=== PATIENT | male | born 1935 | race African-American/Black ===

== ENCOUNTER 2016-03-05 12:14 | Inpatient (IN) | payer MEDICARE ==
[~2016-03-05] VITALS: Ht 177.8 cm; Wt 121.9 kg
[2016-03-05] VITALS (16 sets, daily range): BP systolic 111–145; BP diastolic 56–77; PULSE 60–86; RESP 18–22; TEMP 97.9–99; O2SAT 97–100
[~2016-03-05 12:14] MED LIST: AMIT25 PO; BUME1TAB PO; CARV12.5 PO; DOXA1 PO; EMPA1TAB; ERGO50000 PO; FERR324T4 PO; GLIM2TAB PO; LEVO150T7 PO; MELO15TA2 PO; OXYC1SOL5 PO; POTA-267 PO; PROT40TA PO; QUIN40TA10 PO; RANI150T PO; ROSU10 PO; SITA100T MT; SPIR25TA PO
--- NOTE | 2016-03-05 13:29 | PD ---
HPI Chief Complaint: Respiratory Distress Time Seen by Provider: 13:23 Travel History International Travel<30 days: No Contact w/Intl Traveler<30days: No Traveled to known affect area: No History of Present Illness HPI 80-year-old male came to the emergency room with history of exertional dyspnea. Patient says that symptoms are progressively worsening over past 2 months. Exertional dyspnea and EVEN getting up and trying to tie his shoes or taking few steps. There has been significant swelling of both his legs and ankles. He has history of coronary artery disease with stents put in 7 or 8 years ago. His behavior clinician currently is Dr. Silverman. No history of chest pain. Vital signs were stable in the emergency room. His family members are here with him and they said that his one month ago and his condition seems to have worsened since then. [facility] Past Medical History Narrative Medical List of his past medical history as reviewed from the nursing note. Arthritis: Yes Asthma: No Autoimmune Disease: No Blood Disorders: No Anxiety: Yes Depression: No Heart Rhythm Problems: No Cancer: Yes (PROSTATE) Cardiovascular Problems: Yes High Cholesterol: Yes Chemotherapy: No Chest Pain: No Congestive Heart Failure: No COPD: No Cerebrovascular Accident: No Diabetes: Yes Patient Takes Glucophage: Yes Endocrine: Yes Gastrointestinal Disorders: Yes GERD: Yes Glaucoma: No Genitourinary: Yes Headaches: No Hepatitis: No Hiatal Hernia: Yes (GERD) Hypertension: Yes Immune Disorder: No Implanted Vascular Access Dvce: Yes Kidney Stones: No Medical other: Yes (ANEMIA) Musculoskeletal: Yes (ANANTH. CTS) Neurologic: Yes Psychiatric: Yes Reproductive: No Respiratory: Yes Immunizations Current: Yes Myocardial Infarction: No Radiation Therapy: No Renal Failure: No Seizures: No Sickle Cell Disease: No Sleep Apnea: Yes (CPAP) Thyroid Disease: Yes Ulcer: No Tetanus Vaccination: > 5 Years Influenza Vaccination: No Past Surgical History Abdominal Surgery: Yes (APPENDECTOMY) AICD: No Appendectomy: Yes Body Medical Devices: CARDIAC STENTS Cardiac Surgery: Yes (cardiac stent placement) Coronary Stent: Yes (X2) Ear Surgery: No Endocrine Surgery: Yes (SUBTOTAL THYROIDECTOMY) Eye Surgery: No Genitourinary Surgery: Yes (prostatectomy, ESWL) Gynecologic Surgery: Yes Oral Surgery: No Pacemaker: No Thoracic Surgery: No Other Surgery: Yes (THYROIDECTOMY 09/01/10) Social History Alcohol Use: Yes (2 DRINKS/WEEK) Tobacco Use: No Substance Use: No Allergies-Medications (Allergen,Severity, Reaction): Coded Allergies: Oscal 500 (Verified Allergy, Severe, 03/05/16) rash Shellfish (Verified Allergy, Severe, 03/05/16) rash Tetanus Toxoid (Verified Allergy, Severe, 03/05/16) rash Comments List of his allergies reviewed from the nursing note. Reported Meds & Prescriptions Reported Meds & Active Scripts Active Reported Janumet (Sitagliptin-Metformin) 50-500 Mg Tab 100 Tab PO HS Jardiance (Empagliflozin) 10 Mg Tab 10 Mg PO DAILY Amitriptyline (Amitriptyline HCl) 25 Mg Tab 25 Mg PO HS Gabapentin 300 Mg Cap 300 Mg PO HS Rosuvastatin (Rosuvastatin Calcium) 20 Mg Tab 20 Mg PO DAILY Omeprazole 20 Mg Tab 20 Mg PO DAILY Spironolactone 25 Mg Tab 25 Mg PO BIDPC Tradjenta (Linagliptin) 5 Mg Tab 5 Mg PO DAILY Celecoxib 200 Mg Cap 200 Mg PO BID Vitamin D (Ergocalciferol) 50,000 Unit Cap 50,000 Units PO Q7D Bumetanide 1 Mg Tab 1 Mg PO DAILY Ranitidine (Ranitidine HCl) 150 Mg Tab 150 Mg PO HS Lortab (Hydrocodone-Acetaminophen) 5-325 Mg Tab 1 Tab PO Q4H PRN Levothyroxine (Levothyroxine Sodium) 150 Mcg Tab 150 Mcg PO DAILY Ferrous Sulfate 325 Mg Tab 65 Mg PO DAILY Potassium Chloride ER (Potassium Chloride) 10 Meq Tab 10 Meq PO DAILY Furosemide 40 Mg Tab 40 Mg PO DAILY Carvedilol 25 Mg Tab 25 Mg PO BID Doxazosin (Doxazosin Mesylate) 1 Mg Tab 1 Mg PO HS Glimepiride 4 Mg Tab 4 Mg PO BIDAC Quinapril (Quinapril HCl) 40 Mg Tab 40 Mg PO DAILY Narrative Medication List of his home medications reviewed from the nursing note. Review of Systems Except as stated in HPI: all other systems reviewed are Neg Physical Exam Narrative GENERAL: Awake, alert, morbidly obese, moderate distress SKIN: Warm and dry. Multiple Acanthotic nevi HEAD: Atraumatic. Normocephalic. EYES: Pupils equal and round. No scleral icterus. No injection or drainage. ENT: No nasal bleeding or discharge. Mucous membranes pink and moist. NECK: Trachea midline. No JVD. CARDIOVASCULAR: Regular rate and rhythm. No murmur appreciated. RESPIRATORY: No accessory muscle use. Clear to auscultation. Breath sounds equal bilaterally. GASTROINTESTINAL: Abdomen soft, non-tender, nondistended. Hepatic and splenic margins not palpable. MUSCULOSKELETAL: No obvious deformities. No clubbing. No cyanosis. Bilateral 3 + pedal edema. NEUROLOGICAL: Awake and alert. No obvious cranial nerve deficits. Motor grossly within normal limits. Normal speech. PSYCHIATRIC: Appropriate mood and affect; insight and judgment normal. Data Data Last Documented VS Vital Signs Date Time Temp Pulse Resp B/P Pulse Ox O2 Delivery O2 Flow Rate FiO2 03/05/16 14:05 95 Room Air 03/05/16 14:05 20 03/05/16 12:43 85 03/05/16 12:36 98.1 123/57 Orders Electrocardiogram (03/05/16 ) Complete Blood Count With Diff (03/05/16 13:40) Basic Metabolic Panel (Bmp) (03/05/16 13:40) B-Type Natriuretic Peptide (03/05/16 13:40) Prothrombin Time / Inr (Pt) (03/05/16 13:40) Magnesium (Mg) (03/05/16 13:40) Ckmb (Isoenzyme) Profile (03/05/16 13:40) Troponin I (03/05/16 13:40) Urinalysis - C+S If Indicated (03/05/16 13:40) Iv Access Insert/Monitor (03/05/16 13:40) Ecg Monitoring (03/05/16 13:40) Oximetry (03/05/16 13:40) Oxygen Administration (03/05/16 13:40) Chest, Single Ap (03/05/16 13:40) Sodium Chloride 0.9% Flush (Ns Flush) (03/05/16 13:45) Furosemide Inj (Lasix Inj) (03/05/16 13:45) Red Blood Cells (Rbc) (03/05/16 14:25) Blood Product Administration .UPON TRANSFUSION (03/05/16 14:25) Sodium Chlor 0.9% 250 Ml Inj (Ns 250 Ml (03/05/16 14:30) Type And Screen (03/05/16 14:25) Admit Order (Ed Use Only) (03/05/16 14:50) Labs Laboratory Tests Test 03/05/16 03/05/16 13:45 14:00 White Blood Count 10.3 TH/MM3 Red Blood Count 2.01 MIL/MM3 Hemoglobin 5.0 GM/DL Hematocrit 17.2 % Mean Corpuscular Volume 85.8 FL Mean Corpuscular Hemoglobin 24.8 PG Mean Corpuscular Hemoglobin 28.9 % Concent Red Cell Distribution Width 17.2 % Platelet Count 322 TH/MM3 Mean Platelet Volume 8.5 FL Neutrophils (%) (Auto) 85.4 % Lymphocytes (%) (Auto) 6.0 % Monocytes (%) (Auto) 8.0 % Eosinophils (%) (Auto) 0.3 % Basophils (%) (Auto) 0.3 % Neutrophils # (Auto) 8.8 TH/MM3 Lymphocytes # (Auto) 0.6 TH/MM3 Monocytes # (Auto) 0.8 TH/MM3 Eosinophils # (Auto) 0.0 TH/MM3 Basophils # (Auto) 0.0 TH/MM3 CBC Comment AUTO DIFF Differential Comment AUTO DIFF CONFIRMED Platelet Estimate NORMAL Platelet Morphology Comment NORMAL Prothrombin Time 11.4 SEC Prothromb Time International 1.0 RATIO Ratio Sodium Level 138 MEQ/L Potassium Level 5.0 MEQ/L Chloride Level 104 MEQ/L Carbon Dioxide Level 17.3 MEQ/L Anion Gap 17 MEQ/L Blood Urea Nitrogen 44 MG/DL Creatinine 2.59 MG/DL Estimat Glomerular Filtration 29 ML/MIN Rate Random Glucose 146 MG/DL Calcium Level 10.4 MG/DL Magnesium Level 2.2 MG/DL Total Creatine Kinase 87 U/L Troponin I 0.29 NG/ML B-Type Natriuretic Peptide 352 PG/ML Urine Color STRAW Urine Turbidity CLEAR Urine pH 5.0 Urine Specific [place] 1.006 Urine Protein NEG mg/dL Urine Glucose (UA) 300 mg/dL Urine Ketones NEG mg/dL Urine Occult Blood NEG Urine Nitrite NEG Urine Bilirubin NEG Urine Urobilinogen LESS THAN 2.0 MG/DL Urine Leukocyte Esterase NEG Urine WBC LESS THAN 1 /hpf Urine Squamous Epithelial <1 /hpf Cells Urine Mucus FEW /lpf Microscopic Urinalysis Comment CULT NOT INDICATED MDM Medical Decision Making Medical Screen Exam Complete: Yes Emergency Medical Condition: Yes Medical Record Reviewed: Yes Interpretation(s) Twelve-lead EKG was reviewed by me. Normal sinus rhythm, left axis deviation, right bundle branch block. Heart rate of 82 bpm. Differential Diagnosis Congestive heart failure, pneumonia, pleural effusion, pulmonary edema Narrative Course 1:56 PM awaiting for the blood test results and the chest x-ray. I've ordered 40 mg of IV Lasix. My suspicion is that patient is in congestive heart failure. 2:32 PM some of his blood test results are back and his hemoglobin and hematocrit is critically low. I just finished doing the stool Hemoccult. I've protocol out for GI and hospitalist for admission. I have put an order for 2 units of blood transfusion as well. I let the patient and family know about the test result, transfusion and the admission. Patient told me that 3-4 years ago he had something similar happen and they investigated extensively to find the cause of his anemia and could not find one. I just discussed the case with the GI specialist Dr. Fernández and as per him no need to give any protonic said any other medications till he has seen the patient. Awaiting for the hospitalist to call back for admission. 2:45 PM patient's chemistry came back and his troponin is elevated. Patient also has elevated creatinine and some metabolic acidosis. Compared to his past blood test result his renal function has been the worst today. He had an elevated troponin last year as well. Patient does have history of coronary artery disease and the severe anemia is probably causing him to have the acute coronary syndrome. He is not a candidate for heparin given his GI bleed. He will need to be admitted to the CICU at least. Awaiting for the admitting physician to call back. He would require cardiology consult. Critical Care Narrative Aggregate critical care time was 45 minutes. Time to perform other separately billable procedures was not included in the critical care time. My time did not include minutes spent treating any other patients simultaneously or on activities that did not directly contribute to the patient's treatment. The services I provided to this patient were to treat and/or prevent clinically significant deterioration that could result in: Symptomatic anemia, blood transfusion, elevated troponin, ACS, acute renal insufficiency I provided critical care services requiring my management, as noted below: Chart data review, documentation time, medication orders and management, vital sign assessments/reviewing monitor data, ordering and reviewing lab tests, ordering and interpreting/reviewing x-rays and diagnostic studies, care of the patient and discussion of the patient with the admitting physicians. Procedures EKG Prior to Arrival: Yes HemaPrompt Point of Care Internal Pos. & Neg. Controls: Passed Fecal Specimen Occult Blood: Positive Physician Communication Physician Communication Dr. Fernández Diagnosis Primary Impression: Symptomatic anemia Additional Impressions: GI bleed Qualified Code: K92.2 - Gastrointestinal hemorrhage, unspecified gastrointestinal hemorrhage type Exertional dyspnea ACS (acute coronary syndrome) Elevated troponin I level Acute renal insufficiency Admitting Information Admitting Physician Requests: Admit Dwayne Tobar MD Mar 05, 2016 13:29
[2016-03-05 13:41] LABS: MEAN CORPUSCULAR HGB CONC 28.9 % (32.0-36.0)
[2016-03-05] MEDS ORDERED: FUROSEMIDE 40 MG/4 ML VIAL IVP ONE (13:45)
[2016-03-05] MEDS ORDERED: SODIUM CHLORIDE 0.9% FLUSH 5 ML FLUSH IVF PRN (13:45)
[2016-03-05 14:16] LABS: AUTOMATED NEUTROPHIL # 8.8 TH/MM3 (1.8-7.7); BASOPHIL % 0.3 % (0.0-2.0); EOSINOPHIL % 0.3 % (0.0-4.0); LYMPHOCYTE # 0.6 TH/MM3 (1.0-4.8); MEAN CELL VOLUME 85.8 FL (80.0-100.0); MEAN CORPUSCULAR HEMOGLOBIN 24.8 PG (27.0-34.0); NEUT % 85.4 % (16.0-70.0); PLATELET COUNT 322 TH/MM3 (150-450); RED BLOOD COUNT 2.01 MIL/MM3 (4.50-5.90); RED CELL DISTRIBUTION WIDTH 17.2 % (11.6-17.2); WHITE BLOOD COUNT 10.3 TH/MM3 (4.0-11.0)
[2016-03-05 14:17] LABS: HEMO FLAGS AUTO DIFF
[2016-03-05 14:22] LABS: HEMATOCRIT 17.2 % (39.0-51.0)
[2016-03-05 14:23] LABS: PROTHROMBIN TIME - PATIENT 11.4 SEC (9.8-11.6)
[2016-03-05 14:23] LABS: BLOOD, URINE NEG (NEG); COMMENT (UR) CULT NOT INDICATED; CULTURE IF INDICATED CULT NOT INDICATED; GLUCOSE,URINE 300 mg/dL (NEG); KETONE, URINE NEG (NEG); MUCUS URINE FEW /lpf (OCC); NITRITE,URINE NEG (NEG); SQUAMOUS EPITHELIAL CELL URINE <1 /hpf (0-5)
--- NOTE | 2016-03-05 14:24 | RADRPT ---
EXAM DATE/TIME: 03/05/2016 14:10 [facility] COMPARISON: CHEST SINGLE AP, September 07, 2014, 15:28. INDICATIONS : Short of breath. MEDICAL HISTORY : Hypertension. Carcinoma, prostatic. Diabetes. Anemia. SURGICAL HISTORY : None. ENCOUNTER: Initial ACUITY: 2 weeks PAIN SCORE: 0/10 LOCATION: chest FINDINGS: There is cardiomegaly and stable right paratracheal soft tissue density unchanged. Lungs are clear. O sseous structures demonstrate degenerative changes. CONCLUSION: No significant change has occurred. Alberto Marquez MD on March 05, 2016 at 14:22 Board Certified Radiologist. This report was verified electronically.
[2016-03-05 14:29] LABS: URINE COLOR STRAW (YELLW/STRAW)
[2016-03-05] MEDS ORDERED: SODIUM CHLOR 0.9% 250 ML INJ 250 ML IV ONE (14:30)
[2016-03-05] MEDS ORDERED: DOXA1TAB36 PO (14:40)
[2016-03-05] MEDS ORDERED: SPIR25TA PO (14:40)
[2016-03-05] MEDS ORDERED: POTA10TA2 PO (14:40)
[2016-03-05] MEDS ORDERED: BUME1TAB PO (14:40)
[2016-03-05] MEDS ORDERED: GLIM4TAB PO (14:40)
[2016-03-05] MEDS ORDERED: FURO40TA PO (14:40)
[2016-03-05] MEDS ORDERED: FERR325T PO (14:40)
[2016-03-05] MEDS ORDERED: LEVO150T7 PO (14:40)
[2016-03-05] MEDS ORDERED: CELE1CAP8 PO (14:40)
[2016-03-05] MEDS ORDERED: TRAD5TAB PO (14:40)
[2016-03-05] MEDS ORDERED: CARV25TA PO (14:40)
[2016-03-05] MEDS ORDERED: RANI150T PO (14:40)
[2016-03-05] MEDS ORDERED: ERGO1CAP10 PO (14:40)
[2016-03-05] MEDS ORDERED: QUIN40TA2 PO (14:40)
[2016-03-05] MEDS ORDERED: GABA300C5 PO (14:40)
[2016-03-05] MEDS ORDERED: HYDR-3533 PO (14:40)
[2016-03-05] MEDS ORDERED: ROSU1TAB8 PO (14:40)
[2016-03-05] MEDS ORDERED: OMEP20TA PO (14:40)
[2016-03-05] MEDS ORDERED: AMIT25TA9 PO (14:40)
[2016-03-05 14:41] LABS: BICARBONATE 17.3 MEQ/L (21.0-32.0); MAGNESIUM 2.2 MG/DL (1.5-2.5)
[2016-03-05] MEDS ORDERED: EMPA1TAB PO (14:41)
[2016-03-05] MEDS ORDERED: JANU50TA4 PO (14:41)
[2016-03-05 15:11] LABS: PLATELET ESTIMATE SMEAR NORMAL (NORMAL); PLATELET MORPHOLOGY NORMAL (NORMAL); SCAN/DIFF AUTO DIFF CONFIRMED
[2016-03-05] MEDS ORDERED: SODIUM CHLORIDE 0.9% FLUSH 5 ML FLUSH FLUSH PRN (16:00)
[2016-03-05] MEDS ORDERED: NALOXONE HCL 0.4 MG/ML AMP IV PRN (16:00)
[2016-03-05] MEDS ORDERED: DEXTROSE 50% IN WATER 50 ML VIAL(D50) IV PUSH PRN (16:15)
[2016-03-05] MEDS ORDERED: GLUCAGON 1 MG/ML VIAL OTHER PRN (16:15)
[2016-03-05] MEDS ORDERED: ZOLPIDEM TARTRATE 5 MG TAB PO PRN (17:00)
[2016-03-05] MEDS ORDERED: SENNOSIDES 8.6 MG TAB PO PRN (17:00)
[2016-03-05] MEDS: DEXT 5%-NACL 0.9% 1000 ML INJ 1,000 ML IV SCH (17:00)
[2016-03-05] MEDS ORDERED: BISACODYL 10 MG SUPP PR PRN (17:00)
[2016-03-05] MEDS ORDERED: cloNIDine HCL 0.1 MG TAB PO PRN (17:00)
[2016-03-05] MEDS ORDERED: hydrALAZINE HCL 20 MG/ML VIAL IV PUSH PRN (17:00)
[2016-03-05] MEDS ORDERED: MAGNESIUM HYDROXIDE SUSP 30 ML CUP PO PRN (17:00)
[2016-03-05] MEDS ORDERED: LORazepam 0.5 MG TAB PO PRN (17:00)
[2016-03-05] MEDS ORDERED: ONDANSETRON HCL 4 MG/2 ML VIAL IVP PRN (17:00)
[2016-03-05] MEDS ORDERED: ACETAMINOPHEN 325 MG TAB PO PRN (17:00)
--- NOTE | 2016-03-05 17:32 | RADRPT ---
EXAM DATE/TIME: 03/05/2016 16:43 [facility] COMPARISON: Report only US KIDNEY/RENAL/BLADDER, September 26, 2010, 21:18. INDICATIONS : Increased Bun and Creatine. MEDICAL HISTORY : Hypertension. Carcinoma, prostate. Gastroesophageal reflux disease. High cholesterol. Anemia. SURGICAL HISTORY : Appendectomy. Thyroidectomy. Cardiac stent. Prostatectomy. ENCOUNTER: Initial ACUITY: 1 day PAIN SCORE: 7/10 LOCATION: Bilateral flank MEASUREMENTS: RIGHT KIDNEY: 13.4 x 5.8 x 5.5 cm LEFT KIDNEY: 9.7 x 6.4 x 6.2 cm FINDINGS: Bilateral parenchyma is diffusely echogenic. There are multiple cysts, 5.5 cm right lower pole, 6.3 c m right lower pole, 3.8 cm left upper pole and 4.9 cm left lower pole. No hydronephrosis seen. Urinary bladder nondistended and grossly unremarkable. CONCLUSION: 1. Both kidneys are echogenic typical of chronic parenchymal disease, nonspecific but for example rel ated to chronic hypertension or diabetes. 2. No obstructive uropathy or other acute abnormality demonstrated. 3. Bilateral benign-appearing cysts. 4. Urinary bladder within normal limits. Rick Cote MD on March 05, 2016 at 17:28 Board Certified Radiologist. This report was verified electronically.
[2016-03-05] MEDS: SODIUM CHLORIDE 0.9% FLUSH 5 ML FLUSH FLUSH SCH (20:54)
[2016-03-05] MEDS: INSULIN ASPART SUPPLEMENTAL SCALE SQ SCH (20:58)
[2016-03-05] MEDS: PANTOPRAZOLE SODIUM 40 MG VIAL IV PUSH SCH (21:00)
[2016-03-05] MEDS: CARVEDILOL 12.5 MG TAB PO SCH (21:00)
[2016-03-06] VITALS (24 sets, daily range): BP systolic 104–147; BP diastolic 58–90; PULSE 52–76; RESP 18–20; TEMP 98–99; O2SAT 98–100
[2016-03-06] MEDS: LEVOTHYROXINE SODIUM 150 MCG TAB PO SCH (06:13)
[2016-03-06] MEDS: FUROSEMIDE 40 MG/4 ML VIAL IV PUSH SCH ×2 (06:14→16:55)
[2016-03-06] MEDS: INSULIN ASPART SUPPLEMENTAL SCALE SQ SCH ×4 (06:15→21:00)
--- NOTE | 2016-03-06 07:19 | HHI.HP ---
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 NEW TO MY PRACTICE OF LAST WEEK. I KNOW HIS DGTR IN LAW AND SHE BROUGHT HIM INTO MY OFFICE LAST WEEK WITH NUMEROUS ISSUES. HIS ONE MONTH AGO AND HE HAS BEEN GRIEVING. C/O FLUID OVERLOAD, SEVERE EDEMA, VARIABLE SUGARS AND WANTED TO COME OFF OF HIS NUMEROUS MEDICATIONS. HIS MAIN COMPLAINT WAS CHRONIC SEVERE EDEMA AND ROSS AND SOB. HE THUS PRESENTED TO THE ER WITH SEVERE ROSS AND SOB. I WAS CALLED BY THE ER MD FOR ADMIT DUE TO BLOOD LOSS ANEMIA, LEXI, AND ACS. PT C/O WEAKNESS AND ROSS WITH EXCESS URINATION W IV LASIX. Review of Systems ROS Limitations: Clinical Condition, Altered Mental Status, Poor Historian Other -14 PT ROS EXCEPT IN HPI. Past Family Social History Allergies: Coded Allergies: Oscal 500 (Verified Allergy, Severe, 03/05/16) rash Shellfish (Verified Allergy, Severe, 03/05/16) rash Tetanus Toxoid (Verified Allergy, Severe, 03/05/16) rash Past Medical History DM' HTN UTI'S Past Surgical History CIRCUMC Reported Medications Current Medications Medications (Trade) Dose Ordered Sig/Domitila Route Start Time Stop Time Status Last Admin (Coreg) 25 mg BID PO 03/05/16 21:00 03/05/16 21:00 ([place] 5-325 Mg) 1 tab Q4H PRN PO 03/05/16 17:00 (Synthroid) 150 mcg DAILY@06 PO 03/06/16 06:00 03/06/16 06:13 (Lipitor) 40 mg DAILY PO 03/06/16 09:00 (NS Flush) 2 ml UNSCH PRN FLUSH 03/05/16 16:00 (NS Flush) 2 ml BID FLUSH 03/05/16 21:00 03/05/16 20:54 (Tylenol) 650 mg Q4H PRN PO 03/05/16 17:00 (Zofran Inj) 4 mg Q6H PRN IVP 03/05/16 17:00 (Dulcolax Supp) 10 mg DAILY PRN [place] 03/05/16 17:00 (Milk Of Magnesia Liq) 30 ml Q12H PRN PO 03/05/16 17:00 (Senokot) 17.2 mg Q12H PRN PO 03/05/16 17:00 (Ambien) 5 mg HS PRN PO 03/05/16 17:00 (Narcan Inj) 0.4 mg UNSCH PRN IV 03/05/16 16:00 (Ativan) 0.5 mg Q8H PRN PO 03/05/16 17:00 (Apresoline Inj) 20 mg Q4H PRN IV PUSH 03/05/16 17:00 Clonidine 0.1 mg 0.1 mg Q6H PRN PO 03/05/16 17:00 (D5W-NS 1000 ml Inj) 1,000 ml @ 20 mls/hr Q24H IV 03/05/16 17:00 03/05/16 17:00 (Lasix Inj) 40 mg DAILY@0600 IV PUSH 03/06/16 06:00 03/06/16 06:14 (Protonix Inj) 40 mg BID IV PUSH 03/05/16 21:00 03/05/16 21:00 (D50w (Vial) Inj) 25 ml UNSCH PRN IV PUSH 03/05/16 16:15 (Glucagon Inj) 1 mg UNSCH PRN OTHER 03/05/16 16:15 Family History HTN Social History , OCCAS ETOH, NO ILIICITS OR CIGS Physical Exam Vital Signs Vital Signs Date Time Temp Pulse Resp B/P Pulse Ox O2 Delivery O2 Flow Rate FiO2 03/06/16 06:00 76 03/06/16 05:00 61 03/06/16 04:00 55 03/06/16 04:00 98.5 56 20 124/66 100 03/06/16 03:00 56 03/06/16 02:00 55 03/06/16 01:00 54 03/06/16 00:00 99.0 59 20 113/60 100 03/06/16 00:00 55 03/05/16 23:15 99 21 03/05/16 23:00 60 03/05/16 22:15 99.0 64 21 139/77 100 03/05/16 22:10 74 03/05/16 21:01 98.7 74 18 112/64 99 Room Air 03/05/16 20:51 98.7 76 18 113/60 99 Room Air 03/05/16 20:21 74 18 125/58 99 Room Air 03/05/16 19:30 98 03/05/16 19:00 68 18 111/64 99 Room Air 03/05/16 18:55 98.6 80 18 125/70 97 Room Air 03/05/16 18:10 98.8 83 20 122/67 98 Room Air 03/05/16 17:12 83 22 145/65 98 Room Air 03/05/16 16:00 83 20 127/59 100 Room Air 03/05/16 14:05 95 Room Air 03/05/16 14:05 20 98 Room Air 03/05/16 12:43 85 20 100 Room Air 03/05/16 12:36 98.1 80 22 123/57 100 03/05/16 12:16 97.9 86 20 115/56 99 Room Air Physical Exam GENERAL: This is a chronically ill appearing, morbidly obese, AAM SKIN: No rashes, ecchymoses or lesions. Cool and dry. HEAD: Atraumatic. Normocephalic. No temporal or scalp tenderness. EYES: Pupils equal round and reactive. Extraocular motions intact. No scleral icterus. No injection or drainage. ENT: Nose without bleeding, purulent drainage or septal hematoma. Throat without erythema, tonsillar hypertrophy or exudate. Uvula midline. Airway patent. NECK: Trachea midline. No JVD or lymphadenopathy. Supple, nontender, no meningeal signs. CARDIOVASCULAR: Regular rate and rhythm without murmurs, gallops, or rubs. RESPIRATORY: Clear to auscultation. Breath sounds equal bilaterally. No wheezes , rales, or rhonchi. GASTROINTESTINAL: Abdomen soft, non-tender, nondistended. No hepato-splenomegaly , or palpable masses. No guarding. MUSCULOSKELETAL: Extremities without clubbing, cyanosis, or edema. No joint tenderness, effusion, 2 plus bilat LE edema to patellas. No calf tenderness. Negative Homans sign bilaterally. NEUROLOGICAL: Awake and alert. Cranial nerves II through XII intact. Motor and sensory grossly within normal limits. 2 out of 5 muscle strength in all muscle groups. Normal speech. Laboratory Laboratory Tests Test 03/05/16 03/05/16 03/05/16 13:45 14:00 15:45 White Blood Count 10.3 Red Blood Count 2.01 Hemoglobin 5.0 Hematocrit 17.2 Mean Corpuscular Volume 85.8 Mean Corpuscular Hemoglobin 24.8 Mean Corpuscular Hemoglobin 28.9 Concent Red Cell Distribution Width 17.2 Platelet Count 322 Mean Platelet Volume 8.5 Neutrophils (%) (Auto) 85.4 Lymphocytes (%) (Auto) 6.0 Monocytes (%) (Auto) 8.0 Eosinophils (%) (Auto) 0.3 Basophils (%) (Auto) 0.3 Neutrophils # (Auto) 8.8 Lymphocytes # (Auto) 0.6 Monocytes # (Auto) 0.8 Eosinophils # (Auto) 0.0 Basophils # (Auto) 0.0 CBC Comment AUTO DIFF Differential Comment AUTO DIFF CONFIRMED Platelet Estimate NORMAL Platelet Morphology Comment NORMAL Prothrombin Time 11.4 Prothromb Time International 1.0 Ratio Sodium Level 138 Potassium Level 5.0 Chloride Level 104 Carbon Dioxide Level 17.3 Anion Gap 17 Blood Urea Nitrogen 44 Creatinine 2.59 Estimat Glomerular Filtration 29 Rate Random Glucose 146 Calcium Level 10.4 Magnesium Level 2.2 Total Creatine Kinase 87 Troponin I 0.29 B-Type Natriuretic Peptide 352 Urine Color STRAW Urine Turbidity CLEAR Urine pH 5.0 Urine Specific [place] 1.006 Urine Protein NEG Urine Glucose (UA) 300 Urine Ketones NEG Urine Occult Blood NEG Urine Nitrite NEG Urine Bilirubin NEG Urine Urobilinogen LESS THAN 2.0 Urine Leukocyte Esterase NEG Urine WBC LESS THAN 1 Urine Squamous Epithelial <1 Cells Urine Mucus FEW Microscopic Urinalysis Comment CULT NOT INDICATED Blood Type A POSITIVE Antibody Screen NEGATIVE Crossmatch Leukocyte-Reduced Red Blood Cells Blood Bank Comment Result Diagram: 03/05/16 1345 03/05/16 1345 Imaging Last 48 hours Impressions Chest X-Ray 03/05/16 1340 Signed Impressions: Service Date/Time: Saturday, March 05, 2016 14:10 - CONCLUSION: No significant change has occurred. Alberto Marquez MD Renal Ultrasound 03/05/16 0000 Signed Impressions: Service Date/Time: Saturday, March 05, 2016 16:43 - CONCLUSION: 1. Both kidneys are echogenic typical of chronic parenchymal disease, nonspecific but for example related to chronic hypertension or diabetes. 2. No obstructive uropathy or other acute abnormality demonstrated. 3. Bilateral benign-appearing cysts. 4. Urinary bladder within normal limits. Rick Cote MD Assessment and Plan Problem List: (1) Anemia Status: Acute (2) SOB (shortness of breath) Status: Acute (3) CHF (congestive heart failure) Status: Chronic (4) Lymphedema Status: Acute (5) DM (diabetes mellitus) Status: Chronic (6) Elevated troponin Status: Acute (7) GI bleed Status: Acute (8) Exertional dyspnea Status: Acute (9) Symptomatic anemia Status: Acute (10) Elevated troponin I level Status: Acute (11) Acute renal insufficiency Status: Acute (12) ACS (acute coronary syndrome) Status: Acute (13) Cortical age-related cataract, bilateral Status: Acute Assessment and Plan BLOOD LOSS ANEMIA GIB CHF ACS TROPONEMIA DUE TO ACS VS CKD VS CHF FLUID OVERLOAD SEVERE EDEMA DM LEXI AC ON CKD 3 UTI'S DUE TO BEING NONCIRCUMCISED, S/P CIRCUMCISION AT 80 Y PLAN: ECHO CARDIAC NZ'S IVF NPO IV PROTONIX IV LASIX RENAL US GI CONSULT FOR GIB INSULIN TRANSFUSE TWO U PRBC'S DR CHANEY CONSULT NEPHRO CONSULT WOUND CONSULT FOR LYMPHEDEMA WRAPS INPT ADMIT FOR THE ABOVE DX AND PLAN. EXPECT 3 D INPT STAY. PT WOULD FROM THE ABOVE W/O INPT ADMIT. Problem Qualifiers (1) GI bleed: Qualified Code: K92.2 - Gastrointestinal hemorrhage, unspecified gastrointestinal hemorrhage type Garry Rodriguez MD Mar 06, 2016 07:19
[2016-03-06 07:52] LABS: AUTOMATED NEUTROPHIL # 7.1 TH/MM3 (1.8-7.7); BASOPHIL % 0.3 % (0.0-2.0); EOSINOPHIL # 0.1 TH/MM3 (0-0.4); EOSINOPHIL % 1.2 % (0.0-4.0); HEMATOCRIT 21.6 % (39.0-51.0); LYMPH % 11.1 % (9.0-44.0); MEAN CELL VOLUME 81.5 FL (80.0-100.0); MEAN CORPUSCULAR HEMOGLOBIN 25.8 PG (27.0-34.0); MEAN CORPUSCULAR HGB CONC 31.7 % (32.0-36.0); MONO % 9.6 % (0.0-8.0); NEUT % 77.8 % (16.0-70.0); PLATELET COUNT 276 TH/MM3 (150-450); RED BLOOD COUNT 2.66 MIL/MM3 (4.50-5.90); RED CELL DISTRIBUTION WIDTH 16.7 % (11.6-17.2); WHITE BLOOD COUNT 9.1 TH/MM3 (4.0-11.0)
[2016-03-06 08:01] LABS: HEMO FLAGS AUTO DIFF
[2016-03-06 08:29] LABS: BICARBONATE 24.2 MEQ/L (21.0-32.0); POTASSIUM 4.9 MEQ/L (3.5-5.1)
[2016-03-06] MEDS: PANTOPRAZOLE SODIUM 40 MG VIAL IV PUSH SCH ×2 (08:31→21:00)
[2016-03-06] MEDS: ATORVASTATIN 40 MG TAB PO SCH (08:32)
[2016-03-06] MEDS: CARVEDILOL 12.5 MG TAB PO SCH ×2 (08:33→21:34)
[2016-03-06] MEDS: SODIUM CHLORIDE 0.9% FLUSH 5 ML FLUSH FLUSH SCH ×2 (08:34→21:35)
[2016-03-06 08:55] LABS: SCAN/DIFF AUTO DIFF CONFIRMED
--- NOTE | 2016-03-06 09:44 | PD.CONS ---
HPI History of Present Illness This is a 80 year old male who presented to the ED with C/O severe dyspnea on exertion, edema and increased weakness. He was found to have severe anemia with H&H of 5.0/17.2. Stool was heme positive. He has noticed increasing fatigue, weakness and stools darker than normal over the past two months. He denies any hematemesis and did not see any bright red blood in his stools. Last colonoscopy /EGD was about 6 years ago when he had similar symptoms and according to the patient, the procedures did not explain any reason for the anemia. He had a capsule endoscopy done at that time which he states was normal. He has a PMH of DM, CAD S/P stent, HTN and UTI's, anemia and prostate CA. He is not on any blood thinners, does take Celebrex.. Denies abdominal pain, diarrhea but has had mild constipation. He is a and recently lost his in January. (Matilde Steiner) PFSH Past Medical History DM CAD w/stent UTI's HTN Anemia Prostate cancer Past Surgical History Circumcision cardiac cath/stent placement Prostatectomy (Matilde Steiner) Coded Allergies: Oscal 500 (Verified Allergy, Severe, 03/05/16) rash Shellfish (Verified Allergy, Severe, 03/05/16) rash Tetanus Toxoid (Verified Allergy, Severe, 03/05/16) rash Medications Reported Meds & Active Scripts Active Reported Janumet (Sitagliptin-Metformin) 50-500 Mg Tab 100 Tab PO HS Jardiance (Empagliflozin) 10 Mg Tab 10 Mg PO DAILY Amitriptyline (Amitriptyline HCl) 25 Mg Tab 25 Mg PO HS Gabapentin 300 Mg Cap 300 Mg PO HS Rosuvastatin (Rosuvastatin Calcium) 20 Mg Tab 20 Mg PO DAILY Omeprazole 20 Mg Tab 20 Mg PO DAILY Spironolactone 25 Mg Tab 25 Mg PO BIDPC Tradjenta (Linagliptin) 5 Mg Tab 5 Mg PO DAILY Celecoxib 200 Mg Cap 200 Mg PO BID Vitamin D (Ergocalciferol) 50,000 Unit Cap 50,000 Units PO Q7D Bumetanide 1 Mg Tab 1 Mg PO DAILY Ranitidine (Ranitidine HCl) 150 Mg Tab 150 Mg PO HS Lortab (Hydrocodone-Acetaminophen) 5-325 Mg Tab 1 Tab PO Q4H PRN Levothyroxine (Levothyroxine Sodium) 150 Mcg Tab 150 Mcg PO DAILY Ferrous Sulfate 325 Mg Tab 65 Mg PO DAILY Potassium Chloride ER (Potassium Chloride) 10 Meq Tab 10 Meq PO DAILY Furosemide 40 Mg Tab 40 Mg PO DAILY Carvedilol 25 Mg Tab 25 Mg PO BID Doxazosin (Doxazosin Mesylate) 1 Mg Tab 1 Mg PO HS Glimepiride 4 Mg Tab 4 Mg PO BIDAC Quinapril (Quinapril HCl) 40 Mg Tab 40 Mg PO DAILY Family History HTN, cancer in Mother, brother with cancer in lymph nodes Social History Recently , drinks one drink daily, quit smoking years ago (Matilde Steiner) Review of Systems Cardiovascular: COMPLAINS OF: Lower Extremity Edema Gastrointestinal: COMPLAINS OF: Constipation, DENIES: Nausea, Vomiting, Odynophagia (Matilde Steiner) GI Exam Vitals I&O Vital Signs Date Time Temp Pulse Resp B/P Pulse Ox O2 Delivery O2 Flow Rate FiO2 03/06/16 09:07 72 03/06/16 08:00 98.2 55 20 129/70 100 03/06/16 08:00 70 03/06/16 06:00 76 03/06/16 05:00 61 03/06/16 04:00 55 03/06/16 04:00 98.5 56 20 124/66 100 03/06/16 03:00 56 03/06/16 02:00 55 03/06/16 01:00 54 03/06/16 00:00 99.0 59 20 113/60 100 03/06/16 00:00 55 03/05/16 23:15 99 21 03/05/16 23:00 60 03/05/16 22:15 99.0 64 21 139/77 100 03/05/16 22:10 74 03/05/16 21:01 98.7 74 18 112/64 99 Room Air 03/05/16 20:51 98.7 76 18 113/60 99 Room Air 03/05/16 20:21 74 18 125/58 99 Room Air 03/05/16 19:30 98 03/05/16 19:00 68 18 111/64 99 Room Air 03/05/16 18:55 98.6 80 18 125/70 97 Room Air 03/05/16 18:10 98.8 83 20 122/67 98 Room Air 03/05/16 17:12 83 22 145/65 98 Room Air 03/05/16 16:00 83 20 127/59 100 Room Air 03/05/16 14:05 95 Room Air 03/05/16 14:05 20 98 Room Air 03/05/16 12:43 85 20 100 Room Air 03/05/16 12:36 98.1 80 22 123/57 100 03/05/16 12:16 97.9 86 20 115/56 99 Room Air I/O 03/05/16 03/05/16 03/05/16 03/06/16 03/06/16 03/06/16 07:00 15:00 23:00 07:00 15:00 23:00 Intake Total 250 ml 569 ml Output Total 4 ml Balance 250 ml 565 ml Intake Oral 0 ml IV Total 219 ml Packed Cells 250 ml 350 ml Output Urine Total 4 ml Imaging Last 24 hours Impressions Chest X-Ray 03/05/16 1340 Signed Impressions: Service Date/Time: Saturday, March 05, 2016 14:10 - CONCLUSION: No significant change has occurred. Alberto Marquez MD Laboratory Test 03/05/16 03/05/16 03/05/16 03/06/16 13:45 14:00 15:45 07:05 White Blood Count 10.3 TH/MM3 9.1 TH/MM3 Red Blood Count 2.01 MIL/MM3 2.66 MIL/MM3 Hemoglobin 5.0 GM/DL 6.9 GM/DL Hematocrit 17.2 % 21.6 % Mean Corpuscular Volume 85.8 FL 81.5 FL Mean Corpuscular Hemoglobin 24.8 PG 25.8 PG Mean Corpuscular Hemoglobin 28.9 % 31.7 % Concent Red Cell Distribution Width 17.2 % 16.7 % Platelet Count 322 TH/MM3 276 TH/MM3 Mean Platelet Volume 8.5 FL 7.9 FL Neutrophils (%) (Auto) 85.4 % 77.8 % Lymphocytes (%) (Auto) 6.0 % 11.1 % Monocytes (%) (Auto) 8.0 % 9.6 % Eosinophils (%) (Auto) 0.3 % 1.2 % Basophils (%) (Auto) 0.3 % 0.3 % Neutrophils # (Auto) 8.8 TH/MM3 7.1 TH/MM3 Lymphocytes # (Auto) 0.6 TH/MM3 1.0 TH/MM3 Monocytes # (Auto) 0.8 TH/MM3 0.9 TH/MM3 Eosinophils # (Auto) 0.0 TH/MM3 0.1 TH/MM3 Basophils # (Auto) 0.0 TH/MM3 0.0 TH/MM3 CBC Comment AUTO DIFF AUTO DIFF Differential Comment AUTO DIFF AUTO DIFF CONFIRMED CONFIRMED Platelet Estimate NORMAL Platelet Morphology Comment NORMAL Prothrombin Time 11.4 SEC Prothromb Time International 1.0 RATIO Ratio Sodium Level 138 MEQ/L 141 MEQ/L Potassium Level 5.0 MEQ/L 4.9 MEQ/L Chloride Level 104 MEQ/L 108 MEQ/L Carbon Dioxide Level 17.3 MEQ/L 24.2 MEQ/L Anion Gap 17 MEQ/L 9 MEQ/L Blood Urea Nitrogen 44 MG/DL 45 MG/DL Creatinine 2.59 MG/DL 2.51 MG/DL Estimat Glomerular Filtration 29 ML/MIN 30 ML/MIN Rate Random Glucose 146 MG/DL 59 MG/DL Calcium Level 10.4 MG/DL 10.1 MG/DL Magnesium Level 2.2 MG/DL Total Creatine Kinase 87 U/L Troponin I 0.29 NG/ML 0.31 NG/ML B-Type Natriuretic Peptide 352 PG/ML Urine Color STRAW Urine Turbidity CLEAR Urine pH 5.0 Urine Specific [place] 1.006 Urine Protein NEG mg/dL Urine Glucose (UA) 300 mg/dL Urine Ketones NEG mg/dL Urine Occult Blood NEG Urine Nitrite NEG Urine Bilirubin NEG Urine Urobilinogen LESS THAN 2.0 MG/DL Urine Leukocyte Esterase NEG Urine WBC LESS THAN 1 /hpf Urine Squamous Epithelial <1 /hpf Cells Urine Mucus FEW /lpf Microscopic Urinalysis Comment CULT NOT INDICATED Blood Type A POSITIVE Antibody Screen NEGATIVE Crossmatch Leukocyte-Reduced Red Blood Cells Blood Bank Comment Test 03/06/16 08:26 Blood Type A POSITIVE Crossmatch Leukocyte-Reduced Red Blood Cells Blood Bank Comment Physical Examination HEENT: Pupils round and reactive to light; normocephalic; atraumatic; no jaundice. Throat is clear. NECK: Neck is supple, no JVD, no lymphadenopathy. CHEST: Chest is clear , decreased breath sounds CARDIAC: Regular rate and rhythm with no murmur gallop or rubs. ABDOMEN: Soft, nondistended, nontender; no hepatosplenomegaly; bowel sounds are present in all four quadrants. EXTREMITIES: 2-3 + edema SKIN: Normal; multiple pigmented areas on skin patient states is chronic TRANSPORTATION TECHNICIAN: No focal deficits; alert and oriented times three. (Matilde Steiner) Assessment and Plan Assessment: (1) GI bleed Plan: found to have severe anemia, with H&H of 5.0/17.2 Had stools darker than normal for the past two months Denies Hematemesis Follow H&H transfuse PRBC's to keep Hgb > 7.0 Continue Protonix Will need a colonoscopy and EGD when cleared by cardiology (2) Constipation Plan: mild Add stool softeners (3) Acute blood loss anemia Plan: Continue to follow H&H closely Stools were Heme + Transfuse PRBC's PRN to keep H&H > 7.0 Has Hx of anemia in the past with negative work up per patient about 6 years ago (4) Exertional dyspnea Plan: Secondary to anemia and fluid overload (5) Elevated troponin I level Plan: PCP following (6) DM (diabetes mellitus) Plan: followed by primary care (7) Edema Plan: Has 2-3+ lower ext edema follow by PCP Plan Plan -Follow H&H transfuse PRBC's PRN to keep Hgb > 7.0 -Continue Protonix -Call GI for any bleeding -Will need a colonoscopy and EGD once cleared by cardiology -Supportive care Patient was seen and examined by Dr. Fernández and myself, this consultation is dictated on his behalf. (Matilde Steiner) Physician Comments Seen and examined, plan as above, will follow up with you. (Yesica Fernández MD) Problem Qualifiers (1) GI bleed: Qualified Code: K92.2 - Gastrointestinal hemorrhage, unspecified gastrointestinal hemorrhage type (2) Constipation: Qualified Code: K59.00 - Constipation, unspecified constipation type (3) DM (diabetes mellitus): Qualified Code: E11.8 - Type 2 diabetes mellitus with complication, unspecified prison insulin use status (4) Edema: Qualified Code: R60.9 - Edema, unspecified type Matilde Steiner Mar 06, 2016 09:44 Yesica Fernández MD Mar 06, 2016 22:05
--- NOTE | 2016-03-06 13:21 | PD.CONS ---
HPI Service Nephrology Consult Requested By Dr. Rodriguez Reason for Consult Acute renal failure and chronic kidney disease Primary Care Physician Garry Rodriguez MD History of Present Illness Patient is a 80-year-old male with history of diabetes, hypertension, chronic kidney disease with a creatinine of 1.6 in September 2014 who presented with the weakness and found to have a hemoglobin 5, he received blood transfusion and his hemoglobin is 6.9, he states that similar thing happened the 01/04 years ago and he was given blood transfusion is stabilized she was seen by hide measuring machine operator at that time, his stools were positive for blood. He has not seen black stools or red stools. He denies any abdominal pain nausea or vomiting. He has chronic lymphedema and he started wrapping his legs recently Real bandage. Review of Systems Constitutional: COMPLAINS OF: Fatigue Cardiovascular: COMPLAINS OF: Lower Extremity Edema Musculoskeletal: COMPLAINS OF: Joint pain Neurologic: COMPLAINS OF: Abnormal gait Past Family Social History Allergies: Coded Allergies: Oscal 500 (Verified Allergy, Severe, 03/05/16) rash Shellfish (Verified Allergy, Severe, 03/05/16) rash Tetanus Toxoid (Verified Allergy, Severe, 03/05/16) rash Past Medical History Diabetes Hypertension Congestive heart failure Chronic lymphedema Anemia Chronic kidney disease Prostate cancer Coronary artery disease Past Surgical History Cardiac stent Prostatectomy Appendectomy Panendoscopy 2 years ago Reported Medications Reported Meds & Active Scripts Active Reported Janumet (Sitagliptin-Metformin) 50-500 Mg Tab 100 Tab PO HS Jardiance (Empagliflozin) 10 Mg Tab 10 Mg PO DAILY Amitriptyline (Amitriptyline HCl) 25 Mg Tab 25 Mg PO HS Gabapentin 300 Mg Cap 300 Mg PO HS Rosuvastatin (Rosuvastatin Calcium) 20 Mg Tab 20 Mg PO DAILY Omeprazole 20 Mg Tab 20 Mg PO DAILY Spironolactone 25 Mg Tab 25 Mg PO BIDPC Tradjenta (Linagliptin) 5 Mg Tab 5 Mg PO DAILY Celecoxib 200 Mg Cap 200 Mg PO BID Vitamin D (Ergocalciferol) 50,000 Unit Cap 50,000 Units PO Q7D Bumetanide 1 Mg Tab 1 Mg PO DAILY Ranitidine (Ranitidine HCl) 150 Mg Tab 150 Mg PO HS Lortab (Hydrocodone-Acetaminophen) 5-325 Mg Tab 1 Tab PO Q4H PRN Levothyroxine (Levothyroxine Sodium) 150 Mcg Tab 150 Mcg PO DAILY Ferrous Sulfate 325 Mg Tab 65 Mg PO DAILY Potassium Chloride ER (Potassium Chloride) 10 Meq Tab 10 Meq PO DAILY Furosemide 40 Mg Tab 40 Mg PO DAILY Carvedilol 25 Mg Tab 25 Mg PO BID Doxazosin (Doxazosin Mesylate) 1 Mg Tab 1 Mg PO HS Glimepiride 4 Mg Tab 4 Mg PO BIDAC Quinapril (Quinapril HCl) 40 Mg Tab 40 Mg PO DAILY Active Ordered Medications Current Medications Medications (Trade) Dose Ordered Sig/Domitila Route Start Time Stop Time Status Last Admin (Coreg) 25 mg BID PO 03/05/16 21:00 03/05/16 21:00 ([place] 5-325 Mg) 1 tab Q4H PRN PO 03/05/16 17:00 (Synthroid) 150 mcg DAILY@06 PO 03/06/16 06:00 03/06/16 06:13 (Lipitor) 40 mg DAILY PO 03/06/16 09:00 03/06/16 08:32 (NS Flush) 2 ml UNSCH PRN FLUSH 03/05/16 16:00 (NS Flush) 2 ml BID FLUSH 03/05/16 21:00 03/06/16 08:34 (Tylenol) 650 mg Q4H PRN PO 03/05/16 17:00 (Zofran Inj) 4 mg Q6H PRN IVP 03/05/16 17:00 (Dulcolax Supp) 10 mg DAILY PRN [place] 03/05/16 17:00 (Milk Of Magnesia Liq) 30 ml Q12H PRN PO 03/05/16 17:00 (Senokot) 17.2 mg Q12H PRN PO 03/05/16 17:00 (Ambien) 5 mg HS PRN PO 03/05/16 17:00 (Narcan Inj) 0.4 mg UNSCH PRN IV 03/05/16 16:00 (Ativan) 0.5 mg Q8H PRN PO 03/05/16 17:00 (Apresoline Inj) 20 mg Q4H PRN IV PUSH 03/05/16 17:00 Clonidine 0.1 mg 0.1 mg Q6H PRN PO 03/05/16 17:00 (D5W-NS 1000 ml Inj) 1,000 ml @ 20 mls/hr Q24H IV 03/05/16 17:00 03/05/16 17:00 (Lasix Inj) 40 mg DAILY@0600 IV PUSH 03/06/16 06:00 03/06/16 06:14 (Protonix Inj) 40 mg BID IV PUSH 03/05/16 21:00 03/06/16 08:31 (D50w (Vial) Inj) 25 ml UNSCH PRN IV PUSH 03/05/16 16:15 03/06/16 12:27 (Glucagon Inj) 1 mg UNSCH PRN OTHER 03/05/16 16:15 Family History Noncontributory Social History Used to smoke but quit long time ago, he drinks 1 alcoholic beverage a day Physical Exam Vital Signs Vital Signs Date Time Temp Pulse Resp B/P Pulse Ox O2 Delivery O2 Flow Rate FiO2 03/06/16 13:11 64 03/06/16 12:14 54 03/06/16 12:14 98.4 56 20 129/69 98 03/06/16 10:46 74 03/06/16 09:07 72 03/06/16 08:00 98.2 55 20 129/70 100 03/06/16 08:00 70 03/06/16 06:00 76 03/06/16 05:00 61 03/06/16 04:00 55 03/06/16 04:00 98.5 56 20 124/66 100 03/06/16 03:00 56 03/06/16 02:00 55 03/06/16 01:00 54 03/06/16 00:00 99.0 59 20 113/60 100 03/06/16 00:00 55 03/05/16 23:15 99 21 03/05/16 23:00 60 03/05/16 22:15 99.0 64 21 139/77 100 03/05/16 22:10 74 03/05/16 21:01 98.7 74 18 112/64 99 Room Air 03/05/16 20:51 98.7 76 18 113/60 99 Room Air 03/05/16 20:21 74 18 125/58 99 Room Air 03/05/16 19:30 98 03/05/16 19:00 68 18 111/64 99 Room Air 03/05/16 18:55 98.6 80 18 125/70 97 Room Air 03/05/16 18:10 98.8 83 20 122/67 98 Room Air 03/05/16 17:12 83 22 145/65 98 Room Air 03/05/16 16:00 83 20 127/59 100 Room Air 03/05/16 14:05 95 Room Air 03/05/16 14:05 20 98 Room Air Physical Exam GENERAL: Well-nourished, well-developed patient. SKIN: Warm and dry. HEAD: Normocephalic. EYES: No scleral icterus. No injection or drainage. NECK: Supple, trachea midline. No JVD or lymphadenopathy. CARDIOVASCULAR: Regular rate and rhythm without murmurs, gallops, or rubs. RESPIRATORY: Breath sounds equal bilaterally. No accessory muscle use. GASTROINTESTINAL: Abdomen soft, non-tender, nondistended. EXTREMITIES: No cyanosis, chronic edema legs wrapped in bandage. NEUROLOGICAL: Awake, alert, and oriented x 3. Non-focal. Laboratory Laboratory Tests Test 03/05/16 03/05/16 03/05/16 03/06/16 13:45 14:00 15:45 07:05 White Blood Count 10.3 9.1 Red Blood Count 2.01 2.66 Hemoglobin 5.0 6.9 Hematocrit 17.2 21.6 Mean Corpuscular Volume 85.8 81.5 Mean Corpuscular Hemoglobin 24.8 25.8 Mean Corpuscular Hemoglobin 28.9 31.7 Concent Red Cell Distribution Width 17.2 16.7 Platelet Count 322 276 Mean Platelet Volume 8.5 7.9 Neutrophils (%) (Auto) 85.4 77.8 Lymphocytes (%) (Auto) 6.0 11.1 Monocytes (%) (Auto) 8.0 9.6 Eosinophils (%) (Auto) 0.3 1.2 Basophils (%) (Auto) 0.3 0.3 Neutrophils # (Auto) 8.8 7.1 Lymphocytes # (Auto) 0.6 1.0 Monocytes # (Auto) 0.8 0.9 Eosinophils # (Auto) 0.0 0.1 Basophils # (Auto) 0.0 0.0 CBC Comment AUTO DIFF AUTO DIFF Differential Comment AUTO DIFF AUTO DIFF CONFIRMED CONFIRMED Platelet Estimate NORMAL Platelet Morphology Comment NORMAL Prothrombin Time 11.4 Prothromb Time International 1.0 Ratio Sodium Level 138 141 Potassium Level 5.0 4.9 Chloride Level 104 108 Carbon Dioxide Level 17.3 24.2 Anion Gap 17 9 Blood Urea Nitrogen 44 45 Creatinine 2.59 2.51 Estimat Glomerular Filtration 29 30 Rate Random Glucose 146 59 Calcium Level 10.4 10.1 Magnesium Level 2.2 Total Creatine Kinase 87 Troponin I 0.29 0.31 B-Type Natriuretic Peptide 352 Urine Color STRAW Urine Turbidity CLEAR Urine pH 5.0 Urine Specific [place] 1.006 Urine Protein NEG Urine Glucose (UA) 300 Urine Ketones NEG Urine Occult Blood NEG Urine Nitrite NEG Urine Bilirubin NEG Urine Urobilinogen LESS THAN 2.0 Urine Leukocyte Esterase NEG Urine WBC LESS THAN 1 Urine Squamous Epithelial <1 Cells Urine Mucus FEW Microscopic Urinalysis Comment CULT NOT INDICATED Blood Type A POSITIVE Antibody Screen NEGATIVE Crossmatch Leukocyte-Reduced Red Blood Cells Blood Bank Comment Test 03/06/16 08:26 Blood Type A POSITIVE Crossmatch Leukocyte-Reduced Red Blood Cells Blood Bank Comment Result Diagram: 03/06/16 0705 03/06/16 0705 Imaging Last Impressions Chest X-Ray 03/05/16 1340 Signed Impressions: Service Date/Time: Saturday, March 05, 2016 14:10 - CONCLUSION: No significant change has occurred. Alberto Marquez MD Renal Ultrasound 03/05/16 0000 Signed Impressions: Service Date/Time: Saturday, March 05, 2016 16:43 - CONCLUSION: 1. Both kidneys are echogenic typical of chronic parenchymal disease, nonspecific but for example related to chronic hypertension or diabetes. 2. No obstructive uropathy or other acute abnormality demonstrated. 3. Bilateral benign-appearing cysts. 4. Urinary bladder within normal limits. Rick Cote MD Assessment and Plan Problem List: (1) Acute renal insufficiency Plan: This is likely due to severe anemia will continue to monitor CMP HARDEEP C3, C4, Hepatitis and protein electrophoresis Urine did not show significant proteinuria (2) CKD (chronic kidney disease) stage 3, GFR 30-59 ml/min Plan: Over records show his creatinine was 1.6 (3) Anemia Plan: GI following getting more blood today (4) DM (diabetes mellitus) Plan: Follow blood glucose (5) Acute blood loss anemia Problem Qualifiers (1) DM (diabetes mellitus): Qualified Code: E11.8 - Type 2 diabetes mellitus with complication, unspecified assisted insulin use status Blake De Santiago MD Mar 06, 2016 13:21
--- NOTE | 2016-03-06 15:43 | EC ---
Study Study Date:03/06/2016 STUDY CONCLUSIONS SUMMARY - Procedure narrative: Transthoracic echocardiography. Image quality was poor. Scanning was performed from the parasternal, apical, and subcostal acoustic windows. - Left ventricle: The cavity size was normal. Wall thickness was normal. Systolic function was normal. The estimated ejection fraction was in the range of 55% to 60%. Wall motion was normal; there were no regional wall motion abnormalities. - Aortic valve: Valve area: 1.78cm^2 (Vmax). - Mitral valve: Mild regurgitation. - Tricuspid valve: Mild regurgitation. - Pulmonic valve: Mild regurgitation. If LV function is below 40, please consider prescribing an ACEI or ARB or document rationale for non-use. PROCEDURE DATA STUDY STATUS: Elective. Procedure: Transthoracic echocardiography. Image quality was poor. Scanning was performed from the parasternal, apical, and subcostal acoustic windows. Study completion: The patient tolerated the procedure well. Transthoracic echocardiography. M-mode, complete 2D, complete spectral Doppler, and color Doppler. Height: Height: 70in. Weight: Weight: 272.4lb. Body mass index: BMI: 39.2kg/m^2. Body surface area: BSA: 2.38m^2. Patient status: Inpatient. CARDIAC ANATOMY LEFT VENTRICLE: The cavity size was normal. Wall thickness was normal. Systolic function was normal. The estimated ejection fraction was in the range of 55% to 60%. Wall motion was normal; there were no regional wall motion abnormalities. AORTIC VALVE: Trileaflet; normal thickness leaflets. Doppler: Transvalvular velocity was within the normal range. There was no stenosis. No regurgitation. Valve area: 1.78cm^2 (Vmax). Indexed valve area: 0.75cm^2/m^2 (Vmax). Mean gradient: 10mm Hg (S). Peak gradient: 17mm Hg (S). AORTA: Aortic root: The aortic root was normal in size. MITRAL VALVE: Structurally normal valve. Doppler: Transvalvular velocity was within the normal range. There was no evidence for stenosis. Mild regurgitation. Peak gradient: 4mm Hg (D). LEFT ATRIUM: The atrium was normal in size. RIGHT VENTRICLE: The cavity size was normal. Wall thickness was normal. PULMONIC VALVE: Doppler: Transvalvular velocity was within the normal range. There was no evidence for stenosis. Mild regurgitation. TRICUSPID VALVE: Structurally normal valve. Doppler: Transvalvular velocity was within the normal range. Mild regurgitation. PULMONARY ARTERY: The main pulmonary artery was normal-sized. Systolic pressure was within the normal range. RIGHT ATRIUM: The atrium was normal in size. PERICARDIUM: There was no pericardial effusion. SYSTEMIC VEINS: Inferior vena cava: The vessel was normal in size. Patient weight: 272.4lb _Ejection fraction:_ 65-75% _Fractional shortening:_ 32% up to 5Kg 5-11.5Kg 11.6-22.9Kg 23-45Kg 45-57Kg Aortic Root 7-13 <17 13-22 17-27 17-27 LA diam 6-13 <23 24-38 33-47 37-40 RVID 10-17 7-15 7-15 7-18 8-17 LVIDd 12-22 <32 24-38 33-47 37-40 LVPW 2-4 3-6 5-7 6-8 7-8 IVS 2-4 3-6 5-7 6-8 7-8 BASIC MEASUREMENTS ADULT NORMAL Left ventricle LV internal dimension, ED, chordal 50.5 mm 43-52 level, PLAX LV internal dimension, ES, chordal 37.1 mm 23-38 level, PLAX Fractional shortening, chordal level, *27 % >29 PLAX LV posterior wall thickness, ED 9.35 mm IVS/LVPW ratio, ED 1.16 <1.3 Ventricular septum Septal thickness, ED 10.8 mm Aortic valve Leaflet separation 22 mm 15-26 BASIC MEASUREMENTS ADULT NORMAL Aortic valve Leaflet separation 22 mm 15-26 Aorta Root diameter, ED 25 mm 20-37 Left atrium Anterior-posterior dimension, ES 32 mm 19-40 Anterior-posterior dimension index, ES 1.34 cm/m^2 <2.2 LA/aortic root ratio 1.28 DOPPLER MEASUREMENTS ADULT NORMAL Main pulmonary artery Pressure, S 30 mm Hg =30 Pressure, ED 14 mm Hg Aortic valve Peak velocity, S 206 cm/s Mean velocity, S 151 cm/s VTI, S 42.9 cm Mean gradient, S 10 mm Hg Peak gradient, S 17 mm Hg Valve area, Vmax 1.78 cm^2 Valve area index, Vmax 0.75 cm^2/m^2 Mitral valve Peak E-wave velocity 102 cm/s Peak A-wave velocity 71.6 cm/s Deceleration time 208 ms 150-230 Peak gradient, D 4 mm Hg Peak E/A ratio 1.4 Maximal regurgitant velocity 363 cm/s Tricuspid valve Regurgitant peak velocity 199 cm/s Peak RV-RA gradient, S 16 mm Hg Maximal regurgitant velocity 199 cm/s Systemic veins Estimated CVP 10 mm Hg Right ventricle RV pressure, S *34 mm Hg <30 Pulmonic valve Peak velocity, S 102 cm/s Regurgitant velocity, ED 105 cm/s LEGEND: Mean values are shown as u=mean value. Asterisk (*) bowman values outside specified normal range. Prepared and signed by Willy De León [id number]
[2016-03-06] MEDS: DEXT 5%-NACL 0.9% 1000 ML INJ 1,000 ML IV SCH (17:00)
--- NOTE | 2016-03-06 17:38 | MB ---
cc: IOANA SILVERMAN M.D., RICHARD D. MD LOPEZ, MARIA I. M.D. DATE OF CONSULTATION 03/06/2016 REASON FOR CONSULTATION Elevated troponins. HISTORY OF THE PRESENT ILLNESS 80-year-old black male who presented to the emergency room complaining of severe dyspnea on exertion, worsening lower extremity swelling and fatigue. He was found to have severe anemia with a hemoglobin of 5 and his stools were found to be heme-positive. He denies any hematemesis or chest pain. The patient had a similar episode 6 years ago with significant gastrointestinal bleeding but no source was identified after colonoscopy. He even had a capsule endoscopy which was normal. Reason for the consultation is positive troponins not associated with ischemic EKG changes or chest pain. At this time the patient is lying in bed comfortably in no acute distress, receiving red blood cell transfusion. PAST MEDICAL HISTORY 1. Diabetes mellitus. 2. Coronary artery disease status post drug-eluting stents in the past. 3. COPD. 4. Hypertension. 5. Chronic lymphedema. 6. Gastrointestinal bleeding. 7. Venous insufficiency. 8. Obesity. 9. Hyperlipidemia. 10 urinary tract infection. 11. Prostate cancer. PAST SURGICAL HISTORY 1. Circumcision. 2. Appendectomy. 3. Prostatectomy. 4. Thyroidectomy. ALLERGIES TETANUS TOXOID, OS-KIMBERLY AND SHELL FISH. SOCIAL HISTORY The patient is a recent . He does not smoke or drink. MEDICATIONS His medications at home include: 1. Janumet. 2. Jardiance. 3. Rosuvastatin. 4. Spironolactone. 5. Tradjenta. 6. Celecoxib. 7. Bumex. 8. Levothyroxine. 9. Iron. 10. Potassium. 11. Furosemide. 12. Carvedilol. 13. Doxazosin. 14. Quinapril. REVIEW OF SYSTEMS As stated in the history of present illness. PHYSICAL EXAMINATION VITAL SIGNS: On physical exam his blood pressure is 127/69 mmHg, heart rate 55 beats per minute. He is afebrile. HEAD AND NECK: Unremarkable without JVD or carotid bruits. LUNGS: Clear to auscultation. HEART: Normal S1-S2 without murmurs or gallops. ABDOMEN: Benign without visceromegaly or bruits. EXTREMITIES: With chronic lymphedema. IMAGING Chest x-ray with no acute cardiopulmonary disease. EKG showed sinus rhythm with right bundle branch block, few PACs and no acute ischemic changes. LABORATORY DATA Blood work, sodium 141, potassium 4.9, BUN 45, creatinine 2.51. Troponin is 0.29 and 0.31. BNP 352. PT and INR within normal limits. CBC with an initial hemoglobin of 5 which has gone up to 6.9 post transfusion. White count 9.1. Platelet count 276. MEDICATIONS Current medications in the hospital include: 1. Atorvastatin 40 mg daily. 2. Levothyroxine 150 mcg daily. 3. Furosemide 40 mg daily. 4. Carvedilol 25 mg twice a day. 5. Pantoprazole 40 mg IV twice a day. 6. Zolpidem 5 mg q.h.s. as needed. ASSESSMENT 80-year-old black male admitted with significant anemia secondary to gastrointestinal bleeding. This might be secondary to chronic therapy with Celebrex. The reason for consultation was elevated troponin without ischemic electrocardiographic changes or chest pain. This suggests a type 2 infarct from supply demand mismatch. Also contributing to the positive troponins is the patient's chronic kidney disease. RECOMMENDATIONS Continue holding nonsteroidal anti-inflammatory drugs and aspirin. Continue all current cardiac medications. Restart Quinapril if tolerated by his blood pressure. Dr. Silverman to evaluate in the morning and decide on further cardiac diagnostics. MD JOCELINE Valdivia/PINKY /3:50 PM /5:19 PM GOPAL
--- NOTE | 2016-03-06 18:01 | EKG ---
Date Performed: 03/05/2016 Time Performed: 13:18:01 PTAGE: 80 years EKG: Sinus rhythm WITH OCCASIONAL SUPRAVENTRICULAR PREMATURE COMPLEXES RIGHT BUNDLE BRANCH BLOCK When compared to prev ious tracing, the patient now has a Pronounced right bundle brach block. ABNORMAL ECG PREVIOUS TRACING : 09/07/2014 15.38 DOCTOR: Verona Lua Interpretating Date/Time 03/06/2016 18:00:33
[2016-03-06] MEDS: ACETAMINOPHEN/HYDROcodone 325 MG/5 MG TAB PO PRN (22:05)
[2016-03-06] MEDS ORDERED: CALCIUM CARBONATE 500 MG CHEWABLE TAB PO PRN (22:15)
[2016-03-07] VITALS (25 sets, daily range): BP systolic 108–149; BP diastolic 59–72; PULSE 48–64; RESP 18–20; TEMP 97.3–98.5; O2SAT 98–99
[2016-03-07] MEDS: FUROSEMIDE 40 MG/4 ML VIAL IV PUSH SCH (05:42)
[2016-03-07] MEDS: LEVOTHYROXINE SODIUM 150 MCG TAB PO SCH (05:42)
[2016-03-07] MEDS: INSULIN ASPART SUPPLEMENTAL SCALE SQ SCH ×4 (06:32→21:00)
[2016-03-07 07:05] LABS: AUTOMATED NEUTROPHIL # 6.5 TH/MM3 (1.8-7.7); BASOPHIL % 0.4 % (0.0-2.0); EOSINOPHIL # 0.2 TH/MM3 (0-0.4); EOSINOPHIL % 2.3 % (0.0-4.0); HEMATOCRIT 27.7 % (39.0-51.0); HEMO FLAGS DIFF FINAL; LYMPH % 9.2 % (9.0-44.0); LYMPHOCYTE # 0.7 TH/MM3 (1.0-4.8); MEAN CELL VOLUME 79.6 FL (80.0-100.0); MEAN CORPUSCULAR HEMOGLOBIN 25.8 PG (27.0-34.0); MEAN CORPUSCULAR HGB CONC 32.4 % (32.0-36.0); MONO % 8.6 % (0.0-8.0); NEUT % 79.5 % (16.0-70.0); PLATELET COUNT 287 TH/MM3 (150-450); RED BLOOD COUNT 3.48 MIL/MM3 (4.50-5.90); RED CELL DISTRIBUTION WIDTH 16.3 % (11.6-17.2); WHITE BLOOD COUNT 8.2 TH/MM3 (4.0-11.0)
[2016-03-07 07:32] LABS: ANION GAP 8 MEQ/L (5-15); AST (GOT) 13 U/L (15-37); BICARBONATE 28.1 MEQ/L (21.0-32.0); BLOOD UREA NITROGEN 41 MG/DL (7-18); CHLORIDE 104 MEQ/L (98-107); GLOMERULAR FILTRATION RATE 30 ML/MIN (>89); POTASSIUM 4.1 MEQ/L (3.5-5.1); SODIUM (NA) 140 MEQ/L (136-145)
[2016-03-07 07:34] LABS: ALKALINE PHOSPHATASE 54 U/L (45-117); ALT (GPT) 16 U/L (12-78); TOTAL BILIRUBIN ADULT 1.1 MG/DL (0.2-1.0)
--- NOTE | 2016-03-07 08:22 | PD.CARD.PN ---
Subjective Subjective Remarks Doing better after PRBC transfusions. Denies CP or SOB. Objective Medications Current Medications Medications (Trade) Dose Ordered Sig/Domitila Route PRN Reason Start Time Stop Time Status Last Admin Dose Admin Carvedilol (Coreg) 25 mg BID PO 03/05/16 21:00 03/06/16 21:34 Acetaminophen/ Hydrocodone Bitart ([place] 5-325 Mg) 1 tab Q4H PRN PO PAIN 03/05/16 17:00 03/06/16 22:05 Levothyroxine Sodium (Synthroid) 150 mcg DAILY@06 PO 03/06/16 06:00 03/07/16 05:42 Atorvastatin Calcium (Lipitor) 40 mg DAILY PO 03/06/16 09:00 03/06/16 08:32 IV Flush (NS Flush) 2 ml UNSCH PRN FLUSH FLUSH AFTER USING IV ACCESS 03/05/16 16:00 IV Flush (NS Flush) 2 ml BID FLUSH 03/05/16 21:00 03/06/16 21:35 Acetaminophen (Tylenol) 650 mg Q4H PRN PO TEMP > 100.4 03/05/16 17:00 Ondansetron HCl (Zofran Inj) 4 mg Q6H PRN IVP NAUSEA OR VOMITING 03/05/16 17:00 Bisacodyl (Dulcolax Supp) 10 mg DAILY PRN UT CONSTIPATION 03/05/16 17:00 Magnesium Hydroxide (Milk Of Magnesia Liq) 30 ml Q12H PRN PO CONSTIPATION 03/05/16 17:00 Sennosides (Senokot) 17.2 mg Q12H PRN PO CONSTIPATION 03/05/16 17:00 Zolpidem Tartrate (Ambien) 5 mg HS PRN PO INSOMNIA 03/05/16 17:00 Naloxone HCl (Narcan Inj) 0.4 mg UNSCH PRN IV SEE LABEL COMMENTS 03/05/16 16:00 Lorazepam (Ativan) 0.5 mg Q8H PRN PO SEVERE ANXIETY OR AGITATION 03/05/16 17:00 Hydralazine HCl (Apresoline Inj) 20 mg Q4H PRN IV PUSH SYS BP GREATER THAN 180 MMHG 03/05/16 17:00 Clonidine 0.1 mg 0.1 mg Q6H PRN PO SBP>160, DBP>90 03/05/16 17:00 Dextrose/Sodium Chloride (D5W-NS 1000 ml Inj) 1,000 ml @ 20 mls/hr Q24H IV 03/05/16 17:00 03/06/16 17:00 Furosemide (Lasix Inj) 40 mg DAILY@0600 IV PUSH 03/06/16 06:00 03/07/16 05:42 Pantoprazole Sodium (Protonix Inj) 40 mg BID IV PUSH 03/05/16 21:00 03/06/16 21:00 Dextrose (D50w (Vial) Inj) 25 ml UNSCH PRN IV PUSH HYPOGLYCEMIA-SEE COMMENTS 03/05/16 16:15 03/06/16 12:27 Glucagon (Glucagon Inj) 1 mg UNSCH PRN OTHER HYPOGLYCEMIA-SEE COMMENTS 03/05/16 16:15 Calcium Carbonate (Tums Chew) 500 mg QID PRN PO HEARTBURN 03/06/16 22:15 03/07/16 03:26 Vital Signs / I&O Vital Signs Date Time Temp Pulse Resp B/P Pulse Ox O2 Delivery O2 Flow Rate FiO2 03/07/16 04:00 55 03/07/16 03:28 98.5 49 18 133/65 99 03/07/16 03:00 60 03/07/16 02:00 55 03/07/16 01:00 63 03/07/16 00:35 98.2 51 18 129/62 99 03/07/16 00:00 54 03/06/16 23:00 55 03/06/16 22:00 55 03/06/16 21:00 56 03/06/16 20:00 57 03/06/16 20:00 98.0 52 18 104/58 100 03/06/16 19:19 98.4 59 18 127/70 99 03/06/16 18:03 54 03/06/16 17:21 98.2 56 20 147/90 99 03/06/16 17:10 57 03/06/16 16:11 55 03/06/16 15:20 98.4 55 20 127/69 98 03/06/16 15:20 59 03/06/16 14:00 54 03/06/16 13:25 98.2 67 20 129/69 99 03/06/16 13:11 64 03/06/16 12:14 54 03/06/16 12:14 98.4 56 20 129/69 98 03/06/16 10:46 74 03/06/16 09:07 72 I/O 03/06/16 03/06/16 03/06/16 03/07/16 03/07/16 03/07/16 07:00 15:00 23:00 07:00 15:00 23:00 Intake Total 569 ml 616 ml 878 ml 120 ml Output Total 4 ml 600 ml 1645 ml Balance 565 ml 16 ml 878 ml -1525 ml Intake Oral 0 ml 120 ml IV Total 219 ml 366 ml 878 ml Packed Cells 350 ml 250 ml Output Urine Total 4 ml 600 ml 1645 ml # Voids 4 # Bowel Movements 0 0 Physical Exam VSS, afebrile. No JVD Lungs: CTA Heart: RRR Ext: +2 edema LE Neuro: intact Laboratory Laboratory Tests Test 03/06/16 03/07/16 08:26 05:20 Blood Type A POSITIVE Crossmatch Leukocyte-Reduced Red Blood Cells Blood Bank Comment White Blood Count 8.2 TH/MM3 Red Blood Count 3.48 MIL/MM3 Hemoglobin 9.0 GM/DL Hematocrit 27.7 % Mean Corpuscular Volume 79.6 FL Mean Corpuscular Hemoglobin 25.8 PG Mean Corpuscular Hemoglobin 32.4 % Concent Red Cell Distribution Width 16.3 % Platelet Count 287 TH/MM3 Mean Platelet Volume 8.0 FL Neutrophils (%) (Auto) 79.5 % Lymphocytes (%) (Auto) 9.2 % Monocytes (%) (Auto) 8.6 % Eosinophils (%) (Auto) 2.3 % Basophils (%) (Auto) 0.4 % Neutrophils # (Auto) 6.5 TH/MM3 Lymphocytes # (Auto) 0.7 TH/MM3 Monocytes # (Auto) 0.7 TH/MM3 Eosinophils # (Auto) 0.2 TH/MM3 Basophils # (Auto) 0.0 TH/MM3 CBC Comment DIFF FINAL Differential Comment Sodium Level 140 MEQ/L Potassium Level 4.1 MEQ/L Chloride Level 104 MEQ/L Carbon Dioxide Level 28.1 MEQ/L Anion Gap 8 MEQ/L Blood Urea Nitrogen 41 MG/DL Creatinine 2.52 MG/DL Estimat Glomerular Filtration 30 ML/MIN Rate Random Glucose 69 MG/DL Calcium Level 10.4 MG/DL Phosphorus Level 3.4 MG/DL Total Bilirubin 1.1 MG/DL Aspartate Amino Transf 13 U/L (AST/SGOT) Alanine Aminotransferase 16 U/L (ALT/SGPT) Alkaline Phosphatase 54 U/L Total Protein 6.7 GM/DL Albumin 3.2 GM/DL Imaging Last 48 hours Impressions Chest X-Ray 03/05/16 1340 Signed Impressions: Service Date/Time: Saturday, March 05, 2016 14:10 - CONCLUSION: No significant change has occurred. Alberto Marquez MD Assessment and Plan Problem List: (1) Symptomatic anemia (2) GI bleed (3) Lymphedema (4) DM (diabetes mellitus) (5) Elevated troponin (6) CKD (chronic kidney disease) stage 3, GFR 30-59 ml/min Assessment and Plan D/C IVF to avoid worsening of his edema. CV stable and no further inpatient cardiac w/u required. Continue GI w/u and maintain Hgb of 9 or greater. I will see him back in the office after discharge. Discussed Condition With Patient and therapeutic support staff. Problem Qualifiers (1) GI bleed: Qualified Code: K92.2 - Gastrointestinal hemorrhage, unspecified gastrointestinal hemorrhage type (2) DM (diabetes mellitus): Qualified Code: E11.8 - Type 2 diabetes mellitus with complication, unspecified detention insulin use status Tommie Silverman MD Mar 07, 2016 08:22
--- NOTE | 2016-03-07 09:41 | HHI.FPPN ---
Subjective Remarks C/O GAS PAINS C/O LEG EDEMA C/O WEAKNESS C/O SOB D/W RN Objective Vitals Vital Signs Date Time Temp Pulse Resp B/P Pulse Ox O2 Delivery O2 Flow Rate FiO2 03/07/16 09:07 98 21 03/07/16 08:10 98.4 59 20 137/67 98 03/07/16 08:10 59 03/07/16 04:00 55 03/07/16 03:28 98.5 49 18 133/65 99 03/07/16 03:00 60 03/07/16 02:00 55 03/07/16 01:00 63 03/07/16 00:35 98.2 51 18 129/62 99 03/07/16 00:00 54 03/06/16 23:00 55 03/06/16 22:00 55 03/06/16 21:00 56 03/06/16 20:00 57 03/06/16 20:00 98.0 52 18 104/58 100 03/06/16 19:19 98.4 59 18 127/70 99 03/06/16 18:03 54 03/06/16 17:21 98.2 56 20 147/90 99 03/06/16 17:10 57 03/06/16 16:11 55 03/06/16 15:20 98.4 55 20 127/69 98 03/06/16 15:20 59 03/06/16 14:00 54 03/06/16 13:25 98.2 67 20 129/69 99 03/06/16 13:11 64 03/06/16 12:14 54 03/06/16 12:14 98.4 56 20 129/69 98 03/06/16 10:46 74 I/O 03/06/16 03/06/16 03/06/16 03/07/16 03/07/16 03/07/16 07:00 15:00 23:00 07:00 15:00 23:00 Intake Total 569 ml 616 ml 878 ml 120 ml Output Total 4 ml 600 ml 1645 ml Balance 565 ml 16 ml 878 ml -1525 ml Intake Oral 0 ml 120 ml IV Total 219 ml 366 ml 878 ml Packed Cells 350 ml 250 ml Output Urine Total 4 ml 600 ml 1645 ml # Voids 4 # Bowel Movements 0 0 Result Diagram: 03/07/1651903/07/16519 Objective Remarks GENERAL: SKIN: Warm and dry. HEAD: Atraumatic. Normocephalic. EYES: Pupils equal and round. No scleral icterus. No injection or drainage. ENT: No nasal bleeding or discharge. Mucous membranes pink and moist. NECK: Trachea midline. No JVD. CARDIOVASCULAR: Regular rate and rhythm. RESPIRATORY: No accessory muscle use. Clear to auscultation. Breath sounds equal bilaterally. GASTROINTESTINAL: Abdomen soft, non-tender, nondistended. Hepatic and splenic margins not palpable. MUSCULOSKELETAL: Extremities without clubbing, cyanosis, 3edema. No obvious deformities. NEUROLOGICAL: Awake and alert. No obvious cranial nerve deficits. Motor grossly within normal limits. 2 out of 5 muscle strength in the arms and legs. Normal speech. PSYCHIATRIC: Appropriate mood and affect; insight and judgment normal. A/P Assessment and Plan BLOOD LOSS ANEMIA. TRANSFUSED TWO U PRBC'S GIB CHF ACS TROPONEMIA DUE TO ACS VS CKD VS CHF FLUID OVERLOAD SEVERE EDEMA DM LEXI AC ON CKD 3 UTI'S DUE TO BEING NONCIRCUMCISED, S/P CIRCUMCISION AT 80 Y PLAN: ECHO IVF'S NPO IV PROTONIX IV LASIX RENAL US GI CONSULT FOR GIB INSULIN DR CHANEY CONSULT SIGNED OFF. NEPHRO CONSULT WOUND CONSULT FOR LYMPHEDEMA WRAPS- THEY ARE UNABLE TO WRAP. Garry Rodriguez MD Mar 07, 2016 09:41 Garry Rodriguez MD Mar 07, 2016 09:41
[2016-03-07] MEDS: CARVEDILOL 12.5 MG TAB PO SCH ×2 (09:45→21:17)
[2016-03-07] MEDS: ATORVASTATIN 40 MG TAB PO SCH (09:45)
[2016-03-07] MEDS: SODIUM CHLORIDE 0.9% FLUSH 5 ML FLUSH FLUSH SCH ×2 (09:46→21:17)
[2016-03-07] MEDS: PANTOPRAZOLE SODIUM 40 MG VIAL IV PUSH SCH ×2 (09:46→21:17)
[2016-03-07] MEDS: DEXT 5%-NACL 0.9% 1000 ML INJ 1,000 ML IV SCH (11:00)
--- NOTE | 2016-03-07 14:41 | HHI.GIFU ---
Subjective Remarks Patient is resting in bed, no signs of GI bleed, denies nausea, vomiting, abd pain, melena or hematochezia. (Akbar Gar) Objective Vitals I&O Vital Signs Date Time Temp Pulse Resp B/P Pulse Ox O2 Delivery O2 Flow Rate FiO2 03/07/16 14:29 57 03/07/16 13:06 53 03/07/16 12:01 51 03/07/16 11:56 98.4 53 20 108/64 99 03/07/16 11:56 53 03/07/16 10:20 48 03/07/16 09:07 98 21 03/07/16 09:00 54 03/07/16 08:10 98.4 59 20 137/67 98 03/07/16 08:10 59 03/07/16 04:00 55 03/07/16 03:28 98.5 49 18 133/65 99 03/07/16 03:00 60 03/07/16 02:00 55 03/07/16 01:00 63 03/07/16 00:35 98.2 51 18 129/62 99 03/07/16 00:00 54 03/06/16 23:00 55 03/06/16 22:00 55 03/06/16 21:00 56 03/06/16 20:00 57 03/06/16 20:00 98.0 52 18 104/58 100 03/06/16 19:19 98.4 59 18 127/70 99 03/06/16 18:03 54 03/06/16 17:21 98.2 56 20 147/90 99 03/06/16 17:10 57 03/06/16 16:11 55 03/06/16 15:20 98.4 55 20 127/69 98 03/06/16 15:20 59 I/O 03/06/16 03/06/16 03/06/16 03/07/16 03/07/16 03/07/16 07:00 15:00 23:00 07:00 15:00 23:00 Intake Total 569 ml 616 ml 878 ml 120 ml Output Total 4 ml 600 ml 1645 ml Balance 565 ml 16 ml 878 ml -1525 ml Intake Oral 0 ml 120 ml IV Total 219 ml 366 ml 878 ml Packed Cells 350 ml 250 ml Output Urine Total 4 ml 600 ml 1645 ml # Voids 4 # Bowel Movements 0 0 Laboratory Laboratory Tests Test 03/07/16 05:20 White Blood Count 8.2 Red Blood Count 3.48 Hemoglobin 9.0 Hematocrit 27.7 Mean Corpuscular Volume 79.6 Mean Corpuscular Hemoglobin 25.8 Mean Corpuscular Hemoglobin 32.4 Concent Red Cell Distribution Width 16.3 Platelet Count 287 Mean Platelet Volume 8.0 Neutrophils (%) (Auto) 79.5 Lymphocytes (%) (Auto) 9.2 Monocytes (%) (Auto) 8.6 Eosinophils (%) (Auto) 2.3 Basophils (%) (Auto) 0.4 Neutrophils # (Auto) 6.5 Lymphocytes # (Auto) 0.7 Monocytes # (Auto) 0.7 Eosinophils # (Auto) 0.2 Basophils # (Auto) 0.0 CBC Comment DIFF FINAL Differential Comment Sodium Level 140 Potassium Level 4.1 Chloride Level 104 Carbon Dioxide Level 28.1 Anion Gap 8 Blood Urea Nitrogen 41 Creatinine 2.52 Estimat Glomerular Filtration 30 Rate Random Glucose 69 Calcium Level 10.4 Phosphorus Level 3.4 Total Bilirubin 1.1 Aspartate Amino Transf 13 (AST/SGOT) Alanine Aminotransferase 16 (ALT/SGPT) Alkaline Phosphatase 54 Total Protein 6.7 Albumin 3.2 Hepatitis A IgM Antibody NEGATIVE Hepatitis B Surface Antigen NEGATIVE Hepatitis B Core IgM Antibody NEGATIVE Imaging Last Impressions Chest X-Ray 03/05/16 1340 Signed Impressions: Service Date/Time: Saturday, March 05, 2016 14:10 - CONCLUSION: No significant change has occurred. Alberto Marquez MD Renal Ultrasound 03/05/16 0000 Signed Impressions: Service Date/Time: Saturday, March 05, 2016 16:43 - CONCLUSION: 1. Both kidneys are echogenic typical of chronic parenchymal disease, nonspecific but for example related to chronic hypertension or diabetes. 2. No obstructive uropathy or other acute abnormality demonstrated. 3. Bilateral benign-appearing cysts. 4. Urinary bladder within normal limits. Rick Cote MD Physical Exam HEENT: Pupils round and reactive to light; normocephalic; atraumatic; no jaundice. Throat is clear. NECK: Neck is supple, no JVD, no lymphadenopathy. CHEST: Chest is clear to auscultation and percussion. CARDIAC: Regular rate and rhythm with no murmur gallop or rubs. ABDOMEN: Soft, obese, nondistended, nontender; no hepatosplenomegaly; bowel sounds are present in all four quadrants. EXTREMITIES: 2+ edema SKIN: Normal; no rash; no jaundice. CIVIL RIGHTS INVESTIGATOR: No focal deficits; alert and oriented times three. (Akbar Gar) Assessment and Plan Assessment: (1) GI bleed Plan: found to have severe anemia, with H&H of 5.0/17.2 Had stools darker than normal for the past two months Denies Hematemesis Follow H&H transfuse PRBC's to keep Hgb > 7.0 Continue Protonix Will need a colonoscopy and EGD when cleared by cardiology (2) Constipation Plan: mild Add stool softeners (3) Acute blood loss anemia Plan: Continue to follow H&H closely Stools were Heme + Transfuse PRBC's PRN to keep H&H > 7.0 Has Hx of anemia in the past with negative work up per patient about 6 years ago (4) Exertional dyspnea Plan: Secondary to anemia and fluid overload (5) Elevated troponin I level Plan: PCP following (6) DM (diabetes mellitus) Plan: followed by primary care (7) Edema Plan: Has 2-3+ lower ext edema follow by PCP Plan 03/07/16- patient cleared by cardiology, hgb is 9, no signs of active GI bleed Plan - Clear liquids - NPO mn - EGD/colonoscopy in am - Golytely today -Follow H&H transfuse PRBC's PRN to keep Hgb > 7.0 -Continue Protonix -Call GI for any bleeding -Supportive care Patient was seen and examined by Dr. Alegre and myself, this consultation is dictated on his behalf. (Akbar Gar) Physician Comments Patient was seen and examined, agree with above note. we will check labs, continue supportive care. colon EGD in am. (Nisreen Alegre MD) Problem Qualifiers (1) GI bleed: Qualified Code: K92.2 - Gastrointestinal hemorrhage, unspecified gastrointestinal hemorrhage type (2) Constipation: Qualified Code: K59.00 - Constipation, unspecified constipation type (3) DM (diabetes mellitus): Qualified Code: E11.8 - Type 2 diabetes mellitus with complication, unspecified tank terminal gauger insulin use status (4) Edema: Qualified Code: R60.9 - Edema, unspecified type Akbar Gar Mar 07, 2016 14:41 Nisreen Alegre MD Mar 07, 2016 22:16
--- NOTE | 2016-03-07 15:32 | HHI.NPPN ---
Subjective Renal Failure: Chronic History of Present Illness 80 year old with diabetes CKD and anemia Review of Systems General Constitutional: Fatigue Objective Data Data 03/06/16 03/07/16 19:00 07:00 Intake Total 616 ml 878 ml Output Total 600 ml Balance 16 ml 878 ml IV Total 366 ml 878 ml Packed Cells 250 ml Output Urine Total 600 ml # Voids 4 # Bowel Movements 0 Vital Signs Date Time Temp Pulse Resp B/P Pulse Ox O2 Delivery O2 Flow Rate FiO2 03/07/16 15:02 97.3 55 18 149/72 98 03/07/16 15:02 54 03/07/16 14:29 57 03/07/16 13:06 53 03/07/16 12:01 51 03/07/16 11:56 98.4 53 20 108/64 99 03/07/16 11:56 53 03/07/16 10:20 48 03/07/16 09:07 98 21 03/07/16 09:00 54 03/07/16 08:10 98.4 59 20 137/67 98 03/07/16 08:10 59 03/07/16 04:00 55 03/07/16 03:28 98.5 49 18 133/65 99 03/07/16 03:00 60 03/07/16 02:00 55 03/07/16 01:00 63 03/07/16 00:35 98.2 51 18 129/62 99 03/07/16 00:00 54 03/06/16 23:00 55 03/06/16 22:00 55 03/06/16 21:00 56 03/06/16 20:00 57 03/06/16 20:00 98.0 52 18 104/58 100 03/06/16 19:19 98.4 59 18 127/70 99 03/06/16 18:03 54 03/06/16 17:21 98.2 56 20 147/90 99 03/06/16 17:10 57 03/06/16 16:11 55 -: 03/07/16 0520 03/07/16 0520 Physical Exam General Appearance: Well Developed, Well Nourished Neck Neck Exam: Neck Supple Pulmonary Resp Exam: Clear Bilaterally, Breath Sounds Equal Cardiology CV Exam: Regular, Normal Sinus Rhythm Gastrointestinal/Abdomen GI Exam: Soft, Non-Tender, Bowel Sounds Present Extremeties Extremities Exam: Moderate Edema Assessment/Plan Problem List: (1) Acute renal insufficiency Plan: cr 2.52 US CKD likely diabetic/hypertensive (2) CKD (chronic kidney disease) stage 3, GFR 30-59 ml/min Plan: Old records show his creatinine was 1.6 wood in progress follow BMP (3) Anemia Plan: GI following getting colonoscopy tomorrow (4) DM (diabetes mellitus) Plan: Follow blood glucose (5) Acute blood loss anemia Problem Qualifiers (1) DM (diabetes mellitus): Qualified Code: E11.8 - Type 2 diabetes mellitus with complication, unspecified chcf insulin use status Blake De Santiago MD Mar 07, 2016 15:32
[2016-03-07] MEDS ORDERED: PEG (High)/E-LYTE SOLN 4000 ML BTL PO ONE (16:00)
[2016-03-07 22:21] LABS: TOTAL PROTEIN SPE 6.6 GM/DL (6.0-7.6)
[2016-03-08] VITALS (21 sets, daily range): BP systolic 110–177; BP diastolic 62–79; PULSE 48–69; RESP 16–24; TEMP 97.6–98.7; O2SAT 96–100
[2016-03-08] MEDS: SODIUM CHLORID 0.9% 500 ML IV SCH ×2 (05:30→22:10)
[2016-03-08] MEDS: LEVOTHYROXINE SODIUM 150 MCG TAB PO SCH (06:16)
[2016-03-08] MEDS: FUROSEMIDE 40 MG/4 ML VIAL IV PUSH SCH (06:16)
[2016-03-08] MEDS: INSULIN ASPART SUPPLEMENTAL SCALE SQ SCH ×4 (06:26→20:33)
[2016-03-08] MEDS: ATORVASTATIN 40 MG TAB PO SCH (08:24)
[2016-03-08] MEDS: PANTOPRAZOLE SODIUM 40 MG VIAL IV PUSH SCH ×2 (08:26→21:26)
[2016-03-08] MEDS: SODIUM CHLORIDE 0.9% FLUSH 5 ML FLUSH FLUSH SCH ×2 (08:26→21:26)
[2016-03-08] MEDS: CARVEDILOL 12.5 MG TAB PO SCH ×2 (08:26→21:26)
[2016-03-08 08:39] LABS: AUTOMATED NEUTROPHIL # 6.2 TH/MM3 (1.8-7.7); BASOPHIL % 0.5 % (0.0-2.0); EOSINOPHIL # 0.1 TH/MM3 (0-0.4); EOSINOPHIL % 1.8 % (0.0-4.0); HEMATOCRIT 29.9 % (39.0-51.0); HEMO FLAGS DIFF FINAL; LYMPH % 8.4 % (9.0-44.0); LYMPHOCYTE # 0.7 TH/MM3 (1.0-4.8); MEAN CELL VOLUME 80.3 FL (80.0-100.0); MEAN CORPUSCULAR HEMOGLOBIN 25.7 PG (27.0-34.0); MEAN CORPUSCULAR HGB CONC 32.1 % (32.0-36.0); MONO % 10.8 % (0.0-8.0); NEUT % 78.5 % (16.0-70.0); PLATELET COUNT 303 TH/MM3 (150-450); RED BLOOD COUNT 3.72 MIL/MM3 (4.50-5.90); RED CELL DISTRIBUTION WIDTH 16.4 % (11.6-17.2); WHITE BLOOD COUNT 7.9 TH/MM3 (4.0-11.0)
[2016-03-08 09:04] LABS: BICARBONATE 28.2 MEQ/L (21.0-32.0)
[2016-03-08] MEDS ORDERED: PROPOFOL 200 MG/20 ML AMP IV ONE (09:22)
--- NOTE | 2016-03-08 10:17 | HHI.GIFU ---
Subjective Remarks feels ok, no new complains Objective Vitals I&O Vital Signs Date Time Temp Pulse Resp B/P Pulse Ox O2 Delivery O2 Flow Rate FiO2 03/08/16 08:44 98.4 50 18 177/74 97 03/08/16 08:00 58 03/08/16 08:00 97.6 55 18 160/79 99 03/08/16 06:00 48 03/08/16 05:00 53 03/08/16 04:00 98.7 68 20 159/72 96 03/08/16 04:00 50 03/08/16 03:00 56 03/08/16 02:00 49 03/08/16 01:00 60 03/08/16 00:00 69 03/08/16 00:00 98.7 69 20 110/65 100 03/07/16 23:00 54 03/07/16 22:45 98 Nasal Cannula 21 03/07/16 22:00 56 03/07/16 21:00 64 03/07/16 20:00 50 03/07/16 20:00 98.3 55 20 138/59 99 03/07/16 19:00 61 03/07/16 18:12 56 03/07/16 17:42 55 03/07/16 16:03 54 03/07/16 15:02 97.3 55 18 149/72 98 03/07/16 15:02 54 03/07/16 14:29 57 03/07/16 13:06 53 03/07/16 12:01 51 03/07/16 11:56 98.4 53 20 108/64 99 03/07/16 11:56 53 03/07/16 10:20 48 I/O 03/07/16 03/07/16 03/07/16 03/08/16 03/08/16 03/08/16 07:00 15:00 23:00 07:00 15:00 23:00 Intake Total 878 ml 120 ml 4600 ml 200 ml Output Total 1645 ml 2100 ml Balance 878 ml -1525 ml 4600 ml -1900 ml Intake Oral 120 ml 4600 ml 200 ml IV Total 878 ml Output Urine Total 1645 ml Stool Total 2100 ml # Voids 4 # Bowel Movements 0 4 Laboratory Laboratory Tests Test 03/08/16 06:55 White Blood Count 7.9 Red Blood Count 3.72 Hemoglobin 9.6 Hematocrit 29.9 Mean Corpuscular Volume 80.3 Mean Corpuscular Hemoglobin 25.7 Mean Corpuscular Hemoglobin 32.1 Concent Red Cell Distribution Width 16.4 Platelet Count 303 Mean Platelet Volume 7.8 Neutrophils (%) (Auto) 78.5 Lymphocytes (%) (Auto) 8.4 Monocytes (%) (Auto) 10.8 Eosinophils (%) (Auto) 1.8 Basophils (%) (Auto) 0.5 Neutrophils # (Auto) 6.2 Lymphocytes # (Auto) 0.7 Monocytes # (Auto) 0.9 Eosinophils # (Auto) 0.1 Basophils # (Auto) 0.0 CBC Comment DIFF FINAL Differential Comment Sodium Level 140 Potassium Level 4.0 Chloride Level 101 Carbon Dioxide Level 28.2 Anion Gap 11 Blood Urea Nitrogen 34 Creatinine 2.14 Estimat Glomerular Filtration 36 Rate Random Glucose 91 Calcium Level 9.9 Physical Exam HEENT: Pupils round and reactive to light; normocephalic; atraumatic; no jaundice. Throat is clear. NECK: Neck is supple, no JVD, no lymphadenopathy. CHEST: Chest is clear to auscultation and percussion. CARDIAC: Regular rate and rhythm with no murmur gallop or rubs. ABDOMEN: Soft, obese, nondistended, nontender; no hepatosplenomegaly; bowel sounds are present in all four quadrants. EXTREMITIES: 2+ edema SKIN: Normal; no rash; no jaundice. JUKEBOX CHECKER: No focal deficits; alert and oriented times three. Assessment and Plan Assessment: (1) GI bleed Plan: found to have severe anemia, with H&H of 5.0/17.2 Had stools darker than normal for the past two months Denies Hematemesis Follow H&H transfuse PRBC's to keep Hgb > 7.0 Continue Protonix colonoscopy showed polyps and diverticulosis and EGD showed Duodenal ulcers and gastritis, esophageal stricture that was dilated recommend to feed patient, continue PPI. PRBC as needed, colonoscopy in 1 year (2) Constipation Plan: mild Add stool softeners (3) Acute blood loss anemia Plan: Continue to follow H&H closely Stools were Heme + Transfuse PRBC's PRN to keep H&H > 7.0 Has Hx of anemia in the past with negative work up per patient about 6 years ago (4) Exertional dyspnea Plan: Secondary to anemia and fluid overload (5) Elevated troponin I level Plan: PCP following (6) DM (diabetes mellitus) Plan: followed by primary care (7) Edema Plan: Has 2-3+ lower ext edema follow by PCP Plan 03/07/16- patient cleared by cardiology, hgb is 9, no signs of active GI bleed colon EGD was done today Plan - cardiac MITESH -Follow H&H transfuse PRBC's PRN to keep Hgb > 7.0 -Continue Protonix -Call GI for any bleeding -Supportive care Problem Qualifiers (1) GI bleed: Qualified Code: K92.2 - Gastrointestinal hemorrhage, unspecified gastrointestinal hemorrhage type (2) Constipation: Qualified Code: K59.00 - Constipation, unspecified constipation type (3) DM (diabetes mellitus): Qualified Code: E11.8 - Type 2 diabetes mellitus with complication, unspecified half-way insulin use status (4) Edema: Qualified Code: R60.9 - Edema, unspecified type Nisreen Alegre MD Mar 08, 2016 10:17
[2016-03-08] MEDS: DEXT 5%-NACL 0.9% 1000 ML INJ 1,000 ML IV SCH (11:00)
--- NOTE | 2016-03-08 11:52 | HHI.FPPN ---
Subjective Remarks C/O ABD PN C/O WEAKNESS C/O LEG PAIN D/W RN Objective Vitals Vital Signs Date Time Temp Pulse Resp B/P Pulse Ox O2 Delivery O2 Flow Rate FiO2 03/08/16 11:00 49 03/08/16 10:07 50 18 132/66 100 03/08/16 10:02 51 18 119/58 100 03/08/16 09:57 98.4 53 18 100/50 97 03/08/16 08:44 98.4 50 18 177/74 97 03/08/16 08:00 58 03/08/16 08:00 97.6 55 18 160/79 99 03/08/16 07:00 48 03/08/16 06:00 48 03/08/16 05:00 53 03/08/16 04:00 98.7 68 20 159/72 96 03/08/16 04:00 50 03/08/16 03:00 56 03/08/16 02:00 49 03/08/16 01:00 60 03/08/16 00:00 69 03/08/16 00:00 98.7 69 20 110/65 100 03/07/16 23:00 54 03/07/16 22:45 98 Nasal Cannula 21 03/07/16 22:00 56 03/07/16 21:00 64 03/07/16 20:00 50 03/07/16 20:00 98.3 55 20 138/59 99 03/07/16 19:00 61 03/07/16 18:12 56 03/07/16 17:42 55 03/07/16 16:03 54 03/07/16 15:02 97.3 55 18 149/72 98 03/07/16 15:02 54 03/07/16 14:29 57 03/07/16 13:06 53 03/07/16 12:01 51 03/07/16 11:56 98.4 53 20 108/64 99 03/07/16 11:56 53 I/O 03/07/16 03/07/16 03/07/16 03/08/16 03/08/16 03/08/16 07:00 15:00 23:00 07:00 15:00 23:00 Intake Total 878 ml 120 ml 4600 ml 200 ml 400 ml Output Total 1645 ml 2100 ml Balance 878 ml -1525 ml 4600 ml -1900 ml 400 ml Intake Oral 120 ml 4600 ml 200 ml IV Total 878 ml 400 ml Output Urine Total 1645 ml Stool Total 2100 ml # Voids 4 # Bowel Movements 0 4 Result Diagram: 03/08/1665403/08/16 0655 Objective Remarks GENERAL: SKIN: Warm and dry. HEAD: Atraumatic. Normocephalic. EYES: Pupils equal and round. No scleral icterus. No injection or drainage. ENT: No nasal bleeding or discharge. Mucous membranes pink and moist. NECK: Trachea midline. No JVD. CARDIOVASCULAR: Regular rate and rhythm. RESPIRATORY: No accessory muscle use. Clear to auscultation. Breath sounds equal bilaterally. GASTROINTESTINAL: Abdomen soft, non-tender, nondistended. Hepatic and splenic margins not palpable. MUSCULOSKELETAL: Extremities without clubbing, cyanosis, 3edema. No obvious deformities. NEUROLOGICAL: Awake and alert. No obvious cranial nerve deficits. Motor grossly within normal limits. 2 out of 5 muscle strength in the arms and legs. Normal speech. PSYCHIATRIC: Appropriate mood and affect; insight and judgment normal. Medications and IVs Current Medications Medications (Trade) Dose Ordered Sig/Domitila Route Start Time Stop Time Status Last Admin (Coreg) 25 mg BID PO 03/05/16 21:00 03/08/16 08:26 ([place] 5-325 Mg) 1 tab Q4H PRN PO 03/05/16 17:00 03/06/16 22:05 (Synthroid) 150 mcg DAILY@06 PO 03/06/16 06:00 03/08/16 06:16 (Lipitor) 40 mg DAILY PO 03/06/16 09:00 03/07/16 09:45 (NS Flush) 2 ml UNSCH PRN FLUSH 03/05/16 16:00 (NS Flush) 2 ml BID FLUSH 03/05/16 21:00 03/08/16 08:26 (Tylenol) 650 mg Q4H PRN PO 03/05/16 17:00 (Zofran Inj) 4 mg Q6H PRN IVP 03/05/16 17:00 (Dulcolax Supp) 10 mg DAILY PRN [place] 03/05/16 17:00 (Milk Of Magnesia Liq) 30 ml Q12H PRN PO 03/05/16 17:00 (Senokot) 17.2 mg Q12H PRN PO 03/05/16 17:00 (Ambien) 5 mg HS PRN PO 03/05/16 17:00 (Narcan Inj) 0.4 mg UNSCH PRN IV 03/05/16 16:00 (Ativan) 0.5 mg Q8H PRN PO 03/05/16 17:00 (Apresoline Inj) 20 mg Q4H PRN IV PUSH 03/05/16 17:00 (Catapres) 0.1 mg Q6H PRN PO 03/05/16 17:00 (Lasix Inj) 40 mg DAILY@0600 IV PUSH 03/06/16 06:00 03/08/16 06:16 (Protonix Inj) 40 mg BID IV PUSH 03/05/16 21:00 03/08/16 08:26 (D50w (Vial) Inj) 25 ml UNSCH PRN IV PUSH 03/05/16 16:15 03/06/16 12:27 (Glucagon Inj) 1 mg UNSCH PRN OTHER 03/05/16 16:15 Calcium Carbonate 500 mg 500 mg QID PRN PO 03/06/16 22:15 03/07/16 03:26 Dextrose/Sodium Chloride 1,000 ml @ 30 mls/hr Q24H IV 03/07/16 11:00 03/07/16 11:00 (NS 500 ml Inj) 500 ml @ 30 mls/hr [id number] IV 03/08/16 05:30 03/09/16 05:29 A/P Assessment and Plan BLOOD LOSS ANEMIA. TRANSFUSED TWO U PRBC'S. Colonoscopy showed polyps and diverticulosis and EGD showed Duodenal ulcers and gastritis, esophageal stricture dilated GIB CHF ACS TROPONEMIA DUE TO ACS VS CKD VS CHF FLUID OVERLOAD SEVERE EDEMA DM LEXI AC ON CKD 3 UTI'S DUE TO BEING NONCIRCUMCISED, S/P CIRCUMCISION AT 80 Y PLAN: ECHO IVF'S NPO IV PROTONIX IV LASIX RENAL US GI CONSULT FOR GIB INSULIN DR CHANEY CONSULT SIGNED OFF. NEPHRO CONSULT WOUND CONSULT FOR LYMPHEDEMA WRAPS- THEY ARE UNABLE TO WRAP. Follow H&H transfuse PRBC's to keep Hgb > 7.0 feed patient, continue PPI. PRBC as needed, colonoscopy in 1 year Garry Rodriguez MD Mar 08, 2016 11:52
--- NOTE | 2016-03-08 12:05 | HHI.NPPN ---
Subjective Renal Failure: Chronic History of Present Illness 80 year old with diabetes CKD and anemia Review of Systems General Constitutional: Fatigue Objective Data Data 03/07/16 03/08/16 19:00 07:00 Intake Total 4720 ml 200 ml Output Total 1645 ml 2100 ml Balance 3075 ml -1900 ml Intake Oral 4720 ml 200 ml Output Urine Total 1645 ml Stool Total 2100 ml # Voids 4 # Bowel Movements 4 Vital Signs Date Time Temp Pulse Resp B/P Pulse Ox O2 Delivery O2 Flow Rate FiO2 03/08/16 12:00 57 03/08/16 11:00 49 03/08/16 10:07 50 18 132/66 100 03/08/16 10:02 51 18 119/58 100 03/08/16 09:57 98.4 53 18 100/50 97 03/08/16 08:44 98.4 50 18 177/74 97 03/08/16 08:00 58 03/08/16 08:00 97.6 55 18 160/79 99 03/08/16 07:00 48 03/08/16 06:00 48 03/08/16 05:00 53 03/08/16 04:00 98.7 68 20 159/72 96 03/08/16 04:00 50 03/08/16 03:00 56 03/08/16 02:00 49 03/08/16 01:00 60 03/08/16 00:00 69 03/08/16 00:00 98.7 69 20 110/65 100 03/07/16 23:00 54 03/07/16 22:45 98 Nasal Cannula 21 03/07/16 22:00 56 03/07/16 21:00 64 03/07/16 20:00 50 03/07/16 20:00 98.3 55 20 138/59 99 03/07/16 19:00 61 03/07/16 18:12 56 03/07/16 17:42 55 03/07/16 16:03 54 03/07/16 15:02 97.3 55 18 149/72 98 03/07/16 15:02 54 03/07/16 14:29 57 03/07/16 13:06 53 -: 03/08/16 0655 03/08/16 0655 Physical Exam General Appearance: Well Developed, Well Nourished Neck Neck Exam: Neck Supple Pulmonary Resp Exam: Clear Bilaterally, Breath Sounds Equal Cardiology CV Exam: Regular, Normal Sinus Rhythm Gastrointestinal/Abdomen GI Exam: Soft, Non-Tender, Bowel Sounds Present Extremeties Extremities Exam: Moderate Edema Assessment/Plan Problem List: (1) Acute renal insufficiency Plan: cr 2.14 improved US CKD likely diabetic/hypertensive SPEP/HARDEEP pending (2) CKD (chronic kidney disease) stage 3, GFR 30-59 ml/min Plan: Old records show his creatinine was 1.6 wood in progress follow BMP (3) Anemia Plan: GI following getting colonoscopy (4) DM (diabetes mellitus) Plan: Follow blood glucose (5) Acute blood loss anemia Problem Qualifiers (1) DM (diabetes mellitus): Qualified Code: E11.8 - Type 2 diabetes mellitus with complication, unspecified correction insulin use status Blake De Santiago MD Mar 08, 2016 12:05
[2016-03-08 19:35] LABS: ALBUMIN SPE 3.7 GM/DL (3.50-5.00); ALPHA 1 GLOBULIN 0.26 GM/DL (0.11-0.29); ALPHA 2 GLOBULIN 0.97 GM/DL (0.22-1.00); BETA GLOBULINS (SPE) 0.69 GM/DL (0.53-1.03)
[2016-03-08] MEDS: ACETAMINOPHEN/HYDROcodone 325 MG/5 MG TAB PO PRN (21:26)
[2016-03-09] VITALS (13 sets, daily range): BP systolic 130–157; BP diastolic 65–81; PULSE 48–70; RESP 18–20; TEMP 97.8–98.4; O2SAT 95–100
[2016-03-09] MEDS: FUROSEMIDE 40 MG/4 ML VIAL IV PUSH SCH (06:00)
[2016-03-09 06:08] LABS: AUTOMATED NEUTROPHIL # 5.6 TH/MM3 (1.8-7.7); BASOPHIL % 0.4 % (0.0-2.0); EOSINOPHIL # 0.1 TH/MM3 (0-0.4); EOSINOPHIL % 1.8 % (0.0-4.0); HEMATOCRIT 27.8 % (39.0-51.0); HEMO FLAGS DIFF FINAL; LYMPH % 10.7 % (9.0-44.0); LYMPHOCYTE # 0.8 TH/MM3 (1.0-4.8); MEAN CELL VOLUME 81.3 FL (80.0-100.0); MONO % 12.6 % (0.0-8.0); NEUT % 74.5 % (16.0-70.0); PLATELET COUNT 276 TH/MM3 (150-450); RED BLOOD COUNT 3.42 MIL/MM3 (4.50-5.90); WHITE BLOOD COUNT 7.5 TH/MM3 (4.0-11.0)
[2016-03-09 06:20] LABS: BICARBONATE 26.8 MEQ/L (21.0-32.0); POTASSIUM 3.9 MEQ/L (3.5-5.1)
[2016-03-09] MEDS: INSULIN ASPART SUPPLEMENTAL SCALE SQ SCH ×3 (06:22→15:44)
[2016-03-09] MEDS: LEVOTHYROXINE SODIUM 150 MCG TAB PO SCH (06:41)
[2016-03-09] MEDS: ATORVASTATIN 40 MG TAB PO SCH (07:40)
[2016-03-09] MEDS: CARVEDILOL 12.5 MG TAB PO SCH (07:40)
[2016-03-09] MEDS: SODIUM CHLORIDE 0.9% FLUSH 5 ML FLUSH FLUSH SCH (07:41)
[2016-03-09] MEDS: PANTOPRAZOLE SODIUM 40 MG VIAL IV PUSH SCH (07:41)
--- NOTE | 2016-03-09 10:17 | HHI.DS ---
Discharge Summary Admission Date Mar 05, 2016 at 14:52 Discharge Date: Mar 09, 2016 Admitting Diagnosis symptomatic anemia, GI bleed, ACS, exertional dyspnea (1) GI bleed (2) Exertional dyspnea (3) Symptomatic anemia (4) Elevated troponin I level (5) Acute renal insufficiency (6) ACS (acute coronary syndrome) (7) Anemia (8) SOB (shortness of breath) (9) CHF (congestive heart failure) (10) Lymphedema (11) DM (diabetes mellitus) (12) Elevated troponin (13) Acute blood loss anemia (14) Constipation (15) Acute blood loss anemia (16) Edema (17) CKD (chronic kidney disease) stage 3, GFR 30-59 ml/min (18) Cortical age-related cataract, bilateral Brief History 80 Y AAM. NEW TO MY PRACTICE OF LAST WEEK. I KNOW HIS DGTR IN LAW AND SHE BROUGHT HIM INTO MY OFFICE LAST WEEK WITH NUMEROUS ISSUES. HIS ONE MONTH AGO AND HE HAS BEEN GRIEVING. C/O FLUID OVERLOAD, SEVERE EDEMA, VARIABLE SUGARS AND WANTED TO COME OFF OF HIS NUMEROUS MEDICATIONS. HIS MAIN COMPLAINT WAS CHRONIC SEVERE EDEMA AND ROSS AND SOB. HE THUS PRESENTED TO THE ER WITH SEVERE ROSS AND SOB. I WAS CALLED BY THE ER MD FOR ADMIT DUE TO BLOOD LOSS ANEMIA, LEXI, AND ACS. PT C/O WEAKNESS AND ROSS WITH EXCESS URINATION W IV LASIX. CBC/BMP: 03/09/16 0445 03/09/16 0445 Significant Findings Laboratory Tests Test 03/07/16 03/08/16 03/09/16 05:20 06:55 04:45 Red Blood Count 3.48 MIL/MM3 3.72 MIL/MM3 3.42 MIL/MM3 (4.50-5.90) (4.50-5.90) (4.50-5.90) Hemoglobin 9.0 GM/DL 9.6 GM/DL 8.9 GM/DL (13.0-17.0) (13.0-17.0) (13.0-17.0) Hematocrit 27.7 % 29.9 % 27.8 % (39.0-51.0) (39.0-51.0) (39.0-51.0) Mean Corpuscular Volume 79.6 FL (80.0-100.0) Mean Corpuscular Hemoglobin 25.8 PG 25.7 PG 26.0 PG (27.0-34.0) (27.0-34.0) (27.0-34.0) Neutrophils (%) (Auto) 79.5 % 78.5 % 74.5 % (16.0-70.0) (16.0-70.0) (16.0-70.0) Monocytes (%) (Auto) 8.6 % (0.0-8.0) 10.8 % 12.6 % (0.0-8.0) (0.0-8.0) Lymphocytes # (Auto) 0.7 TH/MM3 0.7 TH/MM3 0.8 TH/MM3 (1.0-4.8) (1.0-4.8) (1.0-4.8) Blood Urea Nitrogen 41 MG/DL (7-18) 34 MG/DL (7-18) 35 MG/DL (7-18) Creatinine 2.52 MG/DL 2.14 MG/DL 2.29 MG/DL (0.60-1.30) (0.60-1.30) (0.60-1.30) Estimat Glomerular Filtration 30 ML/MIN (>89) 36 ML/MIN (>89) 33 ML/MIN (>89) Rate Random Glucose 69 MG/DL 139 MG/DL (74-106) (74-106) Calcium Level 10.4 MG/DL (8.5-10.1) Total Bilirubin 1.1 MG/DL (0.2-1.0) Aspartate Amino Transf 13 U/L (15-37) (AST/SGOT) Albumin 3.2 GM/DL (3.4-5.0) Albumin/Globulin Ratio 1.27 (1.39-2.23) Lymphocytes (%) (Auto) 8.4 % (9.0-44.0) PE at Discharge GENERAL: SKIN: Warm and dry. HEAD: Atraumatic. Normocephalic. EYES: Pupils equal and round. No scleral icterus. No injection or drainage. ENT: No nasal bleeding or discharge. Mucous membranes pink and moist. NECK: Trachea midline. No JVD. CARDIOVASCULAR: Regular rate and rhythm. RESPIRATORY: No accessory muscle use. Clear to auscultation. Breath sounds equal bilaterally. GASTROINTESTINAL: Abdomen soft, non-tender, nondistended. Hepatic and splenic margins not palpable. MUSCULOSKELETAL: Extremities without clubbing, cyanosis, or edema. No obvious deformities. NEUROLOGICAL: Awake and alert. No obvious cranial nerve deficits. Motor grossly within normal limits. Five out of 5 muscle strength in the arms and legs. Normal speech. PSYCHIATRIC: Appropriate mood and affect; insight and judgment normal. Hospital Course 80 Y AAM, ADMIT WITH - DUODENAL ULCER, GASTRITIS, BLOOD LOSS ANEMIA. TRANSFUSED TWO U PRBC'S. Colonoscopy showed polyps and diverticulosis and EGD showed Duodenal ulcers and gastritis, esophageal stricture dilated GIB CHF ACS TROPONEMIA DUE TO ACS VS CKD VS CHF FLUID OVERLOAD SEVERE EDEMA DM LEXI AC ON CKD 3 UTI'S DUE TO BEING NONCIRCUMCISED, S/P CIRCUMCISION AT 80 Y HOSPITAL COURSE AND PLAN WAS TO- ECHO IVF'S NPO IV PROTONIX IV LASIX RENAL US GI CONSULT FOR GIB INSULIN DR CHANEY CONSULT SIGNED OFF. NEPHRO CONSULT WOUND CONSULT FOR LYMPHEDEMA WRAPS- THEY ARE UNABLE TO WRAP. Follow H&H transfuse PRBC's to keep Hgb > 7.0 feed patient, continue PPI. PRBC as needed, colonoscopy in 1 year Discharge Instructions Follow up Referrals: Cardiology - [address] CHANEY Gastroenterology - 2-3 Days with Nisreen Alegre MD PCP Follow-up - 2-[address] NEWBERRY New Medications: Glipizide (Glipizide) 5 Mg Tab 5 MG PO TIDAC Take 30 minutes before a meal Blood Sugar Management #180 Ref 11 TAB Pantoprazole (Protonix) 40 Mg Tab 40 MG PO BIDAC Ulcer Prevention #180 Ref 11 TAB Sucralfate Liq (Carafate Liq) 1 Gm/10 Ml Susp 1 GM PO TID on empty stomach Duodenal ulcer #900 Ref 3 ML Continued Medications: Bumetanide (Bumetanide) 1 Mg Tab 1 MG PO DAILY #30 Ref 0 TAB Carvedilol (Carvedilol) 25 Mg Tab 25 MG PO BID #60 Ref 0 TAB Doxazosin (Doxazosin) 1 Mg Tab 1 MG PO HS #30 Ref 0 TAB Ergocalciferol (Vitamin D) 50,000 Unit Cap 84439 UNITS PO Q7D Nutritional Supplement #30 Ref 0 CAP Ferrous Sulfate (Ferrous Sulfate) 325 Mg Tab 65 MG PO DAILY Nutritional Supplement #30 Ref 0 TAB Hydrocodone-Acetaminophen (Lortab) 5-325 Mg Tab 1 TAB PO Q4H PRN PAIN Ref 0 TAB Levothyroxine (Levothyroxine) 150 Mcg Tab 150 MCG PO DAILY Thyroid #30 Ref 0 TAB Potassium Chloride ER (Potassium Chloride ER) 10 Meq Tab 10 MEQ PO DAILY Electrolyte Replacement #30 Ref 0 TAB Quinapril (Quinapril) 40 Mg Tab 40 MG PO DAILY #30 Ref 0 TAB Ranitidine (Ranitidine) 150 Mg Tab 150 MG PO HS Heartburn Management #30 Ref 0 TAB Rosuvastatin (Rosuvastatin) 20 Mg Tab 20 MG PO DAILY Cholesterol Management #30 Ref 0 TAB Spironolactone (Spironolactone) 25 Mg Tab 25 MG PO BIDPC #60 Ref 0 TAB Discontinued Medications: Amitriptyline (Amitriptyline) 25 Mg Tab 25 MG PO HS Control Depression #30 Ref 0 TAB Celecoxib (Celecoxib) 200 Mg Cap 200 MG PO BID Pain Management Ref 0 CAP Empagliflozin (Jardiance) 10 Mg Tab 10 MG PO DAILY Blood Sugar Management #30 Ref 0 TAB Furosemide (Furosemide) 40 Mg Tab 40 MG PO DAILY #30 Ref 0 TAB Gabapentin (Gabapentin) 300 Mg Cap 300 MG PO HS #30 Ref 0 CAP Glimepiride (Glimepiride) 4 Mg Tab 4 MG PO BIDAC Blood Sugar Management #60 Ref 0 TAB Linagliptin (Tradjenta) 5 Mg Tab 5 MG PO DAILY Blood Sugar Management #30 Ref 0 TAB Omeprazole (Omeprazole) 20 Mg Tab 20 MG PO DAILY #30 Ref 0 TAB Sitagliptin-Metformin (Janumet) 50-500 Mg Tab 100 TAB PO HS Blood Sugar Management #60 Ref 0 TAB Garry Newberry MD Mar 09, 2016 10:17
[2016-03-09] MEDS ORDERED: GLIP5TAB8 PO (10:24)
[2016-03-09] MEDS ORDERED: PROT40TA PO (10:24)
[2016-03-09] MEDS ORDERED: CARA1SUS3 PO (10:24)
--- NOTE | 2016-03-09 10:27 | HHI.DCPOC ---
Discharge Care Plan Diagnosis: (1) GI bleed (2) Exertional dyspnea (3) Symptomatic anemia (4) Elevated troponin I level (5) Acute renal insufficiency (6) ACS (acute coronary syndrome) (7) Anemia (8) SOB (shortness of breath) (9) CHF (congestive heart failure) (10) Lymphedema (11) DM (diabetes mellitus) (12) Acute blood loss anemia (13) Constipation (14) Acute blood loss anemia (15) Edema (16) CKD (chronic kidney disease) stage 3, GFR 30-59 ml/min (17) Cortical age-related cataract, bilateral Goals to Promote Your Health * To prevent worsening of your condition and complications * To maintain your health at the optimal level Directions to Meet Your Goals Take your medications as prescribed Follow your dietary instruction Follow activity as directed Keep your appointments as scheduled Take your immunizations and boosters as scheduled If your symptoms worsen call your PCP, if no PCP go to Urgent Care Center or Emergency Room Smoking is Dangerous to Your Health. Avoid second hand smoke Call the 24-hour hour crisis hotline for domestic abuse at Garry Rodriguez MD Mar 09, 2016 10:27
[2016-03-09] MEDS: DEXT 5%-NACL 0.9% 1000 ML INJ 1,000 ML IV SCH (11:00)
--- NOTE | 2016-03-09 11:27 | HHI.NPPN ---
Subjective Renal Failure: Chronic History of Present Illness 80 year old with diabetes CKD and anemia Review of Systems General Constitutional: Fatigue Objective Data Data 03/08/16 03/09/16 19:00 07:00 Intake Total 1625 ml 360 ml Output Total 800 ml 250 ml Balance 825 ml 110 ml Intake Oral 725 ml 360 ml IV Total 900 ml 0 ml Output Urine Total 800 ml 250 ml # Bowel Movements 1 0 Vital Signs Date Time Temp Pulse Resp B/P Pulse Ox O2 Delivery O2 Flow Rate FiO2 03/09/16 09:08 95 21 03/09/16 08:00 97.8 55 18 157/81 100 03/09/16 08:00 58 03/09/16 04:00 98.4 54 20 149/65 97 03/09/16 04:00 54 03/09/16 00:00 62 03/09/16 00:00 62 03/08/16 23:52 98.2 62 24 146/64 97 03/08/16 20:00 56 03/08/16 20:00 98.1 56 22 151/69 98 03/08/16 18:00 53 03/08/16 17:00 56 03/08/16 16:00 60 03/08/16 16:00 97.9 54 16 142/62 100 03/08/16 15:00 60 03/08/16 14:00 58 03/08/16 13:00 57 03/08/16 12:00 57 03/08/16 12:00 98.0 51 16 151/68 98 -: 03/09/16 1045 03/09/16 0445 Physical Exam General Appearance: Well Developed, Well Nourished Neck Neck Exam: Neck Supple Pulmonary Resp Exam: Clear Bilaterally, Breath Sounds Equal Cardiology CV Exam: Regular, Normal Sinus Rhythm Gastrointestinal/Abdomen GI Exam: Soft, Non-Tender, Bowel Sounds Present Extremeties Extremities Exam: Moderate Edema Assessment/Plan Problem List: (1) Acute renal insufficiency Plan: cr 2.2 US CKD likely diabetic/hypertensive SPEP/HARDEEP neg likely diabetic/htn Renal disease (2) CKD (chronic kidney disease) stage 3, GFR 30-59 ml/min Plan: Old records show his creatinine was 1.6 wood in progress follow BMP (3) Anemia Plan: GI following getting colonoscopy (4) DM (diabetes mellitus) Plan: Follow blood glucose (5) Acute blood loss anemia Problem Qualifiers (1) DM (diabetes mellitus): Qualified Code: E11.8 - Type 2 diabetes mellitus with complication, unspecified alf insulin use status Blake De Santiago MD Mar 09, 2016 11:27
--- NOTE | 2016-03-09 14:06 | HHI.GIFU ---
Subjective Remarks Resting in bed, going home soon, no GI issues, no bleeding (Akbar GarP) Objective Vitals I&O Vital Signs Date Time Temp Pulse Resp B/P Pulse Ox O2 Delivery O2 Flow Rate FiO2 03/09/16 12:00 60 03/09/16 12:00 97.9 53 18 130/69 95 03/09/16 11:00 70 03/09/16 10:00 59 03/09/16 09:08 95 21 03/09/16 09:00 62 03/09/16 08:00 97.8 55 18 157/81 100 03/09/16 08:00 58 03/09/16 07:00 48 03/09/16 04:00 98.4 54 20 149/65 97 03/09/16 04:00 54 03/09/16 00:00 62 03/09/16 00:00 62 03/08/16 23:52 98.2 62 24 146/64 97 03/08/16 20:00 56 03/08/16 20:00 98.1 56 22 151/69 98 03/08/16 18:00 53 03/08/16 17:00 56 03/08/16 16:00 60 03/08/16 16:00 97.9 54 16 142/62 100 03/08/16 15:00 60 I/O 03/08/16 03/08/16 03/08/16 03/09/16 03/09/16 03/09/16 07:00 15:00 23:00 07:00 15:00 23:00 Intake Total 200 ml 400 ml 1225 ml 360 ml Output Total 2100 ml 800 ml 250 ml Balance -1900 ml 400 ml 425 ml 110 ml Intake Oral 200 ml 725 ml 360 ml IV Total 400 ml 500 ml 0 ml Output Urine Total 800 ml 250 ml Stool Total 2100 ml # Voids 4 # Bowel Movements 1 0 Laboratory Laboratory Tests Test 03/09/16 03/09/16 04:45 10:45 White Blood Count 7.5 Red Blood Count 3.42 Hemoglobin 8.9 9.6 Hematocrit 27.8 Mean Corpuscular Volume 81.3 Mean Corpuscular Hemoglobin 26.0 Mean Corpuscular Hemoglobin 32.0 Concent Red Cell Distribution Width 16.0 Platelet Count 276 Mean Platelet Volume 7.7 Neutrophils (%) (Auto) 74.5 Lymphocytes (%) (Auto) 10.7 Monocytes (%) (Auto) 12.6 Eosinophils (%) (Auto) 1.8 Basophils (%) (Auto) 0.4 Neutrophils # (Auto) 5.6 Lymphocytes # (Auto) 0.8 Monocytes # (Auto) 0.9 Eosinophils # (Auto) 0.1 Basophils # (Auto) 0.0 CBC Comment DIFF FINAL Differential Comment Sodium Level 140 Potassium Level 3.9 Chloride Level 102 Carbon Dioxide Level 26.8 Anion Gap 11 Blood Urea Nitrogen 35 Creatinine 2.29 Estimat Glomerular Filtration 33 Rate Random Glucose 139 Calcium Level 9.5 Physical Exam HEENT: Pupils round and reactive to light; normocephalic; atraumatic; no jaundice. Throat is clear. NECK: Neck is supple, no JVD, no lymphadenopathy. CHEST: Chest is clear to auscultation and percussion. CARDIAC: Regular rate and rhythm with no murmur gallop or rubs. ABDOMEN: Soft, obese, nondistended, nontender; no hepatosplenomegaly; bowel sounds are present in all four quadrants. EXTREMITIES: 2+ edema SKIN: Normal; no rash; no jaundice. STRATEGIC ACCOUNT MANAGER: No focal deficits; alert and oriented times three. (Akbar Gar) Assessment and Plan Assessment: (1) GI bleed Plan: found to have severe anemia, with H&H of 5.0/17.2 Had stools darker than normal for the past two months Denies Hematemesis Follow H&H transfuse PRBC's to keep Hgb > 7.0 Continue Protonix colonoscopy showed polyps and diverticulosis and EGD showed Duodenal ulcers and gastritis, esophageal stricture that was dilated recommend to feed patient, continue PPI. PRBC as needed, colonoscopy in 1 year (2) Constipation Plan: mild Add stool softeners (3) Acute blood loss anemia Plan: Continue to follow H&H closely Stools were Heme + Transfuse PRBC's PRN to keep H&H > 7.0 Has Hx of anemia in the past with negative work up per patient about 6 years ago (4) Exertional dyspnea Plan: Secondary to anemia and fluid overload (5) Elevated troponin I level Plan: PCP following (6) DM (diabetes mellitus) Plan: followed by primary care (7) Edema Plan: Has 2-3+ lower ext edema follow by PCP Plan Plan - cardiac MITESH - Okay to DC home from GI stand point - F/u with Gi in 2 weeks - Consider CE as an OP - Follow H&H - Continue Protonix - Supportive care (Akbar Gar) Physician Comments Patient was seen and examined, agree with above note and plan, going home today , we will FU as OP. (Nisreen Alegre MD) Problem Qualifiers (1) GI bleed: Qualified Code: K92.2 - Gastrointestinal hemorrhage, unspecified gastrointestinal hemorrhage type (2) Constipation: Qualified Code: K59.00 - Constipation, unspecified constipation type (3) DM (diabetes mellitus): Qualified Code: E11.8 - Type 2 diabetes mellitus with complication, unspecified nursing home insulin use status (4) Edema: Qualified Code: R60.9 - Edema, unspecified type Akbar Gar Mar 09, 2016 14:06 Nisreen Alegre MD Mar 09, 2016 20:23
--- NOTE | 2016-03-09 15:32 | HHI.FF ---
Face to Face Verification Diagnosis: (1) GI bleed (2) Exertional dyspnea (3) Symptomatic anemia (4) Elevated troponin I level (5) Acute renal insufficiency (6) ACS (acute coronary syndrome) (7) Anemia (8) SOB (shortness of breath) (9) CHF (congestive heart failure) (10) Lymphedema (11) DM (diabetes mellitus) (12) Elevated troponin (13) Acute blood loss anemia (14) Constipation (15) Acute blood loss anemia (16) Edema (17) CKD (chronic kidney disease) stage 3, GFR 30-59 ml/min (18) Cortical age-related cataract, bilateral Physical Therapy Order: Evaluate and Treat, Improve ambulation, Strength and gait training Home Health Nursing Order: Medical education Signs/symptoms of disease process Diabetic education CHF education Medication education-adverse effect Nursing assessment with vital signs Home Health Aide Order: To Assist In: Bathing and personal care, legal activity adjudicator and meal prep Sign Writer Hand Order: To Evaluate: Living conditions/environment, Support services Order: To Provide: Long range planning, Community services I have seen patient Js Brown on 03/09/16. My clinical findings support the need for the requested home health care services because: Ltd mobility - disease progression Patient has SOB Deconditioned w/ increased weakness Med compliance is questionable Limited ability to care for self Need for psychosocial assistance Impaired cognition/judgement High risk of falls I certify that my clinical findings support that this patient is homebound because: Impaired cognitive ability/safety Unsteady gait/balance Unsafe to leave home unassisted Need for psychosocial assistance Unable to use public transportation Poor cardiac reserve Garry Rodriguez MD Mar 09, 2016 15:32
[2016-07-27] MEDS ORDERED: CARA1SUS3 PO (10:44)
[2016-07-27] MEDS ORDERED: ERGO1CAP30 PO (10:44)
[2016-07-27] MEDS ORDERED: QUIN5TAB6 PO (10:44)
[2016-07-27] MEDS ORDERED: RANI150C PO (10:44)
== END 2016-03-09 17:09 | disposition home health service (06) | DRG 378 ==
LOC: NEPA 12:14 → NEDA 14:52 → HCIS 21:50
PROVIDERS: ADMIT Family Medicine; ATTEND Family Medicine
PROC: 30233N1 Transfusion of Nonautologous Red Blood Cells into Peripheral Vein, Percutaneous Approach (ICD-10-PCS; principal; 2016-03-05)
PROC: 0DBN8ZZ Excision of Sigmoid Colon, Via Natural or Artificial Opening Endoscopic (ICD-10-PCS; 2016-03-08)
PROC: 0DB98ZX Excision of Duodenum, Via Natural or Artificial Opening Endoscopic, Diagnostic (ICD-10-PCS; 2016-03-08)
PROC: 0DB68ZX Excision of Stomach, Via Natural or Artificial Opening Endoscopic, Diagnostic (ICD-10-PCS; 2016-03-08)
PROC: 0D758ZZ Dilation of Esophagus, Via Natural or Artificial Opening Endoscopic (ICD-10-PCS; 2016-03-08)
PROC: 0DBM8ZZ Excision of Descending Colon, Via Natural or Artificial Opening Endoscopic (ICD-10-PCS; 2016-03-08 08:40)
DX: K92.2 Gastrointestinal hemorrhage, unspecified (principal); D62 Acute posthemorrhagic anemia; N17.9 Acute kidney failure, unspecified; E11.22 Type 2 diabetes mellitus with diabetic chronic kidney disease; I24.9 Acute ischemic heart disease, unspecified; I13.0 Hypertensive heart and chronic kidney disease with heart failure and stage 1 through stage 4 chronic kidney disease, or unspecified chronic kidney disease; I50.9 Heart failure, unspecified; E66.01 Morbid (severe) obesity due to excess calories; K22.2 Esophageal obstruction; I89.0 Lymphedema, not elsewhere classified; N28.9 Disorder of kidney and ureter, unspecified; N18.3 Chronic kidney disease, stage 3 (moderate); K57.30 Diverticulosis of large intestine without perforation or abscess without bleeding; K26.9 Duodenal ulcer, unspecified as acute or chronic, without hemorrhage or perforation; K21.9 Gastro-esophageal reflux disease without esophagitis; K29.70 Gastritis, unspecified, without bleeding; G47.30 Sleep apnea, unspecified; K59.00 Constipation, unspecified; J44.9 Chronic obstructive pulmonary disease, unspecified; I87.2 Venous insufficiency (chronic) (peripheral); E78.5 Hyperlipidemia, unspecified; I25.10 Atherosclerotic heart disease of native coronary artery without angina pectoris; D12.3 Benign neoplasm of transverse colon; D12.4 Benign neoplasm of descending colon; H25.013 Cortical age-related cataract, bilateral; M19.90 Unspecified osteoarthritis, unspecified site; F41.9 Anxiety disorder, unspecified; Z68.38 Body mass index [BMI] 38.0-38.9, adult; Z79.84 Long term (current) use of oral hypoglycemic drugs; Z85.46 Personal history of malignant neoplasm of prostate; Z87.891 Personal history of nicotine dependence; Z88.7 Allergy status to serum and vaccine; Z91.013 Allergy to seafood; Z95.5 Presence of coronary angioplasty implant and graft
CPT/HCPCS: 36430; 71010; 76775; 80048; 80053; 80074; 81001; 82550; 82948; 83735; 83880; 84100; 84165; 84484; 85018; 85025; 85610; 86038; 86160; 86850; 86900; 86901; 86920; 88305; 93005; 93306; C1769; C9113; J1815; J1940; J7042; J7050; P9016

== ENCOUNTER 2016-06-28 16:29 | Inpatient (IN) | payer MEDICARE ==
[2016-06-28] VITALS (8 sets, daily range): BP systolic 129–146; BP diastolic 58–91; PULSE 58–78; RESP 17–29; TEMP 98.3–99.3; O2SAT 97–100
[~2016-06-28] VITALS: Ht 177.8 cm; Wt 112.9 kg
[~2016-06-28 16:29] MED LIST changes: -AMIT25 PO; +CARA1SUS3 PO; -CARV12.5 PO; +CARV25TA PO; -DOXA1 PO; +DOXA1TAB36 PO; -EMPA1TAB; +ERGO1CAP10 PO; -ERGO50000 PO; -FERR324T4 PO; +FERR325T PO; -GLIM2TAB PO; +GLIP5TAB8 PO; +HYDR-3533 PO; -MELO15TA2 PO; -OXYC1SOL5 PO; -POTA-267 PO; +POTA10TA2 PO; -QUIN40TA10 PO; +QUIN40TA2 PO; -ROSU10 PO; +ROSU1TAB8 PO; -SITA100T MT
[2016-06-28] MEDS ORDERED: SODIUM CHLORIDE 0.9% FLUSH 10 ML FLUSH IVF PRN (17:00)
[2016-06-28] MEDS ORDERED: PANTOPRAZOLE INJ 80 MG in SODIUM CHLORIDE 0.9% INJ 35 ML IV ONE (17:00)
--- NOTE | 2016-06-28 17:15 | PD ---
HPI Chief Complaint: Abnormal Results Time Seen by Provider: 16:46 Travel History International Travel<30 days: No Contact w/Intl Traveler<30days: No Traveled to known affect area: No History of Present Illness HPI This is an 80-year-old male who has a history of duodenal ulcer and gastritis diagnosed in March in the setting of an upper GI bleed who presents to the emergency department today with increasing weakness and lightheadedness that been present for 1 week, constant, worse with exertion, improved with rest. He says it feels similar to when he presented in March. He says his primary doctor checked his hemoglobin 3 days ago and it was low and he told him to come to the emergency department. He denies any black stools or bright red stools. PFSH Past Medical History Arthritis: Yes Asthma: No Autoimmune Disease: No Blood Disorders: No Anxiety: Yes Depression: No Heart Rhythm Problems: No Cancer: Yes (PROSTATE) Cardiovascular Problems: Yes High Cholesterol: Yes Chemotherapy: No Chest Pain: No Congestive Heart Failure: No COPD: No Cerebrovascular Accident: No Diabetes: Yes Patient Takes Glucophage: No Diminished Hearing: No Endocrine: Yes Gastrointestinal Disorders: Yes GERD: Yes Glaucoma: No Genitourinary: Yes Headaches: No Hepatitis: No Hiatal Hernia: Yes (GERD) Hypertension: Yes Immune Disorder: No Implanted Vascular Access Dvce: Yes Kidney Stones: No Medical other: Yes (ANEMIA) Musculoskeletal: Yes (ANANTH. CTS) Neurologic: Yes Psychiatric: Yes Reproductive: No Respiratory: Yes Immunizations Current: Yes Myocardial Infarction: No Radiation Therapy: No Renal Failure: No Seizures: No Sickle Cell Disease: No Sleep Apnea: Yes (does not wear cpap) Thyroid Disease: Yes Ulcer: No Tetanus Vaccination: < 5 Years Influenza Vaccination: No Past Surgical History Abdominal Surgery: Yes (APPENDECTOMY) AICD: No Appendectomy: Yes Body Medical Devices: CARDIAC STENTS Cardiac Surgery: Yes (cardiac stent placement) Coronary Stent: Yes (X2) Ear Surgery: No Endocrine Surgery: Yes (SUBTOTAL THYROIDECTOMY) Eye Surgery: No Genitourinary Surgery: Yes (prostatectomy, ESWL) Gynecologic Surgery: Yes Oral Surgery: No Pacemaker: No Thoracic Surgery: No Other Surgery: Yes (THYROIDECTOMY 09/01/10) Social History Alcohol Use: Yes (2 DRINKS/WEEK) Tobacco Use: No Substance Use: No Allergies-Medications (Allergen,Severity, Reaction): Coded Allergies: Oscal 500 (Verified Allergy, Severe, 06/28/16) rash Shellfish (Verified Allergy, Severe, 06/28/16) rash Tetanus Toxoid (Verified Allergy, Severe, 06/28/16) rash Reported Meds & Prescriptions Reported Meds & Active Scripts Active Glipizide 5 Mg Tab 5 Mg PO TIDAC Take 30 minutes before a meal Protonix (Pantoprazole Sodium) 40 Mg Tab 40 Mg PO BIDAC Reported Rosuvastatin (Rosuvastatin Calcium) 20 Mg Tab 20 Mg PO HS Spironolactone 25 Mg Tab 25 Mg PO BIDPC Vitamin D (Ergocalciferol) 50,000 Unit Cap 50,000 Units PO Q7D Lortab (Hydrocodone-Acetaminophen) 5-325 Mg Tab 1 Tab PO TID Levothyroxine (Levothyroxine Sodium) 150 Mcg Tab 150 Mcg PO DAILY Potassium Chloride ER (Potassium Chloride) 10 Meq Tab 10 Meq PO DAILY Carvedilol 25 Mg Tab 25 Mg PO BID Doxazosin (Doxazosin Mesylate) 1 Mg Tab 1 Mg PO HS Quinapril (Quinapril HCl) 40 Mg Tab 40 Mg PO DAILY Review of Systems Except as stated in HPI: all other systems reviewed are Neg Physical Exam Narrative GENERAL:Well appearing, no acute distress SKIN: Focused skin assessment warm and dry. Pale. HEAD: Atraumatic. Normocephalic. EYES: Pupils equal and round. No injection or drainage. ENT: Moist mucous membranes NECK: Trachea midline. CARDIOVASCULAR: Regular rate and rhythm. No murmur appreciated. RESPIRATORY: Clear to auscultation. Breath sounds equal bilaterally. GASTROINTESTINAL: Abdomen soft, non-tender, nondistended. MUSCULOSKELETAL: No obvious deformities. NEUROLOGICAL: Awake and alert. No obvious cranial nerve deficits. Moving all extremities. PSYCHIATRIC: Appropriate mood and affect; insight and judgment normal. Data Data Last Documented VS Vital Signs Date Time Temp Pulse Resp B/P Pulse Ox O2 Delivery O2 Flow Rate FiO2 06/28/16 17:11 62 100 Room Air 06/28/16 16:41 99.3 18 129/91 Orders Complete Blood Count With Diff (06/28/16 16:46) Comprehensive Metabolic Panel (06/28/16 16:46) Prothrombin Time / Inr (Pt) (06/28/16 16:46) Act Partial Throm Time (Ptt) (06/28/16 16:46) Type And Screen (06/28/16 16:46) Red Blood Cells (Rbc) (06/28/16 16:46) Ecg Monitoring (06/28/16 16:46) Iv Access Insert/Monitor (06/28/16 16:46) Oximetry (06/28/16 16:46) Sodium Chloride 0.9% Flush (Ns Flush) (06/28/16 17:00) Pantoprazole Inj (Protonix Inj) (06/28/16 17:00) Pantoprazole Inj (Protonix Inj) (06/28/16 17:00) Blood Product Administration .UPON TRANSFUSION (06/28/16 18:02) Labs Laboratory Tests Test 06/28/16 17:00 White Blood Count 6.5 TH/MM3 Red Blood Count 2.44 MIL/MM3 Hemoglobin 6.7 GM/DL Hematocrit 20.6 % Mean Corpuscular Volume 84.3 FL Mean Corpuscular Hemoglobin 27.4 PG Mean Corpuscular Hemoglobin 32.4 % Concent Red Cell Distribution Width 16.0 % Platelet Count 297 TH/MM3 Mean Platelet Volume 7.9 FL Neutrophils (%) (Auto) 67.3 % Lymphocytes (%) (Auto) 17.3 % Monocytes (%) (Auto) 12.5 % Eosinophils (%) (Auto) 2.5 % Basophils (%) (Auto) 0.4 % Neutrophils # (Auto) 4.3 TH/MM3 Lymphocytes # (Auto) 1.1 TH/MM3 Monocytes # (Auto) 0.8 TH/MM3 Eosinophils # (Auto) 0.2 TH/MM3 Basophils # (Auto) 0.0 TH/MM3 CBC Comment AUTO DIFF Prothrombin Time 11.3 SEC Prothromb Time International 1.0 RATIO Ratio Activated Partial 21.6 SEC Thromboplast Time Sodium Level 139 MEQ/L Potassium Level 4.6 MEQ/L Chloride Level 109 MEQ/L Carbon Dioxide Level 20.7 MEQ/L Anion Gap 9 MEQ/L Blood Urea Nitrogen 45 MG/DL Creatinine 2.95 MG/DL Estimat Glomerular Filtration 25 ML/MIN Rate Random Glucose 118 MG/DL Calcium Level 10.4 MG/DL Total Bilirubin 0.2 MG/DL Aspartate Amino Transf 12 U/L (AST/SGOT) Alanine Aminotransferase 10 U/L (ALT/SGPT) Alkaline Phosphatase 49 U/L Total Protein 7.0 GM/DL Albumin 3.0 GM/DL Blood Type A POSITIVE Antibody Screen NEGATIVE Crossmatch Leukocyte-Reduced Red Blood Cells Blood Bank Comment MDM Medical Decision Making Medical Screen Exam Complete: Yes Emergency Medical Condition: Yes Medical Record Reviewed: Yes (patient was admitted in March and diagnosed on endoscopy with gastritis and duodenal ulcer) Interpretation(s) Temperature is 99.3 Hemoglobin is 6.7 Hematocrit is 20.6 Renal insufficiency at baseline Differential Diagnosis Ulcer, gastritis, anemia, electrolyte abnormality, dehydration Narrative Course This is an 80-year-old male who presents to the emergency department with generalized weakness. He was placed in a monitor and an IV was established. He was found to have a hemoglobin of 6.7. He was recently admitted in March in the setting of a GI bleed. He is Hemoccult-positive today. He was placed on pantoprazole and will be transfused 2 units of blood along with diuresis. Patient will be admitted for further management. HemaPrompt Point of Care Internal Pos. & Neg. Controls: Passed Fecal Specimen Occult Blood: Positive Diagnosis Primary Impression: GI bleed Qualified Code: K92.2 - Gastrointestinal hemorrhage, unspecified gastrointestinal hemorrhage type Admitting Information Admitting Physician Requests: Admit Bindu Deal MD Jun 28, 2016 17:15
[2016-06-28 17:26] LABS: AUTOMATED NEUTROPHIL # 4.3 TH/MM3 (1.8-7.7); BASOPHIL % 0.4 % (0.0-2.0); EOSINOPHIL # 0.2 TH/MM3 (0-0.4); EOSINOPHIL % 2.5 % (0.0-4.0); LYMPH % 17.3 % (9.0-44.0); LYMPHOCYTE # 1.1 TH/MM3 (1.0-4.8); MEAN CELL VOLUME 84.3 FL (80.0-100.0); MEAN CORPUSCULAR HEMOGLOBIN 27.4 PG (27.0-34.0); MEAN CORPUSCULAR HGB CONC 32.4 % (32.0-36.0); MONO % 12.5 % (0.0-8.0); NEUT % 67.3 % (16.0-70.0); PLATELET COUNT 297 TH/MM3 (150-450); RED BLOOD COUNT 2.44 MIL/MM3 (4.50-5.90); WHITE BLOOD COUNT 6.5 TH/MM3 (4.0-11.0)
[2016-06-28 17:32] LABS: HEMO FLAGS AUTO DIFF
[2016-06-28 17:34] LABS: APTT (PATIENT) 21.6 SEC (24.3-30.1); PROTHROMBIN TIME - PATIENT 11.3 SEC (9.8-11.6)
[2016-06-28] MEDS: PANTOPRAZOLE INJ 80 MG in SODIUM CHLORIDE 0.9% INJ 100 ML IV SCH (17:37)
[2016-06-28 17:38] LABS: HEMATOCRIT 20.6 % (39.0-51.0)
[2016-06-28 17:48] LABS: ALKALINE PHOSPHATASE 49 U/L (45-117); TOTAL BILIRUBIN ADULT 0.2 MG/DL (0.2-1.0)
[2016-06-28 17:52] LABS: ALT (GPT) 10 U/L (12-78); ANION GAP 9 MEQ/L (5-15); AST (GOT) 12 U/L (15-37); BICARBONATE 20.7 MEQ/L (21.0-32.0); BLOOD UREA NITROGEN 45 MG/DL (7-18); CHLORIDE 109 MEQ/L (98-107); GLOMERULAR FILTRATION RATE 25 ML/MIN (>89); POTASSIUM 4.6 MEQ/L (3.5-5.1); SODIUM (NA) 139 MEQ/L (136-145)
[2016-06-28] MEDS ORDERED: BUMETANIDE INJ 1 MG/4 ML VIAL IV PUSH ONE (18:15)
[2016-06-28 18:30] LABS: SCAN/DIFF AUTO DIFF CONFIRMED
[2016-06-28 18:31] LABS: PLATELET ESTIMATE SMEAR NORMAL (NORMAL); PLATELET MORPHOLOGY NORMAL (NORMAL)
[2016-06-28] MEDS ORDERED: SODIUM CHLORIDE 0.9% FLUSH 10 ML FLUSH IV FLUSH PRN (20:15)
[2016-06-28] MEDS ORDERED: NALOXONE HCL 0.4 MG/ML AMP IV PRN (20:15)
[2016-06-28] MEDS ORDERED: cloNIDine HCL 0.1 MG TAB PO PRN (20:15)
[2016-06-28] MEDS ORDERED: ONDANSETRON HCL 4 MG/2 ML VIAL IVP PRN (20:15)
[2016-06-28] MEDS ORDERED: BISACODYL 10 MG SUPP RECTAL PRN (20:15)
[2016-06-28] MEDS ORDERED: ACETAMINOPHEN 325 MG TAB PO PRN (20:15)
[2016-06-28] MEDS ORDERED: ACETAMINOPHEN/HYDROcodone 325 MG/5 MG TAB PO PRN (20:15)
[2016-06-28] MEDS ORDERED: LORazepam 0.5 MG TAB PO PRN (20:15)
[2016-06-28] MEDS: SODIUM CHLORIDE 0.9% FLUSH 10 ML FLUSH IV FLUSH SCH (21:00)
[2016-06-28] MEDS: PANTOPRAZOLE SODIUM 40 MG VIAL IV PUSH SCH (22:45)
[2016-06-28] MEDS: DEXT 5%-NACL 0.45% 1000 ML INJ 1,000 ML IV SCH (22:45)
[2016-06-28] MEDS: CARVEDILOL 12.5 MG TAB PO SCH (22:46)
[2016-06-28] MEDS: ATORVASTATIN 40 MG TAB PO SCH (23:07)
[2016-06-29] VITALS (8 sets, daily range): BP systolic 93–138; BP diastolic 51–63; PULSE 50–69; RESP 18–20; TEMP 97–98.1; O2SAT 93–100
[2016-06-29] MEDS: PANTOPRAZOLE INJ 80 MG in SODIUM CHLORIDE 0.9% INJ 100 ML IV SCH ×3 (00:10→16:03)
[2016-06-29] MEDS: LEVOTHYROXINE SODIUM 150 MCG TAB PO SCH (06:38)
--- NOTE | 2016-06-29 07:30 | HHI.HP ---
History of Present Illness Primary Care Physician Garry Rodriguez MD Admission Diagnosis gi bleed Diagnoses: (1) SOB (shortness of breath) (2) Lymphedema (3) constipation (4) Acute blood loss anemia (5) Constipation (6) Acute blood loss anemia (7) Edema (8) CHF (congestive heart failure) (9) Acute renal insufficiency (10) GI bleed (11) DM (diabetes mellitus) (12) Exertional dyspnea (13) CKD (chronic kidney disease) stage 3, GFR 30-59 ml/min (14) Symptomatic anemia History of Present Illness 80 y AAM. SEEN OUTPT, I DID LABS AND FOUND HGB 6, CALLED PT AND REPORTS MILD DYSPEPSIA. INSTRUCTED HIM TO GO TO THE ER. HAS BEEN STABLE OVERALL, GENERAL DECLINE OVER THE LAST YEAR. PT HAS BEEN WATCHING HIS DYSPEPTIC DIET CAREFULLY. MONITORS GLUCOSE AT HOME W [facility] IN LAW. HAS HAD INCR CONFUSION PER [facility] IN LAW. BP AT HOME WNL PER THEIR REPORT. C/O OCCAS CHF SX AND SOB WITH ROSS. D/W RN. I WAS CALLED BY ER DR FOR ADMIT. AGREED WITH TRANSFUSION W ER DR. Review of Systems ROS Limitations: Altered Mental Status, Poor Historian Constitutional: COMPLAINS OF: Fatigue, Dizziness Endocrine: DENIES: Heat/cold intolerance Eyes: DENIES: Blurred vision, Eye pain Respiratory: COMPLAINS OF: Cough, Wheezing Gastrointestinal: COMPLAINS OF: Abdominal pain Integumentary: COMPLAINS OF: Abnormal pigmentation Psychiatric: COMPLAINS OF: Anxiety, Confusion, Mood changes Except as stated in HPI: all other systems reviewed are Neg Past Family Social History Allergies: Coded Allergies: Oscal 500 (Verified Allergy, Severe, 06/28/16) rash Shellfish (Verified Allergy, Severe, 06/28/16) rash Tetanus Toxoid (Verified Allergy, Severe, 06/28/16) rash Past Medical History Past Medical History Diabetes Hypertension Congestive heart failure Chronic lymphedema Anemia Chronic kidney disease Prostate cancer Coronary artery disease Past Surgical History Cardiac stent Prostatectomy Appendectomy EGD/Colonoscopy Coded Allergies: Oscal 500 (Verified Allergy, Severe, 06/28/16) rash Shellfish (Verified Allergy, Severe, 06/28/16) rash Tetanus Toxoid (Verified Allergy, Severe, 06/28/16) rash Active Ordered Medications Current Medications Medications (Trade) Dose Ordered Sig/Domitila Route Start Time Stop Time Status Last Admin Sodium Chloride 2 ml 2 ml UNSCH PRN IVF 06/28/16 17:00 (Protonix Inj/NS Inj) 100 ml @ 10 mls/hr Q10H IV 06/28/16 17:00 06/29/16 03:38 (NS Flush) 2 ml UNSCH PRN IV FLUSH 06/28/16 20:15 (NS Flush) 2 ml BID IV FLUSH 06/28/16 21:00 06/29/16 09:00 (Tylenol) 650 mg Q4H PRN PO 06/28/16 20:15 (Zofran Inj) 4 mg Q6H PRN IVP 06/28/16 20:15 (Dulcolax Supp) 10 mg DAILY PRN RECTAL 06/28/16 20:15 (Narcan Inj) 0.4 mg UNSCH PRN IV 06/28/16 20:15 (Ativan) 0.5 mg Q8H PRN PO 06/28/16 20:15 Clonidine 0.1 mg 0.1 mg Q6H PRN PO 06/28/16 20:15 (D5W-1/2 NS 1000 ml Inj) 1,000 ml @ 15 mls/hr Q24H IV 06/28/16 20:15 06/28/16 22:45 ([place] 5-325 Mg) 1 tab Q4H PRN PO 06/28/16 20:15 06/28/16 22:46 (Protonix Inj) 40 mg BID IV PUSH 06/28/16 21:00 06/29/16 10:00 (Coreg) 25 mg BID PO 06/28/16 21:00 06/29/16 09:58 ([place] 5-325 Mg) 1 tab TID PO 06/29/16 09:00 06/29/16 09:56 (Synthroid) 150 mcg DAILY@06 PO 06/29/16 06:00 06/29/16 06:38 (Aldactone) 25 mg BIDPC PO 06/29/16 09:00 06/29/16 09:58 (Lipitor) 40 mg HS PO 06/28/16 21:00 06/28/16 23:07 (D50w (Vial) Inj) 25 ml UNSCH PRN IV PUSH 06/29/16 07:45 (Glucagon Inj) 1 mg UNSCH PRN OTHER 06/29/16 07:45 Physical Exam Vital Signs Vital Signs Date Time Temp Pulse Resp B/P Pulse Ox O2 Delivery O2 Flow Rate FiO2 06/29/16 03:39 97.2 56 20 133/60 100 06/29/16 03:39 97.2 56 20 133/60 100 06/29/16 02:28 97.0 62 20 121/56 100 06/29/16 02:04 97.0 55 18 115/55 100 06/29/16 01:39 97.2 69 20 130/60 100 06/29/16 00:55 18 06/28/16 22:00 78 22 139/65 99 Room Air 06/28/16 21:00 58 25 144/65 100 Room Air 06/28/16 20:54 100 06/28/16 19:20 98.3 60 17 146/67 100 Room Air 06/28/16 19:01 99.2 59 29 134/63 100 Room Air 06/28/16 18:00 67 17 135/58 100 Room Air 06/28/16 17:11 62 100 Room Air 06/28/16 17:01 97 Room Air 06/28/16 16:41 99.3 67 18 129/91 100 Physical Exam GENERAL: This is a well-nourished, well-developed patient, in no apparent distress. SKIN: No rashes, ecchymoses or lesions. Cool and dry. HEAD: Atraumatic. Normocephalic. No temporal or scalp tenderness. EYES: Pupils equal round and reactive. Extraocular motions intact. No scleral icterus. No injection or drainage. ENT: Nose without bleeding, purulent drainage or septal hematoma. Throat without erythema, tonsillar hypertrophy or exudate. Uvula midline. Airway patent. NECK: Trachea midline. No JVD or lymphadenopathy. Supple, nontender, no meningeal signs. CARDIOVASCULAR: Regular rate and rhythm without murmurs, gallops, or rubs. RESPIRATORY: Clear to auscultation. Breath sounds equal bilaterally. No wheezes , rales, or rhonchi. GASTROINTESTINAL: Abdomen soft, non-tender, nondistended. No hepato-splenomegaly , or palpable masses. No guarding. MUSCULOSKELETAL: Extremities without clubbing, cyanosis, or edema. No joint tenderness, effusion, or edema noted. No calf tenderness. Negative Homans sign bilaterally. NEUROLOGICAL: Awake and alert. Cranial nerves II through XII intact. Motor and sensory grossly within normal limits. 1 out of 5 muscle strength in all muscle groups. Normal speech. Laboratory Laboratory Tests Test 06/28/16 17:00 White Blood Count 6.5 Red Blood Count 2.44 Hemoglobin 6.7 Hematocrit 20.6 Mean Corpuscular Volume 84.3 Mean Corpuscular Hemoglobin 27.4 Mean Corpuscular Hemoglobin 32.4 Concent Red Cell Distribution Width 16.0 Platelet Count 297 Mean Platelet Volume 7.9 Neutrophils (%) (Auto) 67.3 Lymphocytes (%) (Auto) 17.3 Monocytes (%) (Auto) 12.5 Eosinophils (%) (Auto) 2.5 Basophils (%) (Auto) 0.4 Neutrophils # (Auto) 4.3 Lymphocytes # (Auto) 1.1 Monocytes # (Auto) 0.8 Eosinophils # (Auto) 0.2 Basophils # (Auto) 0.0 CBC Comment AUTO DIFF Differential Comment AUTO DIFF CONFIRMED Platelet Estimate NORMAL Platelet Morphology Comment NORMAL Prothrombin Time 11.3 Prothromb Time International 1.0 Ratio Activated Partial 21.6 Thromboplast Time Sodium Level 139 Potassium Level 4.6 Chloride Level 109 Carbon Dioxide Level 20.7 Anion Gap 9 Blood Urea Nitrogen 45 Creatinine 2.95 Estimat Glomerular Filtration 25 Rate Random Glucose 118 Calcium Level 10.4 Total Bilirubin 0.2 Aspartate Amino Transf 12 (AST/SGOT) Alanine Aminotransferase 10 (ALT/SGPT) Alkaline Phosphatase 49 Total Protein 7.0 Albumin 3.0 Blood Type A POSITIVE Antibody Screen NEGATIVE Crossmatch Leukocyte-Reduced Red Blood Cells Blood Bank Comment Result Diagram: 06/28/16 1700 06/28/16 1700 Assessment and Plan Problem List: (1) Exertional dyspnea Status: Acute (2) Symptomatic anemia Status: Acute (3) Acute renal insufficiency Status: Acute (4) CHF (congestive heart failure) Status: Chronic (5) DM (diabetes mellitus) Status: Chronic (6) Acute blood loss anemia Status: Acute (7) Constipation Status: Acute (8) Edema Status: Acute (9) CKD (chronic kidney disease) stage 3, GFR 30-59 ml/min Status: Acute (10) GI bleed Status: Acute Assessment and Plan DUODENAL ULCER, GASTRITIS, BLOOD LOSS ANEMIA. TRANSFUSED TWO U PRBC'S. Recent Colonoscopy showed polyps and diverticulosis and EGD showed Duodenal ulcers and gastritis, esophageal stricture dilated GIB CHF ACS hx TROPONEMIA DUE TO ACS VS CKD VS CHF FLUID OVERLOAD SEVERE EDEMA DM LEXI AC ON CKD 3 UTI'S DUE TO BEING NONCIRCUMCISED, S/P CIRCUMCISION AT 80 Y Plan: IVF'S NPO IV PROTONIX GI CONSULT FOR GIB INSULIN HOLD DIURETICS MONITOR FOR CHF EXAC INCREASE AM LABS Follow H&H transfuse PRBC's to keep Hgb > 7.0 Inpatient admit for the above diagnosis and plan. Expect three days of inpatient stay. Pt will likely dc home w c. Pt would from the above dx w/o inpt admit. Problem Qualifiers (1) GI bleed: Qualified Code: K92.2 - Gastrointestinal hemorrhage, unspecified gastrointestinal hemorrhage type Garry Rodriguez MD Jun 29, 2016 07:30
[2016-06-29] MEDS ORDERED: DEXTROSE 50% IN WATER 50 ML VIAL(D50) IV PUSH PRN (07:45)
[2016-06-29] MEDS ORDERED: GLUCAGON 1 MG/ML VIAL OTHER PRN (07:45)
[2016-06-29] MEDS: SODIUM CHLORIDE 0.9% FLUSH 10 ML FLUSH IV FLUSH SCH ×2 (09:00→21:00)
[2016-06-29] MEDS ORDERED: SPIRONOLACTONE 25 MG TAB PO SCH (09:00)
[2016-06-29 09:13] LABS: BASOPHIL % 0.6 % (0.0-2.0); EOSINOPHIL # 0.2 TH/MM3 (0-0.4); EOSINOPHIL % 2.7 % (0.0-4.0); HEMATOCRIT 27.7 % (39.0-51.0); HEMO FLAGS DIFF FINAL; LYMPH % 18.1 % (9.0-44.0); LYMPHOCYTE # 1.1 TH/MM3 (1.0-4.8); MEAN CELL VOLUME 84.5 FL (80.0-100.0); MEAN CORPUSCULAR HEMOGLOBIN 26.8 PG (27.0-34.0); MEAN CORPUSCULAR HGB CONC 31.7 % (32.0-36.0); MONO % 11.2 % (0.0-8.0); NEUT % 67.4 % (16.0-70.0); PLATELET COUNT 284 TH/MM3 (150-450); RED BLOOD COUNT 3.28 MIL/MM3 (4.50-5.90); RED CELL DISTRIBUTION WIDTH 15.1 % (11.6-17.2)
[2016-06-29 09:45] LABS: BICARBONATE 25.1 MEQ/L (21.0-32.0); POTASSIUM 4.4 MEQ/L (3.5-5.1)
[2016-06-29] MEDS: ACETAMINOPHEN/HYDROcodone 325 MG/5 MG TAB PO SCH ×3 (09:56→18:04)
[2016-06-29] MEDS: CARVEDILOL 12.5 MG TAB PO SCH ×3 (09:58→21:33)
[2016-06-29] MEDS: PANTOPRAZOLE SODIUM 40 MG VIAL IV PUSH SCH (10:00)
--- NOTE | 2016-06-29 10:30 | PD.CONS ---
HPI History of Present Illness This is a 80 year old male patient with a hx of chronic anemia and duodenal ulcers, gastritis, polyps. He reports that he has had "low blood counts" for about 15 years. He was hospitalized back in March of 2016 for anemia/dark stool and evaluated with EGD/Colonoscopy (03/08/16)---> esophageal stricture s/p dilation savary 17 mm, gastritis bx, duodenal ulcer bx, normal endoscopy otherwise, retroflexed views revealed no abnormalities; 2 polyps in transverse colon s/p snare polypectomy, 1 polyp in the descending colon removed, by snare, there was no evidence of stool throughout the colon, mild diverticulosis was noted in the descending colon, retroflexed views revealed no abnormalities, no abnormalities of the rectum. Small bowel duodenal mucosa with focal superficial mucosal erosion, features consistent with reactive gastropathy, colon transverse tubular adenoma, descending tubular adenoma. He reports that for the past week, he has been more tired than usual and that this has gradually been worsening. He reports that he had blood work done on Sunday and that he was called by his primary care physician and told to go to the ER. He has had dark stools, but states this is not uncommon. He has occasional reflux/ heartburn, but nothing on a regular basis. He denies nausea, vomiting, abdominal pain, diarrhea, or hematochezia. He does have intermittent constipation. He was on iron supplements for a long time and reports that these really seemed to aggravate his constipation and therefore he stopped this and his constipation improved. (Christine Segovia) PFSH Past Medical History Diabetes Hypertension Congestive heart failure Chronic lymphedema Anemia Chronic kidney disease Prostate cancer Coronary artery disease Past Surgical History Cardiac stent Prostatectomy Appendectomy EGD/Colonoscopy (Christine Segovia) Coded Allergies: Oscal 500 (Verified Allergy, Severe, 06/28/16) rash Shellfish (Verified Allergy, Severe, 06/28/16) rash Tetanus Toxoid (Verified Allergy, Severe, 06/28/16) rash Medications Allergies Coded Allergies Type Severity Reaction Last Updated Verified Oscal 500 Allergy Severe 06/28/16 Yes Shellfish Allergy Severe 06/28/16 Yes Tetanus Toxoid Allergy Severe 06/28/16 Yes Active Scripts Medications Dose Route/Sig Days Date Category Dose Instructions Glipizide 5 Mg Tab 5 Mg PO TIDAC 03/09/16 Rx Take 30 minutes before a meal Protonix (Pantoprazole Sodium) 40 Mg Tab 40 Mg PO BIDAC 03/09/16 Rx Rosuvastatin (Rosuvastatin Calcium) 20 Mg Tab 20 Mg PO HS 03/05/16 Reported Spironolactone 25 Mg Tab 25 Mg PO BIDPC 03/05/16 Reported Vitamin D (Ergocalciferol) 50,000 Unit Cap 50,000 Units PO Q7D 03/05/16 Reported Bumetanide 1 Mg Tab 1 Mg PO DAILY 03/05/16 Reported Lortab (Hydrocodone-Acetaminophen) 5-325 Mg Tab 1 Tab PO TID 03/05/16 Reported Levothyroxine (Levothyroxine Sodium) 150 Mcg Tab 150 Mcg PO DAILY 03/05/16 Reported Potassium Chloride ER (Potassium Chloride) 10 Meq Tab 10 Meq PO DAILY 03/05/16 Reported Carvedilol 25 Mg Tab 25 Mg PO BID 03/05/16 Reported Doxazosin (Doxazosin Mesylate) 1 Mg Tab 1 Mg PO HS 03/05/16 Reported Quinapril (Quinapril HCl) 40 Mg Tab 40 Mg PO DAILY 03/05/16 Reported Family History Brother with a hx of blood cancer. Social History Used to smoke but quit long time ago Drinks 1-2 drinks per week (Christine Segovia) Review of Systems Constitutional: COMPLAINS OF: Fatigue, DENIES: Fever, Weight loss, Chills, Change in appetite Respiratory: DENIES: Cough Cardiovascular: DENIES: Chest pain Gastrointestinal: COMPLAINS OF: Black stools (dark stool), Heartburn, DENIES: Abdominal pain, Bloody stools, Constipation, Diarrhea, Nausea, Vomiting, Anorexia, Hematemesis Musculoskeletal: DENIES: Joint pain Integumentary: DENIES: Abnormal pigmentation, Rash Hematologic/lymphatic: DENIES: Bruising Neurologic: DENIES: Headache Psychiatric: DENIES: Confusion (Christine Segovia) GI Exam Vitals I&O Vital Signs Date Time Temp Pulse Resp B/P Pulse Ox O2 Delivery O2 Flow Rate FiO2 06/29/16 08:15 98.0 52 20 123/59 99 06/29/16 03:39 97.2 56 20 133/60 100 06/29/16 03:39 97.2 56 20 133/60 100 06/29/16 02:28 97.0 62 20 121/56 100 06/29/16 02:04 97.0 55 18 115/55 100 06/29/16 01:39 97.2 69 20 130/60 100 06/29/16 00:55 18 06/28/16 22:00 78 22 139/65 99 Room Air 06/28/16 21:00 58 25 144/65 100 Room Air 06/28/16 20:54 100 06/28/16 19:20 98.3 60 17 146/67 100 Room Air 06/28/16 19:01 99.2 59 29 134/63 100 Room Air 06/28/16 18:00 67 17 135/58 100 Room Air 06/28/16 17:11 62 100 Room Air 06/28/16 17:01 97 Room Air 06/28/16 16:41 99.3 67 18 129/91 100 I/O 06/28/16 06/28/16 06/28/16 06/29/16 06/29/16 06/29/16 07:00 15:00 23:00 07:00 15:00 23:00 Intake Total 250 ml Balance 250 ml Intake Packed Cells 250 ml Laboratory Test 06/28/16 06/29/16 17:00 08:16 White Blood Count 6.5 TH/MM3 6.0 TH/MM3 Red Blood Count 2.44 MIL/MM3 3.28 MIL/MM3 Hemoglobin 6.7 GM/DL 8.8 GM/DL Hematocrit 20.6 % 27.7 % Mean Corpuscular Volume 84.3 FL 84.5 FL Mean Corpuscular Hemoglobin 27.4 PG 26.8 PG Mean Corpuscular Hemoglobin 32.4 % 31.7 % Concent Red Cell Distribution Width 16.0 % 15.1 % Platelet Count 297 TH/MM3 284 TH/MM3 Mean Platelet Volume 7.9 FL 7.8 FL Neutrophils (%) (Auto) 67.3 % 67.4 % Lymphocytes (%) (Auto) 17.3 % 18.1 % Monocytes (%) (Auto) 12.5 % 11.2 % Eosinophils (%) (Auto) 2.5 % 2.7 % Basophils (%) (Auto) 0.4 % 0.6 % Neutrophils # (Auto) 4.3 TH/MM3 4.0 TH/MM3 Lymphocytes # (Auto) 1.1 TH/MM3 1.1 TH/MM3 Monocytes # (Auto) 0.8 TH/MM3 0.7 TH/MM3 Eosinophils # (Auto) 0.2 TH/MM3 0.2 TH/MM3 Basophils # (Auto) 0.0 TH/MM3 0.0 TH/MM3 CBC Comment AUTO DIFF DIFF FINAL Differential Comment AUTO DIFF CONFIRMED Platelet Estimate NORMAL Platelet Morphology Comment NORMAL Prothrombin Time 11.3 SEC Prothromb Time International 1.0 RATIO Ratio Activated Partial 21.6 SEC Thromboplast Time Sodium Level 139 MEQ/L 140 MEQ/L Potassium Level 4.6 MEQ/L 4.4 MEQ/L Chloride Level 109 MEQ/L 109 MEQ/L Carbon Dioxide Level 20.7 MEQ/L 25.1 MEQ/L Anion Gap 9 MEQ/L 6 MEQ/L Blood Urea Nitrogen 45 MG/DL 41 MG/DL Creatinine 2.95 MG/DL 2.68 MG/DL Estimat Glomerular Filtration 25 ML/MIN 28 ML/MIN Rate Random Glucose 118 MG/DL 89 MG/DL Calcium Level 10.4 MG/DL 10.2 MG/DL Total Bilirubin 0.2 MG/DL Aspartate Amino Transf 12 U/L (AST/SGOT) Alanine Aminotransferase 10 U/L (ALT/SGPT) Alkaline Phosphatase 49 U/L Total Protein 7.0 GM/DL Albumin 3.0 GM/DL Blood Type A POSITIVE Antibody Screen NEGATIVE Crossmatch Leukocyte-Reduced Red Blood Cells Blood Bank Comment Physical Examination HEENT: Normocephalic; atraumatic; no jaundice. CHEST: CTA CARDIAC: RRR. ABDOMEN: Soft, nondistended, nontender; no hepatosplenomegaly; bowel sounds are present in all four quadrants. EXTREMITIES: No clubbing, cyanosis, or edema. SKIN: Normal; no rash; no jaundice. BANK RECONCILIATOR: No focal deficits; alert and oriented times three. (Christine Segovia) Assessment and Plan Plan ASSESSMENT: - Anemia. EGD/Colonoscopy (03/08/16)---> esophageal stricture s/p dilation savary 17 mm, gastritis bx, duodenal ulcer bx, normal endoscopy otherwise, retroflexed views revealed no abnormalities; 2 polyps in transverse colon s/p snare polypectomy, 1 polyp in the descending colon removed, by snare, there was no evidence of stool throughout the colon, mild diverticulosis was noted in the descending colon, retroflexed views revealed no abnormalities, no abnormalities of the rectum. Small bowel duodenal mucosa with focal superficial mucosal erosion, features consistent with reactive gastropathy, colon transverse tubular adenoma, descending tubular adenoma. H/H 6.7/20.6, S/P 2 units PRBC. H/H 8.8/27.7. PPI. - Hemoccult (+) Stool, dark stools. Pt reports dark stools and fatigue for about a week. He was anemic on outpatient labs and referred to ER for further evaluation. Had duodenal ulcer back in March of this year. Will plan for EGD in am. - CKD, Diabetes, Hypertension, Congestive heart failure, CAD, Hx prostate cancer per primary PLAN: - Plan for egd tomorrow - Obtain consents - Clear liquids - NPO after MN - Protonix Gtt - Monitor HH - Transfuse as necessary - Supportive care - Further recommendations to follow based on results of above - PT seen and examined by Dr. Hills and myself and this note is written on his behalf (Christine Segovia) Physician Comments Seen and examined Agree with above Continue with current supportive care Monitor labs We'll plan for an EGD tomorrow (Kamaljit Hills MD) Christine Segovia Jun 29, 2016 10:30 Kamaljit Hills MD Jun 29, 2016 21:36
[2016-06-29] MEDS: INSULIN ASPART SUPPLEMENTAL SCALE SQ SCH ×3 (11:00→21:00)
[2016-06-29] MEDS: DEXT 5%-NACL 0.45% 1000 ML INJ 1,000 ML IV SCH (20:15)
[2016-06-29] MEDS: ATORVASTATIN 40 MG TAB PO SCH (21:34)
[2016-06-30] VITALS (7 sets, daily range): BP systolic 128–144; BP diastolic 60–72; PULSE 52–86; RESP 18–20; TEMP 97.8–98.2; O2SAT 97–100
[2016-06-30 05:57] LABS: AUTOMATED NEUTROPHIL # 4.8 TH/MM3 (1.8-7.7); BASOPHIL % 0.4 % (0.0-2.0); EOSINOPHIL # 0.2 TH/MM3 (0-0.4); EOSINOPHIL % 2.5 % (0.0-4.0); HEMATOCRIT 27.2 % (39.0-51.0); HEMO FLAGS DIFF FINAL; LYMPH % 14.1 % (9.0-44.0); MEAN CELL VOLUME 84.1 FL (80.0-100.0); MEAN CORPUSCULAR HEMOGLOBIN 27.8 PG (27.0-34.0); MEAN CORPUSCULAR HGB CONC 33.1 % (32.0-36.0); MONO % 11.7 % (0.0-8.0); NEUT % 71.3 % (16.0-70.0); PLATELET COUNT 313 TH/MM3 (150-450); RED BLOOD COUNT 3.24 MIL/MM3 (4.50-5.90); RED CELL DISTRIBUTION WIDTH 15.2 % (11.6-17.2); WHITE BLOOD COUNT 6.7 TH/MM3 (4.0-11.0)
[2016-06-30 06:08] LABS: BICARBONATE 24.6 MEQ/L (21.0-32.0); POTASSIUM 4.4 MEQ/L (3.5-5.1)
[2016-06-30] MEDS: LEVOTHYROXINE SODIUM 150 MCG TAB PO SCH (06:20)
[2016-06-30] MEDS: INSULIN ASPART SUPPLEMENTAL SCALE SQ SCH ×4 (06:24→21:00)
--- NOTE | 2016-06-30 10:16 | HHI.FPPN ---
Subjective Remarks seen preop holding for scope pt malaised weak d/w RN Objective Vitals Vital Signs Date Time Temp Pulse Resp B/P Pulse Ox O2 Delivery O2 Flow Rate FiO2 06/30/16 09:20 97.9 58 19 128/60 100 06/30/16 08:24 97.9 58 19 128/60 100 06/30/16 06:04 98.1 86 18 136/72 97 06/30/16 00:57 97.8 85 18 136/72 97 06/29/16 19:20 98.1 50 18 138/63 97 06/29/16 15:58 98.1 55 20 93/51 93 06/29/16 15:08 20 06/29/16 11:59 98.0 50 20 122/60 100 I/O 06/29/16 06/29/16 06/29/16 06/30/16 06/30/16 06/30/16 07:00 15:00 23:00 07:00 15:00 23:00 Intake Total 890 ml Balance 890 ml Intake Oral 640 ml IV Total 250 ml # Voids 5 # Bowel Movements 0 Result Diagram: 06/30/16 0450 06/30/16 045 Objective Remarks GENERAL: SKIN: Warm and dry. HEAD: Atraumatic. Normocephalic. EYES: Pupils equal and round. No scleral icterus. No injection or drainage. ENT: No nasal bleeding or discharge. Mucous membranes pink and moist. NECK: Trachea midline. No JVD. CARDIOVASCULAR: Regular rate and rhythm. RESPIRATORY: No accessory muscle use. Clear to auscultation. Breath sounds equal bilaterally. GASTROINTESTINAL: Abdomen soft, non-tender, nondistended. Hepatic and splenic margins not palpable. MUSCULOSKELETAL: Extremities without clubbing, cyanosis, or edema. No obvious deformities. NEUROLOGICAL: Awake and alert. No obvious cranial nerve deficits. Motor grossly within normal limits. 1 out of 5 muscle strength in the arms and legs. Normal speech. PSYCHIATRIC: Appropriate mood and affect; insight and judgment normal. Medications and IVs Current Medications Medications (Trade) Dose Ordered Sig/Domitila Route Start Time Stop Time Status Last Admin Sodium Chloride 2 ml 2 ml UNSCH PRN IVF 06/28/16 17:00 (Protonix Inj/NS Inj) 100 ml @ 10 mls/hr Q10H IV 06/28/16 17:00 06/29/16 00:10 (NS Flush) 2 ml UNSCH PRN IV FLUSH 06/28/16 20:15 (NS Flush) 2 ml BID IV FLUSH 06/28/16 21:00 06/29/16 09:00 (Tylenol) 650 mg Q4H PRN PO 06/28/16 20:15 (Zofran Inj) 4 mg Q6H PRN IVP 06/28/16 20:15 (Dulcolax Supp) 10 mg DAILY PRN RECTAL 06/28/16 20:15 (Narcan Inj) 0.4 mg UNSCH PRN IV 06/28/16 20:15 (Ativan) 0.5 mg Q8H PRN PO 06/28/16 20:15 Clonidine 0.1 mg 0.1 mg Q6H PRN PO 06/28/16 20:15 (D5W-1/2 NS 1000 ml Inj) 1,000 ml @ 15 mls/hr Q24H IV 06/28/16 20:15 06/28/16 22:45 ([place] 5-325 Mg) 1 tab Q4H PRN PO 06/28/16 20:15 06/28/16 22:46 (Coreg) 25 mg BID PO 06/28/16 21:00 06/29/16 09:58 ([place] 5-325 Mg) 1 tab TID PO 06/29/16 09:00 06/29/16 18:04 (Synthroid) 150 mcg DAILY@06 PO 06/29/16 06:00 06/30/16 06:20 (Lipitor) 40 mg HS PO 06/28/16 21:00 06/29/16 21:34 (D50w (Vial) Inj) 25 ml UNSCH PRN IV PUSH 06/29/16 07:45 (Glucagon Inj) 1 mg UNSCH PRN OTHER 06/29/16 07:45 A/P Assessment and Plan DUODENAL ULCER, GASTRITIS, BLOOD LOSS ANEMIA. TRANSFUSED TWO U PRBC'S. Recent Colonoscopy showed polyps and diverticulosis and EGD showed Duodenal ulcers and gastritis, esophageal stricture dilated GIB DM LEXI AC ON CKD 3 CHF FLUID OVERLOAD SEVERE EDEMA UTI'S DUE TO BEING NONCIRCUMCISED, S/P CIRCUMCISION AT 80 Y hx ACS hx TROPONEMIA DUE TO ACS VS CKD VS CHF Plan: EGD now. IVF'S NPO IV PROTONIX GI CONSULT FOR GIB INSULIN HOLD DIURETICS MONITOR FOR CHF EXAC INCREASE AM LABS Follow H&H transfuse PRBC's to keep Hgb > 7.0 Garry Rodriguez MD Jun 30, 2016 10:16
[2016-06-30] MEDS ORDERED: PROPOFOL 200 MG/20 ML AMP IV ONE (10:28)
[2016-06-30] MEDS: SODIUM CHLORIDE 0.9% FLUSH 10 ML FLUSH IV FLUSH SCH ×2 (11:49→21:12)
[2016-06-30] MEDS: ACETAMINOPHEN/HYDROcodone 325 MG/5 MG TAB PO SCH ×3 (11:49→18:42)
[2016-06-30] MEDS: CARVEDILOL 12.5 MG TAB PO SCH ×2 (11:57→21:12)
--- NOTE | 2016-06-30 12:10 | PD.PROCEDR ---
GI Procedure REFERRING PHYSICIAN Dr. Rodriguez PROCEDURE PERFORMED EGD with biopsy INDICATION FOR PROCEDURE Anemia and guaiac-positive stools history of esophageal stricture PROCEDURE: The procedure, risks and benefits were discussed with Mr. Brown and informed consent was obtained. Anesthesia sedated him with Diprivan. He was placed in the left lateral decubitus position. EGD: The Pentax videoscope was introduced through the oropharynx and advanced to the second portion of the duodenum under direct visualization. Retroflexion was performed in the stomach. FINDINGS: The esophagus this was normal The stomach there was a [id number] hiatal hernia there was patchy erythema in the antrum but no ulcerations or erosions no blood or bleeding antral biopsies were taken for further evaluation The duodenum this was normal biopsies were taken for further evaluation ESTIMATED BLOOD LOSS: None SPECIMENS REMOVED: Antral and duodenal biopsies COMPLICATIONS: None IMPRESSION: Hiatal hernia Gastritis PLAN: Await biopsies Supportive care Kamaljit Hills MD Jun 30, 2016 12:10
[2016-06-30] MEDS: PANTOPRAZOLE INJ 80 MG in SODIUM CHLORIDE 0.9% INJ 100 ML IV SCH ×2 (12:28→21:12)
[2016-06-30] MEDS ORDERED: SODIUM CHLOR 0.9% 250 ML INJ 250 ML IV ONE (12:30)
[2016-06-30] MEDS: DEXT 5%-NACL 0.45% 1000 ML INJ 1,000 ML IV SCH (20:15)
[2016-06-30] MEDS: ATORVASTATIN 40 MG TAB PO SCH (21:11)
[2016-07-01 00:23] VITALS: BP 143/62; PULSE 53; RESP 20; TEMP 97.7; O2SAT 100
[2016-07-01 05:28] VITALS: BP 137/62; PULSE 60; RESP 20; TEMP 97.5; O2SAT 99
[2016-07-01] MEDS: LEVOTHYROXINE SODIUM 150 MCG TAB PO SCH (05:36)
[2016-07-01] MEDS: PANTOPRAZOLE INJ 80 MG in SODIUM CHLORIDE 0.9% INJ 100 ML IV SCH ×2 (05:37→15:00)
[2016-07-01] MEDS: INSULIN ASPART SUPPLEMENTAL SCALE SQ SCH ×3 (06:33→16:00)
[2016-07-01 07:21] VITALS: BP 132/61; PULSE 55; RESP 17; TEMP 96.4; O2SAT 100
[2016-07-01 07:58] LABS: BICARBONATE 23.7 MEQ/L (21.0-32.0); POTASSIUM 4.5 MEQ/L (3.5-5.1)
--- NOTE | 2016-07-01 08:57 | HHI.PR ---
Subjective Remarks This is a pleasant 80 y/o who was admitted and followed by his Primary Care Physician doctor Garry Rodriguez until yesterday Today will be followed by [facility], he did have laboratory and brought in to ER with Hemoglobin 6. he has DM II, Hypertension, CHF, Chronic Lymphedema, Anemia, Chronic Kidney disease, Prostate Cancer CAD, status post blood transfusion and GI performed EGD did not found source for acute GI bleed, signed off the case. biopsy taken, the patient wants to go home will need to follow next week with his Primary Care physician Doctor Michael. Objective Vital Signs Date Time Temp Pulse Resp B/P Pulse Ox O2 Delivery O2 Flow Rate FiO2 07/01/16 07:21 96.4 55 17 132/61 100 07/01/16 05:28 97.5 60 20 137/62 99 07/01/16 00:23 97.7 53 20 143/62 100 06/30/16 19:26 98.2 52 18 144/65 99 06/30/16 16:36 21 06/30/16 16:20 98.0 55 19 134/63 100 06/30/16 11:59 98.0 52 20 131/61 99 06/30/16 10:46 57 16 134/69 100 06/30/16 10:41 51 16 129/66 100 06/30/16 10:36 97.8 54 16 126/65 100 06/30/16 09:20 97.9 58 19 128/60 100 I/O 06/30/16 06/30/16 06/30/16 07/01/16 07/01/16 07/01/16 07:00 15:00 23:00 07:00 15:00 23:00 Intake Total 980 ml 213 ml Output Total 600 ml 300 ml Balance 380 ml -87 ml Intake Oral 480 ml IV Total 500 ml 213 ml Output Urine Total 600 ml 300 ml # Voids 3 Result Diagram: 06/30/16 0450 07/01/16 0635 Imaging No Imaging studies performed. Procedures EGD. Other Results Laboratory Tests Test 06/28/16 06/30/16 07/01/16 17:00 04:50 06:35 Platelet Estimate NORMAL Platelet Morphology Comment NORMAL Prothrombin Time 11.3 SEC Prothromb Time International 1.0 RATIO Ratio Activated Partial 21.6 SEC Thromboplast Time Total Bilirubin 0.2 MG/DL Aspartate Amino Transf 12 U/L (AST/SGOT) Alanine Aminotransferase 10 U/L (ALT/SGPT) Alkaline Phosphatase 49 U/L Total Protein 7.0 GM/DL Albumin 3.0 GM/DL Blood Type A POSITIVE Antibody Screen NEGATIVE Crossmatch Leukocyte-Reduced Red Blood Cells Blood Bank Comment White Blood Count 6.7 TH/MM3 Red Blood Count 3.24 MIL/MM3 Hemoglobin 9.0 GM/DL Hematocrit 27.2 % Mean Corpuscular Volume 84.1 FL Mean Corpuscular Hemoglobin 27.8 PG Mean Corpuscular Hemoglobin 33.1 % Concent Red Cell Distribution Width 15.2 % Platelet Count 313 TH/MM3 Mean Platelet Volume 7.8 FL Neutrophils (%) (Auto) 71.3 % Lymphocytes (%) (Auto) 14.1 % Monocytes (%) (Auto) 11.7 % Eosinophils (%) (Auto) 2.5 % Basophils (%) (Auto) 0.4 % Neutrophils # (Auto) 4.8 TH/MM3 Lymphocytes # (Auto) 1.0 TH/MM3 Monocytes # (Auto) 0.8 TH/MM3 Eosinophils # (Auto) 0.2 TH/MM3 Basophils # (Auto) 0.0 TH/MM3 CBC Comment DIFF FINAL Differential Comment Sodium Level 139 MEQ/L Potassium Level 4.5 MEQ/L Chloride Level 109 MEQ/L Carbon Dioxide Level 23.7 MEQ/L Anion Gap 6 MEQ/L Blood Urea Nitrogen 29 MG/DL Creatinine 2.01 MG/DL Estimat Glomerular Filtration 39 ML/MIN Rate Random Glucose 113 MG/DL Calcium Level 10.3 MG/DL Objective Remarks GENERAL: obesity, in no apparent distress. SKIN: No rashes, ecchymoses or lesions. Cool and dry. HEAD: Atraumatic. Normocephalic. No temporal or scalp tenderness. EYES: Pupils equal round and reactive. Extraocular motions intact. No scleral icterus. No injection or drainage. ENT: Nose without bleeding, purulent drainage or septal hematoma. Throat without erythema, tonsillar hypertrophy or exudate. Uvula midline. Airway patent. NECK: Trachea midline. No JVD or lymphadenopathy. Supple, nontender, no meningeal signs. CARDIOVASCULAR: Regular rate and rhythm without murmurs, gallops, or rubs. RESPIRATORY: Clear to auscultation. Breath sounds equal bilaterally. No wheezes , rales, or rhonchi. GASTROINTESTINAL: Abdomen soft, non-tender, nondistended. No hepato-splenomegaly , or palpable masses. No guarding. MUSCULOSKELETAL: Extremities without clubbing, cyanosis, or edema. No joint tenderness, effusion, or edema noted. No calf tenderness. Negative Homans sign bilaterally. NEUROLOGICAL: Awake and alert. Cranial nerves II through XII intact. Motor and sensory grossly within normal limits. 1 out of 5 muscle strength in all muscle groups. Normal speech. Medications and IVs Current Medications Medications (Trade) Dose Ordered Sig/Domitila Route Start Time Stop Time Status Last Admin Sodium Chloride 2 ml 2 ml UNSCH PRN IVF 06/28/16 17:00 (Protonix Inj/NS Inj) 100 ml @ 10 mls/hr Q10H IV 06/28/16 17:00 07/01/16 05:37 (NS Flush) 2 ml UNSCH PRN IV FLUSH 06/28/16 20:15 (NS Flush) 2 ml BID IV FLUSH 06/28/16 21:00 06/30/16 21:12 (Tylenol) 650 mg Q4H PRN PO 06/28/16 20:15 (Zofran Inj) 4 mg Q6H PRN IVP 06/28/16 20:15 (Dulcolax Supp) 10 mg DAILY PRN RECTAL 06/28/16 20:15 (Narcan Inj) 0.4 mg UNSCH PRN IV 06/28/16 20:15 (Ativan) 0.5 mg Q8H PRN PO 06/28/16 20:15 Clonidine 0.1 mg 0.1 mg Q6H PRN PO 06/28/16 20:15 (D5W-1/2 NS 1000 ml Inj) 1,000 ml @ 15 mls/hr Q24H IV 06/28/16 20:15 06/28/16 22:45 ([place] 5-325 Mg) 1 tab Q4H PRN PO 06/28/16 20:15 06/28/16 22:46 (Coreg) 25 mg BID PO 06/28/16 21:00 06/30/16 21:12 ([place] 5-325 Mg) 1 tab TID PO 06/29/16 09:00 06/30/16 18:42 (Synthroid) 150 mcg DAILY@06 PO 06/29/16 06:00 07/01/16 05:36 (Lipitor) 40 mg HS PO 06/28/16 21:00 06/30/16 21:11 (D50w (Vial) Inj) 25 ml UNSCH PRN IV PUSH 06/29/16 07:45 (Glucagon Inj) 1 mg UNSCH PRN OTHER 06/29/16 07:45 A/P Assessment and Plan (1) Exertional dyspnea Status: Acute (2) Symptomatic anemia Status: Acute (3) Acute renal insufficiency Status: Acute (4) CHF (congestive heart failure) Status: Chronic (5) DM (diabetes mellitus) Status: Chronic (6) Acute blood loss anemia Status: Acute (7) Constipation Status: Acute (8) Edema Status: Acute (9) CKD (chronic kidney disease) stage 3, GFR 30-59 ml/min Status: Acute (10) GI bleed Status: Acute 1. Symptomatic Anemia probably secondary to GI bleed Anemia, status post Blood transfusion, GI specialist consulted Recent Colonoscopy showed polyps and diverticulosis and EGD showed Duodenal ulcers and gastritis, esophageal stricture dilated PPIs, as per GI specialist pop to discharge Home and follow as outpatient. will need to continue PPIs at home. 2. CHF by history 3. CAD status post PCI and Stent placement 4. CKD III for the last six months. 5. UTI Status post circumcision at 80 y/a. 6. DM II on sliding scale. Stable seen in his bedroom in the presence of nurse Miss Meme lord to discharge home after was cleared by GI specialist Discharge Planning Expected later today Travis Silva MD Jul 01, 2016 08:57
[2016-07-01] MEDS: SODIUM CHLORIDE 0.9% FLUSH 10 ML FLUSH IV FLUSH SCH (09:00)
[2016-07-01] MEDS: CARVEDILOL 12.5 MG TAB PO SCH (09:00)
[2016-07-01] MEDS ORDERED: guaiFENesin E.R. 600 MG TAB PO SCH (09:15)
[2016-07-01] MEDS: ACETAMINOPHEN/HYDROcodone 325 MG/5 MG TAB PO SCH ×2 (10:04→15:20)
[2016-07-01 11:51] VITALS: BP 133/63; PULSE 62; RESP 17; TEMP 97.5; O2SAT 100
[2016-07-01] MEDS ORDERED: RESP: ALBUTEROL 2.5 MG/IPRATROPIUM 0.5 MG NEB (SCH) NEB (12:00)
--- NOTE | 2016-07-01 14:56 | HHI.GIFU ---
Subjective Remarks 80 yo male lying in bed in no apparent distress. Denies abdominal pain. No N/V. Denies any active bleeding. (Ese Mondragon) Objective Vitals I&O Vital Signs Date Time Temp Pulse Resp B/P Pulse Ox O2 Delivery O2 Flow Rate FiO2 07/01/16 11:51 97.5 62 17 133/63 100 07/01/16 07:21 96.4 55 17 132/61 100 07/01/16 05:28 97.5 60 20 137/62 99 07/01/16 00:23 97.7 53 20 143/62 100 06/30/16 19:26 98.2 52 18 144/65 99 06/30/16 16:36 21 06/30/16 16:20 98.0 55 19 134/63 100 I/O 06/30/16 06/30/16 06/30/16 07/01/16 07/01/16 07/01/16 07:00 15:00 23:00 07:00 15:00 23:00 Intake Total 980 ml 213 ml Output Total 600 ml 300 ml Balance 380 ml -87 ml Intake Oral 480 ml IV Total 500 ml 213 ml Output Urine Total 600 ml 300 ml # Voids 3 Laboratory Laboratory Tests Test 07/01/16 06:35 Sodium Level 139 Potassium Level 4.5 Chloride Level 109 Carbon Dioxide Level 23.7 Anion Gap 6 Blood Urea Nitrogen 29 Creatinine 2.01 Estimat Glomerular Filtration 39 Rate Random Glucose 113 Calcium Level 10.3 Physical Exam HEENT: PERRLA; normocephalic; atraumatic; no jaundice. Throat is clear. NECK: Neck is supple, no JVD, no lymphadenopathy. CHEST: CTA CARDIAC: RRR ABDOMEN: Soft, nondistended, nontender; no hepatosplenomegaly; bowel sounds x 4 quadrants EXTREMITIES: No clubbing, cyanosis, or edema. SKIN: Normal; no rash; no jaundice. 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 (Ese Mondragon) Assessment and Plan Plan ASSESSMENT: - Anemia. EGD/Colonoscopy (03/08/16)---> esophageal stricture s/p dilation savary 17 mm, gastritis bx, duodenal ulcer bx, normal endoscopy otherwise, retroflexed views revealed no abnormalities; 2 polyps in transverse colon s/p snare polypectomy, 1 polyp in the descending colon removed, by snare, there was no evidence of stool throughout the colon, mild diverticulosis was noted in the descending colon, retroflexed views revealed no abnormalities, no abnormalities of the rectum. Small bowel duodenal mucosa with focal superficial mucosal erosion, features consistent with reactive gastropathy, colon transverse tubular adenoma, descending tubular adenoma. H/H 6.7/20.6, S/P 2 units PRBC. H/H 10.1/28.8 today. PPI. - Hemoccult (+) Stool, dark stools. Pt reports dark stools and fatigue for about a week. He was anemic on outpatient labs and referred to ER for further evaluation. Had duodenal ulcer back in March of this year. EGD (06/30)--->hiatal hernia, gastritis; biopsy pending - CKD, Diabetes, Hypertension, Congestive heart failure, CAD, Hx prostate cancer per primary PLAN: - Biopsy pending - Protonix Gtt - Monitor HH - Transfuse as necessary - Supportive care - Further recommendations to follow based on results of above Patient seen and examined by Dr. Hills and myself and this note is written on his behalf (Ese Mondragon) Physician Comments Patient seen and examined Agree with above Continue with current supportive care Monitor labs Patient follow-up with GI post discharge Not much to add at this point we will sign off (Kamaljit Hills MD) Ese Mondragon Jul 01, 2016 14:56 Kamaljit Hills MD Jul 01, 2016 15:19
[2016-07-01 15:59] VITALS: BP 138/63; PULSE 59; RESP 17; TEMP 95.1; O2SAT 100
--- NOTE | 2016-07-01 16:02 | HHI.DS ---
Discharge Summary Admission Date Jun 28, 2016 at 18:22 Discharge Date: Jul 01, 2016 Admitting Diagnosis gi bleed (1) Elevated troponin I level ICD Code: R79.89 Diagnosis: Principal (2) Symptomatic anemia ICD Code: D64.9 Diagnosis: Principal (3) CKD (chronic kidney disease) stage 3, GFR 30-59 ml/min ICD Code: N18.3 Diagnosis: Principal Procedures EGD Brief History - From Admission 80 y AAM. SEEN OUTPT, I DID LABS AND FOUND HGB 6, CALLED PT AND REPORTS MILD DYSPEPSIA. INSTRUCTED HIM TO GO TO THE ER. HAS BEEN STABLE OVERALL, GENERAL DECLINE OVER THE LAST YEAR. PT HAS BEEN WATCHING HIS DYSPEPTIC DIET CAREFULLY. MONITORS GLUCOSE AT HOME W [facility] IN LAW. HAS HAD INCR CONFUSION PER DGTR IN LAW. BP AT HOME WNL PER THEIR REPORT. C/O OCCAS CHF SX AND SOB WITH ROSS. D/W RN. I WAS CALLED BY ER DR FOR ADMIT. AGREED WITH TRANSFUSION W ER DR. CBC/BMP: 06/30/16 0450 07/01/16 0635 Significant Findings Laboratory Tests Test 06/28/16 06/29/16 06/30/16 07/01/16 17:00 08:16 04:50 06:35 Red Blood Count 2.44 MIL/MM3 3.28 MIL/MM3 3.24 MIL/MM3 (4.50-5.90) (4.50-5.90) (4.50-5.90) Hemoglobin 6.7 GM/DL 8.8 GM/DL 9.0 GM/DL (13.0-17.0) (13.0-17.0) (13.0-17.0) Hematocrit 20.6 % 27.7 % 27.2 % (39.0-51.0) (39.0-51.0) (39.0-51.0) Monocytes (%) (Auto) 12.5 % 11.2 % 11.7 % (0.0-8.0) (0.0-8.0) (0.0-8.0) Activated Partial 21.6 SEC Thromboplast Time (24.3-30.1) Chloride Level 109 MEQ/L 109 MEQ/L 108 MEQ/L 109 MEQ/L (98-107) (98-107) (98-107) (98-107) Carbon Dioxide Level 20.7 MEQ/L (21.0-32.0) Blood Urea Nitrogen 45 MG/DL (7-18) 41 MG/DL (7-18) 37 MG/DL (7-18) 29 MG/DL (7- 18) Creatinine 2.95 MG/DL 2.68 MG/DL 2.33 MG/DL 2.01 MG/DL (0.60-1.30) (0.60-1.30) (0.60-1.30) (0.60-1.30) Estimat Glomerular Filtration 25 ML/MIN (>89) 28 ML/MIN (>89) 33 ML/MIN (>89) 39 ML/MIN (>89) Rate Random Glucose 118 MG/DL 113 MG/DL (74-106) (74-106) Calcium Level 10.4 MG/DL 10.2 MG/DL 10.3 MG/DL (8.5-10.1) (8.5-10.1) (8.5-10.1) Aspartate Amino Transf 12 U/L (15-37) (AST/SGOT) Alanine Aminotransferase 10 U/L (12-78) (ALT/SGPT) Albumin 3.0 GM/DL (3.4-5.0) Mean Corpuscular Hemoglobin 26.8 PG (27.0-34.0) Mean Corpuscular Hemoglobin 31.7 % Concent (32.0-36.0) Neutrophils (%) (Auto) 71.3 % (16.0-70.0) PE at Discharge GENERAL: obesity, in no apparent distress. SKIN: No rashes, ecchymoses or lesions. Cool and dry. HEAD: Atraumatic. Normocephalic. No temporal or scalp tenderness. EYES: Pupils equal round and reactive. Extraocular motions intact. No scleral icterus. No injection or drainage. ENT: Nose without bleeding, purulent drainage or septal hematoma. Throat without erythema, tonsillar hypertrophy or exudate. Uvula midline. Airway patent. NECK: Trachea midline. No JVD or lymphadenopathy. Supple, nontender, no meningeal signs. CARDIOVASCULAR: Regular rate and rhythm without murmurs, gallops, or rubs. RESPIRATORY: Clear to auscultation. Breath sounds equal bilaterally. No wheezes , rales, or rhonchi. GASTROINTESTINAL: Abdomen soft, non-tender, nondistended. No hepato-splenomegaly , or palpable masses. No guarding. MUSCULOSKELETAL: Extremities without clubbing, cyanosis, or edema. No joint tenderness, effusion, or edema noted. No calf tenderness. Negative Homans sign bilaterally. NEUROLOGICAL: Awake and alert. Cranial nerves II through XII intact. Motor and sensory grossly within normal limits. 1 out of 5 muscle strength in all muscle groups. Normal speech. Hospital Course This is a pleasant 80 y/o who was admitted and followed by his Primary Care Physician doctor Garry Rodriguez until yesterday Today will be followed by MATT, he did have laboratory and brought in to ER with Hemoglobin 6. he has DM II, Hypertension, CHF, Chronic Lymphedema, Anemia, Chronic Kidney disease, Prostate Cancer CAD, status post blood transfusion and GI performed EGD did not found source for acute GI bleed, signed off the case. biopsy taken, the patient wants to go home will need to follow next week with his Primary Care physician Doctor Rodriguez. Assessment and Plan 1. Symptomatic Anemia probably secondary to GI bleed Anemia, status post Blood transfusion, GI specialist consulted Recent Colonoscopy showed polyps and diverticulosis and EGD showed Duodenal ulcers and gastritis, esophageal stricture dilated PPIs, as per GI specialist okay to discharge Home and follow as outpatient. will need to continue PPIs at home. 2. CHF by history 3. CAD status post PCI and Stent placement 4. CKD III for the last six months. 5. UTI Status post circumcision at 80 y/a. 6. DM II on sliding scale. Stable seen in his bedroom in the presence of nurse Miss Valentine okay to discharge home after was cleared by GI specialist Discharge Planning Discharge home today Pt Condition on Discharge: Good Discharge Disposition: Discharge Home Discharge Time: <= 30 minutes Discharge Instructions DIET: Follow Instructions for: Heart Healthy Diet, Diabetic Diet Activities you can perform: Regular-No Restrictions Travis Silva MD Jul 01, 2016 16:02
[2016-07-27] MEDS ORDERED: CARA1SUS3 PO (10:44)
[2016-07-27] MEDS ORDERED: ERGO1CAP30 PO (10:44)
[2016-07-27] MEDS ORDERED: QUIN5TAB6 PO (10:44)
[2016-07-27] MEDS ORDERED: RANI150C PO (10:44)
== END 2016-07-01 18:31 | disposition home or self-care (01) | DRG 378 ==
LOC: NEPC 16:29 → OBSVTOIN 18:22 → INTOOBSV 18:22 → NEDA 18:22 → NEDH 22:55 → NEPGCP 06-29 00:21 → N06B 06-30 23:10
PROVIDERS: ADMIT Family Medicine; ATTEND Family Medicine
PROC: 30233N1 Transfusion of Nonautologous Red Blood Cells into Peripheral Vein, Percutaneous Approach (ICD-10-PCS; 2016-06-28)
PROC: 0DB68ZX Excision of Stomach, Via Natural or Artificial Opening Endoscopic, Diagnostic (ICD-10-PCS; 2016-06-30)
PROC: 0DB98ZX Excision of Duodenum, Via Natural or Artificial Opening Endoscopic, Diagnostic (ICD-10-PCS; principal; 2016-06-30 09:20)
DX: K92.2 Gastrointestinal hemorrhage, unspecified (principal); N17.9 Acute kidney failure, unspecified; E11.22 Type 2 diabetes mellitus with diabetic chronic kidney disease; I13.0 Hypertensive heart and chronic kidney disease with heart failure and stage 1 through stage 4 chronic kidney disease, or unspecified chronic kidney disease; I50.9 Heart failure, unspecified; D62 Acute posthemorrhagic anemia; F41.9 Anxiety disorder, unspecified; K21.9 Gastro-esophageal reflux disease without esophagitis; N18.3 Chronic kidney disease, stage 3 (moderate); K59.00 Constipation, unspecified; I25.10 Atherosclerotic heart disease of native coronary artery without angina pectoris; R19.5 Other fecal abnormalities; K44.9 Diaphragmatic hernia without obstruction or gangrene; Z79.84 Long term (current) use of oral hypoglycemic drugs; Z95.5 Presence of coronary angioplasty implant and graft
CPT/HCPCS: 36430; 76937; 80048; 80053; 82948; 85025; 85610; 85730; 86850; 86900; 86901; 86920; 88305; 94150; 96365; C9113; G8987-GP; G8988-GP; J1815; J7050; P9016

== ENCOUNTER 2016-08-10 09:22 | Observation (INO) | payer MEDICARE ==
[2016-08-10] VITALS (9 sets, daily range): BP systolic 124–180; BP diastolic 57–73; PULSE 55–66; RESP 18–20; TEMP 98.1–98.7; O2SAT 96–100
[~2016-08-10] VITALS: Ht 177.8 cm; Wt 80.0 kg
[~2016-08-10 09:22] MED LIST changes: -ERGO1CAP10 PO; +ERGO1CAP30 PO; -FERR325T PO; -POTA10TA2 PO; -QUIN40TA2 PO; +QUIN5TAB6 PO; +RANI150C PO; -RANI150T PO
[2016-08-10] MEDS ORDERED: SODIUM CHLORIDE 0.9% FLUSH 10 ML FLUSH IVF PRN (09:30)
--- NOTE | 2016-08-10 10:02 | PD ---
HPI Chief Complaint: Abnormal Results Time Seen by Provider: 09:30 Travel History International Travel<30 days: No Contact w/Intl Traveler<30days: No Traveled to known affect area: No History of Present Illness HPI Patient is an 80-year-old male who was sent to the emergency room by his primary care doctor for evaluation of anemia. Reports that he has history of anemia, reports that he was here a few weeks ago for a blood transfusion, that he was admitted and seen by the inside sales account executive and had an EGD performed which showed gastritis, reports that "no one can find out why I am bleeding from." Patient reports that he has history of a colonoscopy in the past, patient reports that at this point, he is just receiving blood transfusions. Patient here for blood transfusion. Patient reports that he has been feeling a little lightheaded and dizzy at this time, reports that he does have dyspnea on exertion with ambulation with his anemia. Patient with no chest pain or shortness of breath at this time. PFSH Past Medical History Arthritis: Yes Asthma: No Autoimmune Disease: No Blood Disorders: No Anxiety: Yes Depression: No Heart Rhythm Problems: No Cancer: Yes (PROSTATE) Cardiovascular Problems: Yes High Cholesterol: Yes Chest Pain: No Congestive Heart Failure: Yes COPD: No Cerebrovascular Accident: No Diabetes: Yes Patient Takes Glucophage: Yes Diminished Hearing: No Endocrine: Yes Gastrointestinal Disorders: Yes GERD: Yes Glaucoma: No Genitourinary: Yes Headaches: No Hepatitis: No Hiatal Hernia: Yes (GERD) Hypertension: Yes Immune Disorder: No Implanted Vascular Access Dvce: Yes Kidney Stones: No Medical other: Yes (ANEMIA) Musculoskeletal: Yes Neurologic: Yes Psychiatric: Yes Reproductive: No Respiratory: Yes Immunizations Current: Yes Myocardial Infarction: No Renal Failure: No Seizures: No Sickle Cell Disease: No Sleep Apnea: Yes (does not wear cpap) Thyroid Disease: Yes Ulcer: No Tetanus Vaccination: > 5 Years Influenza Vaccination: No Past Surgical History Abdominal Surgery: Yes (APPENDECTOMY,EGD,COLONOSCOPY) AICD: No Appendectomy: Yes Body Medical Devices: CARDIAC STENTS Cardiac Surgery: Yes (cardiac stent placement) Coronary Stent: Yes (X2) Ear Surgery: No Endocrine Surgery: No Eye Surgery: No Genitourinary Surgery: Yes (prostatectomy, ESWL) Gynecologic Surgery: Yes Oral Surgery: No Pacemaker: No Thoracic Surgery: No Other Surgery: Yes (THYROIDECTOMY 09/01/10) Social History Alcohol Use: Yes (2 DRINKS/WEEK) Tobacco Use: No Substance Use: No Allergies-Medications (Allergen,Severity, Reaction): Coded Allergies: Oscal 500 (Verified Allergy, Severe, 08/10/16) rash Shellfish (Verified Allergy, Severe, 08/10/16) rash Tetanus Toxoid (Verified Allergy, Severe, 08/10/16) rash Reported Meds & Prescriptions Reported Meds & Active Scripts Active Glipizide 5 Mg Tab 5 Mg PO TIDAC Take 30 minutes before a meal Protonix (Pantoprazole Sodium) 40 Mg Tab 40 Mg PO BIDAC Reported Ergocalciferol 50,000 Unit Cap 50,000 Units PO Q7D Quinapril (Quinapril HCl) 5 Mg Tab 40 Mg PO DAILY Ranitidine (Ranitidine HCl) 150 Mg Cap 150 Mg PO BID Carafate Liq (Sucralfate) 1 Gm/10 Ml Susp 1 Gm PO QID on empty stomach Rosuvastatin (Rosuvastatin Calcium) 20 Mg Tab 20 Mg PO HS Spironolactone 25 Mg Tab 25 Mg PO BIDPC Bumetanide 1 Mg Tab 1 Mg PO DAILY Lortab (Hydrocodone-Acetaminophen) 5-325 Mg Tab 1 Tab PO TID Levothyroxine (Levothyroxine Sodium) 150 Mcg Tab 150 Mcg PO DAILY Carvedilol 25 Mg Tab 25 Mg PO BID Doxazosin (Doxazosin Mesylate) 1 Mg Tab 1 Mg PO HS Review of Systems General / Constitutional: No: Fever Eyes: No: Visual changes HENT: No: Headaches Cardiovascular: Positive: Dyspnea on exertion, No: Chest Pain or Discomfort Respiratory: No: Shortness of Breath Gastrointestinal: No: Abdominal Pain Genitourinary: No: Dysuria Musculoskeletal: No: Pain Skin: No Rash Neurologic: Positive: Weakness Psychiatric: No: Depression Endocrine: No: Polydipsia Hematologic/Lymphatic: No: Easy Bruising Physical Exam Narrative GENERAL: No acute distress, well-appearing SKIN: Focused skin assessment warm/dry. HEAD: Atraumatic. Normocephalic. EYES: No injection or drainage. ENT: No nasal bleeding or discharge. Mucous membranes pink and moist. NECK: Trachea midline. No JVD. CARDIOVASCULAR: Regular rate and rhythm. No murmur appreciated. RESPIRATORY: No accessory muscle use. Clear to auscultation. Breath sounds equal bilaterally. GASTROINTESTINAL: Abdomen soft, non-tender, nondistended. Hepatic and splenic margins not palpable. MUSCULOSKELETAL: No obvious deformities. No clubbing. No cyanosis. No edema. NEUROLOGICAL: Awake and alert. No obvious cranial nerve deficits. Motor grossly within normal limits. Normal speech. PSYCHIATRIC: Appropriate mood and affect; insight and judgment normal. Data Data Last Documented VS Vital Signs Date Time Temp Pulse Resp B/P Pulse Ox O2 Delivery O2 Flow Rate FiO2 08/10/16 09:48 58 18 100 Room Air 08/10/16 09:48 153/66 Orders Basic Metabolic Panel (Bmp) (08/10/16 09:30) Complete Blood Count With Diff (08/10/16 09:30) Prothrombin Time / Inr (Pt) (08/10/16 09:30) Act Partial Throm Time (Ptt) (08/10/16 09:30) Type And Screen (08/10/16 09:30) Sodium Chloride 0.9% Flush (Ns Flush) (08/10/16 09:30) Red Blood Cells (Rbc) (08/10/16 10:59) Blood Product Administration .UPON TRANSFUSION (08/10/16 10:59) Sodium Chlor 0.9% 250 Ml Inj (Ns 250 Ml (08/10/16 11:00) Red Blood Cells (Rbc) (08/10/16 11:15) Labs Laboratory Tests Test 08/10/16 08/10/16 09:45 11:03 White Blood Count 6.8 TH/MM3 Red Blood Count 2.57 MIL/MM3 Hemoglobin 7.1 GM/DL Hematocrit 21.8 % Mean Corpuscular Volume 84.6 FL Mean Corpuscular Hemoglobin 27.6 PG Mean Corpuscular Hemoglobin 32.6 % Concent Red Cell Distribution Width 15.7 % Platelet Count 218 TH/MM3 Mean Platelet Volume 8.3 FL Neutrophils (%) (Auto) 74.6 % Lymphocytes (%) (Auto) 13.3 % Monocytes (%) (Auto) 8.9 % Eosinophils (%) (Auto) 2.5 % Basophils (%) (Auto) 0.7 % Neutrophils # (Auto) 5.0 TH/MM3 Lymphocytes # (Auto) 0.9 TH/MM3 Monocytes # (Auto) 0.6 TH/MM3 Eosinophils # (Auto) 0.2 TH/MM3 Basophils # (Auto) 0.0 TH/MM3 CBC Comment DIFF FINAL Differential Comment Prothrombin Time 11.4 SEC Prothromb Time International 1.0 RATIO Ratio Activated Partial 24.4 SEC Thromboplast Time Sodium Level 140 MEQ/L Potassium Level 4.7 MEQ/L Chloride Level 107 MEQ/L Carbon Dioxide Level 24.3 MEQ/L Anion Gap 9 MEQ/L Blood Urea Nitrogen 31 MG/DL Creatinine 2.05 MG/DL Estimat Glomerular Filtration 38 ML/MIN Rate Random Glucose 145 MG/DL Calcium Level 10.3 MG/DL Blood Type A POSITIVE Antibody Screen NEGATIVE Crossmatch Leukocyte-Reduced Red Blood Cells Blood Bank Comment MDM Medical Decision Making Medical Screen Exam Complete: Yes Emergency Medical Condition: Yes Interpretation(s) Vital Signs Date Time Temp Pulse Resp B/P Pulse Ox O2 Delivery O2 Flow Rate FiO2 08/10/16 09:48 58 18 100 Room Air 08/10/16 09:48 59 20 153/66 100 Room Air 08/10/16 09:27 66 18 153/66 Differential Diagnosis Anemia Narrative Course 80-year-old male sent to the emergency room for anemia and for blood transfusion. It appears the patient had a recent workup for his anemia, he was seen by Dr. Hills and had an EGD on 06/30/16. Patient reports that he had a colonoscopy in the past which showed: Polyps as well as diverticulosis. Patient was diagnosed with a hiatal hernia and gastritis and it was recommended that he continue protonic, monitor H&H supportive care. He was discharged on July 01, 2016 with a hemoglobin of 9.0. Plan to obtain blood work today, will type and screen as patient will most likely require blood transfusion CBC & BMP Diagram 08/10/16 09:45 Hemoglobin 7.1, baseline around 9.[address] Chi, patient has a symptomatic anemia, will order 2 units of blood, will give Lasix in between blood transfusions. Physician Communication Physician Communication dr chi Diagnosis Primary Impression: Symptomatic anemia Admitting Information Admitting Physician Requests: Admit Lakia Caceres DO Aug 10, 2016 10:02
[2016-08-10 10:14] LABS: BASOPHIL % 0.7 % (0.0-2.0); EOSINOPHIL # 0.2 TH/MM3 (0-0.4); EOSINOPHIL % 2.5 % (0.0-4.0); HEMATOCRIT 21.8 % (39.0-51.0); HEMO FLAGS DIFF FINAL; LYMPH % 13.3 % (9.0-44.0); LYMPHOCYTE # 0.9 TH/MM3 (1.0-4.8); MEAN CELL VOLUME 84.6 FL (80.0-100.0); MEAN CORPUSCULAR HEMOGLOBIN 27.6 PG (27.0-34.0); MEAN CORPUSCULAR HGB CONC 32.6 % (32.0-36.0); MONO % 8.9 % (0.0-8.0); NEUT % 74.6 % (16.0-70.0); PLATELET COUNT 218 TH/MM3 (150-450); RED BLOOD COUNT 2.57 MIL/MM3 (4.50-5.90); RED CELL DISTRIBUTION WIDTH 15.7 % (11.6-17.2); WHITE BLOOD COUNT 6.8 TH/MM3 (4.0-11.0)
[2016-08-10 10:28] LABS: APTT (PATIENT) 24.4 SEC (24.3-30.1); PROTHROMBIN TIME - PATIENT 11.4 SEC (9.8-11.6)
[2016-08-10 10:38] LABS: BICARBONATE 24.3 MEQ/L (21.0-32.0); POTASSIUM 4.7 MEQ/L (3.5-5.1)
[2016-08-10] MEDS ORDERED: SODIUM CHLOR 0.9% 250 ML INJ 250 ML IV ONE (11:00)
[2016-08-10] MEDS ORDERED: FUROSEMIDE 40 MG/4 ML VIAL IV PUSH ONE (11:30)
[2016-08-10] MEDS ORDERED: SODIUM CHLORIDE 0.9% FLUSH 10 ML FLUSH IV FLUSH PRN (13:15)
[2016-08-10] MEDS ORDERED: ONDANSETRON HCL 4 MG/2 ML VIAL IVP PRN (13:15)
[2016-08-10] MEDS ORDERED: LACTULOSE SYRUP 20 GM/30 ML CUP PO PRN (13:15)
[2016-08-10] MEDS ORDERED: NALOXONE HCL 0.4 MG/ML AMP IV PRN (13:15)
[2016-08-10] MEDS ORDERED: MAGNESIUM HYDROXIDE SUSP 30 ML CUP PO PRN (13:15)
[2016-08-10] MEDS ORDERED: SENNOSIDES 8.6 MG TAB PO PRN (13:15)
[2016-08-10] MEDS ORDERED: BISACODYL 10 MG SUPP RECTAL PRN (13:15)
[2016-08-10] MEDS ORDERED: ZOLPIDEM TARTRATE 5 MG TAB PO PRN (13:15)
[2016-08-10] MEDS ORDERED: ACETAMINOPHEN 325 MG TAB PO PRN (13:15)
--- NOTE | 2016-08-10 14:22 | PD.CONS ---
HPI History of Present Illness This is a 80 year old gentleman who presented to the ER after being told to come in for anemia by PCP. He admits occasional fatigue but otherwise has felt fine. He has been constipated for awhile. He took a laxative and then had loose stools that were darker than normal, this was 6 days ago. He then had hard stools and saw dark red blood intermingled in the stool. No nausea, vomiting, abdominal pain. He had EGD 06-30-16 showed hiatal hernia, gastritis, no bleeding. This is the first time he has actually seen blood in his stool. Prior EGD and colonoscopy 03/2016 showed esophageal stricture, duodenal ulcer, tubular adenoma. He says after his last admission he did follow up as directed with GI as OP and says he was told to come back in a year. He did capsule endoscopy about 5 years ago, no bleeding found. Denies frequent NSAID use, blood thinners. He drinks socially, very occasionally. (Bianca Schulz ) PFSH Past Medical History CAD bad knee DM Past Surgical History circumcision stent placement (Bianca Schulz) Coded Allergies: Oscal 500 (Verified Allergy, Severe, 08/10/16) rash Shellfish (Verified Allergy, Severe, 08/10/16) rash Tetanus Toxoid (Verified Allergy, Severe, 08/10/16) rash Family History lymphoma - brother Social History occasional ETOH no tobacco in 30 y no illicit drug use. (Bianca Schulz) Review of Systems Constitutional: COMPLAINS OF: Fatigue, DENIES: Fever Eyes: DENIES: Blurred vision Ears, nose, mouth, throat: DENIES: Hearing loss Respiratory: DENIES: Hemoptysis Cardiovascular: DENIES: Chest pain Gastrointestinal: COMPLAINS OF: Bloody stools, Constipation, DENIES: Abdominal pain, Black stools, Diarrhea, Nausea, Vomiting, Hematemesis Genitourinary: DENIES: Hematuria Musculoskeletal: DENIES: Muscle aches Integumentary: DENIES: Abnormal pigmentation Neurologic: DENIES: Abnormal gait Psychiatric: DENIES: Anxiety (Bianca Schulz) GI Exam Vitals I&O Vital Signs Date Time Temp Pulse Resp B/P Pulse Ox O2 Delivery O2 Flow Rate FiO2 08/10/16 12:34 98.1 55 18 149/67 99 Room Air 6/8/17 12:30 55 18 149/67 97 Room Air 08/10/16 12:15 98.1 57 18 180/73 98 Room Air 08/10/16 09:48 58 18 100 Room Air 08/10/16 09:48 59 20 153/66 100 Room Air 08/10/16 09:27 66 18 153/66 Laboratory Test 08/10/16 08/10/16 08/10/16 09:45 11:03 11:34 White Blood Count 6.8 TH/MM3 Red Blood Count 2.57 MIL/MM3 Hemoglobin 7.1 GM/DL Hematocrit 21.8 % Mean Corpuscular Volume 84.6 FL Mean Corpuscular Hemoglobin 27.6 PG Mean Corpuscular Hemoglobin 32.6 % Concent Red Cell Distribution Width 15.7 % Platelet Count 218 TH/MM3 Mean Platelet Volume 8.3 FL Neutrophils (%) (Auto) 74.6 % Lymphocytes (%) (Auto) 13.3 % Monocytes (%) (Auto) 8.9 % Eosinophils (%) (Auto) 2.5 % Basophils (%) (Auto) 0.7 % Neutrophils # (Auto) 5.0 TH/MM3 Lymphocytes # (Auto) 0.9 TH/MM3 Monocytes # (Auto) 0.6 TH/MM3 Eosinophils # (Auto) 0.2 TH/MM3 Basophils # (Auto) 0.0 TH/MM3 CBC Comment DIFF FINAL Differential Comment Prothrombin Time 11.4 SEC Prothromb Time International 1.0 RATIO Ratio Activated Partial 24.4 SEC Thromboplast Time Sodium Level 140 MEQ/L Potassium Level 4.7 MEQ/L Chloride Level 107 MEQ/L Carbon Dioxide Level 24.3 MEQ/L Anion Gap 9 MEQ/L Blood Urea Nitrogen 31 MG/DL Creatinine 2.05 MG/DL Estimat Glomerular Filtration 38 ML/MIN Rate Random Glucose 145 MG/DL Calcium Level 10.3 MG/DL Blood Type A POSITIVE Antibody Screen NEGATIVE Crossmatch Leukocyte-Reduced Leukocyte-Reduced Red Blood Red Blood Cells Cells Blood Bank Comment Physical Examination HEENT: EOMI; normocephalic; atraumatic; no jaundice. CHEST: CTA CARDIAC: RRR ABDOMEN: Soft, obese, nontender; no hepatosplenomegaly; bowel sounds are present in all four quadrants. EXTREMITIES: No clubbing, cyanosis, or edema. SKIN: Normal; no rash; no jaundice. 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 (Bianca Schulz) Assessment and Plan Plan ASSESSMENT - hematochezia - pt has chronic constipation, took laxative recently, had loose stools, and then constipated again and noticed some dark blood intermingled in stool. Had colonoscopy/EGD 03/2016 for anemia and no bleeding found, just stricture, duodenal ulcer, tubular adenoma. Had EGD 06/30/16 and no bleeding found. - anemia - 6.8 on admission. Says he has been a little tired on and off but not as bad as last time. Not on blood thinners. - constipation - chronic. Discussed fiber supplementation, bowel regimen with patient. PLAN - monitor HH - transfuse as necessary - will do colonoscopy if sudden drop in HH - will continue to monitor - increased fiber intake or fiber supplementation This pt seen by myself and Dr Fernández and this note is written on his behalf ( Bianca Schulz) Physician Comments Seen and examined, had recent endoscopic evaluation, will consider video capsule endoscopy as out patient after stabilization. (Yesica Fernández MD) Bianca Schulz Aug 10, 2016 14:22 Yesica Fernández MD Aug 10, 2016 23:49
[2016-08-10] MEDS ORDERED: GLUCAGON 1 MG/ML VIAL OTHER PRN (15:15)
[2016-08-10] MEDS ORDERED: DEXTROSE 50% IN WATER 50 ML VIAL(D50) IV PRN (15:15)
[2016-08-10] MEDS ORDERED: GABA300C5 PO (15:28)
--- NOTE | 2016-08-10 15:34 | MH ---
cc: NICHOLAS NEWBERRY MD DATE OF ADMISSION: 08/10/2016 CHIEF COMPLAINT Severe anemia. HISTORY OF PRESENT ILLNESS Js Be is an 80-year-old -Spanish male who I have been seeing in my office. He states he has had continual spotting of blood occasionally in his stool. We checked his hemoglobin recently and it was in the range of 9. He then came back to my office recently and his hemoglobin was 6. I suggested he go to the ER yesterday and he ended up coming in today. He has had recurrent EGD showing gastritis. He is complaining of some increased dizziness and weakness. States he has been short of breath with any exertion. I was called by the emergency room doctor for admission. Discussed starting him on 2 units with caution due to fluid overload and giving him Lasix in between. The patient is seen in the E-pod. He states that he is not feeling well and that his dizziness is getting worse and he is feeling weaker. I discussed the case with the nurse and we are going to move him upstairs. LABORATORY Hemoglobin 7.1. Creatinine 2.05, calcium 10.3, glucose 145. PAST MEDICAL HISTORY 1. Diabetes. 2. Prostate cancer. 3. Coronary artery disease. 4. CHF. 5. Gastritis. 6. Hypertension. 7. Anxiety. 8. Sleep apnea. PAST SURGICAL HISTORY 1. Appendectomy. 2. Recurrent EGDs and colonoscopies. 3. Cardiac stent. 4. Prostatectomy. 5. Thyroidectomy. SOCIAL HISTORY Occasional drink. No illicits or tobaccoism. ALLERGIES 1. OS-KIMBERLY. 2. SHELLFISH. 3. TETANUS. MEDICATIONS Home medications: 1. Glipizide. 2. Protonix. 3. Vitamin-D. 4. Quinapril. 5. Ranitidine. 6. Carafate. 7. Crestor. 8. Spironolactone. 9. Bumex. 10. Lortab. 11. Levothyroxine. 12. Carvedilol. 13. Doxazosin. REVIEW OF SYSTEMS He has had blood in the stool, increased weakness, dizziness, edema, shortness of breath, anxiety. Negative 14-point review of systems otherwise. PHYSICAL EXAMINATION VITAL SIGNS: Temperature 98.1, pulse 55, respirations 18, blood pressure 149/67. O2 is 99% on room air. GENERAL: In general he is an alert -Spanish male. He is severely obese. He is very anxious and nervous. HEENT: Oropharynx is clear. NECK: Carotids are clear. CHEST: Clear. No wheezes, rales, crackles or coughing. CARDIOVASCULAR: Regular rate and rhythm. No murmurs, rubs, clicks or gallops. ABDOMEN: Soft, nontender. EXTREMITIES: 1+ edema to mid tibias bilaterally. NEUROLOGIC: Alert and oriented x2. No focal deficits. He has 2/5 weakness in all extremities. ASSESSMENT 1. GI bleed. 2. Blood loss anemia. 3. Diabetes. 4. Hypertension. 5. Hypercalcemia. 6. Acute kidney injury. 7. Prostate cancer. 8. Coronary artery disease. PLAN 1. Transfuse 2 units with caution. 2. IV Lasix in between the units of blood. 3. Consult GI. 4. Check a.m. CBC and BMP. 5. Bumex 1 mg daily. 6. Sucralfate one gram b.i.d. 7. SCDs and TEDs. 8. Sliding scale insulin. 9. Physical therapy. 10. Observation admission. Nicholas Newberry MD RP/MICHAEL /3:03 PM /3:20 PM
[2016-08-10] MEDS: INSULIN ASPART SUPPLEMENTAL SCALE SQ SCH ×2 (16:00→21:00)
[2016-08-10] MEDS: PANTOPRAZOLE SODIUM 40 MG VIAL IV PUSH SCH (17:23)
[2016-08-10] MEDS: SUCRALFATE 1 GM/10 ML CUP PO SCH ×2 (17:27→21:20)
[2016-08-10] MEDS: SPIRONOLACTONE 25 MG TAB PO SCH (17:30)
[2016-08-10] MEDS: glipiZIDE 5 MG TAB PO SCH (17:30)
[2016-08-10] MEDS: ACETAMINOPHEN/HYDROcodone 325 MG/5 MG TAB PO SCH (17:31)
[2016-08-10] MEDS: SODIUM CHLORIDE 0.9% FLUSH 10 ML FLUSH IV FLUSH SCH (21:00)
[2016-08-10] MEDS ORDERED: NON-FORMULARY DRUG (Ranitidine 150 MG) PO SCH (21:00)
[2016-08-10] MEDS: CARVEDILOL 12.5 MG TAB PO SCH (21:20)
[2016-08-10] MEDS: DOCUSATE SODIUM 50 MG/SENNA 8.6 MG TAB PO SCH (21:20)
[2016-08-10] MEDS: ATORVASTATIN 40 MG TAB PO SCH (21:20)
[2016-08-10] MEDS: DOXAZOSIN MESYLATE 1 MG TAB PO SCH (21:57)
[2016-08-11] VITALS (12 sets, daily range): BP systolic 122–136; BP diastolic 57–62; PULSE 51–60; RESP 18–20; TEMP 97.7–98.1; O2SAT 95–100
[2016-08-11 04:21] LABS: AUTOMATED NEUTROPHIL # 5.4 TH/MM3 (1.8-7.7); BASOPHIL % 0.2 % (0.0-2.0); EOSINOPHIL # 0.2 TH/MM3 (0-0.4); EOSINOPHIL % 2.1 % (0.0-4.0); LYMPH % 13.1 % (9.0-44.0); MEAN CELL VOLUME 86.6 FL (80.0-100.0); MEAN CORPUSCULAR HEMOGLOBIN 27.8 PG (27.0-34.0); MEAN CORPUSCULAR HGB CONC 32.1 % (32.0-36.0); MONO % 10.6 % (0.0-8.0); PLATELET COUNT 204 TH/MM3 (150-450); RED BLOOD COUNT 2.89 MIL/MM3 (4.50-5.90); RED CELL DISTRIBUTION WIDTH 15.2 % (11.6-17.2); WHITE BLOOD COUNT 7.3 TH/MM3 (4.0-11.0)
[2016-08-11 04:23] LABS: HEMO FLAGS AUTO DIFF
[2016-08-11 04:38] LABS: POTASSIUM 4.5 MEQ/L (3.5-5.1)
[2016-08-11 05:12] LABS: BANDS 1 % (0-6); EOSINOPHILS 1 % (0-4); METAMYELOCYTES 1 % (0-1); NEUTROPHIL # MANUAL DIFF 5.9 TH/MM3 (1.8-7.7); POLYS (SEG NEUTROPHILS) 79 % (16-70); WBC DIFF SAMPLE 100
[2016-08-11 05:13] LABS: PLATELET ESTIMATE SMEAR NORMAL (NORMAL); PLATELET MORPHOLOGY NORMAL (NORMAL); SCAN/DIFF FINAL DIFF MANUAL
[2016-08-11] MEDS: INSULIN ASPART SUPPLEMENTAL SCALE SQ SCH ×4 (06:22→20:22)
[2016-08-11] MEDS: LEVOTHYROXINE SODIUM 150 MCG TAB PO SCH (06:22)
[2016-08-11] MEDS: PANTOPRAZOLE SODIUM 40 MG VIAL IV PUSH SCH ×2 (06:22→17:23)
[2016-08-11] MEDS: BUMETANIDE 1 MG TAB PO SCH (08:45)
[2016-08-11] MEDS: DOCUSATE SODIUM 50 MG/SENNA 8.6 MG TAB PO SCH ×2 (08:45→20:22)
[2016-08-11] MEDS: SUCRALFATE 1 GM/10 ML CUP PO SCH ×4 (08:45→20:21)
[2016-08-11] MEDS: glipiZIDE 5 MG TAB PO SCH ×3 (08:46→17:23)
[2016-08-11] MEDS: LISINOPRIL 20 MG TAB PO SCH (08:46)
[2016-08-11] MEDS: SODIUM CHLORIDE 0.9% FLUSH 10 ML FLUSH IV FLUSH SCH ×2 (08:48→20:21)
[2016-08-11] MEDS: SPIRONOLACTONE 25 MG TAB PO SCH ×2 (08:48→17:23)
[2016-08-11] MEDS: ACETAMINOPHEN/HYDROcodone 325 MG/5 MG TAB PO SCH ×3 (08:48→17:24)
--- NOTE | 2016-08-11 10:31 | HHI.FPPN ---
Subjective Remarks c/o weakness c/o edema c/o general pain d/w RN Objective Vitals Vital Signs Date Time Temp Pulse Resp B/P Pulse Ox O2 Delivery O2 Flow Rate FiO2 08/11/16 08:07 98.0 60 18 136/62 95 08/11/16 07:31 98 21 08/11/16 05:04 97.8 57 18 134/62 98 08/11/16 03:30 51 08/11/16 00:11 97.7 52 18 129/59 100 08/11/16 00:03 99 21 08/10/16 19:39 98.5 58 18 124/57 100 08/10/16 18:39 18 08/10/16 17:32 98.2 57 20 162/70 100 08/10/16 16:56 98.2 64 20 165/73 96 08/10/16 15:00 98.7 58 20 155/71 100 08/10/16 12:34 98.1 55 18 149/67 99 Room Air 08/10/16 12:30 55 18 149/67 97 Room Air 08/10/16 12:15 98.1 57 18 180/73 98 Room Air I/O 08/10/16 08/10/16 08/10/16 08/11/16 08/11/16 08/11/16 07:00 15:00 23:00 07:00 15:00 23:00 Intake Total 720 ml Output Total 1500 ml Balance -780 ml Intake Oral 720 ml Output Urine Total 1500 ml # Voids 3 Result Diagram: 08/11/16 0406 08/11/16 0406 Objective Remarks GENERAL: SKIN: Warm and dry. HEAD: Atraumatic. Normocephalic. EYES: Pupils equal and round. No scleral icterus. No injection or drainage. ENT: No nasal bleeding or discharge. Mucous membranes pink and moist. NECK: Trachea midline. No JVD. CARDIOVASCULAR: Regular rate and rhythm. RESPIRATORY: No accessory muscle use. Clear to auscultation. Breath sounds equal bilaterally. GASTROINTESTINAL: Abdomen soft, non-tender, nondistended. Hepatic and splenic margins not palpable. MUSCULOSKELETAL: Extremities without clubbing, cyanosis 2 edema. No obvious deformities. NEUROLOGICAL: Awake and alert. No obvious cranial nerve deficits. Motor grossly within normal limits. 2 out of 5 muscle strength in the arms and legs. Normal speech. PSYCHIATRIC: Appropriate mood and affect; insight and judgment normal. A/P Assessment and Plan ASSESSMENT- 1. GI bleed. 2. Blood loss anemia. 3. Diabetes. 4. Hypertension. 5. Hypercalcemia. 6. Acute kidney injury. 7. Prostate cancer. 8. Coronary artery disease. PLAN- s/p 2 units Consult GI. Check a.m. CBC and BMP. Bumex 1 mg daily. Sucralfate one gram b.i.d. SCDs and TEDs. Sliding scale insulin. Physical therapy. Observation admission. Garry Rodriguez MD Aug 11, 2016 10:31
[2016-08-11] MEDS: CARVEDILOL 12.5 MG TAB PO SCH ×2 (11:34→20:23)
--- NOTE | 2016-08-11 17:13 | HHI.GIFU ---
Subjective Remarks Pt resting in bed. SAys he feels better today. Denies pain, blood in stool. ( Bianca Schulz) Objective Vitals I&O Vital Signs Date Time Temp Pulse Resp B/P Pulse Ox O2 Delivery O2 Flow Rate FiO2 08/11/16 16:40 51 08/11/16 16:32 60 18 126/62 95 08/11/16 15:50 18 08/11/16 11:33 52 08/11/16 08:07 98.0 60 18 136/62 95 08/11/16 08:04 55 08/11/16 07:31 98 21 08/11/16 05:04 97.8 57 18 134/62 98 08/11/16 03:30 51 08/11/16 00:11 97.7 52 18 129/59 100 08/11/16 00:03 99 21 08/10/16 19:39 98.5 58 18 124/57 100 08/10/16 17:32 98.2 57 20 162/70 100 I/O 08/10/16 08/10/16 08/10/16 08/11/16 08/11/16 08/11/16 07:00 15:00 23:00 07:00 15:00 23:00 Intake Total 720 ml 750 ml Output Total 1500 ml 800 ml Balance -780 ml -50 ml Intake Oral 720 ml 750 ml Output Urine Total 1500 ml 800 ml # Voids 3 Laboratory Laboratory Tests Test 08/11/16 04:06 White Blood Count 7.3 Red Blood Count 2.89 Hemoglobin 8.0 Hematocrit 25.0 Mean Corpuscular Volume 86.6 Mean Corpuscular Hemoglobin 27.8 Mean Corpuscular Hemoglobin 32.1 Concent Red Cell Distribution Width 15.2 Platelet Count 204 Mean Platelet Volume 8.3 Neutrophils (%) (Auto) 74.0 Lymphocytes (%) (Auto) 13.1 Monocytes (%) (Auto) 10.6 Eosinophils (%) (Auto) 2.1 Basophils (%) (Auto) 0.2 Neutrophils # (Auto) 5.4 Lymphocytes # (Auto) 1.0 Monocytes # (Auto) 0.8 Eosinophils # (Auto) 0.2 Basophils # (Auto) 0.0 CBC Comment AUTO DIFF Differential Total Cells 100 Counted Neutrophils % (Manual) 79 Band Neutrophils % 1 Lymphocytes % 17 Monocytes % 1 Eosinophils % 1 Neutrophils # (Manual) 5.9 Metamyelocytes 1 Differential Comment FINAL DIFF MANUAL Platelet Estimate NORMAL Platelet Morphology Comment NORMAL Sodium Level 141 Potassium Level 4.5 Chloride Level 108 Carbon Dioxide Level 24.0 Anion Gap 9 Blood Urea Nitrogen 32 Creatinine 1.86 Estimat Glomerular Filtration 42 Rate Random Glucose 60 Calcium Level 10.3 Physical Exam HEENT: EOMI; normocephalic; atraumatic; no jaundice. CHEST: CTA CARDIAC: RRR ABDOMEN: Soft, obese, nontender; no hepatosplenomegaly; bowel sounds are present in all four quadrants. EXTREMITIES: No clubbing, cyanosis, BLE edema SKIN: Normal; no rash; no jaundice. 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 (Bianca Schulz) Assessment and Plan Plan ASSESSMENT - hematochezia - pt has chronic constipation, took laxative recently, had loose stools, and then constipated again and noticed some dark blood intermingled in stool. Had colonoscopy/EGD 03/2016 for anemia and no bleeding found, just stricture, duodenal ulcer, tubular adenoma. Had EGD 06/30/16 and no bleeding found. - anemia - 6.8 on admission. 8 today. Says he has been a little tired on and off but not as bad as last time. Not on blood thinners. - constipation - chronic. Discussed fiber supplementation, bowel regimen with patient. PLAN - monitor HH - transfuse as necessary - will do colonoscopy if sudden drop in HH - will continue to monitor - increased fiber intake or fiber supplementation - capsule endoscopy as outpatient This pt seen by myself and Dr Hills and this note is written on his behalf ( Bianca Schulz) Physician Comments patient seen and examined agree with above cont current supportive care monitor labs (Kamaljit Hills MD) Bianca Schulz Aug 11, 2016 17:13 Kamaljit Hills MD Aug 11, 2016 18:21
[2016-08-11] MEDS: ATORVASTATIN 40 MG TAB PO SCH (20:22)
[2016-08-11] MEDS: DOXAZOSIN MESYLATE 1 MG TAB PO SCH (20:22)
[2016-08-12 02:50] VITALS: PULSE 58
[2016-08-12 03:26] VITALS: BP 125/60; PULSE 55; RESP 19; TEMP 98.1; O2SAT 100
[2016-08-12] MEDS: LEVOTHYROXINE SODIUM 150 MCG TAB PO SCH (06:02)
[2016-08-12] MEDS: PANTOPRAZOLE SODIUM 40 MG VIAL IV PUSH SCH (06:02)
[2016-08-12] MEDS: INSULIN ASPART SUPPLEMENTAL SCALE SQ SCH (06:09)
[2016-08-12 06:13] VITALS: O2SAT 99
[2016-08-12] MEDS: SUCRALFATE 1 GM/10 ML CUP PO SCH (08:21)
[2016-08-12] MEDS: BUMETANIDE 1 MG TAB PO SCH (08:21)
[2016-08-12] MEDS: ACETAMINOPHEN/HYDROcodone 325 MG/5 MG TAB PO SCH (08:21)
[2016-08-12] MEDS: SPIRONOLACTONE 25 MG TAB PO SCH (08:21)
[2016-08-12] MEDS: glipiZIDE 5 MG TAB PO SCH (08:22)
[2016-08-12] MEDS: CARVEDILOL 12.5 MG TAB PO SCH ×2 (08:22→08:25)
[2016-08-12] MEDS: SODIUM CHLORIDE 0.9% FLUSH 10 ML FLUSH IV FLUSH SCH (08:22)
[2016-08-12] MEDS: DOCUSATE SODIUM 50 MG/SENNA 8.6 MG TAB PO SCH (08:22)
[2016-08-12] MEDS: LISINOPRIL 20 MG TAB PO SCH (08:22)
[2016-08-12 08:39] VITALS: BP 142/65; PULSE 51; RESP 21; TEMP 98.4; O2SAT 100
[2016-08-12 08:47] LABS: BICARBONATE 23.1 MEQ/L (21.0-32.0); POTASSIUM 4.7 MEQ/L (3.5-5.1)
--- NOTE | 2016-08-12 09:04 | HHI.PR ---
Subjective Remarks Follow up for anemia, GI bleed. The patient reports feeling well today and wants to go home. He reports generalized weakness at his baseline. He states he does already have HHC and aides that visit him 5days/week. The patient denies any abdominal pain or nausea/vomiting. No further episodes of bleeding. Objective Vitals Vital Signs Date Time Temp Pulse Resp B/P Pulse Ox O2 Delivery O2 Flow Rate FiO2 08/12/16 08:39 98.4 51 21 142/65 100 08/12/16 06:13 99 21 08/12/16 03:26 98.1 55 19 125/60 100 08/12/16 02:50 58 08/11/16 23:29 98.1 51 19 130/60 100 08/11/16 19:34 98.0 52 20 122/57 99 08/11/16 16:40 51 08/11/16 16:32 60 18 126/62 95 08/11/16 15:50 18 08/11/16 11:33 52 I/O 08/11/16 08/11/16 08/11/16 08/12/16 08/12/16 08/12/16 07:00 15:00 23:00 07:00 15:00 23:00 Intake Total 750 ml Output Total 800 ml Balance -50 ml Intake Oral 750 ml Output Urine Total 800 ml Result Diagram: 08/12/16 0652 08/11/16 0406 Objective Remarks GENERAL: Well-nourished, well-developed pleasant elderly male patient in [facility]. SKIN: Warm and dry. No rash. HEENT: Normocephalic. Atraumatic.Pupils equal and round. Mucous membranes pink and moist. NECK: Supple. Trachea midline. CARDIOVASCULAR: Regular rate and rhythm. S1, S2 noted. No murmur appreciated. RESPIRATORY: No accessory muscle use. Clear to auscultation. Breath sounds equal bilaterally. GASTROINTESTINAL: Abdomen soft, non-tender, nondistended. Normoactive bowel sounds x4. MUSCULOSKELETAL: No obvious deformities. Chronic BLE nonpitting edema. NEUROLOGICAL: Awake and alert. No obvious cranial nerve deficits. Motor grossly within normal limits. Normal speech. PSYCHIATRIC: Appropriate mood and affect; insight and judgment normal. Medications and IVs Current Medications Medications (Trade) Dose Ordered Sig/Domitila Route Start Time Stop Time Status Last Admin (NS Flush) 2 ml UNSCH PRN IV FLUSH 08/10/16 13:15 (NS Flush) 2 ml BID IV FLUSH 08/10/16 21:00 08/12/16 08:22 (Tylenol) 650 mg Q4H PRN PO 08/10/16 13:15 08/11/16 22:23 (Zofran Inj) 4 mg Q6H PRN IVP 08/10/16 13:15 (Ambien) 5 mg HS PRN PO 08/10/16 13:15 (Narcan Inj) 0.4 mg UNSCH PRN IV 08/10/16 13:15 (Carmita-Colace) 1 tab BID PO 08/10/16 21:00 08/12/16 08:22 (Milk Of Magnesia Liq) 30 ml Q12H PRN PO 08/10/16 13:15 (Senokot) 17.2 mg Q12H PRN PO 08/10/16 13:15 (Dulcolax Supp) 10 mg DAILY PRN RECTAL 08/10/16 13:15 (Lactulose Liq) 30 ml DAILY PRN PO 08/10/16 13:15 (Bumetanide) 1 mg DAILY PO 08/11/16 09:00 08/12/16 08:21 (Coreg) 25 mg BID PO 08/10/16 21:00 08/10/16 21:20 (Cardura) 1 mg HS PO 08/10/16 21:00 08/11/16 20:22 (Drisdol) 50,000 units Q7D PO 08/15/16 08:00 (Glucotrol) 5 mg TIDAC PO 08/10/16 17:00 08/12/16 08:22 (Hamilton 5-325 Mg) 1 tab TID PO 08/10/16 18:00 08/12/16 08:21 (Synthroid) 150 mcg DAILY@0600 PO 08/11/16 06:00 08/12/16 06:02 (Protonix Inj) 40 mg BIDAC IV PUSH 08/10/16 16:00 08/12/16 06:02 (Prinivil) 40 mg DAILY PO 08/11/16 09:00 08/12/16 08:22 (Aldactone) 25 mg BIDPC PO 08/10/16 18:00 08/12/16 08:21 (Carafate Liq) 1 gm QID PO 08/10/16 18:00 08/12/16 08:21 (Lipitor) 40 mg HS PO 08/10/16 21:00 08/11/16 20:22 (D50w (Vial) Inj) 50 ml UNSCH PRN IV 08/10/16 15:15 (Glucagon Inj) 1 mg UNSCH PRN OTHER 08/10/16 15:15 A/P Assessment and Plan 80-year-old male with: GI bleed/hematochezia: with hx of chronic constipation. Had previous work up with EGD/colonoscopy , no bleeding source found, duodenal ulcer, tubular adenoma. Repeat EGD 06/30/16 with no bleeding found. S/p transfusion. Monitor serial H&H, currently stable at 8.7. Continue IV Protonix and po carafate. Consult GI, hold off on repeat endoscopy at this time. Plan for outpatient capsule endoscopy. With stable hemoglobin and no further bleeding, patient stable for discharge. Acute Blood Loss Anemia: Hgb 6.8 on admission. S/p pRBCs transfusion [id number]. Monitor H&H. Hgb 8.7 today, stable. No further signs of bleeding. Chronic Constipation: patient has been off his Miralax lately because he previously had loose stools. Discussed using Miralax daily and cutting back to every other day if loose stools develop, patient verbalized understanding. Generalized Weakness: suspect multifactorial with anemia and deconditioning. Consulted PT, recommends continuing [facility] PT. Diabetes Mellitus: chronic, stable. Monitor Accu-checks and cover with SSI. Lower Extremity Edema: chronic, continue patient's Bumex daily. CAD/CHF/Hypertension: chronic, continue patient's coreg, lisinopril. BP fairly well controlled. Monitor. DVT Prophylaxis: teds/SCDs Discharge Planning Likely discharge today if ok with gastroenterology. 1005hrs: Discussed with Akbar LEE with gastroenterology, ok to discharge home, plan for capsule endoscopy as outpatient. Discharge patient to home with [facility] Condition on discharge: Improved Heart Healthy Diet as tolerated Ad Amy activity Rx written: ferrous sulfate, miralax Follow-up with primary care physician Dr. Rodriguez, and [facility] Deepa Cardozo PA-C Aug 12, 2016 9:03 am
[2016-08-12] MEDS ORDERED: MIRA3350 PO (09:06)
[2016-08-12] MEDS ORDERED: FERR324T4 PO (09:06)
--- NOTE | 2016-08-12 09:10 | HHI.DCPOC ---
Discharge Care Plan Diagnosis: (1) Symptomatic anemia (2) GI bleed (3) constipation (4) DM (diabetes mellitus) (5) CHF (congestive heart failure) (6) Edema Goals to Promote Your Health * To prevent worsening of your condition and complications * To maintain your health at the optimal level Directions to Meet Your Goals Take your medications as prescribed Follow your dietary instruction Follow activity as directed Keep your appointments as scheduled Take your immunizations and boosters as scheduled If your symptoms worsen call your PCP, if no PCP go to Urgent Care Center or Emergency Room Smoking is Dangerous to Your Health. Avoid second hand smoke Call the 24-hour hour crisis hotline for domestic abuse at Deepa Cardozo PA-C Aug 12, 2016 9:10 am
--- NOTE | 2016-08-12 10:09 | HHI.FF ---
Face to Face Verification Diagnosis: (1) Symptomatic anemia (2) GI bleed (3) DM (diabetes mellitus) (4) constipation (5) CHF (congestive heart failure) (6) Lymphedema (7) CKD (chronic kidney disease) stage 3, GFR 30-59 ml/min (8) CAD (coronary artery disease) (9) HTN (hypertension) (10) Generalized weakness (11) Decreased activities of daily living (ADL) Physical Therapy Order: Evaluate and Treat, Improve ambulation, Strength and gait training Home Health Nursing Order: Medical education Signs/symptoms of disease process Diabetic education CHF education Nursing assessment with vital signs Home Health Aide Order: To Assist In: Bathing and personal care, labor relations worker and meal prep I have seen patient Js Brown on 08/12/16. My clinical findings support the need for the requested home health care services because: Ltd mobility - disease progression Deconditioned w/ increased weakness Limited ability to care for self High risk of falls I certify that my clinical findings support that this patient is homebound because: Unsteady gait/balance Unsafe to leave home unassisted Unable to use public transportation Deepa Cardozo PA-C Aug 12, 2016 10:09 Travis Silva MD Aug 13, 2016 10:27
[2016-08-12 10:40] VITALS: PULSE 50
[2016-08-15] MEDS ORDERED: ERGOCALCIFEROL (VIT D2) 50,000 UNIT CAP PO SCH (08:00)
== END 2016-08-12 12:14 | disposition home or self-care (01) ==
LOC: NEPE 09:22 → NEDA 11:32 → NEPFCDU 14:53 → NEPGCP 08-11 17:02
PROVIDERS: ADMIT Family Medicine; ATTEND Family Medicine
DX: D62 Acute posthemorrhagic anemia (principal); K92.1 Melena; K59.09 Other constipation; E11.9 Type 2 diabetes mellitus without complications; E83.52 Hypercalcemia; R60.0 Localized edema; N17.9 Acute kidney failure, unspecified; I25.10 Atherosclerotic heart disease of native coronary artery without angina pectoris; M19.90 Unspecified osteoarthritis, unspecified site; F41.9 Anxiety disorder, unspecified; E78.00 Pure hypercholesterolemia, unspecified; E07.9 Disorder of thyroid, unspecified; K21.9 Gastro-esophageal reflux disease without esophagitis; I11.0 Hypertensive heart disease with heart failure; I50.9 Heart failure, unspecified; Z95.5 Presence of coronary angioplasty implant and graft; Z88.7 Allergy status to serum and vaccine; Z88.8 Allergy status to other drugs, medicaments and biological substances; Z91.013 Allergy to seafood; Z87.11 Personal history of peptic ulcer disease; Z85.46 Personal history of malignant neoplasm of prostate
CPT/HCPCS: 36430; 80048; 82948; 85007; 85018; 85025; 85027; 85610; 85730; 86850; 86900; 86901; 86920; 97110; 97116; 97163; 99285; C9113; G0378; G8987; G8988; J1940; J7050; P9016

== ENCOUNTER 2016-09-09 03:19 | Inpatient (IN) | payer MEDICARE ==
[~2016-09-09] VITALS: Ht 175.3 cm; Wt 112.4 kg
[2016-09-09] VITALS (13 sets, daily range): BP systolic 84–142; BP diastolic 47–63; PULSE 47–86; RESP 16–22; TEMP 95.3–98.4; O2SAT 93–100
[~2016-09-09 03:19] MED LIST changes: +FERR324T4 PO; +GABA300C5 PO; +MIRA3350 PO
[2016-09-09] MEDS ORDERED: SODIUM CHLORIDE 0.9% FLUSH 10 ML FLUSH IVF PRN (03:30)
--- NOTE | 2016-09-09 03:33 | PD ---
HPI Chief Complaint: Dizziness Time Seen by Provider: 03:23 Travel History International Travel<30 days: No Contact w/Intl Traveler<30days: No Traveled to known affect area: No History of Present Illness HPI Patient is an 81-year-old male presents emergency Department with dizziness and weakness for the past few days. Patient called 911 today because he states he was having some cramping his right shoulder which is chronic for him. Denies any chest pain abdominal pain nausea vomiting diarrhea blood in the stool. Patient states the last time he felt like this he was anemic and needed admission to the hospital and transfusion. The patient was here in June did get transfused that time and had a colonoscopy. Per EMS the patient was hypoglycemic in the field to the 50s, he tolerated her oral glucose load remain low and his sugar and therefore was given D10 in the field. PFSH Past Medical History Arthritis: Yes Asthma: No Autoimmune Disease: No Blood Disorders: No Anxiety: Yes Depression: No Heart Rhythm Problems: No Cancer: Yes (PROSTATE) Cardiovascular Problems: Yes High Cholesterol: Yes Chest Pain: No Congestive Heart Failure: Yes COPD: No Cerebrovascular Accident: No Diabetes: Yes Diminished Hearing: No Endocrine: Yes Gastrointestinal Disorders: Yes GERD: Yes Glaucoma: No Genitourinary: Yes Headaches: No Hepatitis: No Hiatal Hernia: Yes (GERD) Hypertension: Yes Immune Disorder: No Implanted Vascular Access Dvce: Yes Kidney Stones: No Musculoskeletal: Yes Neurologic: Yes Psychiatric: Yes Reproductive: No Respiratory: Yes Immunizations Current: Yes Myocardial Infarction: No Renal Failure: No Seizures: No Sickle Cell Disease: No Sleep Apnea: Yes (does not wear cpap) Thyroid Disease: Yes Ulcer: No Past Surgical History Abdominal Surgery: Yes (APPENDECTOMY,EGD,COLONOSCOPY) AICD: No Appendectomy: Yes Body Medical Devices: CARDIAC STENTS Cardiac Surgery: Yes (cardiac stent placement) Coronary Stent: Yes (X2) Ear Surgery: No Endocrine Surgery: No Eye Surgery: No Genitourinary Surgery: Yes (prostatectomy, ESWL) Gynecologic Surgery: Yes Oral Surgery: No Pacemaker: No Thoracic Surgery: No Other Surgery: Yes (THYROIDECTOMY 09/01/10, prostate) Social History Alcohol Use: Yes (2 DRINKS/WEEK) Tobacco Use: No Substance Use: No Allergies-Medications (Allergen,Severity, Reaction): Coded Allergies: Oscal 500 (Verified Allergy, Severe, 09/09/16) rash Shellfish (Verified Allergy, Severe, 09/09/16) rash Tetanus Toxoid (Verified Allergy, Severe, 09/09/16) rash Reported Meds & Prescriptions Reported Meds & Active Scripts Active Ferrous Sulfate DR (Ferrous Sulfate) 324 Mg Tabdr 324 Mg PO BIDPC Miralax Powder (Polyethylene Glycol 3350 Powder) 17 Gm Powd 17 Gm PO DAILY Mix and dissolve one measuring cap-ful (17 grams) in water or juice. Hold if having loose stools. Glipizide 5 Mg Tab 5 Mg PO TIDAC Take 30 minutes before a meal Protonix (Pantoprazole Sodium) 40 Mg Tab 40 Mg PO BIDAC Reported Gabapentin 300 Mg Cap 300 Mg PO DAILY Ergocalciferol 50,000 Unit Cap 50,000 Units PO Q7D Quinapril (Quinapril HCl) 5 Mg Tab 40 Mg PO DAILY Ranitidine (Ranitidine HCl) 150 Mg Cap 150 Mg PO BID Carafate Liq (Sucralfate) 1 Gm/10 Ml Susp 1 Gm PO QID on empty stomach Rosuvastatin (Rosuvastatin Calcium) 20 Mg Tab 20 Mg PO HS Spironolactone 25 Mg Tab 25 Mg PO BIDPC Bumetanide 1 Mg Tab 1 Mg PO DAILY Lortab (Hydrocodone-Acetaminophen) 5-325 Mg Tab 1 Tab PO TID Levothyroxine (Levothyroxine Sodium) 150 Mcg Tab 150 Mcg PO DAILY Carvedilol 25 Mg Tab 25 Mg PO BID Doxazosin (Doxazosin Mesylate) 1 Mg Tab 1 Mg PO HS Review of Systems Except as stated in HPI: all other systems reviewed are Neg Physical Exam Narrative GENERAL: Well-developed well-nourished no apparent distress SKIN: Focused skin assessment warm/dry. HEAD: Atraumatic. Normocephalic. EYES: Pupils equal and round. No scleral icterus. No injection or drainage. Conjunctival pallor. ENT: No nasal bleeding or discharge. Mucous membranes pink and moist. NECK: Trachea midline. No JVD. CARDIOVASCULAR: Minimally bradycardic with regular rhythm. No murmur appreciated. No murmurs gallops or rubs. RESPIRATORY: No accessory muscle use. Clear to auscultation. Breath sounds equal bilaterally. GASTROINTESTINAL: Abdomen soft, non-tender, nondistended. Hepatic and splenic margins not palpable. Rectal exam shows scant stool in the rectal vault, no gross blood no melena. MUSCULOSKELETAL: No obvious deformities. No clubbing. No cyanosis. No edema. NEUROLOGICAL: Awake and alert. No obvious cranial nerve deficits. Motor grossly within normal limits. Normal speech. PSYCHIATRIC: Appropriate mood and affect; insight and judgment normal. Data Data Last Documented VS Vital Signs Date Time Temp Pulse Resp B/P Pulse Ox O2 Delivery O2 Flow Rate FiO2 09/09/16 04:44 102/52 09/09/16 04:11 51 18 100 Room Air 09/09/16 03:22 98.4 Orders Electrocardiogram (09/09/16 03:23) Ckmb (Isoenzyme) Profile (09/09/16 03:23) Complete Blood Count With Diff (09/09/16 03:23) Comprehensive Metabolic Panel (09/09/16 03:23) Magnesium (Mg) (09/09/16 03:23) Prothrombin Time / Inr (Pt) (09/09/16 03:23) Act Partial Throm Time (Ptt) (09/09/16 03:23) Troponin I (09/09/16 03:23) Ecg Monitoring (09/09/16 03:23) Iv Access Insert/Monitor (09/09/16 03:23) Oximetry (09/09/16 03:23) Oxygen Administration (09/09/16 03:23) Sodium Chloride 0.9% Flush (Ns Flush) (09/09/16 03:30) Bedside Glucose MARSHALL.AC&HS (09/09/16 03:23) Lactic Acid (09/09/16 03:34) Sodium Chlorid 0.9% 500 Ml Inj (Ns 500 M (09/09/16 03:45) Type And Screen (09/09/16 03:40) Oxycodone-Acetamin 5-325 Mg (Percocet (09/09/16 04:30) Red Blood Cells (Rbc) (09/09/16 04:25) Blood Product Administration .UPON TRANSFUSION (09/09/16 04:25) Sodium Chlor 0.9% 250 Ml Inj (Ns 250 Ml (09/09/16 04:30) Admit Order (Ed Use Only) (09/09/16 ) Labs Laboratory Tests Test 09/09/16 09/09/16 03:30 03:35 White Blood Count 6.6 TH/MM3 Red Blood Count 2.43 MIL/MM3 Hemoglobin 6.7 GM/DL Hematocrit 20.9 % Mean Corpuscular Volume 85.8 FL Mean Corpuscular Hemoglobin 27.4 PG Mean Corpuscular Hemoglobin 31.9 % Concent Red Cell Distribution Width 16.0 % Platelet Count 191 TH/MM3 Mean Platelet Volume 8.5 FL Neutrophils (%) (Auto) 78.4 % Lymphocytes (%) (Auto) 8.5 % Monocytes (%) (Auto) 8.0 % Eosinophils (%) (Auto) 3.9 % Basophils (%) (Auto) 1.2 % Neutrophils # (Auto) 5.2 TH/MM3 Lymphocytes # (Auto) 0.6 TH/MM3 Monocytes # (Auto) 0.5 TH/MM3 Eosinophils # (Auto) 0.3 TH/MM3 Basophils # (Auto) 0.1 TH/MM3 CBC Comment DIFF FINAL Differential Comment Prothrombin Time 11.4 SEC Prothromb Time International 1.0 RATIO Ratio Activated Partial 26.9 SEC Thromboplast Time Sodium Level 139 MEQ/L Potassium Level 4.4 MEQ/L Chloride Level 108 MEQ/L Carbon Dioxide Level 22.2 MEQ/L Anion Gap 9 MEQ/L Blood Urea Nitrogen 64 MG/DL Creatinine 3.20 MG/DL Estimat Glomerular Filtration 23 ML/MIN Rate Random Glucose 183 MG/DL Calcium Level 9.3 MG/DL Magnesium Level 1.3 MG/DL Total Bilirubin 0.2 MG/DL Aspartate Amino Transf 7 U/L (AST/SGOT) Alanine Aminotransferase 10 U/L (ALT/SGPT) Alkaline Phosphatase 41 U/L Total Creatine Kinase 39 U/L Troponin I 0.22 NG/ML Total Protein 6.2 GM/DL Albumin 2.5 GM/DL Lactic Acid Level 0.8 mmol/L [facility] Medical Decision Making Medical Screen Exam Complete: Yes Emergency Medical Condition: Yes Interpretation(s) EKG shows sinus bradycardia rate of 50, borderline left axis deviation, right bundle branch block, no concerning ST segment changes. This an abnormal EKG. No change from March 2016. Differential Diagnosis Anemia, arrhythmia, dehydration, transient hypotension. Narrative Course Patient brought to the emergency department, minimally hypotensive on arrival with blood pressure in the high 80s systolically. her well-perfused will. He is quite pleasant and does not show any evidence of decreased perfusion other than his mild presyncopal symptoms. Found to be anemic hemoglobin of 6.8. Blood transfusion was ordered the patient agreed after discussions of risks benefits complications and alternatives. Patient's EKG is abnormal but no change from previous, troponin is elevated but again no change from previous. Patient is not having any convincing ACS symptoms and has contraindications to heparin therapy at this time. Relative contraindications to aspirin therapy and will defer this to the hospitalist. He also has an acute kidney injury with a creatinine of 3.2 from previous of 1.8. Lites otherwise within normal limits, nonuremic. After 500 cc bolus blood pressure is improved with systolics in the mid 100s. Discussed the patient admission criteria and he is agreeable. Patient was discussed with Dr. Monk. Stable for floor at this time. Diagnosis Primary Impression: Anemia Additional Impressions: GI bleed Acute kidney injury Admitting Information Admitting Physician Requests: Admit Condition: Stable Tera Patricia MD Sep 09, 2016 03:33
[2016-09-09] MEDS ORDERED: SODIUM CHLORID 0.9% 500 ML INJ 500 ML IV ONE (03:45)
[2016-09-09 04:19] LABS: ALKALINE PHOSPHATASE 41 U/L (45-117); ANION GAP 9 MEQ/L (5-15); AST (GOT) 7 U/L (15-37); BICARBONATE 22.2 MEQ/L (21.0-32.0); BLOOD UREA NITROGEN 64 MG/DL (7-18); CHLORIDE 108 MEQ/L (98-107); GLOMERULAR FILTRATION RATE 23 ML/MIN (>89); MAGNESIUM 1.3 MG/DL (1.5-2.5); POTASSIUM 4.4 MEQ/L (3.5-5.1); SODIUM (NA) 139 MEQ/L (136-145); TOTAL BILIRUBIN ADULT 0.2 MG/DL (0.2-1.0)
[2016-09-09 04:23] LABS: AUTOMATED NEUTROPHIL # 5.2 TH/MM3 (1.8-7.7); BASOPHIL # 0.1 TH/MM3 (0-0.2); BASOPHIL % 1.2 % (0.0-2.0); EOSINOPHIL # 0.3 TH/MM3 (0-0.4); EOSINOPHIL % 3.9 % (0.0-4.0); HEMO FLAGS DIFF FINAL; LYMPH % 8.5 % (9.0-44.0); LYMPHOCYTE # 0.6 TH/MM3 (1.0-4.8); MEAN CELL VOLUME 85.8 FL (80.0-100.0); MEAN CORPUSCULAR HEMOGLOBIN 27.4 PG (27.0-34.0); MEAN CORPUSCULAR HGB CONC 31.9 % (32.0-36.0); NEUT % 78.4 % (16.0-70.0); PLATELET COUNT 191 TH/MM3 (150-450); RED BLOOD COUNT 2.43 MIL/MM3 (4.50-5.90); WHITE BLOOD COUNT 6.6 TH/MM3 (4.0-11.0)
[2016-09-09 04:24] LABS: HEMATOCRIT 20.9 % (39.0-51.0)
[2016-09-09 04:26] LABS: ALT (GPT) 10 U/L (12-78); CREATINE KINASE 39 U/L (39-308)
[2016-09-09] MEDS ORDERED: oxyCODONE/ACETAMINOPHEN 5 MG/325 MG TAB PO ONE (04:30)
[2016-09-09] MEDS ORDERED: SODIUM CHLOR 0.9% 250 ML INJ 250 ML IV ONE (04:30)
[2016-09-09 04:32] LABS: APTT (PATIENT) 26.9 SEC (24.3-30.1); PROTHROMBIN TIME - PATIENT 11.4 SEC (9.8-11.6)
[2016-09-09] MEDS ORDERED: MAGNESIUM HYDROXIDE SUSP 30 ML CUP PO PRN (04:45)
[2016-09-09] MEDS ORDERED: BISACODYL 10 MG SUPP RECTAL PRN (04:45)
[2016-09-09] MEDS ORDERED: SENNOSIDES 8.6 MG TAB PO PRN (04:45)
[2016-09-09] MEDS ORDERED: ACETAMINOPHEN 325 MG TAB PO PRN (04:45)
[2016-09-09] MEDS ORDERED: NALOXONE HCL 0.4 MG/ML AMP IV PRN (04:45)
[2016-09-09] MEDS ORDERED: ONDANSETRON HCL 4 MG/2 ML VIAL IVP PRN (04:45)
[2016-09-09] MEDS ORDERED: GLUCAGON 1 MG/ML VIAL OTHER PRN (04:45)
[2016-09-09] MEDS ORDERED: LACTULOSE SYRUP 20 GM/30 ML CUP PO PRN (04:45)
--- NOTE | 2016-09-09 05:10 | HHI.HP ---
[facility] Primary Care Physician Garry Rodriguez MD Admission Diagnosis Anemia, GI Bleed, Transient Hypotension. Diagnoses: Chief Complaint: GI bleed Travel History International Travel<30 Days: No Contact w/Intl Traveler <30 Da: No Traveled to Known Affected Are: No History of Present Illness Written by JESUS Doe acting as scribe for [Jannette] on 09/09/16 at 05:04. 81 y/o male with a history anemia, DM, CHF, and HTN presented to the ED with complaints of feeling Lightheaded, and muscle aches. Pt states he began feeling funny today with lightheadedness and muscle pain. He states he gets these symptoms when his blood count is low. He states his stool is darker than normal. Denies any chest pain, sob, fever or chills. Patient was Hemoccult positive in the ED. August 2016 patient was admitted for hematochezia, hemoglobin remained stable and patient was to have an outpatient capsule endoscopy but this was apparently cancelled. Last EGD June 2016 showed hiatal hernia, and gastritis. Last colonoscopy completed was on March 2016 which showed duodenal ulcer, and polyps within the transverse colon. PCP is Dr. Rodriguez Review of Systems Constitutional: COMPLAINS OF: Fatigue, DENIES: Fever, Chills Respiratory: DENIES: Cough, Sputum production, Shortness of breath Cardiovascular: COMPLAINS OF: Lower Extremity Edema, DENIES: Chest pain Gastrointestinal: COMPLAINS OF: Black stools, Constipation, DENIES: Diarrhea, Nausea, Vomiting Genitourinary: DENIES: Hematuria, Dysuria Musculoskeletal: COMPLAINS OF: Joint pain, Muscle aches, DENIES: Back pain, Neck pain Integumentary: DENIES: Rash Hematologic/lymphatic: DENIES: Lymphadenopathy Immunologic/allergic: DENIES: Urticaria Neurologic: DENIES: Headache Past Family Social History Past Medical History DM HTN CHF CAD Gastritis Sleep Apnea Anxiety Past Surgical History Appendectomy Recurrent EGDs and colonoscopies Cardiac stents Prostatectomy Thyroidectomy Reported Medications Reported Meds & Active Scripts Active Ferrous Sulfate DR (Ferrous Sulfate) 324 Mg Tabdr 324 Mg PO BIDPC Miralax Powder (Polyethylene Glycol 3350 Powder) 17 Gm Powd 17 Gm PO DAILY Mix and dissolve one measuring cap-ful (17 grams) in water or juice. Hold if having loose stools. Glipizide 5 Mg Tab 5 Mg PO TIDAC Take 30 minutes before a meal Protonix (Pantoprazole Sodium) 40 Mg Tab 40 Mg PO BIDAC Reported Gabapentin 300 Mg Cap 300 Mg PO DAILY Ergocalciferol 50,000 Unit Cap 50,000 Units PO Q7D Quinapril (Quinapril HCl) 5 Mg Tab 40 Mg PO DAILY Ranitidine (Ranitidine HCl) 150 Mg Cap 150 Mg PO BID Carafate Liq (Sucralfate) 1 Gm/10 Ml Susp 1 Gm PO QID on empty stomach Rosuvastatin (Rosuvastatin Calcium) 20 Mg Tab 20 Mg PO HS Spironolactone 25 Mg Tab 25 Mg PO BIDPC Bumetanide 1 Mg Tab 1 Mg PO DAILY Lortab (Hydrocodone-Acetaminophen) 5-325 Mg Tab 1 Tab PO TID Levothyroxine (Levothyroxine Sodium) 150 Mcg Tab 150 Mcg PO DAILY Carvedilol 25 Mg Tab 25 Mg PO BID Doxazosin (Doxazosin Mesylate) 1 Mg Tab 1 Mg PO HS Allergies: Coded Allergies: Oscal 500 (Verified Allergy, Severe, 09/09/16) rash Shellfish (Verified Allergy, Severe, 09/09/16) rash Tetanus Toxoid (Verified Allergy, Severe, 09/09/16) rash Active Ordered Medications Current Medications Medications (Trade) Dose Ordered Sig/Domitila Route Start Time Stop Time Status Last Admin (NS 250 ml Inj) 250 ml @ 15 mls/hr ONCE ONCE IV 09/09/16 04:30 09/09/16 21:09 (NS Flush) 2 ml UNSCH PRN IV FLUSH 09/09/16 04:45 (NS Flush) 2 ml BID IV FLUSH 09/09/16 09:00 (Tylenol) 650 mg Q4H PRN PO 09/09/16 04:45 (Zofran Inj) 4 mg Q6H PRN IVP 09/09/16 04:45 (Narcan Inj) 0.4 mg UNSCH PRN IV 09/09/16 04:45 (Milk Of Magnesia Liq) 30 ml Q12H PRN PO 09/09/16 04:45 (Senokot) 17.2 mg Q12H PRN PO 09/09/16 04:45 (Dulcolax Supp) 10 mg DAILY PRN RECTAL 09/09/16 04:45 (Lactulose Liq) 30 ml DAILY PRN PO 09/09/16 04:45 (D50w (Vial) Inj) 50 ml UNSCH PRN IV 09/09/16 04:45 (Glucagon Inj) 1 mg UNSCH PRN OTHER 09/09/16 04:45 (Bumetanide) 1 mg DAILY PO 09/09/16 09:00 (Neurontin) 300 mg DAILY PO 09/09/16 09:00 (Synthroid) 150 mcg DAILY@07 PO 09/09/16 07:00 (Aldactone) 25 mg BIDPC PO 09/09/16 09:00 (Carafate Liq) 1 gm DAILY@07,11,16,21 PO 09/09/16 07:00 (Ferrous Sulfate) 325 mg BIDPC PO 09/09/16 09:00 (Pepcid) 20 mg DAILY PO 09/09/16 09:00 (Lipitor) 40 mg HS PO 09/09/16 21:00 (Protonix Inj) 40 mg Q12H IV PUSH 09/09/16 05:00 Family History Significant history of DM Social History Tobacco use: Quit 1976 Alcohol use: Occasionally Illicit drug use: Denies Physical Exam Vital Signs Vital Signs Date Time Temp Pulse Resp B/P Pulse Ox O2 Delivery O2 Flow Rate FiO2 09/09/16 05:03 51 16 111/59 99 Room Air 09/09/16 04:44 102/52 09/09/16 04:11 51 18 96/50 100 Room Air 09/09/16 03:29 51 20 91/47 100 Room Air 09/09/16 03:22 98.4 52 20 89/47 Physical Exam GENERAL: This is a well-nourished, well-developed patient, in no apparent distress. SKIN: No rashes, ecchymoses or lesions. Cool and dry. HEAD: Atraumatic. Normocephalic. EYES: Pupils equal round and reactive. Extraocular motions intact. No scleral icterus. No injection or drainage. Cataracts noted ENT: Nose without bleeding, purulent drainage or septal hematoma. Throat without erythema, tonsillar hypertrophy or exudate. Uvula midline. Airway patent. NECK: Trachea midline. No JVD or lymphadenopathy. CARDIOVASCULAR: Regular rate and rhythm without murmurs, gallops, or rubs. RESPIRATORY: Clear to auscultation. Breath sounds equal bilaterally. GASTROINTESTINAL: Abdomen soft, non-tender, nondistended. No hepato-splenomegaly , or palpable masses. No guarding. MUSCULOSKELETAL: Right knee pain. No calf tenderness. Chronic bilateral LE edema +2. NEUROLOGICAL: Awake and alert. Motor and sensory grossly within normal limits. Normal speech. Laboratory Laboratory Tests Test 09/09/16 09/09/16 09/09/16 09/09/16 03:30 03:35 03:40 04:25 White Blood Count 6.6 Red Blood Count 2.43 Hemoglobin 6.7 Hematocrit 20.9 Mean Corpuscular Volume 85.8 Mean Corpuscular Hemoglobin 27.4 Mean Corpuscular Hemoglobin 31.9 Concent Red Cell Distribution Width 16.0 Platelet Count 191 Mean Platelet Volume 8.5 Neutrophils (%) (Auto) 78.4 Lymphocytes (%) (Auto) 8.5 Monocytes (%) (Auto) 8.0 Eosinophils (%) (Auto) 3.9 Basophils (%) (Auto) 1.2 Neutrophils # (Auto) 5.2 Lymphocytes # (Auto) 0.6 Monocytes # (Auto) 0.5 Eosinophils # (Auto) 0.3 Basophils # (Auto) 0.1 CBC Comment DIFF FINAL Differential Comment Prothrombin Time 11.4 Prothromb Time International 1.0 Ratio Activated Partial 26.9 Thromboplast Time Sodium Level 139 Potassium Level 4.4 Chloride Level 108 Carbon Dioxide Level 22.2 Anion Gap 9 Blood Urea Nitrogen 64 Creatinine 3.20 Estimat Glomerular Filtration 23 Rate Random Glucose 183 Calcium Level 9.3 Magnesium Level 1.3 Total Bilirubin 0.2 Aspartate Amino Transf 7 (AST/SGOT) Alanine Aminotransferase 10 (ALT/SGPT) Alkaline Phosphatase 41 Total Creatine Kinase 39 Troponin I 0.22 Total Protein 6.2 Albumin 2.5 Lactic Acid Level 0.8 Blood Type A POSITIVE Antibody Screen NEGATIVE Crossmatch Leukocyte-Reduced Red Blood Cells Blood Bank Comment Result Diagram: 09/09/1632909/09/16329 Assessment and Plan Problem List: (1) GI bleed ICD Code: K92.2 Status: Acute (2) DM (diabetes mellitus) ICD Code: E11.9 Status: Chronic (3) CHF (congestive heart failure) ICD Code: I50.9 Status: Chronic Assessment and Plan 81 y/o male with a history anemia, DM, CHF, and HTN presented to the ED with complaints of feeling Lightheaded, and muscle aches. GI bleed, Hemoccult positive in ED, hemoglobin 6.7, patient does have chronic anemia -Protonix IV -Transfuse 2 units PRBCs -Consult GI for recommendations -CBC posttransfusion -Continue home ferrous sulfate Acute on chronic kidney disease, creatinine 3.2, baseline 1.8 likely due to volume loss -Bolus 2 given in the ED -Continue home medications spironolactone and Bumex -BMP in a.m. Elevated troponin, first set 0.22, no active chest pain suspect related to elevated creatinine -Serial EKGs and troponin -Monitor telemetry Diabetes, chronic -Accu-Cheks with SSI -Diabetic diet Reported history of CHF -- last echocardiogram available was in 03/21; showed normal systolic function with EF 55-60%. Lasix between PRBC units. Monitor for fluid overload. Other chronic medical conditions: hypothyroidism, dyslipidemia, and gerd, currently stable, reorder home medications. DVT prophylaxis: SCDs This note was transcribed by lizzie Castellon. I, Dr. Phil Bhatia personally performed the history, physical exam, and medical decision making; and confirmed the accuracy of the information in the transcribed note. Authenticated by Dr. Phil Bhatia on 09/09/16 at 06:07. Discussed Condition With Patient Physician Certification 2 Midnight Certification Type: Admission for Inpatient Services Order for Inpatient Services The services are ordered in accordance with Medicare regulations or non- Medicare payer requirements, as applicable. In the case of services not specified as inpatient-only, they are appropriately provided as inpatient services in accordance with the 2-midnight benchmark. Estimated LOS (days): 3 3 days is the estimated time the patient will need to remain in the hospital, assuming treatment plan goals are met and no additional complications. Post-Hospital Plan: Not yet determined Makenna Castellon Sep 09, 2016 05:10 Phil Bhatia MD Sep 09, 2016 06:07
[2016-09-09] MEDS: PANTOPRAZOLE SODIUM 40 MG VIAL IV PUSH SCH ×2 (05:13→17:08)
[2016-09-09] MEDS ORDERED: ACETAMINOPHEN/HYDROcodone 325 MG/5 MG TAB PO PRN (05:45)
[2016-09-09] MEDS ORDERED: ACETAMINOPHEN/HYDROcodone 325 MG/7.5 MG TAB PO PRN (05:45)
[2016-09-09] MEDS: INSULIN ASPART SUPPLEMENTAL SCALE SQ SCH ×4 (07:00→21:00)
[2016-09-09] MEDS: SODIUM CHLORIDE 0.9% FLUSH 10 ML FLUSH IV FLUSH SCH ×2 (08:19→21:18)
--- NOTE | 2016-09-09 08:46 | PD.CONS ---
HPI History of Present Illness This is a 81 year old male patient with a hx of chronic anemia and duodenal ulcers, gastritis, polyps who presents to [facility] for light headedness, he is familiar with these symptoms, as he feels that way with low blood count. He is known to our services from previous encounters for chronic anemia. He was suppose to have CE, however, this wasn't done, states he is never out of the hospital long enough to have it done. He was hospitalized back in March of 2016 for anemia/dark stool and evaluated with EGD/Colonoscopy (03/08/16)---> esophageal stricture s/p dilation Savary 17 mm, gastritis bx, duodenal ulcer bx , normal endoscopy otherwise, retroflexed views revealed no abnormalities; 2 polyps in transverse colon s/p snare polypectomy, 1 polyp in the descending colon removed, by snare, there was no evidence of stool throughout the colon, mild diverticulosis was noted in the descending colon, retroflexed views revealed no abnormalities, no abnormalities of the rectum. Small bowel duodenal mucosa with focal superficial mucosal erosion, features consistent with reactive gastropathy, colon transverse tubular adenoma, descending tubular adenoma. He had an EGD on a different admission for same presentation on (06/30) ---> hiatal hernia and gastritis, bx revealed duodenal mucosa with superficial epithelial denudation. Last admission was on August 10. He reports the stools are dark but not more than usual. He usually suffers from constipation. Last time he had BM was 3 days ago. He takes miralax at home, if he takes it on daily basis, he has diarrhea, so he stopped for a week and now he is having constipation. He denies nausea, vomiting, abdominal pain, diarrhea , melena or hematochezia. He does have intermittent constipation. He used to have GERD, but this has resolved now with medications. (Akbar Gar) PFSH Past Medical History DM HTN CHF CAD Gastritis Sleep Apnea Anxiety Past Surgical History Appendectomy Recurrent EGDs and colonoscopies Cardiac stents Prostatectomy Thyroidectomy (Akbar Gar) Coded Allergies: Oscal 500 (Verified Allergy, Severe, 09/09/16) rash Shellfish (Verified Allergy, Severe, 09/09/16) rash Tetanus Toxoid (Verified Allergy, Severe, 09/09/16) rash Medications Current Medications Medications (Trade) Dose Ordered Sig/Domitila Route Start Time Stop Time Status Last Admin (NS 250 ml Inj) 250 ml @ 15 mls/hr ONCE ONCE IV 09/09/16 04:30 09/09/16 21:09 09/09/16 05:35 (NS Flush) 2 ml UNSCH PRN IV FLUSH 09/09/16 04:45 (NS Flush) 2 ml BID IV FLUSH 09/09/16 09:00 (Tylenol) 650 mg Q4H PRN PO 09/09/16 04:45 (Zofran Inj) 4 mg Q6H PRN IVP 09/09/16 04:45 (Narcan Inj) 0.4 mg UNSCH PRN IV 09/09/16 04:45 (Milk Of Magnesia Liq) 30 ml Q12H PRN PO 09/09/16 04:45 (Senokot) 17.2 mg Q12H PRN PO 09/09/16 04:45 (Dulcolax Supp) 10 mg DAILY PRN RECTAL 09/09/16 04:45 (Lactulose Liq) 30 ml DAILY PRN PO 09/09/16 04:45 (D50w (Vial) Inj) 50 ml UNSCH PRN IV 09/09/16 04:45 (Glucagon Inj) 1 mg UNSCH PRN OTHER 09/09/16 04:45 (Bumetanide) 1 mg DAILY PO 09/09/16 09:00 (Neurontin) 300 mg DAILY PO 09/09/16 09:00 (Synthroid) 150 mcg DAILY@07 PO 09/09/16 07:00 (Aldactone) 25 mg BIDPC PO 09/09/16 09:00 (Carafate Liq) 1 gm DAILY@07,11,16,21 PO 09/09/16 07:00 (Ferrous Sulfate) 325 mg BIDPC PO 09/09/16 09:00 (Pepcid) 20 mg DAILY PO 09/09/16 09:00 (Lipitor) 40 mg HS PO 09/09/16 21:00 (Protonix Inj) 40 mg Q12H IV PUSH 09/09/16 05:00 09/09/16 05:13 (Marshall 5-325 Mg) 1 tab Q6H PRN PO 09/09/16 05:45 (Marshall 7.5-325 Mg) 1 tab Q6H PRN PO 09/09/16 05:45 Family History Significant history of DM Social History Tobacco use: Quit 1976 Alcohol use: Occasionally Illicit drug use: Denies (Akbar Gar) Review of Systems Constitutional: COMPLAINS OF: Fatigue Endocrine: DENIES: Polyuria Eyes: DENIES: Double Vision Ears, nose, mouth, throat: DENIES: Hoarseness Respiratory: DENIES: Shortness of breath Cardiovascular: DENIES: Lower Extremity Edema Gastrointestinal: DENIES: Abdominal pain, Black stools, Bloody stools, Constipation, Diarrhea, Nausea, Vomiting, Difficulty Swallowing, Anorexia, Swelling of Abdomen, Heartburn, Hematemesis Genitourinary: DENIES: Hematuria Integumentary: DENIES: Jaundice Hematologic/lymphatic: DENIES: Bruising Neurologic: DENIES: Abnormal gait Psychiatric: DENIES: Anxiety (Akbar Gar) GI Exam Vitals I&O Vital Signs Date Time Temp Pulse Resp B/P Pulse Ox O2 Delivery O2 Flow Rate FiO2 09/09/16 05:29 98.1 48 18 119/56 99 Room Air 09/09/16 05:03 51 16 111/59 99 Room Air 09/09/16 04:44 102/52 09/09/16 04:11 51 18 96/50 100 Room Air 09/09/16 03:29 51 20 91/47 100 Room Air 09/09/16 03:22 98.4 52 20 89/47 I/O 09/08/16 09/08/16 09/08/16 09/09/16 09/09/16 09/09/16 07:00 15:00 23:00 07:00 15:00 23:00 Intake Total 500 ml Balance 500 ml Intake IV Total 500 ml Laboratory Test 09/09/16 09/09/16 09/09/16 09/09/16 03:30 03:35 03:40 04:25 White Blood Count 6.6 TH/MM3 Red Blood Count 2.43 MIL/MM3 Hemoglobin 6.7 GM/DL Hematocrit 20.9 % Mean Corpuscular Volume 85.8 FL Mean Corpuscular Hemoglobin 27.4 PG Mean Corpuscular Hemoglobin 31.9 % Concent Red Cell Distribution Width 16.0 % Platelet Count 191 TH/MM3 Mean Platelet Volume 8.5 FL Neutrophils (%) (Auto) 78.4 % Lymphocytes (%) (Auto) 8.5 % Monocytes (%) (Auto) 8.0 % Eosinophils (%) (Auto) 3.9 % Basophils (%) (Auto) 1.2 % Neutrophils # (Auto) 5.2 TH/MM3 Lymphocytes # (Auto) 0.6 TH/MM3 Monocytes # (Auto) 0.5 TH/MM3 Eosinophils # (Auto) 0.3 TH/MM3 Basophils # (Auto) 0.1 TH/MM3 CBC Comment DIFF FINAL Differential Comment Prothrombin Time 11.4 SEC Prothromb Time International 1.0 RATIO Ratio Activated Partial 26.9 SEC Thromboplast Time Sodium Level 139 MEQ/L Potassium Level 4.4 MEQ/L Chloride Level 108 MEQ/L Carbon Dioxide Level 22.2 MEQ/L Anion Gap 9 MEQ/L Blood Urea Nitrogen 64 MG/DL Creatinine 3.20 MG/DL Estimat Glomerular Filtration 23 ML/MIN Rate Random Glucose 183 MG/DL Calcium Level 9.3 MG/DL Magnesium Level 1.3 MG/DL Total Bilirubin 0.2 MG/DL Aspartate Amino Transf 7 U/L (AST/SGOT) Alanine Aminotransferase 10 U/L (ALT/SGPT) Alkaline Phosphatase 41 U/L Total Creatine Kinase 39 U/L Troponin I 0.22 NG/ML Total Protein 6.2 GM/DL Albumin 2.5 GM/DL Lactic Acid Level 0.8 mmol/L Blood Type A POSITIVE Antibody Screen NEGATIVE Crossmatch Leukocyte-Reduced Red Blood Cells Blood Bank Comment Physical Examination HEENT: normocephalic; atraumatic; no jaundice. Throat is clear. NECK: Neck is supple, no JVD, no lymphadenopathy. CHEST: Chest is clear to auscultation and percussion. CARDIAC: Regular rate and rhythm with no murmur gallop or rubs. ABDOMEN: Soft, nondistended, nontender; no hepatosplenomegaly; bowel sounds are present in all four quadrants. EXTREMITIES: No clubbing, cyanosis, or edema. SKIN: Normal; no rash; no jaundice. IRONER: No focal deficits; alert and oriented times three. (Akbar Gar) Assessment and Plan Plan - Chronic on acute Anemia. EGD/Colonoscopy (03/08/16)---> esophageal stricture s /p dilation savary 17 mm, gastritis bx, duodenal ulcer bx, normal endoscopy otherwise, retroflexed views revealed no abnormalities; 2 polyps in transverse colon s/p snare polypectomy, 1 polyp in the descending colon removed, by snare, there was no evidence of stool throughout the colon, mild diverticulosis was noted in the descending colon, retroflexed views revealed no abnormalities, no abnormalities of the rectum. Small bowel duodenal mucosa with focal superficial mucosal erosion, features consistent with reactive gastropathy, colon transverse tubular adenoma, descending tubular adenoma.EGD on a different admission for same presentation on () ---> hiatal hernia and gastritis, bx revealed duodenal mucosa with superficial epithelial denudation. He was suppose to have CE, however, this wasn't done, states he is never out of the hospital long enough to have it done. H/H 6.7/20.9, receiving transfusion now PPI. - Hemoccult (+) Stool, dark stools. Denies any black tarry stools, denies change in color, however, with hx of duodenal ulcer, will do EGD to R/O - Chronic constipation- On miralax, if taken daily, he has diarrhea. It has been a week since he took it therefore, he has been constipation, last time he had BM was 3 days ago. - CKD, Diabetes, Hypertension, Congestive heart failure, CAD, Hx prostate cancer per primary PLAN: - NPO - EGD today - Obtain consents - Needs CE, will try to get him in our office [facility] to get this scheduled - PPI - Monitor HH - Transfuse as necessary - Supportive care - Further recommendations to follow based on results of above - PT seen and examined by Dr. Pereira and myself and this note is written on her behalf (Akbar Gar) Physician Comments seen, examined agree with above egd (Ira Pereira MD) Akbar Gar Sep 09, 2016 08:46 Ira Pereira MD Sep 09, 2016 15:10
[2016-09-09] MEDS: FAMOTIDINE 20 MG TAB PO SCH (09:00)
[2016-09-09] MEDS: BUMETANIDE 1 MG TAB PO SCH (09:35)
[2016-09-09] MEDS: SUCRALFATE 1 GM/10 ML CUP PO SCH ×4 (09:35→21:17)
[2016-09-09] MEDS: GABAPENTIN 300 MG CAP PO SCH (09:35)
[2016-09-09] MEDS: SPIRONOLACTONE 25 MG TAB PO SCH ×2 (09:35→17:08)
[2016-09-09] MEDS: FERROUS SULFATE 325 MG (65 MG ELEMENTAL IRON) TAB PO SCH ×2 (09:35→17:07)
[2016-09-09] MEDS: LEVOTHYROXINE SODIUM 150 MCG TAB PO SCH (09:35)
[2016-09-09] MEDS: DEXTROSE 50% IN WATER 50 ML VIAL(D50) IV PRN ×2 (10:39→12:15)
[2016-09-09] MEDS ORDERED: KETAMINE HCL 500 MG/5 ML VIAL ONE (11:07)
[2016-09-09] MEDS ORDERED: SUGAMMADEX SODIUM 200 MG/2 ML VIAL IV PUSH ONE ×2 (11:07)
[2016-09-09] MEDS: BISACODYL EC 5 MG TABEC PO SCH ×2 (11:15→21:17)
[2016-09-09] MEDS ORDERED: PROPOFOL 200 MG/20 ML AMP IV ONE (11:28)
--- NOTE | 2016-09-09 11:59 | GIPROC ---
[facility] [address] [facility]. [facility], [address] EGD PROCEDURE REPORT EXAM DATE: 09/09/2016 PATIENT NAME: Js Brown MR #: [id number] BIRTHDATE: 1935 ATTENDING: Ira Pereira MD ORDER #: [id number] LAB CLERK: Ramez Torres and Roberto Atkins STATUS: inpatient INDICATIONS: The patient is a 81 yr old male here for an EGD due to anemai, gi bleeding , history of pud PROCEDURE PERFORMED: EGD w/ biopsy clip application MEDICATIONS: Per Anesthesia and None. TOPICAL ANESTHETIC: none CONSENT: The patient understands the risks and benefits of the procedure and understands that these risks include, but are not limited to: sedation, allergic reaction, infection, perforation and/or bleeding. Alternative means of evaluation and treatment include, among others: physical exam, x-rays, and/or surgical intervention. The patient elects to proceed with this endoscopic procedure. medical equipment was checked for proper function. Hand hygiene and appropriate measures for infection prevention was taken. After the risks, benefits and alternatives of the procedure were thoroughly explained, Informed consent was verified, confirmed and timeout was successfully executed by the treatment team. The patient was anesthetized with topical anesthesia and the Pentax [id number] endoscope was introduced through the mouth and advanced to the second portion of the duodenum. Retroflexed views revealed a hiatal hernia The gastroscope was then slowly withdrawn and removed. Polypoid mass/pedunculated in duodenum second portion 1.5 cm-some pinkish material seen around it -possible slow ooze with blood over time-biopsy, 2 clips applied at the base , cpuld not use epinephrine as per anesthesia at this time gastrtis hiatal hernia. ADVERSE EVENTS: There were no complications. IMPRESSIONS: 1. Polypoid mass/pedunculated in duodenum second portion 1.5 cm-some pinkish material seen around it -possible slow ooze with blood over time-biopsy, 2 clips applied at the base , cpuld not use epinephrine as per anesthesia at this time gastrtis hiatal hernia 2. Retroflexed views revealed a hiatal hernia RECOMMENDATIONS: Advance diet ct abdomen/ pelvis capsule endoscopy op transfuse prn may need eus, referral to tertiary center for removal once clinically more stable ,at this time due to medical issues high risk for any agressive procedures we will consult surgery during his hospitalisation- if active bleeding consider IR for angiogram and embolisation PATIENT CONDITION: stable DISPOSITION: Inpatient REPEAT EXAM: EGD pending biopsy results Ira Pereira MD eSigned: Ira Pereira MD 09/09/2016 11:58 AM cc: PATIENT NAME: Js Brown MR#: [id number]
[2016-09-09] MEDS ORDERED: DO NOT ADM ANY ANTICOAGULANT DRUGS PRN (12:00)
[2016-09-09] MEDS ORDERED: MAGNESIUM CITRATE SOLN 300 ML BTL PO ONE ×2 (12:00→18:00)
--- NOTE | 2016-09-09 15:45 | EKG ---
Date Performed: 09/09/2016 Time Performed: 03:28:45 PTAGE: 81 years EKG: SINUS BRADYCARDIA BORDERLINE LEFT AXIS DEVIATION RIGHT BUNDLE BRANCH BLOCK ABNORMAL ECG PREVIOUS TRACING : 03/05/2016 13.18 Compared to prior tracing no significant change DOCTOR: Max Allred Interpretating Date/Time 09/09/2016 15:44:39
[2016-09-09 20:13] LABS: AUTOMATED NEUTROPHIL # 6.1 TH/MM3 (1.8-7.7); BASOPHIL % 0.5 % (0.0-2.0); EOSINOPHIL # 0.1 TH/MM3 (0-0.4); EOSINOPHIL % 1.8 % (0.0-4.0); HEMATOCRIT 28.4 % (39.0-51.0); HEMO FLAGS DIFF FINAL; LYMPH % 11.3 % (9.0-44.0); LYMPHOCYTE # 0.9 TH/MM3 (1.0-4.8); MEAN CELL VOLUME 85.5 FL (80.0-100.0); MEAN CORPUSCULAR HEMOGLOBIN 27.3 PG (27.0-34.0); MONO % 7.8 % (0.0-8.0); NEUT % 78.6 % (16.0-70.0); PLATELET COUNT 188 TH/MM3 (150-450); RED BLOOD COUNT 3.32 MIL/MM3 (4.50-5.90); RED CELL DISTRIBUTION WIDTH 16.3 % (11.6-17.2); WHITE BLOOD COUNT 7.7 TH/MM3 (4.0-11.0)
[2016-09-09] MEDS: ATORVASTATIN 20 MG TAB PO SCH (21:18)
[2016-09-10] VITALS (7 sets, daily range): BP systolic 131–150; BP diastolic 60–67; PULSE 54–75; RESP 17–22; TEMP 97.5–98.7; O2SAT 95–99
[2016-09-10 04:09] LABS: BASOPHIL % 0.3 % (0.0-2.0); EOSINOPHIL # 0.2 TH/MM3 (0-0.4); EOSINOPHIL % 3.1 % (0.0-4.0); HEMATOCRIT 26.1 % (39.0-51.0); HEMO FLAGS DIFF FINAL; LYMPH % 13.3 % (9.0-44.0); LYMPHOCYTE # 0.9 TH/MM3 (1.0-4.8); MEAN CELL VOLUME 84.2 FL (80.0-100.0); MEAN CORPUSCULAR HEMOGLOBIN 27.3 PG (27.0-34.0); MEAN CORPUSCULAR HGB CONC 32.5 % (32.0-36.0); MONO % 10.1 % (0.0-8.0); NEUT % 73.2 % (16.0-70.0); PLATELET COUNT 180 TH/MM3 (150-450); WHITE BLOOD COUNT 6.8 TH/MM3 (4.0-11.0)
[2016-09-10 04:35] LABS: BICARBONATE 25.4 MEQ/L (21.0-32.0); POTASSIUM 4.4 MEQ/L (3.5-5.1)
[2016-09-10] MEDS: PANTOPRAZOLE SODIUM 40 MG VIAL IV PUSH SCH ×2 (06:15→17:34)
[2016-09-10] MEDS: LEVOTHYROXINE SODIUM 150 MCG TAB PO SCH (06:16)
[2016-09-10] MEDS: SUCRALFATE 1 GM/10 ML CUP PO SCH ×4 (06:16→21:16)
[2016-09-10] MEDS: SODIUM CHLORIDE 0.9% FLUSH 10 ML FLUSH IV FLUSH PRN (06:16)
[2016-09-10] MEDS: INSULIN ASPART SUPPLEMENTAL SCALE SQ SCH ×4 (06:20→21:00)
[2016-09-10] MEDS: SODIUM CHLORIDE 0.9% FLUSH 10 ML FLUSH IV FLUSH SCH ×2 (09:52→21:16)
[2016-09-10] MEDS: SPIRONOLACTONE 25 MG TAB PO SCH ×2 (09:52→17:33)
[2016-09-10] MEDS: FERROUS SULFATE 325 MG (65 MG ELEMENTAL IRON) TAB PO SCH ×2 (09:52→17:33)
[2016-09-10] MEDS: FAMOTIDINE 20 MG TAB PO SCH (09:52)
[2016-09-10] MEDS: BUMETANIDE 1 MG TAB PO SCH (09:52)
[2016-09-10] MEDS: GABAPENTIN 300 MG CAP PO SCH (09:53)
[2016-09-10 12:23] LABS: HEMATOCRIT 28.1 % (39.0-51.0); REVIEW FLAG FINAL
--- NOTE | 2016-09-10 13:01 | HHI.PR ---
Subjective Remarks Follow up for GI bleed. Patient is currently doing well. He was evaluated by surgery. Patient does not want to undergo surgical intervention at this point. He denies any chest pain, shortness of breath, fever, chills. Objective Vitals Vital Signs Date Time Temp Pulse Resp B/P Pulse Ox O2 Delivery O2 Flow Rate FiO2 09/10/16 12:00 98.0 59 17 143/65 99 09/10/16 10:55 96 21 09/10/16 08:00 98.3 59 17 150/67 99 09/10/16 04:00 97.5 57 20 133/60 99 09/10/16 00:00 97.8 54 22 131/61 96 09/09/16 20:00 97.8 54 22 134/63 100 09/09/16 19:55 60 09/09/16 18:04 97 21 09/09/16 16:00 97.0 64 17 142/61 93 I/O 09/09/16 09/09/16 09/09/16 09/10/16 09/10/16 09/10/16 07:00 15:00 23:00 07:00 15:00 23:00 Intake Total 500 ml 860 ml 320 ml 240 ml Output Total 550 ml 750 ml 975 ml Balance 500 ml 310 ml -430 ml -735 ml Intake Oral 360 ml 320 ml 240 ml IV Total 500 ml Other 500 ml Output Urine Total 550 ml 750 ml 975 ml # Bowel Movements 0 0 Result Diagram: 09/10/16 1148 09/10/16 0307 Objective Remarks GENERAL: AOX3, NAD. SKIN: Warm and dry. HEAD: Normocephalic. EYES: No scleral icterus. No injection or drainage. NECK: Supple, trachea midline. No JVD or lymphadenopathy. CARDIOVASCULAR: Regular rate and rhythm without murmurs, gallops, or rubs. RESPIRATORY: Breath sounds equal bilaterally. No accessory muscle use. GASTROINTESTINAL: Abdomen soft, non-tender, nondistended. MUSCULOSKELETAL: No cyanosis, or edema. BACK: Nontender without obvious deformity. No CVA tenderness. Procedures EGD 09/09/2016 IMPRESSIONS: 1. Polypoid mass/pedunculated in duodenum second portion 1.5 cm-some pinkish material seen around it -possible slow ooze with blood over time-biopsy, 2 clips applied at the base , cpuld not use epinephrine as per anesthesia at this time gastrtis hiatal hernia 2. Retroflexed views revealed a hiatal hernia A/P Problem List: (1) GI bleed ICD Code: K92.2 Status: Acute (2) DM (diabetes mellitus) ICD Code: E11.9 Status: Chronic (3) CHF (congestive heart failure) ICD Code: I50.9 Status: Chronic Assessment and Plan 81 y/o male with a history anemia, DM, CHF, and HTN presented to the ED with complaints of feeling Lightheaded, and muscle aches. GI bleed, Hemoccult positive in ED, hemoglobin 6.7, patient does have chronic anemia - Protonix IV 40 mg every 12 hours. -Transfused 2 units PRBCs -- hemoglobin improved to 8.9. - s/p EGD by GI - shows a lipoid mass/pedunculated in duodenum second portion 1.5 cm. Some pinkish material seen around it possibly slow bleeding. 2 clips applied at the base. General surgery was consulted. - Patient is not leaning towards any kind of surgical intervention at this point. Surgery consult report pending. -Continue home ferrous sulfate Acute on chronic kidney disease, creatinine 3.2, baseline 1.8 likely due to volume loss - Bolus 2 given in the ED - Continue home medications spironolactone and Bumex - Creatinine trending down 2.49 on 09/10/2016. Elevated troponin, first set 0.22, no active chest pain suspect related to elevated creatinine -Subsequent troponins were 0.23, 0.24. This is likely due to supply demand mismatch. Diabetes, chronic -Accu-Cheks with SSI -Diabetic diet Full code. SCDs. Discharge plan: If hemoglobin remains stable, patient can be discharged in the morning since patient is not interested in any kind of surgical interventions. Arelis Camejo DO Sep 10, 2016 13:01
--- NOTE | 2016-09-10 16:55 | HHI.GIFU ---
GI Follow-up Note Consult Follow-up Subjective: Patient laying in bed comfortably, no nausea, vomiting.Tolerated diet well. Awaiting ct abdomen/pelvis . Appreciated surgical consult Objective: PHYSICAL EXAMINATION: Vitals signs stable No fever Vital Signs Date Time Temp Pulse Resp B/P Pulse Ox O2 Delivery O2 Flow Rate FiO2 09/10/16 16:00 97.5 75 17 149/65 95 09/10/16 12:00 98.0 59 17 143/65 99 09/10/16 10:55 96 21 HEENT: Pupils round and reactive to light; normocephalic; atraumatic; no jaundice. Throat is clear. NECK: Neck is supple, no JVD, no lymphadenopathy. CHEST: Chest is clear to auscultation and percussion. CARDIAC: Regular rate and rhythm with no murmur gallop or rubs. ABDOMEN: Soft, nondistended, nontender; no hepatosplenomegaly; bowel sounds are present in all four quadrants. EXTREMITIES: No clubbing, cyanosis, or edema. SKIN: Normal; no rash; no jaundice. SOUR BLEACHING PLEATER: No focal deficits; alert and oriented times three. Available Data (labs, X- Rays, Procedues) : Laboratory Tests Test 09/09/16 09/09/16 09/09/16 09/09/16 03:30 03:35 03:40 04:25 White Blood Count 6.6 TH/MM3 Red Blood Count 2.43 MIL/MM3 Hemoglobin 6.7 GM/DL Hematocrit 20.9 % Mean Corpuscular Volume 85.8 FL Mean Corpuscular Hemoglobin 27.4 PG Mean Corpuscular Hemoglobin 31.9 % Concent Red Cell Distribution Width 16.0 % Platelet Count 191 TH/MM3 Mean Platelet Volume 8.5 FL Neutrophils (%) (Auto) 78.4 % Lymphocytes (%) (Auto) 8.5 % Monocytes (%) (Auto) 8.0 % Eosinophils (%) (Auto) 3.9 % Basophils (%) (Auto) 1.2 % Neutrophils # (Auto) 5.2 TH/MM3 Lymphocytes # (Auto) 0.6 TH/MM3 Monocytes # (Auto) 0.5 TH/MM3 Eosinophils # (Auto) 0.3 TH/MM3 Basophils # (Auto) 0.1 TH/MM3 CBC Comment DIFF FINAL Differential Comment Prothrombin Time 11.4 SEC Prothromb Time International 1.0 RATIO Ratio Activated Partial 26.9 SEC Thromboplast Time Sodium Level 139 MEQ/L Potassium Level 4.4 MEQ/L Chloride Level 108 MEQ/L Carbon Dioxide Level 22.2 MEQ/L Anion Gap 9 MEQ/L Blood Urea Nitrogen 64 MG/DL Creatinine 3.20 MG/DL Estimat Glomerular Filtration 23 ML/MIN Rate Random Glucose 183 MG/DL Calcium Level 9.3 MG/DL Magnesium Level 1.3 MG/DL Total Bilirubin 0.2 MG/DL Aspartate Amino Transf 7 U/L (AST/SGOT) Alanine Aminotransferase 10 U/L (ALT/SGPT) Alkaline Phosphatase 41 U/L Total Creatine Kinase 39 U/L Troponin I 0.22 NG/ML Total Protein 6.2 GM/DL Albumin 2.5 GM/DL Lactic Acid Level 0.8 mmol/L Blood Type A POSITIVE Antibody Screen NEGATIVE Crossmatch Leukocyte-Reduced Red Blood Cells Blood Bank Comment Test 09/09/16 09/09/16 09/09/16 09/10/16 15:06 17:50 20:57 03:07 Total Creatine Kinase 68 U/L 60 U/L Troponin I 0.23 NG/ML 0.24 NG/ML Carcinoembryonic Antigen 7.1 NG/ML CA 19-9 Antigen LESS THAN 1.2 U/ML White Blood Count 7.7 TH/MM3 6.8 TH/MM3 Red Blood Count 3.32 MIL/MM3 3.10 MIL/MM3 Hemoglobin 9.1 GM/DL 8.5 GM/DL Hematocrit 28.4 % 26.1 % Mean Corpuscular Volume 85.5 FL 84.2 FL Mean Corpuscular Hemoglobin 27.3 PG 27.3 PG Mean Corpuscular Hemoglobin 32.0 % 32.5 % Concent Red Cell Distribution Width 16.3 % 16.0 % Platelet Count 188 TH/MM3 180 TH/MM3 Mean Platelet Volume 8.7 FL 8.3 FL Neutrophils (%) (Auto) 78.6 % 73.2 % Lymphocytes (%) (Auto) 11.3 % 13.3 % Monocytes (%) (Auto) 7.8 % 10.1 % Eosinophils (%) (Auto) 1.8 % 3.1 % Basophils (%) (Auto) 0.5 % 0.3 % Neutrophils # (Auto) 6.1 TH/MM3 5.0 TH/MM3 Lymphocytes # (Auto) 0.9 TH/MM3 0.9 TH/MM3 Monocytes # (Auto) 0.6 TH/MM3 0.7 TH/MM3 Eosinophils # (Auto) 0.1 TH/MM3 0.2 TH/MM3 Basophils # (Auto) 0.0 TH/MM3 0.0 TH/MM3 CBC Comment DIFF FINAL DIFF FINAL Differential Comment Sodium Level 143 MEQ/L Potassium Level 4.4 MEQ/L Chloride Level 112 MEQ/L Carbon Dioxide Level 25.4 MEQ/L Anion Gap 6 MEQ/L Blood Urea Nitrogen 52 MG/DL Creatinine 2.49 MG/DL Estimat Glomerular Filtration 30 ML/MIN Rate Random Glucose 81 MG/DL Calcium Level 10.0 MG/DL Test 09/10/16 11:48 Hemoglobin 8.9 GM/DL Hematocrit 28.1 % ASSESSMENT/PLAN: iron deficiency anemia -recurrent s/p multiple egd/colonoscopies duodenal polypoid mass , possible source of occult bleeding-s/p biopsy and clip application multiple medical issues, high risk for anesthesia , surgery Recommendations ct abdomen pelvis advance diet capsule endoscopy op fu office further management based on the above results discussed with anesthesia may attempt egd/eus/emr once medically optimized , once all the results back consider referral tertiary center op if stable can be dc in 1-2 days It was a pleasure seeing Js Brown. Thank you for this consult. Entered by: Ira Garner MD Sep 10, 2016 16:55
--- NOTE | 2016-09-10 20:53 | RADRPT ---
EXAM DATE/TIME: 09/10/2016 20:34 [facility] COMPARISON: No previous studies available for comparison. INDICATIONS : Patient with anemia; possible GI bleed. ORAL CONTRAST: No oral contrast ingested. RADIATION DOSE: 24.02 CTDIvol (mGy) MEDICAL HISTORY : Cardiovascular disease. Congestive heart failure. Hypertension.Prostate cancer SURGICAL HISTORY : Appendectomy. Prostatectomy. ENCOUNTER: Initial ACUITY: 3 days PAIN SCALE: 4/10 LOCATION: abdomen TECHNIQUE: Volumetric scanning of the abdomen and pelvis was performed. Using automated exposure control and ad justment of the mA and/or kV according to patient size, radiation dose was kept as low as reasonably achievable to obtain optimal diagnostic quality images. DICOM format image data is available electro nically for review and comparison. FINDINGS: LOWER LUNGS: The visualized lower lungs are clear. LIVER: Homogeneous density with 4 low density lesions identified. One is in the dome of the diaphragm on tommy ge #8 and measures up to 2 cm. There is a 2 cm lesion in the right lobe on axial image #20 and 2 cm l esion in the tip of the inferior right lobe best seen on image #28. There is a fourth subtle 9 mm les ion also noted in the inferior right lobe. There is no dilation of the biliary tree. There is a small apparent high density gallstone layering dependently in the gallbladder. SPLEEN: Normal size without lesion. PANCREAS: Within normal limits. KIDNEYS: Normal in size and shape. There is no definite solid mass, stone, or hydronephrosis. There are multi ple bilateral low attenuation lesions most characteristic of cysts. ADRENAL GLANDS: Within normal limits. VASCULAR: There is no aortic aneurysm. BOWEL/MESENTERY: There is a small retrocardiac hiatal hernia. There are surgical clips along the second portion of the duodenum. The stomach, small bowel, and colon demonstrate no acute abnormality. There is no free in traperitoneal air or fluid. ABDOMINAL WALL: Within normal limits. RETROPERITONEUM: There is no lymphadenopathy. BLADDER: No wall thickening or mass. REPRODUCTIVE: Status post prostatectomy with multiple surgical clips in the pelvis. INGUINAL: There is no lymphadenopathy or hernia. MUSCULOSKELETAL: Within normal limits for patient age. CONCLUSION: 1. No evidence of hemorrhage. 2. Multiple low attenuation liver lesions which are indeterminant. Metastatic disease is a considerat ion. 3. Small hiatal hernia. 4. Small apparent gallstone 5. Multiple benign appearing low attenuation cystic lesions in the kidneys. 6. Status post prostatectomy. Dieudonne Felder MD on September 10, 2016 at 20:47 Board Certified Radiologist. This report was verified electronically.
[2016-09-10] MEDS: ATORVASTATIN 20 MG TAB PO SCH (21:15)
[2016-09-11] VITALS: BP 168/72; PULSE 65; RESP 22; TEMP 97.7; O2SAT 98
[2016-09-11 04:00] VITALS: BP 157/65; PULSE 64; RESP 22; TEMP 97.6; O2SAT 96
[2016-09-11] MEDS: PANTOPRAZOLE SODIUM 40 MG VIAL IV PUSH SCH (06:01)
[2016-09-11] MEDS: SODIUM CHLORIDE 0.9% FLUSH 10 ML FLUSH IV FLUSH PRN (06:02)
[2016-09-11] MEDS: SUCRALFATE 1 GM/10 ML CUP PO SCH ×2 (06:02→12:19)
[2016-09-11] MEDS: LEVOTHYROXINE SODIUM 150 MCG TAB PO SCH (06:02)
[2016-09-11] MEDS: INSULIN ASPART SUPPLEMENTAL SCALE SQ SCH ×2 (06:09→12:23)
[2016-09-11 06:41] LABS: AUTOMATED NEUTROPHIL # 5.1 TH/MM3 (1.8-7.7); BASOPHIL % 0.4 % (0.0-2.0); EOSINOPHIL # 0.2 TH/MM3 (0-0.4); EOSINOPHIL % 2.5 % (0.0-4.0); HEMATOCRIT 26.7 % (39.0-51.0); HEMO FLAGS DIFF FINAL; LYMPH % 13.8 % (9.0-44.0); MEAN CELL VOLUME 84.1 FL (80.0-100.0); MEAN CORPUSCULAR HEMOGLOBIN 27.8 PG (27.0-34.0); MONO % 11.2 % (0.0-8.0); NEUT % 72.1 % (16.0-70.0); PLATELET COUNT 187 TH/MM3 (150-450); RED BLOOD COUNT 3.18 MIL/MM3 (4.50-5.90); RED CELL DISTRIBUTION WIDTH 16.6 % (11.6-17.2); WHITE BLOOD COUNT 7.1 TH/MM3 (4.0-11.0)
[2016-09-11 07:26] LABS: BICARBONATE 27.5 MEQ/L (21.0-32.0); POTASSIUM 4.7 MEQ/L (3.5-5.1)
[2016-09-11 08:00] VITALS: BP 130/58; PULSE 72; RESP 20; TEMP 97.3; O2SAT 100
--- NOTE | 2016-09-11 08:54 | MB ---
cc: RYANKODI DATE OF CONSULTATION 09/09/[address] Garry Pereira REASON FOR CONSULTATION Upper GI bleed and duodenal polyp. HISTORY OF PRESENT ILLNESS The patient is an 81-year-old -[place] male with history of anemia. The patient was admitted to [facility] for further workup and concern for possible GI source. The patient underwent upper endoscopy on 09/09/2016 which showed the duodenal polyp and second portion of duodenum that did not involve the ampulla. There was some stigma of bleeding around this but no active bleeding. Some clips were placed. The patient tolerated this well and a Surgical Oncology was asked to see the patient for consideration of possible surgery. The patient currently says he feels well and he has no complaints. He following a regular diet, having some dark stools occasionally but no active bleeding. No bright red blood per mouth or per rectum. The patient denies having chest pain, shortness of breath, abdominal pain, diarrhea, constipation, fevers, chills or night sweats or any other complaints. REVIEW OF SYSTEMS A 12-point review of systems discussed with the patient and is negative except for the pertinent positives mentioned above in the History of Present Illness. PAST MEDICAL HISTORY 1. Diabetes. 2. Hypertension. 3. CHF. 4. Coronary artery disease. 5. Sleep apnea. 6. Anxiety. PAST SURGICAL HISTORY 1. Appendectomy. 2. Cardiac stents. 3. Prostatectomy. 4. Thyroidectomy. ALLERGIES OS-KIMBERLY. SHELLFISH. TETANUS. MEDICATIONS 1. Synthroid. 2. Aldactone. 3. Iron. 4. Carafate. 5. Pepcid. 6. Lipitor. 7. Protonix. 8. Herrick. FAMILY HISTORY No history of upper GI malignancy. SOCIAL HISTORY Patient with history of tobacco. Quit in 1976. Rarely uses alcohol. Denies illicit drug use. PHYSICAL EXAMINATION VITAL SIGNS: Temperature 98.1 degrees, pulse 51, respirations 16, blood pressure 111/59, O2 saturation 99%. GENERAL: The patient is an elderly, frail-appearing -[place]e male in no acute distress. HEENT: His head is normocephalic, atraumatic. Pupils round and reactive, to accommodation and light. Sclerae anicteric. Mucous membranes are moist. NECK: Supple. No JVD. LUNGS: Clear to auscultation bilaterally. Nonlabored breathing pattern. HEART: Regular rhythm. PMI is nondisplaced. ABDOMEN: Soft, mildly protuberant but nondistended. Normal bowel sounds. No tenderness. No organomegaly. No ascites. BACK: No CVA tenderness. EXTREMITIES: Chronic and acute edema. NEUROLOGIC EXAM: The patient is awake, alert, orient x 3. He has a nonfocal peripheral exam. Cranial nerves II-XII are grossly intact. LABORATORY VALUES Hemoglobin 6.7 on admission, now 9.1 after transfusion. ASSESSMENT AND PLAN The patient is an 81-year-old male with a second portion duodenal polyp with no bleeding. Due to the patient's multiple comorbidities and operative risk, would recommend endoscopic management of this polyp. This can be done with a combination of EMR or piecemeal type resection. He should be evaluated for pathology. As the patient has no invasive disease, this may be sufficient to control the patient's bleeding and the polypoid mass. If the patient is found to have invasive disease or bleeding not amenable to endoscopy, I would recommend surgery at that time. However, hold off as a last resort due to the patient's significant increased risk for major operative intervention. I discussed this with the patient extensively and he is in agreement that surgery would be as a last resort if this cannot be managed endoscopically. Thank very much for this consultation. My contact information was provided with the patient. He will follow up with me in the office. MD NICOLETTE Chu/ABBEY /8:18 AM /8:42 AM
[2016-09-11] MEDS: SPIRONOLACTONE 25 MG TAB PO SCH (09:08)
[2016-09-11] MEDS: FERROUS SULFATE 325 MG (65 MG ELEMENTAL IRON) TAB PO SCH (09:08)
[2016-09-11] MEDS: BUMETANIDE 1 MG TAB PO SCH (09:08)
[2016-09-11] MEDS: FAMOTIDINE 20 MG TAB PO SCH (09:08)
[2016-09-11] MEDS: GABAPENTIN 300 MG CAP PO SCH (09:08)
[2016-09-11] MEDS: SODIUM CHLORIDE 0.9% FLUSH 10 ML FLUSH IV FLUSH SCH (09:09)
[2016-09-11 12:00] VITALS: BP 116/56; PULSE 68; RESP 20; TEMP 97.7; O2SAT 99
--- NOTE | 2016-09-11 14:08 | HHI.DS ---
Discharge Summary Admission Date Sep 09, 2016 at 4:46 am Discharge Date: Sep 11, 2016 Admitting Diagnosis Anemia, GI Bleed, Transient Hypotension. (1) GI bleed ICD Code: K92.2 Diagnosis: Principal (2) DM (diabetes mellitus) ICD Code: E11.9 (3) CHF (congestive heart failure) ICD Code: I50.9 Procedures EGD 09/09/2016 IMPRESSIONS: 1. Polypoid mass/pedunculated in duodenum second portion 1.5 cm-some pinkish material seen around it -possible slow ooze with blood over time-biopsy, 2 clips applied at the base , cpuld not use epinephrine as per anesthesia at this time gastrtis hiatal hernia 2. Retroflexed views revealed a hiatal hernia Brief History - From Admission Written by JESUS Doe acting as scribe for Dr. Suarez] on 09/09/16 at 05:04. 81 y/o male with a history anemia, DM, CHF, and HTN presented to the ED with complaints of feeling Lightheaded, and muscle aches. Pt states he began feeling funny today with lightheadedness and muscle pain. He states he gets these symptoms when his blood count is low. He states his stool is darker than normal. Denies any chest pain, sob, fever or chills. Patient was Hemoccult positive in the ED. August 2016 patient was admitted for hematochezia, hemoglobin remained stable and patient was to have an outpatient capsule endoscopy but this was apparently cancelled. Last EGD June 2016 showed hiatal hernia, and gastritis. Last colonoscopy completed was on March 2016 which showed duodenal ulcer, and polyps within the transverse colon. PCP is Dr. Rodriguez CBC/BMP: 09/11/16 0547 09/11/16 0547 Significant Findings Laboratory Tests Test 09/09/16 09/09/16 09/09/16 09/09/16 03:30 15:06 17:50 20:57 Red Blood Count 2.43 MIL/MM3 3.32 MIL/MM3 (4.50-5.90) (4.50-5.90) Hemoglobin 6.7 GM/DL 9.1 GM/DL (13.0-17.0) (13.0-17.0) Hematocrit 20.9 % 28.4 % (39.0-51.0) (39.0-51.0) Mean Corpuscular Hemoglobin 31.9 % Concent (32.0-36.0) Neutrophils (%) (Auto) 78.4 % 78.6 % (16.0-70.0) (16.0-70.0) Lymphocytes (%) (Auto) 8.5 % (9.0-44.0) Lymphocytes # (Auto) 0.6 TH/MM3 0.9 TH/MM3 (1.0-4.8) (1.0-4.8) Chloride Level 108 MEQ/L (98-107) Blood Urea Nitrogen 64 MG/DL (7-18) Creatinine 3.20 MG/DL (0.60-1.30) Estimat Glomerular Filtration 23 ML/MIN (>89) Rate Random Glucose 183 MG/DL (74-106) Magnesium Level 1.3 MG/DL (1.5-2.5) Aspartate Amino Transf 7 U/L (15-37) (AST/SGOT) Alanine Aminotransferase 10 U/L (12-78) (ALT/SGPT) Alkaline Phosphatase 41 U/L (45-117) Troponin I 0.22 NG/ML 0.23 NG/ML 0.24 NG/ML (0.02-0.05) (0.02-0.05) (0.02-0.05) Total Protein 6.2 GM/DL (6.4-8.2) Albumin 2.5 GM/DL (3.4-5.0) Carcinoembryonic Antigen 7.1 NG/ML (0.2-5.0) Test 09/10/16 09/10/16 09/11/16 03:07 11:48 05:47 Red Blood Count 3.10 MIL/MM3 3.18 MIL/MM3 (4.50-5.90) (4.50-5.90) Hemoglobin 8.5 GM/DL 8.9 GM/DL 8.8 GM/DL (13.0-17.0) (13.0-17.0) (13.0-17.0) Hematocrit 26.1 % 28.1 % 26.7 % (39.0-51.0) (39.0-51.0) (39.0-51.0) Neutrophils (%) (Auto) 73.2 % 72.1 % (16.0-70.0) (16.0-70.0) Monocytes (%) (Auto) 10.1 % 11.2 % (0.0-8.0) (0.0-8.0) Lymphocytes # (Auto) 0.9 TH/MM3 (1.0-4.8) Chloride Level 112 MEQ/L 110 MEQ/L (98-107) (98-107) Blood Urea Nitrogen 52 MG/DL (7-18) 51 MG/DL (7-18) Creatinine 2.49 MG/DL 2.37 MG/DL (0.60-1.30) (0.60-1.30) Estimat Glomerular Filtration 30 ML/MIN (>89) 32 ML/MIN (>89) Rate Random Glucose 108 MG/DL (74-106) Calcium Level 10.3 MG/DL (8.5-10.1) Imaging Last Impressions Abdomen/Pelvis CT 09/10/16 0000 Signed Impressions: Service Date/Time: Saturday, September 10, 2016 20:34 - CONCLUSION: 1. No evidence of hemorrhage. 2. Multiple low attenuation liver lesions which are indeterminant. Metastatic disease is a consideration. 3. Small hiatal hernia. 4. Small apparent gallstone 5. Multiple benign appearing low attenuation cystic lesions in the kidneys. 6. Status post prostatectomy. Dieudonne Felder MD PE at Discharge GENERAL: AOX3, NAD. SKIN: Warm and dry. HEAD: Normocephalic. EYES: No scleral icterus. No injection or drainage. NECK: Supple, trachea midline. No JVD or lymphadenopathy. CARDIOVASCULAR: Regular rate and rhythm without murmurs, gallops, or rubs. RESPIRATORY: Breath sounds equal bilaterally. No accessory muscle use. GASTROINTESTINAL: Abdomen soft, non-tender, nondistended. MUSCULOSKELETAL: No cyanosis, or edema. BACK: Nontender without obvious deformity. No CVA tenderness. Pt update on day of discharge Patient is doing well. No acute concerns. No bleeding. Denies any chest pain, shortness of breath. Ambulating well. Had BM. Hospital Course 81 y/o male with a history anemia, DM, CHF, and HTN presented to the ED with complaints of feeling Lightheaded, and muscle aches. GI bleed, Hemoccult positive in ED, hemoglobin 6.7, patient does have chronic anemia - [id number] mg every 12 hours. -Transfused 2 units PRBCs -- hemoglobin improved to 8.9. - s/p EGD by GI - shows a lipoid mass/pedunculated in duodenum second portion 1.5 cm. Some pinkish material seen around it possibly slow bleeding. 2 clips applied at the base. General surgery was consulted. - Patient is not leaning towards any kind of surgical intervention at this point. -Continue home ferrous sulfate Acute on chronic kidney disease, creatinine 3.2, baseline 1.8 likely due to volume loss - Bolus 2 given in the ED - Continue home medications spironolactone and Bumex - Creatinine trending down 2.49 --> 2.37 on 09/11/2016. Elevated troponin, first set 0.22, no active chest pain suspect related to elevated creatinine -Subsequent troponins were 0.23, 0.24. This is likely due to supply demand mismatch. Diabetes, chronic -Accu-Cheks with SSI -Diabetic diet GI indicated that if patient is stable, patient can be discharged home. Since there is no immediate surgical interventions planned, we will discharge patient home. He will follow up with GI in 1-2 weeks. Pt Condition on Discharge: Good Discharge Disposition: Discharge Home Discharge Time: > 30 minutes Discharge Instructions DIET: Follow Instructions for: Diabetic Diet Activities you can perform: Regular-No Restrictions Follow up Referrals: Gastroenterology - 2 Weeks with Ira Pereira MD Nephrology - 1 Week PCP Follow-up - 1 Week Continued Medications: Bumetanide (Bumetanide) 1 Mg Tab 1 MG PO DAILY #30 Ref 0 TAB Carvedilol (Carvedilol) 25 Mg Tab 25 MG PO BID #60 Ref 0 TAB Doxazosin (Doxazosin) 1 Mg Tab 1 MG PO HS #30 Ref 0 TAB Ergocalciferol (Ergocalciferol) 50,000 Unit Cap 26109 UNITS PO Q7D Nutritional Supplement #30 Ref [address] (Ferrous Sulfate DR) 324 Mg Tabdr 324 MG PO BIDPC Nutritional Supplement #60 Ref 0 TAB Gabapentin (Gabapentin) 300 Mg Cap 300 MG PO DAILY #60 Ref 0 CAP Glipizide (Glipizide) 5 Mg Tab 5 MG PO TIDAC Take 30 minutes before a meal Blood Sugar Management #180 Ref 11 TAB Hydrocodone-Acetaminophen (Lortab) 5-325 Mg Tab 1 TAB PO TID Pain Management Ref 0 TAB Levothyroxine (Levothyroxine) 150 Mcg Tab 150 MCG PO DAILY Thyroid #30 Ref 0 TAB Pantoprazole (Protonix) 40 Mg Tab 40 MG PO BIDAC Ulcer Prevention #180 Ref 11 TAB Polyethylene Glycol 3350 Powder (Miralax Powder) 17 Gm Powd 17 GM PO DAILY Mix and dissolve one measuring cap-ful (17 grams) in water or juice. Hold if having loose stools. Constipation #1 Ref 0 CAN Ranitidine (Ranitidine) 150 Mg Cap 150 MG PO BID #60 Ref 0 CAP Rosuvastatin (Rosuvastatin) 20 Mg Tab 20 MG PO HS Cholesterol Management #30 Ref 0 TAB Spironolactone (Spironolactone) 25 Mg Tab 25 MG PO BIDPC #60 Ref 0 TAB Sucralfate Liq (Carafate Liq) 1 Gm/10 Ml Susp 1 GM PO QID on empty stomach Duodenal ulcer #1200 Ref 0 ML Discontinued Medications: Quinapril (Quinapril) 5 Mg Tab 40 MG PO DAILY #60 Ref 0 TAB Arelis Camejo DO Sep 11, 2016 14:08
--- NOTE | 2016-09-11 15:23 | HHI.PR ---
Subjective Subjective Notes Up to chair Just ate breakfast Doing good; no reports of any bleeding Objective Vitals/I&O Vital Signs Date Time Temp Pulse Resp B/P Pulse Ox O2 Delivery O2 Flow Rate FiO2 09/11/16 12:00 97.7 68 20 116/56 99 09/10/16 10:55 21 09/09/16 12:45 Nasal Cannula 2 Labs Laboratory Tests Test 09/11/16 05:47 White Blood Count 7.1 Red Blood Count 3.18 Hemoglobin 8.8 Hematocrit 26.7 Mean Corpuscular Volume 84.1 Mean Corpuscular Hemoglobin 27.8 Mean Corpuscular Hemoglobin 33.0 Concent Red Cell Distribution Width 16.6 Platelet Count 187 Mean Platelet Volume 8.5 Neutrophils (%) (Auto) 72.1 Lymphocytes (%) (Auto) 13.8 Monocytes (%) (Auto) 11.2 Eosinophils (%) (Auto) 2.5 Basophils (%) (Auto) 0.4 Neutrophils # (Auto) 5.1 Lymphocytes # (Auto) 1.0 Monocytes # (Auto) 0.8 Eosinophils # (Auto) 0.2 Basophils # (Auto) 0.0 CBC Comment DIFF FINAL Differential Comment Sodium Level 142 Potassium Level 4.7 Chloride Level 110 Carbon Dioxide Level 27.5 Anion Gap 5 Blood Urea Nitrogen 51 Creatinine 2.37 Estimat Glomerular Filtration 32 Rate Random Glucose 108 Calcium Level 10.3 Cardiovascular: Regular Lungs: Clear Abdomen: Non-distended, Non-tender Extremities: No edema A/P Assessment and Plan 81 year old male with bleeding from duodenal polyp; s/p EGD with clip placement and control of bleeding -Hmg remains stable -No reports of bleeding -Tolerating a regular diet -GS clear for Orly Drummond Sep 11, 2016 15:23
--- NOTE | 2016-09-15 08:43 | PQ ---
Physician Query Response Document PATIENT: MANJIT CARRENO : 1935 ADMIT DATE: 09/09/2016 4:46 AM DISCH DATE: 09/11/2016 4:06 PM RESPONDING PROVIDER #: Amada QUERY TEXT: Anemia Type Anemia is documented in the Medical Record. Please specify the cause (includes suspected or probable cause) Such as: -- Due to acute blood loss -- Due to chronic blood loss -- Due to iron deficiency -- Due to postoperative blood loss -- Due to chronic disease -- Other, please specify The patient's Clinical Indicators include: GI bleed, Hemoccult positive in ED, hemoglobin 6.7, patient does have chronic anemia -Protonix IV -Transfuse 2 units PRBCs -Consult GI for recommendations -CBC posttransfusion -Continue home ferrous sulfate Query created by: Jose Angel on 09/11/2016 3:48 PM RESPONSE TEXT: Anemia due to blood loss sec to gastritis Electronically signed by: Garry Rodriguez MD 09/15/2016 8:39 AM
== END 2016-09-11 16:06 | disposition home or self-care (01) | DRG 378 ==
LOC: NEPC 03:19 → NEDA 04:46 → N07A 06:03
PROVIDERS: ADMIT Family Medicine; ATTEND Family Medicine
PROC: 30253N1 (ICD-10-PCS; 2016-09-09)
PROC: 0DB98ZX Excision of Duodenum, Via Natural or Artificial Opening Endoscopic, Diagnostic (ICD-10-PCS; principal; 2016-09-09 11:00)
DX: K29.01 Acute gastritis with bleeding (principal); I13.0 Hypertensive heart and chronic kidney disease with heart failure and stage 1 through stage 4 chronic kidney disease, or unspecified chronic kidney disease; N17.9 Acute kidney failure, unspecified; E11.22 Type 2 diabetes mellitus with diabetic chronic kidney disease; I50.22 Chronic systolic (congestive) heart failure; N18.9 Chronic kidney disease, unspecified; E78.5 Hyperlipidemia, unspecified; G47.30 Sleep apnea, unspecified; I25.10 Atherosclerotic heart disease of native coronary artery without angina pectoris; K21.9 Gastro-esophageal reflux disease without esophagitis; K31.7 Polyp of stomach and duodenum; K44.9 Diaphragmatic hernia without obstruction or gangrene; K59.00 Constipation, unspecified; E03.9 Hypothyroidism, unspecified; D50.0 Iron deficiency anemia secondary to blood loss (chronic); E16.2 Hypoglycemia, unspecified; Z85.46 Personal history of malignant neoplasm of prostate; Z87.11 Personal history of peptic ulcer disease; Z87.891 Personal history of nicotine dependence; Z95.5 Presence of coronary angioplasty implant and graft
CPT/HCPCS: 36430; 74176; 80048; 80053; 82378; 82550; 82948; 83605; 83735; 84484; 85014; 85018; 85025; 85610; 85730; 86301; 86850; 86900; 86901; 86920; 88305; 93005; 96360; C9113; J1815; J7040; J7050; P9016

== ENCOUNTER 2016-12-28 14:21 | Observation (INO) | payer MEDICARE ==
[2016-12-28] VITALS (8 sets, daily range): BP systolic 123–164; BP diastolic 59–81; PULSE 59–70; RESP 12–18; TEMP 97.9–98.9; O2SAT 98–100
[~2016-12-28] VITALS: Ht 177.8 cm; Wt 119.3 kg
[~2016-12-28 14:21] MED LIST changes: -QUIN5TAB6 PO
--- NOTE | 2016-12-28 14:58 | PD ---
HPI Chief Complaint: Abnormal Results Time Seen by Provider: 14:45 Travel History International Travel<30 days: No Contact w/Intl Traveler<30days: No Traveled to known affect area: No History of Present Illness HPI This is an 81-year-old male who presents after being sent by his primary care physician for evaluation of low hemoglobin. He reports that he had outpatient lab work done this morning he was called by his primary care physician's office and told that his hemoglobin was "low." He was encouraged to come here. He does not know the number. He reports that he feels fine. He denies any dizziness, lightheadedness, weakness, dyspnea, chest pain, nausea, vomiting. He reports that he has had an issue with anemia for 10 years. He reports over the past few series required transfusions approximate 4 times a year. Most recently he was admitted here in September 08 for anemia, GI bleed. He underwent endoscopy which reveals a 1. 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 There was some pinkish material seen around that possibly slow bleeding. 2 clips were applied at the base. He is not on any anticoagulants, denies NSAID use. He denies any black or tarry stools, hematochezia, hematemesis. No other complaints. PFSH Past Medical History Arthritis: Yes Asthma: No Autoimmune Disease: No Blood Disorders: No Anxiety: Yes Depression: No Heart Rhythm Problems: No Cancer: Yes (PROSTATE) Cardiovascular Problems: Yes High Cholesterol: Yes Chest Pain: No Congestive Heart Failure: Yes COPD: No Cerebrovascular Accident: No Diabetes: Yes Diminished Hearing: No Endocrine: Yes Gastrointestinal Disorders: Yes GERD: Yes Glaucoma: No Genitourinary: Yes Headaches: No Hepatitis: No Hiatal Hernia: Yes (GERD) Hypertension: Yes Immune Disorder: No Implanted Vascular Access Dvce: Yes Kidney Stones: No Musculoskeletal: Yes Neurologic: Yes Psychiatric: Yes Reproductive: No Respiratory: Yes Immunizations Current: Yes Myocardial Infarction: No Renal Failure: No Seizures: No Sickle Cell Disease: No Sleep Apnea: Yes (does not wear cpap) Thyroid Disease: Yes Ulcer: No Past Surgical History Abdominal Surgery: Yes (APPENDECTOMY,EGD,COLONOSCOPY) AICD: No Appendectomy: Yes Body Medical Devices: CARDIAC STENTS Cardiac Surgery: Yes (cardiac stent placement) Coronary Stent: Yes (X2) Ear Surgery: No Endocrine Surgery: No Eye Surgery: No Genitourinary Surgery: Yes (prostatectomy, ESWL) Gynecologic Surgery: Yes Neurologic Surgery: No Oral Surgery: No Pacemaker: No Thoracic Surgery: No Other Surgery: Yes (THYROIDECTOMY 09/01/10, prostate) Social History Alcohol Use: Yes (2 DRINKS/WEEK) Tobacco Use: No Substance Use: No Allergies-Medications (Allergen,Severity, Reaction): Coded Allergies: calcium (Unverified Allergy, Severe, 10/17/16) rash calcium carbonate (Unverified Allergy, Severe, 10/17/16) rash shellfish derived (Unverified Allergy, Severe, 10/17/16) rash tetanus toxoid, adsorbed (Unverified Allergy, Severe, 10/17/16) rash Reported Meds & Prescriptions Reported Meds & Active Scripts Active Ferrous Sulfate DR (Ferrous Sulfate) 324 Mg Tabdr 324 Mg PO BIDPC Miralax Powder (Polyethylene Glycol 3350 Powder) 17 Gm Powd 17 Gm PO DAILY Mix and dissolve one measuring cap-ful (17 grams) in water or juice. Hold if having loose stools. Glipizide 5 Mg Tab 5 Mg PO TIDAC Take 30 minutes before a meal Protonix (Pantoprazole Sodium) 40 Mg Tab 40 Mg PO BIDAC Reported Gabapentin 300 Mg Cap 300 Mg PO BID Ergocalciferol 50,000 Unit Cap 50,000 Units PO Q7D Ranitidine (Ranitidine HCl) 150 Mg Cap 150 Mg PO BID Carafate Liq (Sucralfate) 1 Gm/10 Ml Susp 1 Gm PO QID on empty stomach Rosuvastatin (Rosuvastatin Calcium) 20 Mg Tab 20 Mg PO HS Spironolactone 25 Mg Tab 25 Mg PO BIDPC Bumetanide 1 Mg Tab 1 Mg PO DAILY Lortab (Hydrocodone-Acetaminophen) 5-325 Mg Tab 1 Tab PO TID Levothyroxine (Levothyroxine Sodium) 150 Mcg Tab 150 Mcg PO DAILY Carvedilol 25 Mg Tab 25 Mg PO BID Doxazosin (Doxazosin Mesylate) 1 Mg Tab 1 Mg PO HS Review of Systems Except as stated in HPI: all other systems reviewed are Neg Physical Exam Narrative GENERAL: Well-developed well-nourished male in no acute distress SKIN: Warm and dry. HEAD: Atraumatic. Normocephalic. EYES: Pupils equal and round. No scleral icterus. No injection or drainage. ENT: No nasal bleeding or discharge. Mucous membranes pink and moist. NECK: Trachea midline. No JVD. CARDIOVASCULAR: Regular rate and rhythm. No murmur appreciated. RESPIRATORY: No accessory muscle use. Clear to auscultation. Breath sounds equal bilaterally. GASTROINTESTINAL: Abdomen soft, non-tender, nondistended. Hepatic and splenic margins not palpable. MUSCULOSKELETAL: No obvious deformities. 2+ lower extremity edema. NEUROLOGICAL: Awake and alert. No obvious cranial nerve deficits. Motor grossly within normal limits. Normal speech. PSYCHIATRIC: Appropriate mood and affect; insight and judgment normal. Data Data Last Documented VS Vital Signs Date Time Temp Pulse Resp B/P (MAP) Pulse Ox O2 Delivery O2 Flow Rate FiO2 12/28/16 14:24 97.9 70 12 164/71 (102) 98 Orders Orders Type And Screen (12/28/16 14:52) Complete Blood Count With Diff (12/28/16 14:52) Basic Metabolic Panel (Bmp) (12/28/16 14:52) Act Partial Throm Time (Ptt) (12/28/16 14:52) Prothrombin Time / Inr (Pt) (12/28/16 14:52) Iv Access Insert/Monitor (12/28/16 14:52) Pantoprazole Inj (Protonix Inj) (12/28/16 15:00) Red Blood Cells (Rbc) (12/28/16 16:24) Blood Product Administration (12/28/16 16:24) Sodium Chlor 0.9% 250 Ml Inj (Ns 250 Ml (12/28/16 16:30) Admit Order (Ed Use Only) (12/28/16 16:39) Labs Laboratory Tests Test 12/28/16 14:58 White Blood Count 7.1 TH/MM3 Red Blood Count 2.59 MIL/MM3 Hemoglobin 6.9 GM/DL Hematocrit 22.6 % Mean Corpuscular Volume 87.2 FL Mean Corpuscular Hemoglobin 26.7 PG Mean Corpuscular Hemoglobin Concent 30.6 % Red Cell Distribution Width 16.2 % Platelet Count 287 TH/MM3 Mean Platelet Volume 7.5 FL Neutrophils (%) (Auto) 77.0 % Lymphocytes (%) (Auto) 11.1 % Monocytes (%) (Auto) 8.3 % Eosinophils (%) (Auto) 2.9 % Basophils (%) (Auto) 0.7 % Neutrophils # (Auto) 5.5 TH/MM3 Lymphocytes # (Auto) 0.8 TH/MM3 Monocytes # (Auto) 0.6 TH/MM3 Eosinophils # (Auto) 0.2 TH/MM3 Basophils # (Auto) 0.1 TH/MM3 CBC Comment DIFF FINAL Differential Comment Prothrombin Time 11.6 SEC Prothromb Time International Ratio 1.0 RATIO Activated Partial Thromboplast Time 26.1 SEC Blood Urea Nitrogen 30 MG/DL Creatinine 1.95 MG/DL Random Glucose 122 MG/DL Calcium Level 9.6 MG/DL Sodium Level 142 MEQ/L Potassium Level 4.4 MEQ/L Chloride Level 110 MEQ/L Carbon Dioxide Level 24.0 MEQ/L Anion Gap 8 MEQ/L Estimat Glomerular Filtration Rate 40 ML/MIN MDM Medical Decision Making Medical Screen Exam Complete: Yes Emergency Medical Condition: Yes Medical Record Reviewed: Yes Differential Diagnosis GI bleed, acute on chronic anemia, lab error Narrative Course Plan is for basic lab work, type and screen. A stool Hemoccult was performed revealing brown stool which is Hemoccult positive. Hemoglobin is 6.9. Discussed with Dr. Rodriguez, the patient is being admitted. He was given 2 units of packed red blood cells. HemaPrompt Point of Care Internal Pos. & Neg. Controls: Passed Fecal Specimen Occult Blood: Positive Diagnosis Primary Impression: GI bleed Qualified Codes: K92.2 - Gastrointestinal hemorrhage, unspecified Additional Impression: Acute blood loss anemia Admitting Information Admitting Physician Requests: Admit Sriram Lamas Dec 28, 2016 14:58
[2016-12-28] MEDS ORDERED: PANTOPRAZOLE SODIUM 40 MG VIAL IVP ONE (15:00)
[2016-12-28 15:17] LABS: AUTOMATED NEUTROPHIL # 5.5 TH/MM3 (1.8-7.7); BASOPHIL # 0.1 TH/MM3 (0-0.2); BASOPHIL % 0.7 % (0.0-2.0); EOSINOPHIL # 0.2 TH/MM3 (0-0.4); EOSINOPHIL % 2.9 % (0.0-4.0); HEMATOCRIT 22.6 % (39.0-51.0); LYMPH % 11.1 % (9.0-44.0); LYMPHOCYTE # 0.8 TH/MM3 (1.0-4.8); MEAN CELL VOLUME 87.2 FL (80.0-100.0); MEAN CORPUSCULAR HEMOGLOBIN 26.7 PG (27.0-34.0); MEAN CORPUSCULAR HGB CONC 30.6 % (32.0-36.0); MEAN PLATELET VOLUME 7.5 FL (7.0-11.0); MONO % 8.3 % (0.0-8.0); MONOCYTE # 0.6 TH/MM3 (0-0.9); PLATELET COUNT 287 TH/MM3 (150-450); RED BLOOD COUNT 2.59 MIL/MM3 (4.50-5.90); RED CELL DISTRIBUTION WIDTH 16.2 % (11.6-17.2); WHITE BLOOD COUNT 7.1 TH/MM3 (4.0-11.0)
[2016-12-28] MEDS ORDERED: GABA300C5 PO (15:17)
[2016-12-28 15:35] LABS: CALCIUM 9.6 MG/DL (8.5-10.1); CREATININE 1.95 MG/DL (0.60-1.30)
[2016-12-28 15:54] LABS: HEMOGLOBIN 6.9 GM/DL (13.0-17.0)
[2016-12-28] MEDS ORDERED: SODIUM CHLOR 0.9% 250 ML INJ 250 ML IV ONE (16:30)
[2016-12-28 16:36] LABS: PROTHROMBIN TIME - PATIENT 11.6 SEC (9.8-11.6)
[2016-12-28] MEDS ORDERED: DEXTROSE 50% IN WATER 50 ML VIAL(D50) IV PUSH PRN (17:15)
[2016-12-28] MEDS ORDERED: ACETAMINOPHEN/HYDROcodone 325 MG/5 MG TAB PO PRN (17:15)
[2016-12-28] MEDS ORDERED: ONDANSETRON HCL 4 MG/2 ML VIAL IVP PRN (17:15)
[2016-12-28] MEDS ORDERED: MAGNESIUM HYDROXIDE SUSP 30 ML CUP PO PRN (17:15)
[2016-12-28] MEDS ORDERED: GLUCAGON 1 MG/ML VIAL OTHER PRN (17:15)
[2016-12-28] MEDS ORDERED: LORazepam 0.5 MG TAB PO PRN (17:15)
[2016-12-28] MEDS ORDERED: LACTULOSE SYRUP 20 GM/30 ML CUP PO PRN (17:15)
[2016-12-28] MEDS ORDERED: SODIUM CHLORIDE 0.9% FLUSH 10 ML FLUSH IV FLUSH PRN (17:15)
[2016-12-28] MEDS ORDERED: ZOLPIDEM TARTRATE 5 MG TAB PO PRN (17:15)
[2016-12-28] MEDS ORDERED: SENNOSIDES 8.6 MG TAB PO PRN (17:15)
[2016-12-28] MEDS ORDERED: BISACODYL 10 MG SUPP RECTAL PRN (17:15)
[2016-12-28] MEDS ORDERED: NALOXONE HCL 0.4 MG/ML AMP IV PUSH PRN (17:15)
[2016-12-28] MEDS ORDERED: ACETAMINOPHEN 325 MG TAB PO PRN (17:15)
[2016-12-28] MEDS ORDERED: cloNIDine HCL 0.1 MG TAB PO PRN (17:15)
[2016-12-28] MEDS: POLYETHYLENE GLYCOL 17 GM PKG PO SCH (18:00)
[2016-12-28] MEDS ORDERED: PANTOPRAZOLE SODIUM 40 MG VIAL IV PUSH SCH (18:00)
--- NOTE | 2016-12-28 18:14 | MH ---
cc: GARRY NEWBERRY MD DATE OF ADMISSION 12/28/2016 CHIEF COMPLAINT Severe anemia. HISTORY OF PRESENT ILLNESS Js Be is an 81-year-old -[place] female who I saw in my office on Sunday. He states he was feeling pretty weak and we initially spoke about not doing any further labs, as we were expecting to find severe anemia. I spoke with his family about palliative care and they were undecided. We all decided to go ahead and get CBC done and it was found to be 6.5. We spoke with the patient at home and he was afraid and decided to come to the emergency room. He presents here today in [facility], seen with his daughter, the power of treater helper. The patient is wanting to have transfusion done and then go from there. He is not sure how far he wants to go. He appears to be at his usual state of health and mentation. Family reports that he gets pretty confused at home, however, I have not noted any confusion in my office or with his recent hospitalizations. He has not noted any blood in the stool. He complains of generalized weakness. REVIEW OF SYSTEMS Negative 14-point review of systems except as above. LABORATORY DATA Hemoglobin 6.9, platelets are 287, creatinine 1.95, glucose 122, INR 1.0. Hemoccult was positive per ER physician. PAST MEDICAL HISTORY 1. Diabetes 2. Recurrent GI bleed due to gastritis and intestinal mass 3. Hypertension. 4. Edema. 5. Chronic kidney disease stage three with a baseline creatinine about 1.8, elevated troponins. FAMILY HISTORY He states his father had cardiac disease, unsure otherwise about his family. SOCIAL HISTORY Lives at home with his family. No alcohol, tobacco or illicit drug usage. MEDICATIONS Home medications are 1. Spironolactone. 2. Carafate. 3. Crestor. 4. Ranitidine. 5. MiraLax. 6. Protonix. 7. Levofloxacin. 8. Lortab. 9. Glipizide 5 mg b.i.d. 10. Gabapentin 11. Iron 12. Vitamin D 13. Doxazosin 14. Zosyn 15. Carvedilol 16. Bumex 1 mg. PHYSICAL EXAMINATION VITAL SIGNS: Temperature 97.9, pulse 59, respirations 18, BP 137/65, O2 is 98%. GENERAL: He is an alert, older -[place] male laying flat. HEENT: Oropharynx is clear. Carotids are clear. No JVD. CHEST: Slight basilar rhonchi and good air movement. No crackles or consolidation. CARDIOVASCULAR: Regular rate and rhythm. No murmurs, rubs, clicks or gallops. ABDOMEN: Soft, nontender. No rebound, no guarding, obese. EXTREMITIES: 2+ edema to the knees bilaterally. Chronic venostasis changes. NEUROLOGIC: Cranial nerves are intact. Strength is 2/5 in all extremities. ASSESSMENT AND PLAN Acute blood loss anemia due to gastritis and a small intestinal mass. We will transfuse two units, start IV Protonix and Consult general surgeon to see if he will reconsider removing the mass. Also, consult gastroenterology. He had seen Dr. Pereira previously. Expect he may need EGD again. We will make n.p.o. after midnight. Gastritis history Acute on chronic kidney disease stage III Prostate cancer Diabetes: N.p.o. with D5 one half-normal saline and sliding scale insulin. Restart Glipizide on discharge. Hypertension. We will monitor blood pressures. Congestive heart failure, monitor for fluid overload and we will continue his Bumex and spironolactone. Peripheral neuropathy. We will continue on gabapentin and [place] p.r.n. Anxiety. Ativan by mouth as needed. Hypothyroidism. Continue levofloxacin. Constipation. Continue MiraLax Coronary artery disease. GI prophylaxis, IV Protonix DVT prophylaxis. SCDs and TEDs. DISPOSITION 1. Discharge to correction or back with his family with home health care on discharge. 2. Observation admission. He may elect palliation and at that rate discharge him tomorrow after transfusion or if he elects further aggressive care I may need to change him to inpatient for possible mass removal and further EGD. Garry Newberry MD RP/ /5:13 PM /5:56 PM
--- NOTE | 2016-12-28 18:14 | MH ---
cc: GARRY NEWBERRY MD DATE OF ADMISSION 12/28/2016 CHIEF COMPLAINT Severe anemia. HISTORY OF PRESENT ILLNESS Js Be is an 81-year-old -[place]hut[place] female who I saw in my office on Sunday. He states he was feeling pretty weak and we initially spoke about not doing any further labs, as we were expecting to find severe anemia. I spoke with his family about palliative care and they were undecided. We all decided to go ahead and get CBC done and it was found to be 6.5. We spoke with the patient at home and he was afraid and decided to come to the emergency room. He presents here today in [place], seen with his daughter, the power of corporate associate attorney. The patient is wanting to have transfusion done and then go from there. He is not sure how far he wants to go. He appears to be at his usual state of health and mentation. Family reports that he gets pretty confused at home, however, I have not noted any confusion in my office or with his recent hospitalizations. He has not noted any blood in the stool. He complains of generalized weakness. REVIEW OF SYSTEMS Negative 14-point review of systems except as above. LABORATORY DATA Hemoglobin 6.9, platelets are 287, creatinine 1.95, glucose 122, INR 1.0. Hemoccult was positive per ER physician. PAST MEDICAL HISTORY 1. Diabetes 2. Recurrent GI bleed due to gastritis and intestinal mass 3. Hypertension. 4. Edema. 5. Chronic kidney disease stage three with a baseline creatinine about 1.8, elevated troponins. FAMILY HISTORY He states his father had cardiac disease, unsure otherwise about his family. SOCIAL HISTORY Lives at home with his family. No alcohol, tobacco or illicit drug usage. MEDICATIONS Home medications are 1. Spironolactone. 2. Carafate. 3. Crestor. 4. Ranitidine. 5. MiraLax. 6. Protonix. 7. Levofloxacin. 8. Lortab. 9. Glipizide 5 mg b.i.d. 10. Gabapentin 11. Iron 12. Vitamin D 13. Doxazosin 14. Zosyn 15. Carvedilol 16. Bumex 1 mg. PHYSICAL EXAMINATION VITAL SIGNS: Temperature 97.9, pulse 59, respirations 18, BP 137/65, O2 is 98%. GENERAL: He is an alert, older -Bhutanese male laying flat. HEENT: Oropharynx is clear. Carotids are clear. No JVD. CHEST: Slight basilar rhonchi and good air movement. No crackles or consolidation. CARDIOVASCULAR: Regular rate and rhythm. No murmurs, rubs, clicks or gallops. ABDOMEN: Soft, nontender. No rebound, no guarding, obese. EXTREMITIES: 2+ edema to the knees bilaterally. Chronic venostasis changes. NEUROLOGIC: Cranial nerves are intact. Strength is 2/5 in all extremities. ASSESSMENT AND PLAN Acute blood loss anemia due to gastritis and a small intestinal mass. We will transfuse two units, start IV Protonix and Consult general surgeon to see if he will reconsider removing the mass. Also, consult gastroenterology. He had seen Dr. Pereira previously. Expect he may need EGD again. We will make n.p.o. after midnight. Gastritis history Acute on chronic kidney disease stage III Prostate cancer Diabetes: N.p.o. with D5 one half-normal saline and sliding scale insulin. Restart Glipizide on discharge. Hypertension. We will monitor blood pressures. Congestive heart failure, monitor for fluid overload and we will continue his Bumex and spironolactone. Peripheral neuropathy. We will continue on gabapentin and [place] p.r.n. Anxiety. Ativan by mouth as needed. Hypothyroidism. Continue levofloxacin. Constipation. Continue MiraLax Coronary artery disease. GI prophylaxis, IV Protonix DVT prophylaxis. SCDs and TEDs. DISPOSITION 1. Discharge to group home or back with his family with home health care on discharge. 2. Observation admission. He may elect palliation and at that rate discharge him tomorrow after transfusion or if he elects further aggressive care I may need to change him to inpatient for possible mass removal and further EGD. Garry Newberry MD RP/ /5:13 PM /5:56 PM
--- NOTE | 2016-12-28 18:14 | MH ---
cc: GARRY NEWBERRY MD DATE OF ADMISSION 12/28/2016 CHIEF COMPLAINT Severe anemia. HISTORY OF PRESENT ILLNESS Js Be is an 81-year-old -[place] female who I saw in my office on Sunday. He states he was feeling pretty weak and we initially spoke about not doing any further labs, as we were expecting to find severe anemia. I spoke with his family about palliative care and they were undecided. We all decided to go ahead and get CBC done and it was found to be 6.5. We spoke with the patient at home and he was afraid and decided to come to the emergency room. He presents here today in [place], seen with his daughter, the power of compliance attorney. The patient is wanting to have transfusion done and then go from there. He is not sure how far he wants to go. He appears to be at his usual state of health and mentation. Family reports that he gets pretty confused at home, however, I have not noted any confusion in my office or with his recent hospitalizations. He has not noted any blood in the stool. He complains of generalized weakness. REVIEW OF SYSTEMS Negative 14-point review of systems except as above. LABORATORY DATA Hemoglobin 6.9, platelets are 287, creatinine 1.95, glucose 122, INR 1.0. Hemoccult was positive per ER physician. PAST MEDICAL HISTORY 1. Diabetes 2. Recurrent GI bleed due to gastritis and intestinal mass 3. Hypertension. 4. Edema. 5. Chronic kidney disease stage three with a baseline creatinine about 1.8, elevated troponins. FAMILY HISTORY He states his father had cardiac disease, unsure otherwise about his family. SOCIAL HISTORY Lives at home with his family. No alcohol, tobacco or illicit drug usage. MEDICATIONS Home medications are 1. Spironolactone. 2. Carafate. 3. Crestor. 4. Ranitidine. 5. MiraLax. 6. Protonix. 7. Levofloxacin. 8. Lortab. 9. Glipizide 5 mg b.i.d. 10. Gabapentin 11. Iron 12. Vitamin D 13. Doxazosin 14. Zosyn 15. Carvedilol 16. Bumex 1 mg. PHYSICAL EXAMINATION VITAL SIGNS: Temperature 97.9, pulse 59, respirations 18, BP 137/65, O2 is 98%. GENERAL: He is an alert, older -[place] male laying flat. HEENT: Oropharynx is clear. Carotids are clear. No JVD. CHEST: Slight basilar rhonchi and good air movement. No crackles or consolidation. CARDIOVASCULAR: Regular rate and rhythm. No murmurs, rubs, clicks or gallops. ABDOMEN: Soft, nontender. No rebound, no guarding, obese. EXTREMITIES: 2+ edema to the knees bilaterally. Chronic venostasis changes. NEUROLOGIC: Cranial nerves are intact. Strength is 2/5 in all extremities. ASSESSMENT AND PLAN Acute blood loss anemia due to gastritis and a small intestinal mass. We will transfuse two units, start IV Protonix and Consult general surgeon to see if he will reconsider removing the mass. Also, consult gastroenterology. He had seen Dr. Pereira previously. Expect he may need EGD again. We will make n.p.o. after midnight. Gastritis history Acute on chronic kidney disease stage III Prostate cancer Diabetes: N.p.o. with D5 one half-normal saline and sliding scale insulin. Restart Glipizide on discharge. Hypertension. We will monitor blood pressures. Congestive heart failure, monitor for fluid overload and we will continue his Bumex and spironolactone. Peripheral neuropathy. We will continue on gabapentin and [place] p.r.n. Anxiety. Ativan by mouth as needed. Hypothyroidism. Continue levofloxacin. Constipation. Continue MiraLax Coronary artery disease. GI prophylaxis, IV Protonix DVT prophylaxis. SCDs and TEDs. DISPOSITION 1. Discharge to [facility] or back with his family with home health care on discharge. 2. Observation admission. He may elect palliation and at that rate discharge him tomorrow after transfusion or if he elects further aggressive care I may need to change him to inpatient for possible mass removal and further EGD. Garry Newberry MD RP/ /5:13 PM /5:56 PM
[2016-12-28] MEDS: CARVEDILOL 12.5 MG TAB PO SCH (19:40)
[2016-12-28] MEDS: DOCUSATE SODIUM 50 MG/SENNA 8.6 MG TAB PO SCH (19:40)
[2016-12-28] MEDS: ACETAMINOPHEN/HYDROcodone 325 MG/5 MG TAB PO SCH (19:41)
[2016-12-28] MEDS: GABAPENTIN 300 MG CAP PO SCH (19:41)
[2016-12-28] MEDS: SPIRONOLACTONE 25 MG TAB PO SCH (19:41)
[2016-12-28] MEDS: SUCRALFATE 1 GM/10 ML CUP PO SCH ×2 (19:42→22:30)
[2016-12-28] MEDS: INSULIN ASPART SUPPLEMENTAL SCALE SQ SCH (21:00)
[2016-12-28] MEDS: SODIUM CHLORIDE 0.9% FLUSH 10 ML FLUSH IV FLUSH SCH (21:00)
[2016-12-28] MEDS ORDERED: DOXAZOSIN MESYLATE 1 MG TAB PO SCH (21:00)
[2016-12-28] MEDS: BUMETANIDE 1 MG TAB PO SCH (22:30)
[2016-12-29] VITALS: BP 137/64; PULSE 56; RESP 18; TEMP 97.7; O2SAT 100
[2016-12-29] MEDS: DEXT 5%-NACL 0.45% 1000 ML INJ 1,000 ML IV SCH ×2 (02:07→04:06)
[2016-12-29 04:00] VITALS: BP 141/65; PULSE 57; RESP 18; TEMP 98.2; O2SAT 100
[2016-12-29 04:20] VITALS: PULSE 56
[2016-12-29] MEDS ORDERED: LEVOTHYROXINE SODIUM 150 MCG TAB PO SCH (06:00)
--- NOTE | 2016-12-29 06:37 | MB ---
cc: DELORESEDYTAKODI DATE OF CONSULTATION 12/28/2016 REASON FOR CONSULTATION GI bleeding, chronic. PHYSICIAN REQUESTING CONSULTATION Garry Rodriguez MD HISTORY OF PRESENT ILLNESS The patient is an 81-year-old male with a long history of chronic anemia thought to be of likely GI source. The patient has undergone multiple admissions and diagnostic procedures for GI bleeding including upper endoscopy which showed a duodenal polyp in the second portion. The patient during this time has undergone blood transfusions and has been relatively asymptomatic for extensive periods of time as an outpatient. He has declined multiple recommendations including outpatient capsule endoscopy and advanced endoscopy referrals for endoscopic treatment or ablation of his possible source of bleeding such as duodenal polyps, again also possible diagnosis of further bleeding. The patient does state that he has undergone extensive workup in the past and no definitive source was identified in his opinion and he has therefore declined further workup and only consents to blood transfusion on a p.r.n. basis. The patient currently states he feels in normal state of health and only presented to the hospital because he was told his hemoglobin was 6.9. The patient states that he has lost some weight but he says that is due to poor appetite due to recent loss of his . The patient denies any other GI symptoms - nausea, vomiting, diarrhea, constipation, abdominal pain. REVIEW OF SYSTEMS A 12-point review of systems reviewed with the patient and is negative for the above-mentioned pertinent positives mentioned above in the history of present illness. PAST MEDICAL HISTORY 1. Diabetes. 2. Hypertension. 3. CHF. 4. Coronary artery disease. 5. Sleep apnea. 6. Anxiety. PAST SURGICAL HISTORY 1. Appendectomy. 2. Multiple cardiac stents. 3. Prostatectomy thyroidectomy. ALLERGIES OS-KIMBERLY. SHELLFISH. TETANUS. MEDICATIONS 1. Synthroid. 2. Aldactone. 3. Iron. 4. Carafate. 5. Pepcid. 6. Lipitor. 7. Protonix. 8. [place]. FAMILY HISTORY Noncontributory to process. SOCIAL HISTORY The patient quit tobacco in 1976. Rarely uses alcohol. Denies any illicit drug use. Lives independently at home. PHYSICAL EXAMINATION VITAL SIGNS: Temperature 98.2 degrees, pulse 60, respiratory rate 16, blood pressure 123/66 with a saturation of 100% percent on room air. GENERAL: The patient is an elderly -Dutch male in no acute distress. He does not appear acute or chronically ill. HEAD: Normocephalic, atraumatic. Pupils round, equal, reactive to light. Sclerae anicteric. Airway is patent. NECK: Supple. No JVD. LUNGS: Clear to auscultation bilaterally. Nonlabored breathing pattern. HEART: Regular rate and rhythm. ABDOMEN: Soft, nondistended. No organomegaly. Normal bowel sounds. RECTAL EXAM: Deferred. EXTREMITIES: Some trace edema. No clubbing or cyanosis. BACK: No CVA tenderness. NEUROLOGIC EXAM: The patient is awake, alert, oriented x3. Nonfocal peripheral exam. Cranial nerves II-XII are grossly intact. LABORATORY VALUES Hemoglobin 6.9. ASSESSMENT AND PLAN The patient is an 81-year-old male with a several-year history of anemia with previous workup showing no definitive cause; however, there is suspicion of duodenal polyps as a possible cause. I discussed and reviewed the record and did recommend a followup and referral to an advanced endoscopist to further evaluate the polyps for possible endoscopic treatment and resection. This would be the standard of care for a nonmalignant type polyp in an extremely sensitive area such as the duodenum and should clearly be considered before a major operation such as duodenal resection. The patient is a high operative risk for such an operation as well. I had this discussion with the patient and he was frustrated that he was being offered such procedures as he states that he has declined surgery and any endoscopic procedure multiple times in the past and would like to continue essentially what sounds like a more palliative approach with p.r.n. blood transfusions. The patient did concede that he would reconsider invasive options such as endoscopy if he had a significant increase in his symptoms or bleeding episodes. Thank you very much for this consultation. We will sign off as again the patient has adamantly declined surgery and made his wishes quite clear. I did provide my contact information and offered the patient to feel free to follow up with me at any time if I can be of any further assistance to this nice gentleman. Thank you very much for this consultation. Please call us if needed. MD NICOLETTE Chu/ABBEY /11:17 PM /6:14 AM
[2016-12-29] MEDS: INSULIN ASPART SUPPLEMENTAL SCALE SQ SCH ×2 (08:00→12:00)
[2016-12-29 08:27] VITALS: BP 130/70; PULSE 53; RESP 18; TEMP 98.4; O2SAT 99
[2016-12-29] MEDS: CARVEDILOL 12.5 MG TAB PO SCH (09:00)
[2016-12-29] MEDS: SODIUM CHLORIDE 0.9% FLUSH 10 ML FLUSH IV FLUSH SCH (09:00)
[2016-12-29] MEDS: DOCUSATE SODIUM 50 MG/SENNA 8.6 MG TAB PO SCH (09:00)
[2016-12-29] MEDS: POLYETHYLENE GLYCOL 17 GM PKG PO SCH (09:00)
[2016-12-29 09:26] VITALS: O2SAT 99
[2016-12-29 09:44] LABS: AUTOMATED NEUTROPHIL # 4.8 TH/MM3 (1.8-7.7); BASOPHIL % 0.4 % (0.0-2.0); EOSINOPHIL # 0.2 TH/MM3 (0-0.4); EOSINOPHIL % 2.8 % (0.0-4.0); HEMATOCRIT 27.3 % (39.0-51.0); HEMOGLOBIN 8.8 GM/DL (13.0-17.0); LYMPH % 13.6 % (9.0-44.0); LYMPHOCYTE # 0.9 TH/MM3 (1.0-4.8); MEAN CELL VOLUME 85.8 FL (80.0-100.0); MEAN CORPUSCULAR HEMOGLOBIN 27.7 PG (27.0-34.0); MEAN CORPUSCULAR HGB CONC 32.3 % (32.0-36.0); MEAN PLATELET VOLUME 7.8 FL (7.0-11.0); MONO % 11.2 % (0.0-8.0); MONOCYTE # 0.8 TH/MM3 (0-0.9); PLATELET COUNT 238 TH/MM3 (150-450); RED BLOOD COUNT 3.18 MIL/MM3 (4.50-5.90); RED CELL DISTRIBUTION WIDTH 16.9 % (11.6-17.2); WHITE BLOOD COUNT 6.7 TH/MM3 (4.0-11.0)
[2016-12-29] MEDS ORDERED: PNEUMOCOCCAL POLYVALENT INJ 25 MCG/0.5 ML SYR IM ONE (10:00)
[2016-12-29] MEDS ORDERED: INFLUENZA VIRUS VACCINE (QUADRIVALENT) 0.5 ML SYR IM ONE (10:00)
[2016-12-29] MEDS: BUMETANIDE 1 MG TAB PO SCH (10:07)
[2016-12-29] MEDS: SPIRONOLACTONE 25 MG TAB PO SCH (10:07)
[2016-12-29 10:08] LABS: BICARBONATE 22.3 MEQ/L (21.0-32.0); CALCIUM 10.3 MG/DL (8.5-10.1); CREATININE 1.76 MG/DL (0.60-1.30)
[2016-12-29] MEDS: GABAPENTIN 300 MG CAP PO SCH (10:08)
[2016-12-29] MEDS: SUCRALFATE 1 GM/10 ML CUP PO SCH ×2 (10:08→13:35)
[2016-12-29] MEDS: ACETAMINOPHEN/HYDROcodone 325 MG/5 MG TAB PO SCH ×2 (10:10→13:36)
--- NOTE | 2016-12-29 10:21 | HHI.DS ---
Discharge Summary Admission Date Dec 28, 2016 at 17:08 Discharge Date: Dec 29, 2016 Admitting Diagnosis GI bleed, anemia CBC/BMP: 12/29/16 0732 12/29/16 0732 Significant Findings Laboratory Tests Test 12/28/16 14:58 12/29/16 07:32 Red Blood Count 2.59 MIL/MM3 (4.50-5.90) 3.18 MIL/MM3 (4.50-5.90) Hemoglobin 6.9 GM/DL (13.0-17.0) 8.8 GM/DL (13.0-17.0) Hematocrit 22.6 % (39.0-51.0) 27.3 % (39.0-51.0) Mean Corpuscular Hemoglobin 26.7 PG (27.0-34.0) Mean Corpuscular Hemoglobin Concent 30.6 % (32.0-36.0) Neutrophils (%) (Auto) 77.0 % (16.0-70.0) 72.0 % (16.0-70.0) Monocytes (%) (Auto) 8.3 % (0.0-8.0) 11.2 % (0.0-8.0) Lymphocytes # (Auto) 0.8 TH/MM3 (1.0-4.8) 0.9 TH/MM3 (1.0-4.8) Blood Urea Nitrogen 30 MG/DL (7-18) 28 MG/DL (7-18) Creatinine 1.95 MG/DL (0.60-1.30) 1.76 MG/DL (0.60-1.30) Random Glucose 122 MG/DL (74-106) 73 MG/DL (74-106) Chloride Level 110 MEQ/L (98-107) 110 MEQ/L (98-107) Estimat Glomerular Filtration Rate 40 ML/MIN (>89) 45 ML/MIN (>89) Calcium Level 10.3 MG/DL (8.5-10.1) PE at Discharge GENERAL: SKIN: Warm and dry. HEAD: Atraumatic. Normocephalic. EYES: Pupils equal and round. No scleral icterus. No injection or drainage. ENT: No nasal bleeding or discharge. Mucous membranes pink and moist. NECK: Trachea midline. No JVD. CARDIOVASCULAR: Regular rate and rhythm. RESPIRATORY: No accessory muscle use. Clear to auscultation. Breath sounds equal bilaterally. GASTROINTESTINAL: Abdomen soft, non-tender, nondistended. Hepatic and splenic margins not palpable. MUSCULOSKELETAL: Extremities without clubbing, cyanosis, or edema. No obvious deformities. NEUROLOGICAL: Awake and alert. No obvious cranial nerve deficits. Motor grossly within normal limits. Five out of 5 muscle strength in the arms and legs. Normal speech. PSYCHIATRIC: Appropriate mood and affect; insight and judgment normal. Hospital Course 81 y AAM. FOUND W HGB 6.5. TRANSFER TO ER AND TRANSFUSED TWO U. PT ASKING TO DC NOW. HE DOES NOT WISH TO HAVE ANY FURTHER SURGERIES OR EVEN ENDOSCOPIES. HE REQUESTS OCCASIONAL HGB CHECKS AND TO SEE ME IN MY OFFICE NEXT WEEK. D/W FAMILY PALLIATIVE CARE. Pt Condition on Discharge: Stable Discharge Disposition: Disch w/ Home Health Serv Discharge Instructions DIET: Follow Instructions for: As Tolerated, No Restrictions Activities you can perform: Regular-No Restrictions Continued Medications: Bumetanide (Bumetanide) 1 Mg Tab 1 MG PO DAILY, #30 TAB 0 Refills Carvedilol (Carvedilol) 25 Mg Tab 25 MG PO BID, #60 TAB 0 Refills Doxazosin (Doxazosin) 1 Mg Tab 1 MG PO HS, #30 TAB 0 Refills Ergocalciferol (Ergocalciferol) 50,000 Unit Cap 66578 UNITS PO Q7D for Nutritional Supplement, #30 CAP [address] (Ferrous Sulfate DR) 324 Mg Tabdr 324 MG PO BIDPC for Nutritional Supplement, #60 TAB 0 Refills Gabapentin (Gabapentin) 300 Mg Cap 300 MG PO BID, #60 CAP 0 Refills Glipizide (Glipizide) 5 Mg Tab 5 MG PO TIDAC for Blood Sugar Management, #180 TAB 11 Refills Take 30 minutes before a meal Hydrocodone-Acetaminophen (Lortab) 5-325 Mg Tab 1 TAB PO TID for Pain Management, TAB 0 Refills Levothyroxine (Levothyroxine) 150 Mcg Tab 150 MCG PO DAILY for Thyroid, #30 TAB 0 Refills Pantoprazole (Protonix) 40 Mg Tab 40 MG PO BIDAC for Ulcer Prevention, #180 TAB 11 Refills Polyethylene Glycol 3350 Powder (Miralax Powder) 17 Gm Powd 17 GM PO DAILY for Constipation, #1 CAN 0 Refills Mix and dissolve one measuring cap-ful (17 grams) in water or juice. Hold if having loose stools. Ranitidine (Ranitidine) 150 Mg Cap 150 MG PO BID, #60 CAP 0 Refills Rosuvastatin (Rosuvastatin) 20 Mg Tab 20 MG PO HS for Cholesterol Management, #30 TAB 0 Refills Spironolactone (Spironolactone) 25 Mg Tab 25 MG PO BIDPC, #60 TAB 0 Refills Sucralfate Liq (Carafate Liq) 1 Gm/10 Ml Susp 1 GM PO QID for Duodenal ulcer, #1200 ML 0 Refills on empty stomach Garry Rodriguez MD Dec 29, 2016 10:21
--- NOTE | 2016-12-29 10:22 | HHI.DCPOC ---
Discharge Care Plan Diagnosis: (1) Acute blood loss anemia (2) Acute renal insufficiency (3) Exertional dyspnea (4) SOB (shortness of breath) (5) Elevated troponin I level (6) Edema (7) Symptomatic anemia (8) constipation Goals to Promote Your Health * To prevent worsening of your condition and complications * To maintain your health at the optimal level Directions to Meet Your Goals Take your medications as prescribed Follow your dietary instruction Follow activity as directed Keep your appointments as scheduled Take your immunizations and boosters as scheduled If your symptoms worsen call your PCP, if no PCP go to Urgent Care Center or Emergency Room Smoking is Dangerous to Your Health. Avoid second hand smoke Call the 24-hour hour crisis hotline for domestic abuse at Garry Rodriguez MD Dec 29, 2016 10:22
--- NOTE | 2016-12-29 10:22 | HHI.DCPOC ---
Discharge Care Plan Diagnosis: (1) Acute blood loss anemia (2) Acute renal insufficiency (3) Exertional dyspnea (4) SOB (shortness of breath) (5) Elevated troponin I level (6) Edema (7) Symptomatic anemia (8) constipation Goals to Promote Your Health * To prevent worsening of your condition and complications * To maintain your health at the optimal level Directions to Meet Your Goals Take your medications as prescribed Follow your dietary instruction Follow activity as directed Keep your appointments as scheduled Take your immunizations and boosters as scheduled If your symptoms worsen call your PCP, if no PCP go to Urgent Care Center or Emergency Room Smoking is Dangerous to Your Health. Avoid second hand smoke Call the 24-hour hour crisis hotline for domestic abuse at Garry Rodriguez MD Dec 29, 2016 10:22
--- NOTE | 2016-12-29 10:22 | HHI.DCPOC ---
Discharge Care Plan Diagnosis: (1) Acute blood loss anemia (2) Acute renal insufficiency (3) Exertional dyspnea (4) SOB (shortness of breath) (5) Elevated troponin I level (6) Edema (7) Symptomatic anemia (8) constipation Goals to Promote Your Health * To prevent worsening of your condition and complications * To maintain your health at the optimal level Directions to Meet Your Goals Take your medications as prescribed Follow your dietary instruction Follow activity as directed Keep your appointments as scheduled Take your immunizations and boosters as scheduled If your symptoms worsen call your PCP, if no PCP go to Urgent Care Center or Emergency Room Smoking is Dangerous to Your Health. Avoid second hand smoke Call the 24-hour hour crisis hotline for domestic abuse at Garry Rodriguez MD Dec 29, 2016 10:22
--- NOTE | 2016-12-29 10:23 | HHI.FF ---
Face to Face Verification Diagnosis: (1) Constipation (2) Generalized weakness (3) CAD (coronary artery disease) (4) Lymphedema (5) HTN (hypertension) (6) CKD (chronic kidney disease) stage 3, GFR 30-59 ml/min (7) Decreased activities of daily living (ADL) (8) Acute kidney injury (9) Anemia (10) CHF (congestive heart failure) (11) DM (diabetes mellitus) (12) Acute blood loss anemia (13) GI bleed Physical Therapy Order: Evaluate and Treat, Improve ambulation, Strength and gait training Home Health Nursing Order: Medical education Diabetic education CHF education Medication education-adverse effect Nursing assessment with vital signs Telehealth Home Health Aide Order: To Assist In: Bathing and personal care, database report writer and meal prep Audio Production Manager Order: To Evaluate: Living conditions/environment, Support services Order: To Provide: Long range planning, Community services I have seen patient Js Brown on 12/29/16. My clinical findings support the need for the requested home health care services because: Ltd mobility - disease progression Patient has SOB Deconditioned w/ increased weakness Med compliance is questionable Limited ability to care for self Need for psychosocial assistance Impaired cognition/judgement High risk of falls I certify that my clinical findings support that this patient is homebound because: Impaired cognitive ability/safety Unsteady gait/balance Unsafe to leave home unassisted Need for psychosocial assistance [id number] bed/chair Unable to use public transportation Poor cardiac reserve Garry Rodriguez MD Dec 29, 2016 10:23
--- NOTE | 2016-12-29 10:36 | PD.CONS ---
HPI History of Present Illness This is a 81 year old male patient who was referred to the emergency room for evaluation of severe anemia. He was noted to have an H&H of 6.9/22.6 on admission. He was transfused 2 units of packed red blood cells and his H&H is currently 8.8/27.3. He reports dark stools related to iron supplements, but denies any other GI complaints. He specifically denies any decreased appetite, nausea, vomiting, heartburn, abdominal pain. He is well-known to our service and has been evaluated for iron deficiency anemia and recurrent GI bleeding. He was evaluated with EGD (09/09/16)----> polypoid mass/pedunculated in duodenum second portion 1.5 cm some pinkish material seen around it possible slow issues with blood over time Biopsy, 2 clips applied at the base, cannot use epinephrine as per anesthesia at this time. Gastritis. Hiatal hernia. Retroflex views revealed a hiatal hernia. Pathology revealed small bowel mucosa without significant histologic abnormality. CT Scan abdomen and pelvis ( 09/10/16)---> no evidence of hemorrhage, multiple low attenuation liver lesions which are indeterminate. Metastatic disease is a consideration. Small hiatal hernia. Small apparent gallstone. Multiple benign-appearing low attenuation cystic lesions in the kidneys. Status post prostatectomy. The plan was for a capsule endoscopy as outpatient, possible endoscopic ultrasound, and referral to tertiary center for removal once clinically more stable. He was evaluated by Dr. Merida at that time and it was recommended that he continue endoscopic management of his polyp. It was recommended that IR for angiogram/ embolization be considered if any active bleeding. Prior to that, he had a colonoscopy (03/08/16)---> 2 polyps in transverse colon, s/p snare polypectomy, 1 polyp in the descending colon removed by snare, there was no evidence of stool throughout the colon, mild diverticulosis was noted in the descending colon, retroflex views revealed no abnormalities. Duodenal mucosa with focal superficial mucosal erosion, features consistent with a reactive gastropathy in the stomach, transverse and descending colon biopsy tubular adenomas. The patient reports that he has had multiple procedures done and he does not want to pursue any further endoscopic or consider surgery for his polyp. He reports that he understands that he could bleed to , but does not want any further workup of this. PFSH Past Medical History DM HTN CKD Recurrent GIB Duodenal polypoid polyp Tubular adenomas colon Hiatal hernia CAD Peripheral neuropathy JENNIFER Arthritis ANxiety Goiter Hyperlipidemia Liver lesion EVARISTO Past Surgical History Cardiac catheterization Multiple EGD Colonoscopy Appendectomy Circumcision Thyroid surgery Prostate surgery Coded Allergies: calcium (Unverified Allergy, Severe, 10/17/16) rash calcium carbonate (Unverified Allergy, Severe, 10/17/16) rash shellfish derived (Unverified Allergy, Severe, 10/17/16) rash tetanus toxoid, adsorbed (Unverified Allergy, Severe, 10/17/16) rash Medications Allergies Coded Allergies Type Severity Reaction Last Updated Verified calcium Allergy Severe 10/17/16 No calcium carbonate Allergy Severe 10/17/16 No shellfish derived Allergy Severe 10/17/16 No tetanus toxoid, adsorbed Allergy Severe 10/17/16 No Active Scripts Medications Dose Route/Sig Max Daily Dose Days Date Category Dose Instructions Gabapentin 300 Mg Cap 300 Mg PO BID 12/28/[address] (Ferrous Sulfate) 324 Mg Tabdr 324 Mg PO BIDPC 08/12/16 Rx Miralax Powder (Polyethylene Glycol 3350 Powder) 17 Gm Powd 17 Gm PO DAILY 08/12/16 Rx Mix and dissolve one measuring cap-ful (17 grams) in water or juice. Hold if having loose stools. Ergocalciferol 50,000 Unit Cap 50,000 Units PO Q7D 07/27/16 Reported Ranitidine (Ranitidine HCl) 150 Mg Cap 150 Mg PO BID 07/27/16 Reported Carafate Liq (Sucralfate) 1 Gm/10 Ml Susp 1 Gm PO QID 07/27/16 Reported on empty stomach Glipizide 5 Mg Tab 5 Mg PO TIDAC 03/09/16 Rx Take 30 minutes before a meal Protonix (Pantoprazole Sodium) 40 Mg Tab 40 Mg PO BIDAC 03/09/16 Rx Rosuvastatin (Rosuvastatin Calcium) 20 Mg Tab 20 Mg PO HS 03/05/16 Reported Spironolactone 25 Mg Tab 25 Mg PO BIDPC 03/05/16 Reported Bumetanide 1 Mg Tab 1 Mg PO DAILY 03/05/16 Reported Lortab (Hydrocodone-Acetaminophen) 5-325 Mg Tab 1 Tab PO TID 03/05/16 Reported Levothyroxine (Levothyroxine Sodium) 150 Mcg Tab 150 Mcg PO DAILY 03/05/16 Reported Carvedilol 25 Mg Tab 25 Mg PO BID 03/05/16 Reported Doxazosin (Doxazosin Mesylate) 1 Mg Tab 1 Mg PO HS 03/05/16 Reported Family History Denies any family hx of esophageal, gastric, colorectal cancer Brother had lymphoma Social History No tobacco Occasional ETOH No illicit drug use Review of Systems Constitutional: COMPLAINS OF: Fatigue, Weight loss (10-30 lbs in one year), DENIES: Fever Respiratory: DENIES: Cough, Shortness of breath Cardiovascular: COMPLAINS OF: Lower Extremity Edema Gastrointestinal: COMPLAINS OF: Black stools, DENIES: Abdominal pain, Bloody stools, Constipation, Diarrhea, Nausea, Vomiting, Heartburn Musculoskeletal: COMPLAINS OF: Joint pain Neurologic: DENIES: Headache Psychiatric: DENIES: Confusion GI Exam Vitals I&O Vital Signs Date Time Temp Pulse Resp B/P (MAP) Pulse Ox O2 Delivery O2 Flow Rate FiO2 12/29/16 09:26 99 12/29/16 08:27 98.4 53 18 130/70 (90) 99 12/29/16 04:20 56 12/29/16 04:00 98.2 57 18 141/65 (90) 100 12/29/16 00:00 97.7 56 18 137/64 (88) 100 12/28/16 21:26 98.2 60 16 123/66 100 12/28/16 21:11 98.4 61 16 135/59 100 12/28/16 20:00 98.6 62 18 149/66 (93) 100 12/28/16 18:23 12/28/16 17:57 98.9 61 16 126/61 100 12/28/16 17:42 98.8 60 16 156/81 100 12/28/16 17:13 100 21 12/28/16 17:01 59 14 137/65 (89) 98 12/28/16 14:24 97.9 70 12 164/71 (102) 98 I/O 12/28/16 12/28/16 12/28/16 12/29/16 12/29/16 12/29/16 07:00 15:00 23:00 07:00 15:00 23:00 Intake Total 495 ml 590 ml Output Total 300 ml 1525 ml Balance 195 ml -935 ml Intake Oral 50 ml IV Total 90 ml Packed Cells 400 ml 400 ml Blood Product IV Normal Saline Flush 95 ml 50 ml Output Urine Total 300 ml 1525 ml # Voids 3 Laboratory Test 12/28/16 14:58 12/29/16 07:32 White Blood Count 7.1 TH/MM3 6.7 TH/MM3 Red Blood Count 2.59 MIL/MM3 3.18 MIL/MM3 Hemoglobin 6.9 GM/DL 8.8 GM/DL Hematocrit 22.6 % 27.3 % Mean Corpuscular Volume 87.2 FL 85.8 FL Mean Corpuscular Hemoglobin 26.7 PG 27.7 PG Mean Corpuscular Hemoglobin Concent 30.6 % 32.3 % Red Cell Distribution Width 16.2 % 16.9 % Platelet Count 287 TH/MM3 238 TH/MM3 Mean Platelet Volume 7.5 FL 7.8 FL Neutrophils (%) (Auto) 77.0 % 72.0 % Lymphocytes (%) (Auto) 11.1 % 13.6 % Monocytes (%) (Auto) 8.3 % 11.2 % Eosinophils (%) (Auto) 2.9 % 2.8 % Basophils (%) (Auto) 0.7 % 0.4 % Neutrophils # (Auto) 5.5 TH/MM3 4.8 TH/MM3 Lymphocytes # (Auto) 0.8 TH/MM3 0.9 TH/MM3 Monocytes # (Auto) 0.6 TH/MM3 0.8 TH/MM3 Eosinophils # (Auto) 0.2 TH/MM3 0.2 TH/MM3 Basophils # (Auto) 0.1 TH/MM3 0.0 TH/MM3 CBC Comment DIFF FINAL DIFF FINAL Differential Comment Prothrombin Time 11.6 SEC Prothromb Time International Ratio 1.0 RATIO Activated Partial Thromboplast Time 26.1 SEC Blood Urea Nitrogen 30 MG/DL 28 MG/DL Creatinine 1.95 MG/DL 1.76 MG/DL Random Glucose 122 MG/DL 73 MG/DL Calcium Level 9.6 MG/DL 10.3 MG/DL Sodium Level 142 MEQ/L 140 MEQ/L Potassium Level 4.4 MEQ/L 4.7 MEQ/L Chloride Level 110 MEQ/L 110 MEQ/L Carbon Dioxide Level 24.0 MEQ/L 22.3 MEQ/L Anion Gap 8 MEQ/L 8 MEQ/L Estimat Glomerular Filtration Rate 40 ML/MIN 45 ML/MIN Physical Examination HEENT: Normocephalic; atraumatic; no jaundice. CHEST: CTA CARDIAC: RRR ABDOMEN: Soft, nondistended, nontender; no hepatosplenomegaly; bowel sounds are present in all four quadrants. EXTREMITIES: BLE edema. SKIN: Normal; no rash; no jaundice. 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 Assessment and Plan Plan ASSESSMENT: - Hemoccult (+) stool, anemia. He has a long hx JENNIFER and has had multiple endoscopies for GIB. EGD (09/09/16)----> polypoid mass/pedunculated in duodenum second portion 1.5 cm some pinkish material seen around it possible slow issues with blood over time Biopsy, 2 clips applied at the base, cannot use epinephrine as per anesthesia at this time. Gastritis. Hiatal hernia. Retroflex views revealed a hiatal hernia. Pathology revealed small bowel mucosa without significant histologic abnormality. CT Scan abdomen and pelvis (09/10/16)---> no evidence of hemorrhage, multiple low attenuation liver lesions which are indeterminate. Metastatic disease is a consideration. Small hiatal hernia. Small apparent gallstone. Multiple benign -appearing low attenuation cystic lesions in the kidneys. Status post prostatectomy. The plan was for a capsule endoscopy as outpatient, possible endoscopic ultrasound, and referral to tertiary center for removal once clinically more stable. The patient has not followed up and decided not to pursue these. Colonoscopy (03/08/16)---> 2 polyps in transverse colon, s/p snare polypectomy , 1 polyp in the descending colon removed by snare, there was no evidence of stool throughout the colon, mild diverticulosis was noted in the descending colon, retroflex views revealed no abnormalities. Duodenal mucosa with focal superficial mucosal erosion, features consistent with a reactive gastropathy in the stomach, transverse and descending colon biopsy tubular adenomas. GS following. Pt is refusing further endoscopic workup, eus, referral to tertiary, and does not want surgical intervention. He understands that he could continue to bleed and states he knows he could even bleed to . Cont. PPI. Monitor HH. Transfuse as necessary. .3. Protonix, Carafate. - DM, HTN, CKD, CAD, Peripheral neuropathy per attending. PLAN: - Heart healthy diabetic diet - Cont. PPI - Cont. Carafate - Monitor HH - Transfuse as necessary - Supportive care - Pt is refusing further GI workup with endoscopic procedures, including EUS, referral to tertiary. He is refusing surgical interventions. GI will sign off , please reconsult as needed - Pt seen and examined by Dr. Bryant and myself and this note is written on his behalf Christine Segovia Dec 29, 2016 10:36
[2016-12-29 12:31] VITALS: BP 144/67; PULSE 57; RESP 18; TEMP 98; O2SAT 100
== END 2016-12-29 15:06 | disposition home health service (06) ==
LOC: NEPC 14:21 → UNDOADMOB 16:40 → NEDA 16:40 → INTOOBSV 16:40 → NEDA 17:08 → INTOOBSV 17:08 → N05A 18:32 → NEDA 18:32
PROVIDERS: ADMIT Family Medicine; ATTEND Family Medicine
DX: D62 Acute posthemorrhagic anemia (principal); K92.2 Gastrointestinal hemorrhage, unspecified; M19.90 Unspecified osteoarthritis, unspecified site; F41.9 Anxiety disorder, unspecified; E78.00 Pure hypercholesterolemia, unspecified; I50.9 Heart failure, unspecified; I13.0 Hypertensive heart and chronic kidney disease with heart failure and stage 1 through stage 4 chronic kidney disease, or unspecified chronic kidney disease; K21.9 Gastro-esophageal reflux disease without esophagitis; K44.9 Diaphragmatic hernia without obstruction or gangrene; G47.33 Obstructive sleep apnea (adult) (pediatric); R19.5 Other fecal abnormalities; R53.1 Weakness; K63.9 Disease of intestine, unspecified; N18.3 Chronic kidney disease, stage 3 (moderate); Z85.46 Personal history of malignant neoplasm of prostate; E11.22 Type 2 diabetes mellitus with diabetic chronic kidney disease; E03.9 Hypothyroidism, unspecified; I25.10 Atherosclerotic heart disease of native coronary artery without angina pectoris; K31.7 Polyp of stomach and duodenum; Z95.5 Presence of coronary angioplasty implant and graft; R06.09 Other forms of dyspnea; R06.02 Shortness of breath; R74.8 Abnormal levels of other serum enzymes
CPT/HCPCS: 36430; 80048; 82948; 85025; 85610; 85730; 86850; 86900; 86901; 86920; 96374; 97162; 99285; C9113; G0378; G8987; G8988; J7050; P9016

== ENCOUNTER 2017-04-10 02:21 | Observation (INO) | payer MEDICARE ==
[2017-04-10] VITALS (10 sets, daily range): BP systolic 130–187; BP diastolic 62–78; PULSE 50–61; RESP 16–20; TEMP 97.6–99.4; O2SAT 98–100
[~2017-04-10] VITALS: Ht 177.8 cm; Wt 118.0 kg
[~2017-04-10 02:21] MED LIST changes: +CELE1CAP8 PO; +DIPH2.5T14 PO; -ERGO1CAP30 PO; +FURO40TA PO; +GLIM4TAB PO; +HYDR-3516 PO; -HYDR-3533 PO; +VITA500012 PO
[2017-04-10] MEDS ORDERED: SODIUM CHLORIDE 0.9% FLUSH 10 ML FLUSH IVF PRN (02:30)
[2017-04-10 02:54] LABS: AUTOMATED NEUTROPHIL # 4.2 TH/MM3 (1.8-7.7); BASOPHIL % 0.5 % (0.0-2.0); EOSINOPHIL # 0.1 TH/MM3 (0-0.4); EOSINOPHIL % 2.4 % (0.0-4.0); HEMATOCRIT 25.1 % (39.0-51.0); HEMOGLOBIN 8.3 GM/DL (13.0-17.0); LYMPH % 16.1 % (9.0-44.0); LYMPHOCYTE # 0.9 TH/MM3 (1.0-4.8); MEAN CELL VOLUME 87.2 FL (80.0-100.0); MEAN CORPUSCULAR HEMOGLOBIN 28.8 PG (27.0-34.0); MEAN CORPUSCULAR HGB CONC 33.1 % (32.0-36.0); MEAN PLATELET VOLUME 7.4 FL (7.0-11.0); MONO % 9.4 % (0.0-8.0); MONOCYTE # 0.6 TH/MM3 (0-0.9); NEUT % 71.6 % (16.0-70.0); PLATELET COUNT 310 TH/MM3 (150-450); RED BLOOD COUNT 2.88 MIL/MM3 (4.50-5.90); RED CELL DISTRIBUTION WIDTH 15.8 % (11.6-17.2); WHITE BLOOD COUNT 5.9 TH/MM3 (4.0-11.0)
[2017-04-10 03:00] LABS: INTERNATIONAL NORMALIZED RATIO 1.1 RATIO; PROTHROMBIN TIME - PATIENT 10.7 SEC (9.8-11.6)
[2017-04-10 03:04] LABS: ALKALINE PHOSPHATASE 60 U/L (45-117); TOTAL BILIRUBIN ADULT 0.2 MG/DL (0.2-1.0); TOTAL PROTEIN 7.1 GM/DL (6.4-8.2)
[2017-04-10 03:06] LABS: ALBUMIN 2.8 GM/DL (3.4-5.0); ALT (GPT) 6 U/L (12-78); AST (GOT) 15 U/L (15-37); BICARBONATE 24.6 MEQ/L (21.0-32.0); BLOOD UREA NITROGEN 24 MG/DL (7-18); CALCIUM 10.1 MG/DL (8.5-10.1); CHLORIDE 110 MEQ/L (98-107); CREATININE 1.73 MG/DL (0.60-1.30); GLOMERULAR FILTRATION RATE 46 ML/MIN (>89); GLUCOSE,RANDOM 96 MG/DL (74-106); SODIUM (NA) 141 MEQ/L (136-145)
[2017-04-10] MEDS ORDERED: PEG (High)/E-LYTE SOLN 4000 ML BTL PO ONE (04:15)
[2017-04-10] MEDS ORDERED: PANTOPRAZOLE INJ 80 MG in SODIUM CHLORIDE 0.9% INJ 100 ML IV SCH (04:15)
[2017-04-10] MEDS ORDERED: PANTOPRAZOLE SODIUM 40 MG VIAL IV PUSH ONE (04:15)
[2017-04-10 04:28] LABS: BACTERIA, URINE RARE /hpf; BILIRUBIN, URINE NEG (NEG); BLOOD, URINE NEG (NEG); GLUCOSE,URINE NEG (NEG); HYALINE CAST, URINE 1 /lpf (RARE); KETONE, URINE NEG (NEG); MUCUS URINE FEW /lpf (OCC); NITRITE,URINE NEG (NEG); PH, URINE 5.5 (5.0-8.5); SQUAMOUS EPITHELIAL CELL URINE <1 /hpf (0-5); URINE COLOR YELLOW (YELLW/STRAW); URINE LEUKOCYTE ESTERASE NEG (NEG)
--- NOTE | 2017-04-10 04:39 | PD ---
HPI . GI complaint Chief Complaint: GI Complaint Time Seen by Provider: 02:30 Travel History International Travel<30 days: No Contact w/Intl Traveler<30days: No Traveled to known affect area: No History of Present Illness HPI 81-year-old male with history of chronic gastritis and chronic anemia requiring transfusions every several months, presents after taking MiraLAX with having coffee-ground stool that progressed to arie dark tarry and dark red material. Patient states he has never had arie blood per rectum. Patient also notes slight abdominal discomfort earlier but none now. Denies fevers chills sweats, nausea vomiting. Denies chest pain or shortness of breath. Somewhat limited historian PFS Past Medical History Narrative Medical Extensive past medical history reviewed Arthritis: Yes Asthma: No Autoimmune Disease: No Blood Disorders: No Anxiety: Yes Depression: No Heart Rhythm Problems: No Cancer: Yes (PROSTATE) Cardiovascular Problems: Yes High Cholesterol: Yes Chest Pain: Yes Congestive Heart Failure: Yes COPD: No Cerebrovascular Accident: No Diabetes: Yes Patient Takes Glucophage: Yes (04-09-) Diminished Hearing: No Endocrine: Yes Gastrointestinal Disorders: Yes GERD: Yes Glaucoma: No Genitourinary: Yes Headaches: No Hepatitis: No Hiatal Hernia: Yes (GERD) Hypertension: Yes Immune Disorder: No Implanted Vascular Access Dvce: Yes Kidney Stones: No Medical other: Yes (ANEMIA) Musculoskeletal: Yes Neurologic: Yes Psychiatric: Yes Reproductive: No Respiratory: Yes Immunizations Current: Yes Myocardial Infarction: No Renal Failure: No Seizures: No Sickle Cell Disease: No Sleep Apnea: Yes (does not wear cpap) Thyroid Disease: Yes Ulcer: No Past Surgical History Abdominal Surgery: Yes (APPENDECTOMY,EGD,COLONOSCOPY) AICD: No Appendectomy: Yes Body Medical Devices: CARDIAC STENTS Cardiac Surgery: Yes (cardiac stent placement) Coronary Stent: Yes (X2) Ear Surgery: No Endocrine Surgery: No Eye Surgery: No Genitourinary Surgery: Yes (prostatectomy, ESWL) Gynecologic Surgery: Yes Insulin Pump: No Neurologic Surgery: No Oral Surgery: No Pacemaker: No Thoracic Surgery: No Other Surgery: Yes (THYROIDECTOMY 09/01/10, prostate) Social History Alcohol Use: Yes (2 DRINKS/WEEK) Tobacco Use: No Substance Use: No Allergies-Medications (Allergen,Severity, Reaction): Coded Allergies: calcium (Verified Allergy, Severe, 03/12/17) rash calcium carbonate (Verified Allergy, Severe, 03/12/17) rash shellfish derived (Verified Allergy, Severe, 03/12/17) rash tetanus toxoid, adsorbed (Verified Allergy, Severe, 03/12/17) rash Reported Meds & Prescriptions Reported Meds & Active Scripts Active Ferrous Sulfate DR (Ferrous Sulfate) 324 Mg Tabdr 324 Mg PO BIDPC Miralax Powder (Polyethylene Glycol 3350 Powder) 17 Gm Powd 17 Gm PO DAILY Mix and dissolve one measuring cap-ful (17 grams) in water or juice. Hold if having loose stools. Glipizide 5 Mg Tab 5 Mg PO TIDAC Take 30 minutes before a meal Protonix (Pantoprazole Sodium) 40 Mg Tab 40 Mg PO BIDAC Reported Hydrocodone-Acetaminophen 5-325 mg Tab 1 Tab PO Q4H PRN Gabapentin 300 Mg Cap 300 Mg PO BID Ergocalciferol 50,000 Unit Cap 50,000 Units PO Q7D Ranitidine (Ranitidine HCl) 150 Mg Cap 150 Mg PO BID Carafate Liq (Sucralfate) 1 Gm/10 Ml Susp 1 Gm PO QID on empty stomach Rosuvastatin (Rosuvastatin Calcium) 20 Mg Tab 20 Mg PO HS Spironolactone 25 Mg Tab 25 Mg PO BIDPC Bumetanide 1 Mg Tab 1 Mg PO DAILY Levothyroxine (Levothyroxine Sodium) 150 Mcg Tab 150 Mcg PO DAILY Carvedilol 25 Mg Tab 25 Mg PO BID Doxazosin (Doxazosin Mesylate) 1 Mg Tab 1 Mg PO HS Narrative Medication Allergies and medications reviewed Review of Systems Except as stated in HPI: all other systems reviewed are Neg General / Constitutional: No: Fever Eyes: No: Visual changes HENT: No: Headaches Cardiovascular: No: Chest Pain or Discomfort Respiratory: No: Shortness of Breath Gastrointestinal: Positive: Hematochezia, No: Nausea, Vomiting, Diarrhea, Abdominal Pain, Hematemesis Genitourinary: No: Dysuria Musculoskeletal: No: Pain Skin: No Rash Neurologic: No: Weakness Psychiatric: No: Depression Endocrine: No: Polydipsia Hematologic/Lymphatic: No: Easy Bruising Physical Exam Narrative GENERAL: Awake and alert in no acute distress SKIN: Warm and dry. Color is normal no diaphoresis cyanosis or pallor HEAD: Atraumatic. Normocephalic. EYES: Pupils equal and round. No scleral icterus. No injection or drainage. ENT: No nasal bleeding or discharge. Mucous membranes pink and moist. NECK: Trachea midline. No JVD. Supple full range of motion CARDIOVASCULAR: Regular rate and rhythm. S1-S2 no murmurs or gallops RESPIRATORY: No accessory muscle use. Clear to auscultation. Breath sounds equal bilaterally. GASTROINTESTINAL: Abdomen soft, non-tender, nondistended. Hepatic and splenic margins not palpable. Guaiac positive stool, dark maroon to black MUSCULOSKELETAL: Extremities without clubbing, cyanosis, or edema. No obvious deformities. NEUROLOGICAL: Awake and alert. No obvious cranial nerve deficits. Motor grossly within normal limits. Five out of 5 muscle strength in the arms and legs. Normal speech. PSYCHIATRIC: Appropriate mood and affect; insight and judgment normal. Data Data Last Documented VS Vital Signs Date Time Temp Pulse Resp B/P (MAP) Pulse Ox O2 Delivery O2 Flow Rate FiO2 04/10/17 03:31 99.4 04/10/17 02:48 61 16 99 Room Air Orders Orders Complete Blood Count With Diff (04/10/17 02:30) Comprehensive Metabolic Panel (04/10/17 02:30) Lipase (04/10/17 02:30) Prothrombin Time / Inr (Pt) (04/10/17 02:30) Act Partial Throm Time (Ptt) (04/10/17 02:30) Urinalysis - C+S If Indicated (04/10/17 02:30) Ecg Monitoring (04/10/17 02:30) Iv Access Insert/Monitor (04/10/17 02:30) Oximetry (04/10/17 02:30) Sodium Chloride 0.9% Flush (Ns Flush) (04/10/17 02:30) Occult Blood (Hemoccult) Stool (04/10/17 02:43) Type And Screen (04/10/17 03:18) Pantoprazole Inj (Protonix Inj) (04/10/17 04:15) Pantoprazole Inj (Protonix Inj) (04/10/17 04:15) Consult Gastroenterology (04/10/17 ) Admit Order (Ed Use Only) (04/10/17 04:13) Peg (High)/E-Lyte Liq (Colyte Liq) (04/10/17 04:15) Labs Laboratory Tests Test 04/10/17 02:34 2/6/18 04:00 White Blood Count 5.9 TH/MM3 Red Blood Count 2.88 MIL/MM3 Hemoglobin 8.3 GM/DL Hematocrit 25.1 % Mean Corpuscular Volume 87.2 FL Mean Corpuscular Hemoglobin 28.8 PG Mean Corpuscular Hemoglobin Concent 33.1 % Red Cell Distribution Width 15.8 % Platelet Count 310 TH/MM3 Mean Platelet Volume 7.4 FL Neutrophils (%) (Auto) 71.6 % Lymphocytes (%) (Auto) 16.1 % Monocytes (%) (Auto) 9.4 % Eosinophils (%) (Auto) 2.4 % Basophils (%) (Auto) 0.5 % Neutrophils # (Auto) 4.2 TH/MM3 Lymphocytes # (Auto) 0.9 TH/MM3 Monocytes # (Auto) 0.6 TH/MM3 Eosinophils # (Auto) 0.1 TH/MM3 Basophils # (Auto) 0.0 TH/MM3 CBC Comment DIFF FINAL Differential Comment Prothrombin Time 10.7 SEC Prothromb Time International Ratio 1.1 RATIO Activated Partial Thromboplast Time 25.0 SEC Blood Urea Nitrogen 24 MG/DL Creatinine 1.73 MG/DL Random Glucose 96 MG/DL Total Protein 7.1 GM/DL Albumin 2.8 GM/DL Calcium Level 10.1 MG/DL Alkaline Phosphatase 60 U/L Aspartate Amino Transf (AST/SGOT) 15 U/L Alanine Aminotransferase (ALT/SGPT) 6 U/L Total Bilirubin 0.2 MG/DL Sodium Level 141 MEQ/L Potassium Level 4.4 MEQ/L Chloride Level 110 MEQ/L Carbon Dioxide Level 24.6 MEQ/L Anion Gap 6 MEQ/L Estimat Glomerular Filtration Rate 46 ML/MIN Lipase 159 U/L Urine Color YELLOW Urine Turbidity CLEAR Urine pH 5.5 Urine Specific [place] 1.014 Urine Protein TRACE mg/dL Urine Glucose (UA) NEG mg/dL Urine Ketones NEG mg/dL Urine Occult Blood NEG Urine Nitrite NEG Urine Bilirubin NEG Urine Urobilinogen LESS THAN 2.0 MG/DL Urine Leukocyte Esterase NEG Urine RBC LESS THAN 1 /hpf Urine WBC 1 /hpf Urine Squamous Epithelial Cells <1 /hpf Urine Bacteria RARE /hpf Urine Hyaline Casts 1 /lpf Urine Mucus FEW /lpf Microscopic Urinalysis Comment CULT NOT INDICATED MDM Medical Decision Making Medical Screen Exam Complete: Yes Emergency Medical Condition: Yes Medical Record Reviewed: Yes Differential Diagnosis Upper GI bleed, gastritis, ulcer, lower GI bleed Narrative Course Patient laboratory examinations reviewed, patient is anemic with history of chronic anemia. Stool is guaiac positive for heme Case discussed with Dr. Rodriguez, admitted for observation. Gastroenterology consult discussed. Bowel prep discussed for anticipated gastroenterology evaluation and possible upper and lower endoscopy Diagnosis Primary Impression: GI bleed Qualified Codes: K92.2 - Gastrointestinal hemorrhage, unspecified Admitting Information Admitting Physician Requests: Observation Humberto Torrez MD Apr 10, 2017 04:38
[2017-04-10] MEDS ORDERED: BISACODYL 10 MG SUPP RECTAL PRN (07:15)
[2017-04-10] MEDS ORDERED: LACTULOSE SYRUP 20 GM/30 ML CUP PO PRN (07:15)
[2017-04-10] MEDS ORDERED: SENNOSIDES 8.6 MG TAB PO PRN (07:15)
[2017-04-10] MEDS ORDERED: ACETAMINOPHEN 325 MG TAB PO PRN (07:15)
[2017-04-10] MEDS ORDERED: SODIUM CHLORIDE 0.9% FLUSH 10 ML FLUSH IV FLUSH PRN (07:15)
[2017-04-10] MEDS ORDERED: hydrALAZINE HCL 20 MG/ML VIAL IV PUSH PRN (07:15)
[2017-04-10] MEDS ORDERED: MAGNESIUM HYDROXIDE SUSP 30 ML CUP PO PRN (07:15)
[2017-04-10] MEDS ORDERED: ONDANSETRON HCL 4 MG/2 ML VIAL IVP PRN (07:15)
[2017-04-10] MEDS ORDERED: cloNIDine HCL 0.1 MG TAB PO PRN (07:15)
[2017-04-10] MEDS ORDERED: NALOXONE HCL 0.4 MG/ML AMP IV PUSH PRN (07:15)
[2017-04-10] MEDS ORDERED: ZOLPIDEM TARTRATE 5 MG TAB PO PRN (07:15)
[2017-04-10] MEDS: GABAPENTIN 300 MG CAP PO SCH ×2 (08:16→20:36)
[2017-04-10] MEDS: FUROSEMIDE 40 MG/4 ML VIAL IV PUSH SCH ×2 (08:16→17:24)
[2017-04-10] MEDS: SODIUM CHLORIDE 0.9% FLUSH 10 ML FLUSH IV FLUSH SCH ×2 (08:17→20:37)
[2017-04-10] MEDS: CARVEDILOL 12.5 MG TAB PO SCH ×2 (08:17→20:37)
[2017-04-10] MEDS ORDERED: GLUCAGON 1 MG/ML VIAL OTHER PRN (09:00)
[2017-04-10] MEDS ORDERED: DEXTROSE 50% IN WATER 50 ML VIAL(D50) IV PUSH PRN (09:00)
[2017-04-10] MEDS ORDERED: BUMETANIDE 1 MG TAB PO SCH (09:00)
[2017-04-10] MEDS: DOCUSATE SODIUM 50 MG/SENNA 8.6 MG TAB PO SCH ×2 (09:33→20:37)
[2017-04-10] MEDS: LEVOTHYROXINE SODIUM 150 MCG TAB PO SCH (09:33)
[2017-04-10] MEDS: DEXT 5%-NACL 0.45% 1000 ML INJ 1,000 ML IV SCH (09:33)
[2017-04-10] MEDS: SPIRONOLACTONE 25 MG TAB PO SCH ×2 (09:33→17:24)
--- NOTE | 2017-04-10 09:50 | MH ---
cc: GARRY NEWBERRY MD DATE OF ADMISSION 04/10/2017 CHIEF COMPLAINT Rectal bleeding HISTORY OF PRESENT ILLNESS Js Be is an 81-year-old -Maldivian male with an ongoing history of recurrent gastritis with outpatient transfusions. The patient comes into my office about every two months or so and will typically find his hemoglobin dropping down to about 7 after one to two months and then I set him up for outpatient transfusions as the cycle goes. I have been setting him up for cataract surgery and in two weeks we were going to transfuse him and then have his complex cataract surgery performed. Unfortunately, he notes that about yesterday he had a large rectal bleed. He states it was very dark. He has never noted blood in his stool. He was feeling weak and ended up presenting to the emergency room and I was thus called for admission. PAST MEDICAL HISTORY 1. Diabetes 2. Gastritis with recurrent GI bleed 3. Intestinal mass 4. Hypertension 5. Edema 6. Chronic kidney disease stage III FAMILY HISTORY Father with coronary artery disease, otherwise he states his family was pretty healthy. SOCIAL HISTORY No alcohol, tobacco or illicit drug usage. He lives at home and has care from his daughter and son and son and son-in-law. PAST SURGICAL HISTORY Recurrent EGD's and colonoscopies. MEDICATIONS 1. Iron 2. MiraLax 3. Glipizide 4. Protonix 5. [place] 5 mg 6. Gabapentin 7. Vitamin D weekly 8. Ranitidine 9. Carafate 10. Rosuvastatin 11. Spironolactone 12. Bumex 13. Levofloxacin 14. Carvedilol 15. Doxazosin REVIEW OF SYSTEMS Large rectal bleed and very dark stools. He notes increased weakness and ongoing edema. Negative 14-point review of systems otherwise. He has not been short of breath or had much coughing, but notes ongoing troublesome edema. ALLERGIES CALCIUM, SHELLFISH AND TETANUS. PHYSICAL EXAM VITAL SIGNS: Temperature 99.4, pulse 61, respirations 18, O2 is 99% on room air, blood pressure is 130/78. GENERAL: He is an alert -Maldivian male. He is very weak. He is able to sit up at the bedside with assistance. HEENT: Oropharynx is clear. NECK: No JVD. CHEST: Clear. No wheezes, rales, crackles or coughing. CARDIOVASCULAR: Regular rate and rhythm. No murmurs, rubs, clicks or gallops. ABDOMEN: Soft, nontender. EXTREMITIES: 3+ edema to the legs. Skin is clear. NEUROLOGIC: Cranial nerves are intact. Strength is 4/5 in all extremities. ASSESSMENT 1. Upper GI bleed likely due to gastritis. 2. Blood loss anemia 3. Diabetes 4. Chronic kidney disease stage III 5. Hypothyroidism 6. Chronic edema 7. Hypertension PLAN 1. IV Protonix drip 2. N.p.o. 3. Consult gastroenterology 4. Hold on transfusion for now. 5. Lasix 40 IV b.i.d. and hold the Bumex. 6. D5 half-normal IV fluids with monitoring for fluid overload. 7. Sliding scale insulin. 8. Check a.m. labs. 9. As needed [place] 10. Resume antihypertensives 11. Observation admission and will likely discharge tomorrow. Garry Newberry MD RP/ROSE /8:48 AM /9:31 AM
[2017-04-10] MEDS: ACETAMINOPHEN/HYDROcodone 325 MG/5 MG TAB PO PRN (10:24)
--- NOTE | 2017-04-10 10:44 | PD.CONS ---
HPI History of Present Illness This is a 81 year old male with hx GIB, JENNIFER, duodenal polypoid mass, CKD who presented with rectal bleeding and melena. pt was constipated, took miralax and then had a loose black stool and subsequentl dark red stool with clots. He denies abd pain, prior hx GIB, blood thinners, n/v. he admits 50lbs weight lost last year after losing his . he gets regular blood transfusion. He had an EGD 09/2016 found polpoid mass/pedunculated in duodenum wit some pinkish material poss bleeding slowly over time, 2 clips applied, gastritis, hiatal hernia. Path small bowel mucosa. CT at that time showed liver lesions, metastatic dz is a consideration. he was to have a capsule endoscopy, poss EUS , referral to tertiary center but refused further work up that that time b/c he was feeling overwhelmed. he had colonoscopy 03/2016 found polyps, diverticulosis. Admits chronic constipation, BM every 3-4 days. (Bianca Schulz) PFSH Past Medical History DM HTN CKD GIB duodenal polypoid mass liver lesiosn JENNIFER prostate ca Past Surgical History Cardiac catheterization Multiple EGD Colonoscopy Appendectomy Circumcision Thyroid surgery Prostate surgery (Bianca Schulz) Coded Allergies: calcium (Verified Allergy, Severe, 03/12/17) rash calcium carbonate (Verified Allergy, Severe, 03/12/17) rash shellfish derived (Verified Allergy, Severe, 03/12/17) rash tetanus toxoid, adsorbed (Verified Allergy, Severe, 03/12/17) rash Family History lymphoma - brother Social History occasional ETOH no tobacco or illicit drug use (Bianca Schulz) Review of Systems Constitutional: DENIES: Fever Eyes: DENIES: Blurred vision Ears, nose, mouth, throat: DENIES: Hearing loss Respiratory: DENIES: Cough Cardiovascular: DENIES: Chest pain Gastrointestinal: COMPLAINS OF: Black stools, Bloody stools, Constipation, Diarrhea, DENIES: Abdominal pain, Nausea, Vomiting, Hematemesis Genitourinary: DENIES: Urgency Musculoskeletal: DENIES: Joint Swelling Integumentary: DENIES: Abnormal pigmentation Hematologic/lymphatic: DENIES: Bruising Immunologic/allergic: DENIES: Eczema Neurologic: DENIES: Headache Psychiatric: DENIES: Confusion (Bianca Schulz) GI Exam Vitals I&O Vital Signs Date Time Temp Pulse Resp B/P (MAP) Pulse Ox O2 Delivery O2 Flow Rate FiO2 04/10/17 09:18 98.3 61 20 149/65 (93) 98 04/10/17 09:12 04/10/17 07:37 98.1 61 17 187/78 (114) 98 Room Air 04/10/17 03:31 99.4 04/10/17 02:48 61 16 157/71 (99) 99 Room Air 04/10/17 02:29 98.6 Laboratory Test 04/10/17 02:34 04/10/17 04:00 White Blood Count 5.9 TH/MM3 Red Blood Count 2.88 MIL/MM3 Hemoglobin 8.3 GM/DL Hematocrit 25.1 % Mean Corpuscular Volume 87.2 FL Mean Corpuscular Hemoglobin 28.8 PG Mean Corpuscular Hemoglobin Concent 33.1 % Red Cell Distribution Width 15.8 % Platelet Count 310 TH/MM3 Mean Platelet Volume 7.4 FL Neutrophils (%) (Auto) 71.6 % Lymphocytes (%) (Auto) 16.1 % Monocytes (%) (Auto) 9.4 % Eosinophils (%) (Auto) 2.4 % Basophils (%) (Auto) 0.5 % Neutrophils # (Auto) 4.2 TH/MM3 Lymphocytes # (Auto) 0.9 TH/MM3 Monocytes # (Auto) 0.6 TH/MM3 Eosinophils # (Auto) 0.1 TH/MM3 Basophils # (Auto) 0.0 TH/MM3 CBC Comment DIFF FINAL Differential Comment Prothrombin Time 10.7 SEC Prothromb Time International Ratio 1.1 RATIO Activated Partial Thromboplast Time 25.0 SEC Blood Urea Nitrogen 24 MG/DL Creatinine 1.73 MG/DL Random Glucose 96 MG/DL Total Protein 7.1 GM/DL Albumin 2.8 GM/DL Calcium Level 10.1 MG/DL Alkaline Phosphatase 60 U/L Aspartate Amino Transf (AST/SGOT) 15 U/L Alanine Aminotransferase (ALT/SGPT) 6 U/L Total Bilirubin 0.2 MG/DL Sodium Level 141 MEQ/L Potassium Level 4.4 MEQ/L Chloride Level 110 MEQ/L Carbon Dioxide Level 24.6 MEQ/L Anion Gap 6 MEQ/L Estimat Glomerular Filtration Rate 46 ML/MIN Lipase 159 U/L Urine Color YELLOW Urine Turbidity CLEAR Urine pH 5.5 Urine Specific [place] 1.014 Urine Protein TRACE mg/dL Urine Glucose (UA) NEG mg/dL Urine Ketones NEG mg/dL Urine Occult Blood NEG Urine Nitrite NEG Urine Bilirubin NEG Urine Urobilinogen LESS THAN 2.0 MG/DL Urine Leukocyte Esterase NEG Urine RBC LESS THAN 1 /hpf Urine WBC 1 /hpf Urine Squamous Epithelial Cells <1 /hpf Urine Bacteria RARE /hpf Urine Hyaline Casts 1 /lpf Urine Mucus FEW /lpf Microscopic Urinalysis Comment CULT NOT INDICATED Physical Examination HEENT: PERRL; normocephalic; atraumatic; no jaundice. CHEST: diminished CARDIAC: RRR ABDOMEN: Soft, protuberatn, nontender; no hepatosplenomegaly; bowel sounds are present in all four quadrants. EXTREMITIES: No clubbing, cyanosis, + pitting edema BLE SKIN: Normal; no rash; no jaundice. PROGRESS WORKER: No focal deficits; alert and oriented times three. (Bianca Schulz) Assessment and Plan Plan ASSESSMENT - anemia - hgb 8.3 on admission. normocytic likely multifactorial, d/t GIB and chronic dz. he is not far from his baselinw which is hgb 8-9 - melena, hematochezia - unclear source could be polypoid mass oozing or diverticular bleed. colonoscopy 03/2016 found polyps, diverticulosis. EGD 09/2016 found polpoid mass/pedunculated in duodenum wit some pinkish material poss bleeding slowly over time, 2 clips applied, gastritis, hiatal hernia. Path small bowel mucosa. he cites feeling overwhelmed when we evaluated him december 2016 and is now agreeable to proceed with endoscopy - chronic constipation - he is currently drinking GoLYtely PLAN - EGD vs EUS and colonoscopy in am - obtain consent - clear liquid diet - NPO after midnight - continue GoLytely - monitor labs - transfuse as needed - further recs to follow pt seen by myself and Dr Pereira and this ntoe is written on her behalf (Bianca Schulz) Physician Comments seen, examined agree with above transfuse 1 unit of prbc (Ira Pereira MD) Bianca Schulz Apr 10, 2017 10:44 Ira Pereira MD Apr 10, 2017 21:21
[2017-04-10] MEDS: INSULIN ASPART SUPPLEMENTAL SCALE SQ SCH ×3 (12:32→20:37)
[2017-04-10] MEDS: PANTOPRAZOLE INJ 80 MG in SODIUM CHLORIDE 0.9% INJ 100 ML IV SCH (14:54)
[2017-04-10] MEDS ORDERED: METOPROLOL TARTRATE 25 MG TAB PO PRN (15:00)
[2017-04-10] MEDS ORDERED: POVIDONE IODINE 5% (ANTISEPSIS KIT) 4 APPLICATIONS EACH NARE PRN (15:00)
[2017-04-10] MEDS ORDERED: SODIUM CHLORID 0.9% 500 ML IV PRN (15:00)
[2017-04-10] MEDS ORDERED: LACTATED RINGER'S 1000 ML IV PRN (15:00)
[2017-04-10] MEDS ORDERED: CHLORHEXIDINE GLUCONATE 2 % 1 PACK (2 CLOTHS) TOPICAL PRN (15:00)
[2017-04-10] MEDS: DOXAZOSIN MESYLATE 1 MG TAB PO SCH (20:36)
[2017-04-11] VITALS (8 sets, daily range): BP systolic 138–171; BP diastolic 67–74; PULSE 52–62; RESP 16–18; TEMP 97.7–98.8; O2SAT 95–100
[2017-04-11] MEDS: ACETAMINOPHEN/HYDROcodone 325 MG/5 MG TAB PO PRN (01:47)
[2017-04-11] MEDS: LEVOTHYROXINE SODIUM 150 MCG TAB PO SCH (05:05)
[2017-04-11] MEDS: PANTOPRAZOLE INJ 80 MG in SODIUM CHLORIDE 0.9% INJ 100 ML IV SCH ×4 (07:16→12:10)
[2017-04-11] MEDS: DEXT 5%-NACL 0.45% 1000 ML INJ 1,000 ML IV SCH (08:00)
[2017-04-11] MEDS: SODIUM CHLORIDE 0.9% FLUSH 10 ML FLUSH IV FLUSH SCH ×2 (08:00→21:00)
[2017-04-11] MEDS: INSULIN ASPART SUPPLEMENTAL SCALE SQ SCH ×5 (08:00→21:00)
[2017-04-11 08:30] LABS: AUTOMATED NEUTROPHIL # 4.6 TH/MM3 (1.8-7.7); BASOPHIL % 0.7 % (0.0-2.0); EOSINOPHIL # 0.1 TH/MM3 (0-0.4); EOSINOPHIL % 1.5 % (0.0-4.0); HEMATOCRIT 26.1 % (39.0-51.0); HEMOGLOBIN 8.7 GM/DL (13.0-17.0); LYMPH % 12.5 % (9.0-44.0); LYMPHOCYTE # 0.7 TH/MM3 (1.0-4.8); MEAN CELL VOLUME 86.5 FL (80.0-100.0); MEAN CORPUSCULAR HEMOGLOBIN 28.8 PG (27.0-34.0); MEAN CORPUSCULAR HGB CONC 33.3 % (32.0-36.0); MEAN PLATELET VOLUME 7.4 FL (7.0-11.0); MONO % 8.1 % (0.0-8.0); MONOCYTE # 0.5 TH/MM3 (0-0.9); NEUT % 77.2 % (16.0-70.0); PLATELET COUNT 282 TH/MM3 (150-450); RED BLOOD COUNT 3.02 MIL/MM3 (4.50-5.90); RED CELL DISTRIBUTION WIDTH 16.1 % (11.6-17.2)
[2017-04-11 08:58] LABS: BICARBONATE 31.2 MEQ/L (21.0-32.0); CALCIUM 10.1 MG/DL (8.5-10.1); CREATININE 1.79 MG/DL (0.60-1.30)
[2017-04-11] MEDS: DOCUSATE SODIUM 50 MG/SENNA 8.6 MG TAB PO SCH ×2 (09:00→21:00)
[2017-04-11] MEDS: GABAPENTIN 300 MG CAP PO SCH ×2 (09:00→22:10)
[2017-04-11] MEDS: POLYETHYLENE GLYCOL 17 GM PKG PO SCH (09:00)
[2017-04-11] MEDS ORDERED: PNEUMOCOCCAL POLYVALENT INJ 25 MCG/0.5 ML SYR IM ONE (10:00)
[2017-04-11] MEDS ORDERED: INFLUENZA VIRUS VACCINE (QUADRIVALENT) 0.5 ML SYR IM ONE (10:00)
--- NOTE | 2017-04-11 10:16 | HHI.FPPN ---
Subjective Remarks STABLE C/O BEING HUNGRY REPORTS HE IS SUPPOSED TO BE SCOPED TODAY Objective Vitals Vital Signs Date Time Temp Pulse Resp B/P (MAP) Pulse Ox O2 Delivery O2 Flow Rate FiO2 04/11/17 08:54 98.8 52 18 170/74 (106) 99 04/11/17 07:45 100 21 04/11/17 06:15 21 04/11/17 04:33 98.5 56 16 138/74 (95) 100 04/11/17 01:19 98.5 58 16 159/68 (98) 100 04/10/17 23:20 99.1 50 18 150/67 98 04/10/17 23:03 98.0 52 18 130/62 100 04/10/17 20:00 97.6 58 20 140/65 (90) 100 04/10/17 15:56 97.7 55 20 146/66 (92) 100 04/10/17 12:31 98.0 55 18 141/65 (90) 100 I/O 04/10/17 04/10/17 04/10/17 04/11/17 04/11/17 04/11/17 07:00 15:00 23:00 07:00 15:00 23:00 Intake Total 2300 ml Balance 2300 ml Intake Oral 1680 ml IV Total 200 ml Packed Cells 400 ml Blood Product IV Normal Saline Flush 20 ml # Voids 8 8 # Bowel Movements 3 5 Result Diagram: 04/11/17 0800 04/11/17 0800 Objective Remarks GENERAL: SKIN: Warm and dry. HEAD: Atraumatic. Normocephalic. EYES: Pupils equal and round. No scleral icterus. No injection or drainage. ENT: No nasal bleeding or discharge. Mucous membranes pink and moist. NECK: Trachea midline. No JVD. CARDIOVASCULAR: Regular rate and rhythm. RESPIRATORY: No accessory muscle use. Clear to auscultation. Breath sounds equal bilaterally. GASTROINTESTINAL: Abdomen soft, non-tender, nondistended. Hepatic and splenic margins not palpable. MUSCULOSKELETAL: Extremities without clubbing, cyanosis, or edema. No obvious deformities. NEUROLOGICAL: Awake and alert. No obvious cranial nerve deficits. Motor grossly within normal limits. Five out of 5 muscle strength in the arms and legs. Normal speech. PSYCHIATRIC: Appropriate mood and affect; insight and judgment normal. Medications and IVs Current Medications Medications (Trade) Dose Ordered Sig/Domitila Route Start Time Stop Time Status Last Admin (Coreg) 25 mg BID PO 04/10/17 09:00 04/10/17 20:37 (Cardura) 1 mg HS PO 04/10/17 21:00 04/10/17 20:36 (Neurontin) 300 mg BID PO 04/10/17 09:00 04/10/17 20:36 ([place] 5-325 Mg) 1 tab Q4H PRN PO 04/10/17 07:15 04/11/17 01:47 (Synthroid) 150 mcg DAILY@0600 PO 04/10/17 09:00 04/11/17 05:05 (Miralax) 17 gm DAILY PO 04/11/17 09:00 (Aldactone) 25 mg BIDPC PO 04/10/17 09:00 04/10/17 17:24 (NS Flush) 2 ml UNSCH PRN IV FLUSH 04/10/17 07:15 (NS Flush) 2 ml BID IV FLUSH 04/10/17 09:00 04/10/17 08:17 (Tylenol) 650 mg Q4H PRN PO 04/10/17 07:15 (Zofran Inj) 4 mg Q6H PRN IVP 04/10/17 07:15 (Ambien) 5 mg HS PRN PO 04/10/17 07:15 (Narcan Inj) 0.4 mg UNSCH PRN IV PUSH 04/10/17 07:15 (Carmita-Colace) 1 tab BID PO 04/10/17 09:00 04/10/17 20:37 (Milk Of Magnesia Liq) 30 ml Q12H PRN PO 04/10/17 07:15 (Dulcolax Supp) 10 mg DAILY PRN RECTAL 04/10/17 07:15 (Lactulose Liq) 30 ml DAILY PRN PO 04/10/17 07:15 Dextrose/Sodium Chloride 1,000 ml @ 5 mls/hr Q24H IV 04/10/17 08:00 04/10/17 09:33 (Lasix Inj) 40 mg BID@18 IV PUSH 04/10/17 09:00 04/10/17 17:24 (Apresoline Inj) 20 mg Q4H PRN IV PUSH 04/10/17 07:15 (D50w (Vial) Inj) 50 ml UNSCH PRN IV PUSH 04/10/17 09:00 (Glucagon Inj) 1 mg UNSCH PRN OTHER 04/10/17 09:00 (NovoLOG SUPPLEMENTAL SCALE) 1 ACHS SLIDING SCALE SQ 04/10/17 12:00 Pantoprazole Sodium 80 mg/ Sodium Chloride 100 ml @ 10 mls/hr Q10H IV 04/10/17 14:00 04/11/17 07:16 Lactated Ringer's 1,000 ml @ 30 mls/hr Q24H PRN IV 04/10/17 15:00 04/13/17 14:59 Sodium Chloride 500 ml @ 30 mls/hr [id number] PRN IV 04/10/17 15:00 04/13/17 14:59 (Lopressor) 25 mg AUTOMOTIVE PAINTER HELPER PRN PO 04/10/17 15:00 04/13/17 14:59 (Betadine 5% Antisepsis Kit) 1 applic [employer]OMOTIVE [employer]INTER HELPER PRN EACH NARE 04/10/17 15:00 04/13/17 14:59 (Chlorhexidine 2% Cloth) 3 pack [employer]OM[employer] HELPER PRN TOPICAL 04/10/17 15:00 04/13/17 14:59 A/P Assessment and Plan ASSESSMENT 1. Upper GI bleed likely due to gastritis. 2. Blood loss anemia 3. Diabetes 4. Chronic kidney disease stage III 5. Hypothyroidism 6. Chronic edema 7. Hypertension PLAN 1. IV Protonix drip 2. N.p.o. 3. Consult gastroenterology 4. Hold on transfusion for now. 5. Lasix 40 IV b.i.d. and hold the Bumex. 6. D5 half-normal IV fluids with monitoring for fluid overload. 7. Sliding scale insulin. 8. Check a.m. labs. 9. As needed Garry Conroy MD Apr 11, 2017 10:16
[2017-04-11] MEDS ORDERED: PROPOFOL 200 MG/20 ML AMP IV ONE (12:00)
[2017-04-11] MEDS ORDERED: LIDOCAINE HCL 1% PF 5 ML SYRINGE OTHER ONE (12:00)
[2017-04-11] MEDS ORDERED: STERILE WATER FOR INJECTION 20 ML VIAL IV ONE (12:00)
[2017-04-11] MEDS ORDERED: GLUCAGON 1 MG/ML VIAL IV PUSH ONE (12:10)
--- NOTE | 2017-04-11 12:40 | GIPROC ---
[facility] [address] [facility]. [facility], [address] EGD PROCEDURE REPORT EXAM DATE: 04/11/2017 PATIENT NAME: Js Brown MR #: [id number] BIRTHDATE: 1935 ATTENDING: Ira Pereira MD ORDER #: [id number] CLEANER AND DYER: Pedro Fletcher and Hawa Hensley STATUS: inpatient INDICATIONS: The patient is a 81 yr old male here for an EGD due to anemia gi bleeding PROCEDURE PERFORMED: EGD w/ directed submucosal injection(s), any substance EGD w/ ablation EGD w/ snare technique egd with clips MEDICATIONS: None and Per Anesthesia. TOPICAL ANESTHETIC: none CONSENT: The patient understands the risks and benefits of the procedure and understands that these risks include, but are not limited to: sedation, allergic reaction, infection, perforation and/or bleeding. Alternative means of evaluation and treatment include, among others: physical exam, x-rays, and/or surgical intervention. The patient elects to proceed with this endoscopic procedure. medical equipment was checked for proper function. Hand hygiene and appropriate measures for infection prevention was taken. After the risks, benefits and alternatives of the procedure were thoroughly explained, Informed consent was verified, confirmed and timeout was successfully executed by the treatment team. The patient was anesthetized with topical anesthesia and the EC-[id number] (Pedi C) endoscope was introduced through the mouth and advanced to the second portion of the duodenum. Retroflexed views revealed a hiatal hernia The gastroscope was then slowly withdrawn and removed. Pedunculated duodenla polyp - 2cm-long stalk- 2 clips appied at the base and epinephrine 1:10,000 injected in the stalk before polypectomy polyp removed with ham net postpolypectomy 1 clip appied at the base, base injected with 2 cc of epinephrine 1:10,000 small avm in duodenum -ablation using solar probe. ADVERSE EVENTS: There were no complications. IMPRESSIONS: 1. Pedunculated duodenla polyp - 2cm-long stalk- 2 clips appied at the base and epinephrine 1:10,000 injected in the stalk before polypectomy polyp removed with ham net postpolypectomy 1 clip appied at the base, base injected with 2 cc of epinephrine 1:10,000 small avm in duodenum -ablation using solar probe 2. Retroflexed views revealed a hiatal hernia RECOMMENDATIONS: 1. Await biopsy results. Biopsy results will not be ready for 7-10 days. If you don't hear from us in two weeks, call our office for biopsy results. 2. Anti-reflux regimen 3. Empty("IsEmpty") 4. Continue PPI 5. Avoid NSAIDS 6. No anticoagulation for 2 days unless absolutely necessary if still anemaic consider ent eval too PATIENT CONDITION: stable DISPOSITION: Inpatient REPEAT EXAM: Return 8 weeks EGD Ira Pereira MD eSigned: Ira Pereira MD 04/11/2017 12:40 PM cc: PATIENT NAME: Js Brown MR#: [id number]
--- NOTE | 2017-04-11 12:43 | GIPROC ---
[facility] [address] [facility]. [facility], [address] COLONOSCOPY PROCEDURE REPORT EXAM DATE: 04/11/2017 PATIENT NAME: Js Brown MR #: [id number] BIRTHDATE: 1935 ENDOSCOPIST: Ira Pereira MD ORDER #: [id number] HOME HEALTH MANAGER: Pedro Fletcher Stienbarger, Terrie, and Melyssa Le STATUS: inpatient INDICATIONS: The patient is a 81 yr old male here for a colonoscopy due to anemia, gi bleeding , history of polyps PROCEDURE PERFORMED: Colonoscopy with biopsy MEDICATIONS: None and Per Anesthesia. PREP QUALITY: fair PREP TYPE:Other: ESTIMATED BLOOD LOSS: None CONSENT: The patient understands the risks and benefits of the procedure and understands that these risks include, but are not limited to: sedation, allergic reaction, infection, perforation and/or bleeding. Alternative means of evaluation and treatment include, among others: physical exam, x-rays, and/or surgical intervention. The patient elects to proceed with this endoscopic procedure. medical equipment was checked for proper function. Hand hygiene and appropriate measures for infection prevention was taken. After the risks, benefits and alternatives of the procedure were thoroughly explained, Informed consent was verified, confirmed and timeout was successfully executed by the treatment team. A digital exam revealed external hemorrhoids The Pentax EC-[id number] endoscope was introduced through the anus and advanced to the cecum, which was identified by both the appendix and ileocecal valve. The instrument was then slowly withdrawn as the colon was fully examined. COLON FINDINGS: Diverticulosis sigmoid,descending diminutive polyp in cecum-cold biopsy with complete removal diminutive polyp at hepatic flexure-cold biopsy with removal semisolid stool seen-agressive washing done. Retroflexed views revealed internal hemorrhoids and Retroflexed views revealed small internal hemorrhoids The scope was then completely withdrawn from the patient and the procedure terminated. PROCEDURE WITHDRAWAL TIME:6minutes ADVERSE EVENTS: There were no complications. IMPRESSIONS: 1. Diverticulosis sigmoid,descending diminutive polyp in cecum-cold biopsy with complete removal diminutive polyp at hepatic flexure-cold biopsy with removal semisolid stool seen-agressive washing done 2. Retroflexed views revealed internal hemorrhoids 3. Retroflexed views revealed small internal hemorrhoids 4. Revealed external hemorrhoids RECOMMENDATIONS: 1. Await biopsy results. Biopsy results will not be ready for 7-10 days. If you don't hear from us in two weeks, call our office for results. 2. Benefiber 2 tsp daily 3. Probiotics from any C or health food store 4. Transfuse 1 unit of prbc advance diet RECALL: Return 3 years Colonoscopy Ira Pereira MD eSigned: Ira Pereira MD 04/11/2017 12:43 PM cc: PATIENT NAME: Js Brown MR#: [id number]
[2017-04-11] MEDS: SPIRONOLACTONE 25 MG TAB PO SCH ×2 (16:26→18:00)
[2017-04-11] MEDS: CARVEDILOL 12.5 MG TAB PO SCH ×2 (16:26→22:10)
[2017-04-11] MEDS: FUROSEMIDE 40 MG/4 ML VIAL IV PUSH SCH ×2 (17:53→18:00)
[2017-04-11] MEDS: DOXAZOSIN MESYLATE 1 MG TAB PO SCH (22:10)
[2017-04-12 00:37] VITALS: BP 175/76; PULSE 62; RESP 16; TEMP 98.7; O2SAT 98
[2017-04-12] MEDS: PANTOPRAZOLE INJ 80 MG in SODIUM CHLORIDE 0.9% INJ 100 ML IV SCH ×2 (03:16→06:00)
[2017-04-12 04:59] VITALS: BP 182/74; PULSE 57; RESP 16; TEMP 98.4; O2SAT 99
[2017-04-12] MEDS: ACETAMINOPHEN/HYDROcodone 325 MG/5 MG TAB PO PRN (05:23)
[2017-04-12] MEDS: LEVOTHYROXINE SODIUM 150 MCG TAB PO SCH (05:23)
[2017-04-12 07:49] LABS: BICARBONATE 25.3 MEQ/L (21.0-32.0); CALCIUM 10.2 MG/DL (8.5-10.1); CREATININE 1.83 MG/DL (0.60-1.30)
[2017-04-12 08:01] LABS: AUTOMATED NEUTROPHIL # 8.1 TH/MM3 (1.8-7.7); BASOPHIL # 0.1 TH/MM3 (0-0.2); BASOPHIL % 0.6 % (0.0-2.0); EOSINOPHIL # 0.1 TH/MM3 (0-0.4); EOSINOPHIL % 0.8 % (0.0-4.0); HEMOGLOBIN 10.7 GM/DL (13.0-17.0); LYMPH % 8.9 % (9.0-44.0); LYMPHOCYTE # 0.9 TH/MM3 (1.0-4.8); MEAN CELL VOLUME 87.4 FL (80.0-100.0); MEAN CORPUSCULAR HEMOGLOBIN 28.5 PG (27.0-34.0); MEAN CORPUSCULAR HGB CONC 32.6 % (32.0-36.0); MEAN PLATELET VOLUME 8.3 FL (7.0-11.0); MONO % 9.3 % (0.0-8.0); MONOCYTE # 0.9 TH/MM3 (0-0.9); NEUT % 80.4 % (16.0-70.0); PLATELET COUNT 279 TH/MM3 (150-450); RED BLOOD COUNT 3.77 MIL/MM3 (4.50-5.90); RED CELL DISTRIBUTION WIDTH 16.2 % (11.6-17.2); WHITE BLOOD COUNT 10.1 TH/MM3 (4.0-11.0)
[2017-04-12] MEDS: POLYETHYLENE GLYCOL 17 GM PKG PO SCH (09:00)
[2017-04-12] MEDS: DOCUSATE SODIUM 50 MG/SENNA 8.6 MG TAB PO SCH (09:00)
[2017-04-12] MEDS: SODIUM CHLORIDE 0.9% FLUSH 10 ML FLUSH IV FLUSH SCH (09:00)
--- NOTE | 2017-04-12 09:49 | HHI.GIFU ---
Subjective Remarks Pt resting in bed. No further bleeding. No GI complaints. (Bianca Schulz) Objective Vitals I&O Vital Signs Date Time Temp Pulse Resp B/P (MAP) Pulse Ox O2 Delivery O2 Flow Rate FiO2 04/12/17 04:59 98.4 57 16 182/74 (110) 99 04/12/17 00:37 98.7 62 16 175/76 (109) 98 04/11/17 20:56 98.4 62 16 171/73 (105) 98 04/11/17 19:13 98 04/11/17 14:30 98.6 62 18 160/72 95 04/11/17 13:40 97.7 54 18 165/67 95 04/11/17 12:56 97.4 57 18 145/69 (94) 94 04/11/17 12:41 97.4 57 20 150/66 (94) 98 04/11/17 10:55 97.8 82 20 160/72 (101) 99 I/O 04/11/17 04/11/17 04/11/17 04/12/17 04/12/17 04/12/17 07:00 15:00 23:00 07:00 15:00 23:00 Intake Total 2300 ml 705 ml 405 ml Balance 2300 ml 705 ml 405 ml Intake Oral 1680 ml IV Total 200 ml Packed Cells 400 ml 400 ml Blood Product IV Normal Saline Flush 20 ml 5 ml 5 ml Other 700 ml # Voids 8 2 # Bowel Movements 5 Laboratory Laboratory Tests Test 04/12/17 06:20 White Blood Count 10.1 Red Blood Count 3.77 Hemoglobin 10.7 Hematocrit 33.0 Mean Corpuscular Volume 87.4 Mean Corpuscular Hemoglobin 28.5 Mean Corpuscular Hemoglobin Concent 32.6 Red Cell Distribution Width 16.2 Platelet Count 279 Mean Platelet Volume 8.3 Neutrophils (%) (Auto) 80.4 Lymphocytes (%) (Auto) 8.9 Monocytes (%) (Auto) 9.3 Eosinophils (%) (Auto) 0.8 Basophils (%) (Auto) 0.6 Neutrophils # (Auto) 8.1 Lymphocytes # (Auto) 0.9 Monocytes # (Auto) 0.9 Eosinophils # (Auto) 0.1 Basophils # (Auto) 0.1 CBC Comment AUTO DIFF Differential Comment AUTO DIFF CONFIRMED Blood Urea Nitrogen 22 Creatinine 1.83 Random Glucose 82 Calcium Level 10.2 Sodium Level 134 Potassium Level 5.9 Chloride Level 103 Carbon Dioxide Level 25.3 Anion Gap 6 Estimat Glomerular Filtration Rate 43 Physical Exam HEENT: PERRL; normocephalic; atraumatic; no jaundice. CHEST: CTA CARDIAC: RRR ABDOMEN: Soft, protuberant, nontender; no hepatosplenomegaly; bowel sounds are present in all four quadrants. EXTREMITIES: No clubbing, cyanosis, + BLE edema. SKIN: Normal; no rash; no jaundice. TELEPHONE RECORDER: No focal deficits; alert and oriented times three. (Bianca Schulz) Assessment and Plan Plan ASSESSMENT - anemia - hgb 8.3 on admission. normocytic likely multifactorial, d/t GIB and chronic dz. he is not far from his baselinw which is hgb 8-9 - melena, hematochezia - unclear source could be polypoid mass oozing or diverticular bleed. colonoscopy 03/2016 found polyps, diverticulosis. EGD 09/2016 found polpoid mass/pedunculated in duodenum wit some pinkish material poss bleeding slowly over time, 2 clips applied, gastritis, hiatal hernia. Path small bowel mucosa. he cites feeling overwhelmed when we evaluated him december 2016 and is now agreeable to proceed with endoscopy - chronic constipation - he is currently drinking GoLYtely 04/12/17 - s/p EGD 04/11 found pedunculated polyp, small AVM ablated; colonoscopy found diverticulosis, polyps, semi solid stool no further bleeding, HH improved and stable. tolerating diet. bx pending PLAN - await biopsies - ADA diet - monitor labs - transfuse as needed - f/u with GI after d/c pt seen by myself and Dr Pereira and this ntoe is written on her behalf (Bianca Schulz) Physician Comments seen, examined agree with above ok to dc home from gi point capsule endoscopy fu office 2 weeks egd in 8-12 weeks if still anemic and bleeding consider ent consult multiple liver lesions, present on ct chest from 2010 possible cysts may have us liver op (Ira Pereira MD) Bianca Schulz Apr 12, 2017 09:49 Ira Pereira MD Apr 12, 2017 12:48
[2017-04-12] MEDS: INSULIN ASPART SUPPLEMENTAL SCALE SQ SCH (10:02)
[2017-04-12 10:03] VITALS: BP 172/74; PULSE 52; RESP 19; TEMP 98.3; O2SAT 98
[2017-04-12] MEDS: SPIRONOLACTONE 25 MG TAB PO SCH (10:11)
[2017-04-12] MEDS: GABAPENTIN 300 MG CAP PO SCH (10:12)
[2017-04-12] MEDS: FUROSEMIDE 40 MG/4 ML VIAL IV PUSH SCH (10:12)
[2017-04-12] MEDS: CARVEDILOL 12.5 MG TAB PO SCH (10:12)
[2017-04-12] MEDS: DEXT 5%-NACL 0.45% 1000 ML INJ 1,000 ML IV SCH (10:13)
--- NOTE | 2017-04-12 13:25 | HHI.DCPOC ---
Discharge Care Plan Diagnosis: (1) GI bleed (2) Decreased activities of daily living (ADL) (3) Acute kidney injury (4) CKD (chronic kidney disease) stage 3, GFR 30-59 ml/min (5) DM (diabetes mellitus) (6) HTN (hypertension) (7) Lymphedema (8) CHF (congestive heart failure) (9) CAD (coronary artery disease) (10) Generalized weakness Goals to Promote Your Health * To prevent worsening of your condition and complications * To maintain your health at the optimal level Directions to Meet Your Goals Take your medications as prescribed Follow your dietary instruction Follow activity as directed Keep your appointments as scheduled Take your immunizations and boosters as scheduled If your symptoms worsen call your PCP, if no PCP go to Urgent Care Center or Emergency Room Smoking is Dangerous to Your Health. Avoid second hand smoke Call the 24-hour hour crisis hotline for domestic abuse at Garry Rodriguez MD Apr 12, 2017 13:25
--- NOTE | 2017-04-12 13:26 | HHI.DS ---
Discharge Summary Admission Date Apr 10, 2017 at 04:15 Discharge Date: Apr 12, 2017 Admitting Diagnosis GI Bleed (1) Cortical age-related cataract, bilateral ICD Codes: H25.013 - Cortical age-related cataract, bilateral Status: Acute (2) Symptomatic anemia ICD Codes: D64.9 - Anemia, unspecified Status: Acute (3) Exertional dyspnea ICD Codes: R06.09 - Other forms of dyspnea Status: Acute (4) Anemia ICD Codes: D64.9 - Anemia Status: Acute (5) Constipation ICD Codes: K59.00 - Constipation, unspecified Status: Acute (6) Decreased activities of daily living (ADL) ICD Codes: Z78.9 - Other specified health status Status: Acute (7) Acute kidney injury ICD Codes: N17.9 - Acute kidney failure, unspecified Status: Acute (8) CKD (chronic kidney disease) stage 3, GFR 30-59 ml/min ICD Codes: N18.3 - Chronic kidney disease, stage 3 (moderate) Status: Acute (9) DM (diabetes mellitus) ICD Codes: E11.9 - Diabetes mellitus Status: Chronic (10) HTN (hypertension) ICD Codes: I10 - Essential (primary) hypertension Status: Acute (11) Lymphedema ICD Codes: I89.0 - Lymphedema Status: Acute (12) CHF (congestive heart failure) ICD Codes: I50.9 - CHF (congestive heart failure) Status: Chronic (13) CAD (coronary artery disease) ICD Codes: I25.10 - Atherosclerotic heart disease of [place] coronary artery without angina pectoris Status: Acute (14) Generalized weakness ICD Codes: R53.1 - Weakness Status: Acute (15) GI bleed ICD Codes: K92.2 - Gastrointestinal hemorrhage, unspecified Status: Acute (16) constipation Status: Acute (17) Elevated troponin I level ICD Codes: R79.89 - Other specified abnormal findings of blood chemistry Status: Acute (18) Acute renal insufficiency ICD Codes: N28.9 - Disorder of kidney and ureter, unspecified Status: Acute CBC/BMP: 04/12/17 0620 04/12/17 0620 Significant Findings Laboratory Tests Test 04/10/17 02:34 04/10/17 04:00 04/10/17 12:50 04/11/17 08:00 Red Blood Count 2.88 MIL/MM3 (4.50-5.90) 3.02 MIL/MM3 (4.50-5.90) Hemoglobin 8.3 GM/DL (13.0-17.0) 7.5 GM/DL (13.0-17.0) 8.7 GM/DL (13.0-17.0) Hematocrit 25.1 % (39.0-51.0) 26.1 % (39.0-51.0) Neutrophils (%) (Auto) 71.6 % (16.0-70.0) 77.2 % (16.0-70.0) Monocytes (%) (Auto) 9.4 % (0.0-8.0) 8.1 % (0.0-8.0) Lymphocytes # (Auto) 0.9 TH/MM3 (1.0-4.8) 0.7 TH/MM3 (1.0-4.8) Blood Urea Nitrogen 24 MG/DL (7-18) 23 MG/DL (7-18) Creatinine 1.73 MG/DL (0.60-1.30) 1.79 MG/DL (0.60-1.30) Albumin 2.8 GM/DL (3.4-5.0) Alanine Aminotransferase (ALT/SGPT) 6 U/L (12-78) Chloride Level 110 MEQ/L (98-107) Estimat Glomerular Filtration Rate 46 ML/MIN (>89) 44 ML/MIN (>89) Urine Bacteria RARE /hpf (NONE) Urine Mucus FEW /lpf (OCC) Test 04/12/17 06:20 Red Blood Count 3.77 MIL/MM3 (4.50-5.90) Hemoglobin 10.7 GM/DL (13.0-17.0) Hematocrit 33.0 % (39.0-51.0) Neutrophils (%) (Auto) 80.4 % (16.0-70.0) Lymphocytes (%) (Auto) 8.9 % (9.0-44.0) Monocytes (%) (Auto) 9.3 % (0.0-8.0) Neutrophils # (Auto) 8.1 TH/MM3 (1.8-7.7) Lymphocytes # (Auto) 0.9 TH/MM3 (1.0-4.8) Blood Urea Nitrogen 22 MG/DL (7-18) Creatinine 1.83 MG/DL (0.60-1.30) Calcium Level 10.2 MG/DL (8.5-10.1) Sodium Level 134 MEQ/L (136-145) Potassium Level 5.9 MEQ/L (3.5-5.1) Estimat Glomerular Filtration Rate 43 ML/MIN (>89) PE at Discharge GENERAL: SKIN: Warm and dry. HEAD: Atraumatic. Normocephalic. EYES: Pupils equal and round. No scleral icterus. No injection or drainage. ENT: No nasal bleeding or discharge. Mucous membranes pink and moist. NECK: Trachea midline. No JVD. CARDIOVASCULAR: Regular rate and rhythm. RESPIRATORY: No accessory muscle use. Clear to auscultation. Breath sounds equal bilaterally. GASTROINTESTINAL: Abdomen soft, non-tender, nondistended. Hepatic and splenic margins not palpable. MUSCULOSKELETAL: Extremities without clubbing, cyanosis, or edema. No obvious deformities. NEUROLOGICAL: Awake and alert. No obvious cranial nerve deficits. Motor grossly within normal limits. Five out of 5 muscle strength in the arms and legs. Normal speech. PSYCHIATRIC: Appropriate mood and affect; insight and judgment normal. Hospital Course 81 y AAM. ADMIT WITH WEAKNESS, FOUND W SYMPTOMATIC ANEMIA. SEEN BY GI. PT AND DGTR REQ DC. HAD EDG AND C SCOPE W DUOD POLYP, AVM, GASTRITIS, PT TRANSFUSED. PLAN: HOLD SPIRONOLACTONE, SEE DC ORDERS. AGREES TO SEE ME IN MY OFFICE AND DR BALTAZAR. Pt Condition on Discharge: Stable Discharge Disposition: Disch w/ Home Health Serv Discharge Instructions DIET: Follow Instructions for: Diabetic Diet Activities you can perform: Regular-No Restrictions Follow up Referrals: Gastroenterology - 3 Weeks PCP Follow-up - 1 Week Continued Medications: Bumetanide (Bumetanide) 1 Mg Tab 1 MG PO DAILY, #30 TAB 0 Refills Carvedilol (Carvedilol) 25 Mg Tab 25 MG PO BID, #60 TAB 0 Refills Doxazosin (Doxazosin) 1 Mg Tab 1 MG PO HS, #30 TAB 0 Refills Ergocalciferol (Ergocalciferol) 50,000 Unit Cap 49041 UNITS PO Q7D for Nutritional Supplement, #30 CAP [address] (Ferrous Sulfate DR) 324 Mg Tabdr 324 MG PO BIDPC for Nutritional Supplement, #60 TAB 0 Refills Gabapentin (Gabapentin) 300 Mg Cap 300 MG PO BID, #60 CAP 0 Refills Glipizide (Glipizide) 5 Mg Tab 5 MG PO TIDAC for Blood Sugar Management, #180 TAB 11 Refills Take 30 minutes before a meal Hydrocodone-Acetaminophen (Hydrocodone-Acetaminophen) 5-325 mg Tab 1 TAB PO Q4H PRN for PAIN, TAB 0 Refills Levothyroxine (Levothyroxine) 150 Mcg Tab 150 MCG PO DAILY for Thyroid, #30 TAB 0 Refills Pantoprazole (Protonix) 40 Mg Tab 40 MG PO BIDAC for Ulcer Prevention, #180 TAB 11 Refills Polyethylene Glycol 3350 Powder (Miralax Powder) 17 Gm Powd 17 GM PO DAILY for Constipation, #1 CAN 0 Refills Mix and dissolve one measuring cap-ful (17 grams) in water or juice. Hold if having loose stools. Ranitidine (Ranitidine) 150 Mg Cap 150 MG PO BID, #60 CAP 0 Refills Rosuvastatin (Rosuvastatin) 20 Mg Tab 20 MG PO HS for Cholesterol Management, #30 TAB 0 Refills Sucralfate Liq (Carafate Liq) 1 Gm/10 Ml Susp 1 GM PO QID for Duodenal ulcer, #1200 ML 0 Refills on empty stomach Discontinued Medications: Spironolactone (Spironolactone) 25 Mg Tab 25 MG PO BIDPC, #60 TAB 0 Refills Garry Rodriguez MD Apr 12, 2017 13:25
--- NOTE | 2017-04-12 13:27 | HHI.FF ---
Face to Face Verification Diagnosis: (1) Cortical age-related cataract, bilateral (2) Decreased activities of daily living (ADL) (3) Acute kidney injury (4) CKD (chronic kidney disease) stage 3, GFR 30-59 ml/min (5) DM (diabetes mellitus) (6) HTN (hypertension) (7) Lymphedema (8) CHF (congestive heart failure) (9) CAD (coronary artery disease) (10) Generalized weakness (11) GI bleed (12) Anemia (13) Constipation (14) Symptomatic anemia (15) Exertional dyspnea Physical Therapy Order: Evaluate and Treat, Improve ambulation, Strength and gait training Occupational Therapy Order: Evaluate and Treat, Improve ADL, Gross motor coordination, Fine motor coordination Home Health Nursing Order: Medical education Signs/symptoms of disease process Diabetic education CHF education Medication education-adverse effect Wound care and dressing changes Nursing assessment with vital signs Telehealth Home Health Aide Order: To Assist In: Bathing and personal care, coiled tubing supervisor and meal prep Cost Estimator Order: To Evaluate: Living conditions/environment, Support services Order: To Provide: Long range planning, Community services I have seen patient Js Brown on 04/12/17. My clinical findings support the need for the requested home health care services because: Ltd mobility - disease progression Patient has SOB Deconditioned w/ increased weakness Med compliance is questionable Limited ability to care for self Need for psychosocial assistance Impaired cognition/judgement High risk of falls I certify that my clinical findings support that this patient is homebound because: Post-op weakness Impaired cognitive ability/safety Unsteady gait/balance Unsafe to leave home unassisted Need for psychosocial assistance [id number] bed/chair Unable to use public transportation Poor cardiac reserve Garry Rodriguez MD Apr 12, 2017 13:27
== END 2017-04-12 18:31 | disposition home or self-care (01) ==
LOC: NEPC 02:21 → NEDA 04:15 → NEPGCP 08:48
PROVIDERS: ADMIT Family Medicine; ATTEND Family Medicine
DX: D13.2 Benign neoplasm of duodenum (principal); K31.7 Polyp of stomach and duodenum; K57.90 Diverticulosis of intestine, part unspecified, without perforation or abscess without bleeding; K29.70 Gastritis, unspecified, without bleeding; K21.9 Gastro-esophageal reflux disease without esophagitis; I13.0 Hypertensive heart and chronic kidney disease with heart failure and stage 1 through stage 4 chronic kidney disease, or unspecified chronic kidney disease; I50.9 Heart failure, unspecified; N18.3 Chronic kidney disease, stage 3 (moderate); N17.9 Acute kidney failure, unspecified; D50.0 Iron deficiency anemia secondary to blood loss (chronic); I25.10 Atherosclerotic heart disease of native coronary artery without angina pectoris; K76.9 Liver disease, unspecified; E11.22 Type 2 diabetes mellitus with diabetic chronic kidney disease; E03.9 Hypothyroidism, unspecified; G47.30 Sleep apnea, unspecified; I89.0 Lymphedema, not elsewhere classified; Z85.46 Personal history of malignant neoplasm of prostate
CPT/HCPCS: 00813; 36430; 43270; 45380; 80048; 80053; 81001; 82948; 83690; 85018; 85025; 85610; 85730; 86850; 86900; 86901; 86920; 88305; 96361; 96365; 96366; 96375; 96376; 97162; 99285; C9113; G0378; G8987; G8988; J1940; J7120; P9016

== ENCOUNTER → 2017-06-06 | Day surgery (SDC) | payer MEDICARE ==
[~2017-06-06] VITALS: Ht 177.8 cm; Wt 120.5 kg
[~2017-06-06] MED LIST changes: -CELE1CAP8 PO; +CELE200C PO; +CHLORHEXIDINE GLUCONATE 2 % 1 PACK (2 CLOTHS) TOPICAL PRN; +CYCLOPENTOLATE HCL 1% OPHT SOLN 2 ML BTL ONE; +EPINEPHrine HCL PF/SF (1:1000) 1 MG/ML AMP I-OCULAR ONE; +EPINEPHrine-Lidocaine/BSS (PF/SF) 4-120 mg/16 mL OPTH SYR LEFT EYE ONE; +EPINEPHrine-Lidocaine/BSS (PF/SF) 4-120 mg/16 mL OPTH SYR ONE; +HYALURONIDASE/LIDOCAINE/BUPIVACAINE 5 ML SYR LEFT EYE ONE; +LACTATED RINGER'S 1000 ML IV PRN; +METOPROLOL TARTRATE 25 MG TAB PO PRN; +PHENYLEPHRINE HCL 10% OPTH SOLN 5 ML BTL ONE; +POVIDONE IODINE 5% (ANTISEPSIS KIT) 4 APPLICATIONS EACH NARE PRN; +PROPOFOL 200 MG/20 ML AMP ONE; +SODIUM CHLORID 0.9% 500 ML IV PRN; -SPIR25TA PO; +TETRACAINE 0.5% OPTH SOLN 4 ML BTL ONE; +TOBRAMYCIN/DEXAMETHASONE OPTH OINT 3.5 GM TUBE ONE; +TROPICAMIDE 1% OPHT SOLN 15 ML BTL ONE; +VISCOAT OPHT IRRIG SOLN 0.75 ML SYRINGE ONE
[2017-06-06 07:05] VITALS: PULSE 60
[2017-06-06] MEDS: CYCLOPENTOLATE HCL 1% OPHT SOLN 2 ML BTL LEFT EYE SCH ×3 (07:13→07:23)
[2017-06-06] MEDS: PHENYLEPHRINE HCL 10% OPTH SOLN 5 ML BTL LEFT EYE SCH ×3 (07:13→07:23)
[2017-06-06] MEDS: TROPICAMIDE 1% OPHT SOLN 15 ML BTL LEFT EYE SCH ×3 (07:13→07:23)
[2017-06-06] MEDS: TETRACAINE 0.5% OPTH SOLN 4 ML BTL LEFT EYE SCH ×3 (07:13→07:23)
[2017-06-06 07:53] VITALS: PULSE 56
[2017-06-06 08:44] VITALS: TEMP 98.2
--- NOTE | 2017-06-06 08:53 | PD.OP ---
Operative Report Date of Surgery: Jun 06, 2017 Preoperative Diagnosis: (1) Nuclear sclerotic cataract of left eye Postoperative Diagnosis: (1) Pseudophakia of left eye Procedure: phacoemulsification and intraocular lens implant left eye Anesthesia: retrobulbar block, MAC Surgeon: Kacy Chui [employer] Dual Rate Supervisor(s): none Operation and Findings: Patient was consented for surgery, given a retrobulbar block by anesthesia, and taken back to the operating room. He was prepped and draped in the usual sterile fashion for ophthalmic surgery. A wire lid speculum was placed in the left eye. A paracentesis incision was created at the 5 o'clock position on the limbus. Vision blue dye, intracameral Epishugarcaine, and viscoelastic was injected into the anterior chamber. The main incision was created at the 2 o' clock position on the limbus with a 2.4 mm keratome. A continuous curvilinear capsulorrhexis was made on the anterior lens capsule. Phacoemulsification was used to remove the lens nucleus material. Irrigation and aspiration was used to remove the remaining cortical material. The lens implant ([id number] SN [id number]) was placed in the capsular bag. Viscoelastic was removed with irrigation and aspiration. The incisions were irrigated and found to be watertight. Tobradex ointment, a patch, and shield were placed on the left eye. The patient was sent to PACU in stable condition. Kacy Chiu MD Jun 06, 2017 08:53
[2017-06-06 09:10] VITALS: BP 151/69; PULSE 58; RESP 16; O2SAT 95
== END | disposition home or self-care (01) ==
LOC: PHSDC 06:39
PROVIDERS: ATTEND Ophthalmology
DX: H25.12 Age-related nuclear cataract, left eye (principal); I10 Essential (primary) hypertension; E11.9 Type 2 diabetes mellitus without complications; Z79.84 Long term (current) use of oral hypoglycemic drugs
CPT/HCPCS: 00142; 66984; 82948; J0171; J7040; V2632

== ENCOUNTER 2017-07-18 18:22 | Observation (INO) | payer MEDICARE ==
[~2017-07-18] VITALS: Ht 177.8 cm; Wt 118.0 kg
[~2017-07-18 18:22] MED LIST changes: -CHLORHEXIDINE GLUCONATE 2 % 1 PACK (2 CLOTHS) TOPICAL PRN; -CYCLOPENTOLATE HCL 1% OPHT SOLN 2 ML BTL ONE; -EPINEPHrine HCL PF/SF (1:1000) 1 MG/ML AMP I-OCULAR ONE; -EPINEPHrine-Lidocaine/BSS (PF/SF) 4-120 mg/16 mL OPTH SYR LEFT EYE ONE; -EPINEPHrine-Lidocaine/BSS (PF/SF) 4-120 mg/16 mL OPTH SYR ONE; -HYALURONIDASE/LIDOCAINE/BUPIVACAINE 5 ML SYR LEFT EYE ONE; -LACTATED RINGER'S 1000 ML IV PRN; -METOPROLOL TARTRATE 25 MG TAB PO PRN; -PHENYLEPHRINE HCL 10% OPTH SOLN 5 ML BTL ONE; -POVIDONE IODINE 5% (ANTISEPSIS KIT) 4 APPLICATIONS EACH NARE PRN; -PROPOFOL 200 MG/20 ML AMP ONE; -SODIUM CHLORID 0.9% 500 ML IV PRN; -TETRACAINE 0.5% OPTH SOLN 4 ML BTL ONE; -TOBRAMYCIN/DEXAMETHASONE OPTH OINT 3.5 GM TUBE ONE; -TROPICAMIDE 1% OPHT SOLN 15 ML BTL ONE; -VISCOAT OPHT IRRIG SOLN 0.75 ML SYRINGE ONE
[2017-07-18 18:33] VITALS: BP 160/70; PULSE 60; RESP 20; TEMP 97.9; O2SAT 100
--- NOTE | 2017-07-18 18:51 | PD ---
HPI Chief Complaint: Abnormal Results Time Seen by Provider: 18:50 Travel History International Travel<30 days: No Contact w/Intl Traveler<30days: No Traveled to known affect area: No History of Present Illness HPI 81-year-old male with history of CAD, CHF, hypertension, diabetes, thyroid disease, prostate cancer, presents emergency department for evaluation of low hemoglobin. Patient states he has had this in the past. He has been told that he has had "bleeding somewhere." They have not been able to find this. Patient states he has been more tired and this is why he had his lab work done yesterday. Denies any chest pain or tightness. No difficulty breathing. He has had no pain. He denies any hematuria, hematemesis, hematochezia. He denies any black tarry stools. Patient has no other symptoms to report at this time. PFSH Past Medical History Arthritis: Yes Asthma: No Autoimmune Disease: No Blood Disorders: No Anxiety: Yes Depression: No Heart Rhythm Problems: No Cancer: Yes (PROSTATE) Cardiovascular Problems: Yes High Cholesterol: Yes Chest Pain: Yes Congestive Heart Failure: Yes COPD: No Cerebrovascular Accident: No Diabetes: Yes Patient Takes Glucophage: No Diminished Hearing: No Endocrine: Yes (HYPOTHYROIDISM, TYPE 2 DIABETES) Gastrointestinal Disorders: Yes (PEPTIC ULCER;BLEEDING ULCER) GERD: Yes Glaucoma: No Genitourinary: Yes (PROSTATE) Headaches: No Hepatitis: No Hiatal Hernia: Yes (GERD) Hypertension: Yes Immune Disorder: No Implanted Vascular Access Dvce: Yes Kidney Stones: No Medical other: Yes (ANEMIA) Musculoskeletal: Yes (ARTHRITIS (PRIMARILY KNEE)) Neurologic: Yes (TIA;PERIPHERAL NEUROPATHY) Psychiatric: Yes Reproductive: No Respiratory: Yes (SLEEP APNEA (USES C-PAP)) Immunizations Current: Yes Myocardial Infarction: No Renal Failure: No Seizures: No Sickle Cell Disease: No Sleep Apnea: Yes (does not wear cpap) Thyroid Disease: Yes (HYPOTHYROIDISM) Ulcer: No Tetanus Vaccination: > 5 Years Influenza Vaccination: Yes Past Surgical History Abdominal Surgery: Yes (APPENDECTOMY,EGD,COLONOSCOPY) AICD: No Appendectomy: Yes Body Medical Devices: CARDIAC STENTS Cardiac Surgery: Yes (cardiac stent placement) Coronary Stent: Yes (X2) Ear Surgery: No Endocrine Surgery: No Eye Surgery: No Genitourinary Surgery: Yes (prostatectomy, ESWL) Gynecologic Surgery: Yes Insulin Pump: No Joint Replacement: No Neurologic Surgery: No Oral Surgery: No Pacemaker: No Thoracic Surgery: No Other Surgery: Yes (THYROIDECTOMY 09/01/10, prostate) Social History Alcohol Use: Yes (2 DRINKS/WEEK) Tobacco Use: No Substance Use: No Allergies-Medications (Allergen,Severity, Reaction): Coded Allergies: shellfish derived (Verified Allergy, Severe, HIVES, 07/18/17) tetanus toxoid, adsorbed (Verified Adverse Reaction, Severe, RASH, 07/18/17 ) rash Reported Meds & Prescriptions Reported Meds & Active Scripts Active Ferrous Sulfate DR (Ferrous Sulfate) 324 Mg Tabdr 324 Mg PO BIDPC Miralax Powder (Polyethylene Glycol 3350 Powder) 17 Gm Powd 17 Gm PO DAILY Mix and dissolve one measuring cap-ful (17 grams) in water or juice. Hold if having loose stools. Glipizide 5 Mg Tab 5 Mg PO TIDAC Take 30 minutes before a meal Protonix (Pantoprazole Sodium) 40 Mg Tab 40 Mg PO BIDAC Reported Glimepiride 4 Mg Tab 4 Mg PO BIDAC Furosemide 40 Mg Tab 40 Mg PO DAILY Celebrex (Celecoxib) 200 Mg Cap 200 Mg PO BID Hydrocodone-Acetaminophen 5-325 mg Tab 1 Tab PO Q4H PRN Gabapentin 300 Mg Cap 300 Mg PO BID Ergocalciferol 50,000 Unit Cap 50,000 Units PO Q7D Ranitidine (Ranitidine HCl) 150 Mg Cap 150 Mg PO BID Carafate Liq (Sucralfate) 1 Gm/10 Ml Susp 1 Gm PO QID on empty stomach Rosuvastatin (Rosuvastatin Calcium) 20 Mg Tab 20 Mg PO HS Bumetanide 1 Mg Tab 1 Mg PO DAILY Levothyroxine (Levothyroxine Sodium) 150 Mcg Tab 150 Mcg PO DAILY Carvedilol 25 Mg Tab 25 Mg PO BID Doxazosin (Doxazosin Mesylate) 1 Mg Tab 1 Mg PO HS Review of Systems Except as stated in HPI: all other systems reviewed are Neg Physical Exam Narrative GENERAL: Well-nourished male patient, lying in bed, in no acute distress SKIN: Focused skin assessment warm/dry. HEAD: Atraumatic. Normocephalic. EYES: Pupils equal and round. No scleral icterus. No injection or drainage. ENT: No nasal bleeding or discharge. Mucous membranes pink and moist. NECK: Trachea midline. No JVD. CARDIOVASCULAR: Regular rate and rhythm. RESPIRATORY: No accessory muscle use. Diminished to auscultation. Breath sounds equal bilaterally. GASTROINTESTINAL: Abdomen soft, non-tender, nondistended. Hepatic and splenic margins not palpable. RECTAL EXAM: No masses or tenderness, stool is black . MUSCULOSKELETAL: No obvious deformities. No clubbing. No cyanosis. 2+ bilateral lower extremity edema NEUROLOGICAL: Awake and alert. No obvious cranial nerve deficits. Motor grossly within normal limits. Normal speech. PSYCHIATRIC: Appropriate mood and affect; insight and judgment normal. Data Data Last Documented VS Vital Signs Date Time Temp Pulse Resp B/P (MAP) Pulse Ox O2 Delivery O2 Flow Rate FiO2 07/18/17 18:59 20 100 Room Air 07/18/17 18:35 60 07/18/17 18:33 97.9 160/70 (100) Orders Orders Complete Blood Count With Diff (07/18/17 18:51) Comprehensive Metabolic Panel (07/18/17 18:51) Prothrombin Time / Inr (Pt) (07/18/17 18:51) Act Partial Throm Time (Ptt) (07/18/17 18:51) Type And Screen (07/18/17 18:51) Ecg Monitoring (07/18/17 18:51) Iv Access Insert/Monitor (07/18/17 18:51) Oximetry (07/18/17 18:51) Sodium Chloride 0.9% Flush (Ns Flush) (07/18/17 19:00) Red Blood Cells (Rbc) (07/18/17 20:29) Blood Product Administration (07/18/17 20:29) Sodium Chlor 0.9% 250 Ml Inj (Ns 250 Ml (07/18/17 20:30) Admit Order (Ed Use Only) (07/18/17 20:41) Red Blood Cells (Rbc) (07/18/17 20:41) Blood Product Administration (07/18/17 20:41) Sodium Chlor 0.9% 250 Ml Inj (Ns 250 Ml (07/18/17 20:45) Labs Laboratory Tests Test 07/18/17 18:55 07/18/17 18:58 07/18/17 19:58 White Blood Count 7.3 TH/MM3 Red Blood Count 2.54 MIL/MM3 Hemoglobin 7.3 GM/DL Hematocrit 22.8 % Mean Corpuscular Volume 89.6 FL Mean Corpuscular Hemoglobin 28.7 PG Mean Corpuscular Hemoglobin Concent 32.0 % Red Cell Distribution Width 15.6 % Platelet Count 266 TH/MM3 Mean Platelet Volume 8.9 FL Neutrophils (%) (Auto) 74.6 % Lymphocytes (%) (Auto) 13.9 % Monocytes (%) (Auto) 9.3 % Eosinophils (%) (Auto) 1.5 % Basophils (%) (Auto) 0.7 % Neutrophils # (Auto) 5.5 TH/MM3 Lymphocytes # (Auto) 1.0 TH/MM3 Monocytes # (Auto) 0.7 TH/MM3 Eosinophils # (Auto) 0.1 TH/MM3 Basophils # (Auto) 0.1 TH/MM3 CBC Comment DIFF FINAL Differential Comment Prothrombin Time 10.6 SEC Prothromb Time International Ratio 1.0 RATIO Activated Partial Thromboplast Time 19.7 SEC Blood Urea Nitrogen 40 MG/DL Creatinine 2.16 MG/DL Random Glucose 95 MG/DL Total Protein 7.3 GM/DL Albumin 3.0 GM/DL Calcium Level 9.8 MG/DL Alkaline Phosphatase 66 U/L Aspartate Amino Transf (AST/SGOT) 12 U/L Alanine Aminotransferase (ALT/SGPT) 10 U/L Total Bilirubin 0.2 MG/DL Sodium Level 143 MEQ/L Potassium Level 4.6 MEQ/L Chloride Level 113 MEQ/L Carbon Dioxide Level 22.1 MEQ/L Anion Gap 8 MEQ/L Estimat Glomerular Filtration Rate 36 ML/MIN MDM Medical Decision Making Medical Screen Exam Complete: Yes Emergency Medical Condition: Yes Medical Record Reviewed: Yes Differential Diagnosis GI bleed, upper versus lower versus electrolyte abnormality versus symptomatic anemia Narrative Course 81-year-old male presents emergency department for evaluation of low hemoglobin. Patient reports feeling more tired as of late. He appears nontoxic. Rectal exam reveals black stool that is Hemoccult positive. Laboratory Tests Test 07/18/17 18:55 07/18/17 18:58 07/18/17 19:58 White Blood Count 7.3 TH/MM3 Red Blood Count 2.54 MIL/MM3 Hemoglobin 7.3 GM/DL Hematocrit 22.8 % Mean Corpuscular Volume 89.6 FL Mean Corpuscular Hemoglobin 28.7 PG Mean Corpuscular Hemoglobin Concent 32.0 % Red Cell Distribution Width 15.6 % Platelet Count 266 TH/MM3 Mean Platelet Volume 8.9 FL Neutrophils (%) (Auto) 74.6 % Lymphocytes (%) (Auto) 13.9 % Monocytes (%) (Auto) 9.3 % Eosinophils (%) (Auto) 1.5 % Basophils (%) (Auto) 0.7 % Neutrophils # (Auto) 5.5 TH/MM3 Lymphocytes # (Auto) 1.0 TH/MM3 Monocytes # (Auto) 0.7 TH/MM3 Eosinophils # (Auto) 0.1 TH/MM3 Basophils # (Auto) 0.1 TH/MM3 CBC Comment DIFF FINAL Differential Comment Prothrombin Time 10.6 SEC Prothromb Time International Ratio 1.0 RATIO Activated Partial Thromboplast Time 19.7 SEC Blood Urea Nitrogen 40 MG/DL Creatinine 2.16 MG/DL Random Glucose 95 MG/DL Total Protein 7.3 GM/DL Albumin 3.0 GM/DL Calcium Level 9.8 MG/DL Alkaline Phosphatase 66 U/L Aspartate Amino Transf (AST/SGOT) 12 U/L Alanine Aminotransferase (ALT/SGPT) 10 U/L Total Bilirubin 0.2 MG/DL Sodium Level 143 MEQ/L Potassium Level 4.6 MEQ/L Chloride Level 113 MEQ/L Carbon Dioxide Level 22.1 MEQ/L Anion Gap 8 MEQ/L Estimat Glomerular Filtration Rate 36 ML/MIN Lab work is reviewed. I discussed this with my attending physician. 1 unit packed red blood cells as ordered. I have contacted Dr. Rodriguez, patient's primary care provider. Patient will be admitted observation. An additional unit of packed red blood cells as ordered. Plan is discussed with the patient. He is in agreement with this plan of care. [facility] Point of Care Internal Pos. & Neg. Controls: Passed Fecal Specimen Occult Blood: Positive Diagnosis Primary Impression: GI bleed Qualified Codes: K92.2 - Gastrointestinal hemorrhage, unspecified Additional Impression: Symptomatic anemia Admitting Information Admitting Physician Requests: Observation Condition: Stable Christina Timmons July 18, 2017 18:51
[2017-07-18 18:59] VITALS: RESP 20; O2SAT 100
[2017-07-18] MEDS ORDERED: SODIUM CHLORIDE 0.9% FLUSH 10 ML FLUSH IVF PRN (19:00)
[2017-07-18 19:27] LABS: AUTOMATED NEUTROPHIL # 5.5 TH/MM3 (1.8-7.7); BASOPHIL # 0.1 TH/MM3 (0-0.2); BASOPHIL % 0.7 % (0.0-2.0); EOSINOPHIL # 0.1 TH/MM3 (0-0.4); EOSINOPHIL % 1.5 % (0.0-4.0); HEMATOCRIT 22.8 % (39.0-51.0); HEMOGLOBIN 7.3 GM/DL (13.0-17.0); LYMPH % 13.9 % (9.0-44.0); MEAN CELL VOLUME 89.6 FL (80.0-100.0); MEAN CORPUSCULAR HEMOGLOBIN 28.7 PG (27.0-34.0); MEAN PLATELET VOLUME 8.9 FL (7.0-11.0); MONO % 9.3 % (0.0-8.0); MONOCYTE # 0.7 TH/MM3 (0-0.9); NEUT % 74.6 % (16.0-70.0); PLATELET COUNT 266 TH/MM3 (150-450); RED BLOOD COUNT 2.54 MIL/MM3 (4.50-5.90); RED CELL DISTRIBUTION WIDTH 15.6 % (11.6-17.2); WHITE BLOOD COUNT 7.3 TH/MM3 (4.0-11.0)
[2017-07-18 19:41] LABS: PROTHROMBIN TIME - PATIENT 10.6 SEC (9.8-11.6)
[2017-07-18 20:16] LABS: AST (GOT) 12 U/L (15-37); BICARBONATE 22.1 MEQ/L (21.0-32.0); CALCIUM 9.8 MG/DL (8.5-10.1); CHLORIDE 113 MEQ/L (98-107); CREATININE 2.16 MG/DL (0.60-1.30); GLOMERULAR FILTRATION RATE 36 ML/MIN (>89); GLUCOSE,RANDOM 95 MG/DL (74-106); SODIUM (NA) 143 MEQ/L (136-145)
[2017-07-18 20:29] LABS: ALKALINE PHOSPHATASE 66 U/L (45-117); ALT (GPT) 10 U/L (12-78); BLOOD UREA NITROGEN 40 MG/DL (7-18); TOTAL BILIRUBIN ADULT 0.2 MG/DL (0.2-1.0); TOTAL PROTEIN 7.3 GM/DL (6.4-8.2)
[2017-07-18] MEDS ORDERED: SODIUM CHLOR 0.9% 250 ML INJ 250 ML IV ONE ×2 (20:30→20:45)
--- NOTE | 2017-07-18 21:34 | PD ---
Physical Exam Narrative I, Dr. Estrada, have reviewed the advance practice practitioner's documentation and am in agreement, met with the patient face to face, made the diagnosis, and the medical decision making was done by me. *My assessment and Findings: GI bleed vs. symptomatic anemia vs. dehydration vs. electrolyte abnormality 81yo M with PMH of CAD s/p stents, HTN, DM presents to the ED because of generalized fatigue today. Pt has been having black stool intermittently and said he has a history of bleeding but they cant figure out where. Denies any chest pain, sob, n/v, abdominal pain, focal weakness or numbness. Labs reviewed , no leukocytosis. H/H low at 7.3/22.8. This is low from prior of 10.7/33.0. BUN/creatinine elevated at 40/2.16, this is slightly higher than prior. Pt is well appearing and has no chest pain or sob. No focal neurologic deficits. Pt has cardiac history and hemoglobin should be around 10 so will start with transfusing 2 units PRBC. Data Data Last Documented VS Vital Signs Date Time Temp Pulse Resp B/P (MAP) Pulse Ox O2 Delivery O2 Flow Rate FiO2 07/18/17 18:59 20 100 Room Air 07/18/17 18:35 60 07/18/17 18:33 97.9 160/70 (100) Orders Orders Complete Blood Count With Diff (07/18/17 18:51) Comprehensive Metabolic Panel (07/18/17 18:51) Prothrombin Time / Inr (Pt) (07/18/17 18:51) Act Partial Throm Time (Ptt) (07/18/17 18:51) Type And Screen (07/18/17 18:51) Ecg Monitoring (07/18/17 18:51) Iv Access Insert/Monitor (07/18/17 18:51) Oximetry (07/18/17 18:51) Sodium Chloride 0.9% Flush (Ns Flush) (07/18/17 19:00) Red Blood Cells (Rbc) (07/18/17 20:29) Blood Product Administration (07/18/17 20:29) Sodium Chlor 0.9% 250 Ml Inj (Ns 250 Ml (07/18/17 20:30) Admit Order (Ed Use Only) (07/18/17 20:41) Red Blood Cells (Rbc) (07/18/17 20:41) Blood Product Administration (07/18/17 20:41) Sodium Chlor 0.9% 250 Ml Inj (Ns 250 Ml (07/18/17 20:45) Labs Laboratory Tests Test 07/18/17 18:55 07/18/17 18:58 07/18/17 19:58 White Blood Count 7.3 TH/MM3 Red Blood Count 2.54 MIL/MM3 Hemoglobin 7.3 GM/DL Hematocrit 22.8 % Mean Corpuscular Volume 89.6 FL Mean Corpuscular Hemoglobin 28.7 PG Mean Corpuscular Hemoglobin Concent 32.0 % Red Cell Distribution Width 15.6 % Platelet Count 266 TH/MM3 Mean Platelet Volume 8.9 FL Neutrophils (%) (Auto) 74.6 % Lymphocytes (%) (Auto) 13.9 % Monocytes (%) (Auto) 9.3 % Eosinophils (%) (Auto) 1.5 % Basophils (%) (Auto) 0.7 % Neutrophils # (Auto) 5.5 TH/MM3 Lymphocytes # (Auto) 1.0 TH/MM3 Monocytes # (Auto) 0.7 TH/MM3 Eosinophils # (Auto) 0.1 TH/MM3 Basophils # (Auto) 0.1 TH/MM3 CBC Comment DIFF FINAL Differential Comment Prothrombin Time 10.6 SEC Prothromb Time International Ratio 1.0 RATIO Activated Partial Thromboplast Time 19.7 SEC Blood Urea Nitrogen 40 MG/DL Creatinine 2.16 MG/DL Random Glucose 95 MG/DL Total Protein 7.3 GM/DL Albumin 3.0 GM/DL Calcium Level 9.8 MG/DL Alkaline Phosphatase 66 U/L Aspartate Amino Transf (AST/SGOT) 12 U/L Alanine Aminotransferase (ALT/SGPT) 10 U/L Total Bilirubin 0.2 MG/DL Sodium Level 143 MEQ/L Potassium Level 4.6 MEQ/L Chloride Level 113 MEQ/L Carbon Dioxide Level 22.1 MEQ/L Anion Gap 8 MEQ/L Estimat Glomerular Filtration Rate 36 ML/MIN [facility] Supervised Visit with [facility]: Yes Diagnosis Primary Impression: GI bleed Qualified Codes: K92.2 - Gastrointestinal hemorrhage, unspecified Additional Impression: Symptomatic anemia Condition: Stable Cierra Estrada DO July 18, 2017 21:34
[2017-07-18 21:45] VITALS: BP 131/60; PULSE 56; RESP 16; TEMP 98.2; O2SAT 100
[2017-07-18] MEDS ORDERED: ACETAMINOPHEN 325 MG TAB PO PRN (22:00)
[2017-07-18] MEDS ORDERED: ACETAMINOPHEN/HYDROcodone 325 MG/5 MG TAB PO PRN (22:00)
[2017-07-18] MEDS ORDERED: GLUCAGON 1 MG/ML VIAL OTHER PRN (22:00)
[2017-07-18] MEDS ORDERED: SODIUM CHLORIDE 0.9% FLUSH 10 ML FLUSH IV FLUSH PRN (22:00)
[2017-07-18] MEDS ORDERED: ONDANSETRON ODT 4 MG TAB PO PRN (22:00)
[2017-07-18] MEDS ORDERED: SENNOSIDES 8.6 MG TAB PO PRN (22:00)
[2017-07-18] MEDS ORDERED: MAGNESIUM HYDROXIDE SUSP 30 ML CUP PO PRN (22:00)
[2017-07-18] MEDS ORDERED: ZOLPIDEM TARTRATE 5 MG TAB PO PRN (22:00)
[2017-07-18] MEDS ORDERED: LACTULOSE SYRUP 20 GM/30 ML CUP PO PRN (22:00)
[2017-07-18] MEDS ORDERED: DEXTROSE 50% IN WATER 50 ML VIAL(D50) IV PUSH PRN (22:00)
[2017-07-18] MEDS ORDERED: NALOXONE HCL 0.4 MG/ML AMP IV PUSH PRN (22:00)
[2017-07-18] MEDS ORDERED: BISACODYL 10 MG SUPP RECTAL PRN (22:00)
[2017-07-18 22:01] VITALS: BP 150/67; PULSE 65; RESP 16; TEMP 98.2; O2SAT 100
[2017-07-18 23:00] VITALS: PULSE 60
[2017-07-18 23:06] VITALS: BP 153/68; PULSE 62; RESP 18; TEMP 98.3; O2SAT 100
[2017-07-19] VITALS (7 sets, daily range): BP systolic 110–173; BP diastolic 60–76; PULSE 56–59; RESP 16–18; TEMP 98–98.4; O2SAT 96–100
[2017-07-19] MEDS: PANTOPRAZOLE SOD 40 MG DELAYED RELEASE TAB PO SCH ×2 (06:00→16:27)
[2017-07-19] MEDS ORDERED: LEVOTHYROXINE SODIUM 150 MCG TAB PO SCH (06:00)
[2017-07-19] MEDS: INSULIN ASPART SUPPLEMENTAL SCALE SQ SCH ×2 (08:00→12:00)
--- NOTE | 2017-07-19 08:44 | MH ---
cc: Garry Rodriguez MD DATE OF ADMISSION: 07/18/2017 CHIEF COMPLAINT: Severe anemia. HISTORY OF PRESENT ILLNESS: Js is an 81-year-old male with recurrent gastritis and blood loss anemia. I have been seeing him in my office recently routinely and ordered a CBC due to fatigue and ongoing anemia. Hemoglobin was found to be 6.7. I ordered him to go to the [place] emergency room. He was found to have a hemoglobin of 7.3 and creatinine of 2.16. Blood pressure was low and he was not feeling well. I spoke with the nurse practitioner and ordered 1 unit. The patient is feeling better after the transfusion and is asking to go home. He is wanting to get his hemoglobin up high enough so we can try to continue with the every 2-month transfusions. PAST MEDICAL HISTORY: 1. Diabetes. 2. Congestive heart failure. 3. Coronary artery disease. 4. Hypertension. 5. Chronic kidney disease, stage III. 6. Gastrointestinal bleed. PAST SURGICAL HISTORY: EGD and colonoscopies. REVIEW OF SYSTEMS: Fatigue, weakness, edema, shortness of breath. HOME MEDICATIONS: Reviewed in the chart and include: 1. Levothyroxine. 2. Protonix. 3. Coreg. SOCIAL HISTORY: No alcohol, tobacco or illicit drug usage. He is retired. FAMILY HISTORY: Noncontributory. PHYSICAL EXAM: VITAL SIGNS: Temperature 98.0, pulse 77, respirations 18, blood pressure 110/64, pulse 99, respirations 18, O2 saturation is 99%. GENERAL: He is an alert male. He is lying flat in no apparent distress. He looks subjectively better. HEENT: Oropharynx is clear. NECK: No JVD. No lymphadenopathy. CHEST: Clear. No wheezes, rales, crackles or coughing. CARDIOVASCULAR: Regular rate and rhythm. No murmurs, rubs, clicks, or gallops. ABDOMEN: Soft, nontender. No rebound, no guarding. EXTREMITIES: Trace edema in the feet and there is wrinkling that looks better. Normal DP and PT. SKIN: Numerous seborrhea however, is clear overall. NEUROLOGIC: Alert and oriented x 3, no apparent distress, 3/5 weakness in all extremities. Cranial nerves are intact. PSYCHIATRIC: Normal judgment. Normal thought process. LABORATORY DATA: Hemoglobin 7.3 and otherwise normal CBC. Creatinine 2.16, otherwise normal CMP. Albumin 3.0. INR 1.0. ASSESSMENT: 1. Gastrointestinal bleed. 2. Gastritis. 3. Blood loss anemia. 4. Congestive heart failure. 5. Diabetes. 6. Hypothyroidism. 7. Acute kidney injury on chronic kidney disease, stage III. PLAN: 1. Transfused 1 unit. He did well and he wants to be discharged after 2 more units. I agree with him and discussed with nursing monitoring for CHF and fluid overload. 2. Continue Coreg. 3. Protonix p.o. 4. Carafate. 5. Ambien p.r.n. 6. Sliding scale insulin with Accu-Chek's before meals and at bedtime. 7. Telemetry. 8. Deep venous thrombosis prophylaxis, sequential compression devices and TEDs. 9. Gastrointestinal prophylaxis, Protonix b.i.d. 10. Check hemoglobin after his second unit today, which is third unit and he can discharge if his hemoglobin is greater than 8 and he is asymptomatic. DISPOSITION: Discharged to home as outlined above. He agrees to see me in my office as soon as possible on Sunday. Forty-five minutes spent with the patient, half of which is counseling and coordination of care. Garry Rodriguez MD RDP/DL , 07:49 AM , 08:42 AM
[2017-07-19] MEDS ORDERED: CARVEDILOL 12.5 MG TAB PO SCH (09:00)
[2017-07-19] MEDS ORDERED: NON-FORMULARY DRUG (Ranitidine 150 MG) PO SCH (09:00)
[2017-07-19] MEDS ORDERED: INFLUENZA VIRUS VACCINE (QUADRIVALENT) 0.5 ML SYR IM ONE (09:00)
[2017-07-19] MEDS ORDERED: DOCUSATE SODIUM 50 MG/SENNA 8.6 MG TAB PO SCH (09:00)
[2017-07-19] MEDS ORDERED: GABAPENTIN 300 MG CAP PO SCH (09:00)
[2017-07-19] MEDS ORDERED: SODIUM CHLORIDE 0.9% FLUSH 10 ML FLUSH IV FLUSH SCH (09:00)
[2017-07-19] MEDS ORDERED: PNEUMOCOCCAL POLYVALENT INJ 25 MCG/0.5 ML SYR IM ONE (09:00)
[2017-07-19] MEDS ORDERED: BUMETANIDE 1 MG TAB PO SCH (09:00)
[2017-07-19] MEDS ORDERED: POLYETHYLENE GLYCOL 17 GM PKG PO SCH (09:00)
[2017-07-19] MEDS ORDERED: FAMOTIDINE 20 MG TAB PO SCH (09:00)
[2017-07-19] MEDS: SUCRALFATE 1 GM/10 ML CUP PO SCH ×2 (09:16→12:33)
[2017-07-19] MEDS: glipiZIDE 5 MG TAB PO SCH ×2 (09:17→12:33)
[2017-07-19 10:27] LABS: ALBUMIN 3.1 GM/DL (3.4-5.0); ALKALINE PHOSPHATASE 71 U/L (45-117); ALT (GPT) 9 U/L (12-78); AST (GOT) 9 U/L (15-37); BICARBONATE 20.3 MEQ/L (21.0-32.0); BLOOD UREA NITROGEN 36 MG/DL (7-18); CALCIUM 10.2 MG/DL (8.5-10.1); CHLORIDE 110 MEQ/L (98-107); CREATININE 1.92 MG/DL (0.60-1.30); GLOMERULAR FILTRATION RATE 41 ML/MIN (>89); GLUCOSE,RANDOM 85 MG/DL (74-106); SODIUM (NA) 140 MEQ/L (136-145); TOTAL BILIRUBIN ADULT 0.6 MG/DL (0.2-1.0); TOTAL PROTEIN 7.4 GM/DL (6.4-8.2)
[2017-07-19] MEDS ORDERED: FUROSEMIDE 20 MG/2 ML VIAL IV PUSH ONE (16:15)
[2017-07-19 17:36] LABS: HEMATOCRIT 34.6 % (39.0-51.0); HEMOGLOBIN 11.4 GM/DL (13.0-17.0)
[2017-07-19] MEDS ORDERED: DOXAZOSIN MESYLATE 1 MG TAB PO SCH (21:00)
== END 2017-07-19 18:04 | disposition home or self-care (01) ==
LOC: NEPC 18:22 → NEDA 20:44 → NEPGCP 22:27
PROVIDERS: ADMIT Family Medicine; ATTEND Family Medicine
DX: K92.2 Gastrointestinal hemorrhage, unspecified (principal); K29.70 Gastritis, unspecified, without bleeding; D50.0 Iron deficiency anemia secondary to blood loss (chronic); N17.9 Acute kidney failure, unspecified; N18.3 Chronic kidney disease, stage 3 (moderate); I50.9 Heart failure, unspecified; I13.0 Hypertensive heart and chronic kidney disease with heart failure and stage 1 through stage 4 chronic kidney disease, or unspecified chronic kidney disease; E11.22 Type 2 diabetes mellitus with diabetic chronic kidney disease; E03.9 Hypothyroidism, unspecified; I25.10 Atherosclerotic heart disease of native coronary artery without angina pectoris; E78.00 Pure hypercholesterolemia, unspecified; G47.30 Sleep apnea, unspecified; K21.9 Gastro-esophageal reflux disease without esophagitis; G62.9 Polyneuropathy, unspecified; M19.90 Unspecified osteoarthritis, unspecified site; K44.9 Diaphragmatic hernia without obstruction or gangrene; Z87.11 Personal history of peptic ulcer disease; Z85.46 Personal history of malignant neoplasm of prostate; Z95.5 Presence of coronary angioplasty implant and graft
CPT/HCPCS: 36430; 80053; 82948; 85014; 85018; 85025; 85610; 85730; 86850; 86900; 86901; 86920; 96361; 96374; 99285; G0378; J1940; J7050; P9016

== ENCOUNTER 2017-08-21 09:00 | Inpatient (IN) | payer MEDICARE ==
[~2017-08-21] VITALS: Ht 177.8 cm; Wt 120.3 kg
[2017-08-21] VITALS (9 sets, daily range): BP systolic 126–190; BP diastolic 60–90; PULSE 55–91; RESP 16–24; TEMP 97.6–98.6; O2SAT 93–100
[~2017-08-21 09:00] MED LIST changes: -DIPH2.5T14 PO; -GLIM4TAB PO
[2017-08-21] MEDS ORDERED: SODIUM CHLORIDE 0.9% FLUSH 10 ML FLUSH IVF PRN (09:30)
[2017-08-21] MEDS ORDERED: PANTOPRAZOLE INJ 80 MG in SODIUM CHLORIDE 0.9% INJ 35 ML IV ONE (09:36)
--- NOTE | 2017-08-21 09:46 | PD ---
HPI Chief Complaint: Abnormal Results Time Seen by Provider: 09:23 Travel History International Travel<30 days: No Contact w/Intl Traveler<30days: No Traveled to known affect area: No History of Present Illness HPI 82-year-old male states he was feeling off so he had his primary doctor check his hemoglobin and when it was low at 6.8 he was sent here. He states he has ongoing history with losing blood in his stool and multiple transfusions. He states his last scope was about 2-4 weeks ago here. He states that he still having dark brown stools. He denies any other concurrent complaints at this time. Quality is low. Severity is 6.8. He states he feels worse when he moves around. He denies other modifying factors. PFSH Past Medical History Arthritis: Yes Asthma: No Autoimmune Disease: No Blood Disorders: No Anxiety: Yes Depression: No Heart Rhythm Problems: No Cancer: Yes (PROSTATE) Cardiovascular Problems: Yes High Cholesterol: Yes Chest Pain: Yes Congestive Heart Failure: Yes COPD: No Cerebrovascular Accident: No Diabetes: Yes Diminished Hearing: No Endocrine: Yes (HYPOTHYROIDISM, TYPE 2 DIABETES) Gastrointestinal Disorders: Yes (PEPTIC ULCER;BLEEDING ULCER) GERD: Yes Glaucoma: No Genitourinary: Yes (PROSTATE) Headaches: No Hepatitis: No Hiatal Hernia: Yes (GERD) Hypertension: Yes Immune Disorder: No Implanted Vascular Access Dvce: Yes Kidney Stones: No Musculoskeletal: Yes (ARTHRITIS (PRIMARILY KNEE)) Neurologic: Yes (TIA;PERIPHERAL NEUROPATHY) Psychiatric: Yes Reproductive: No Respiratory: Yes Immunizations Current: Yes Myocardial Infarction: No Renal Failure: No Seizures: No Sickle Cell Disease: No Sleep Apnea: Yes (does not wear cpap) Thyroid Disease: Yes (HYPOTHYROIDISM) Ulcer: No Past Surgical History Abdominal Surgery: Yes (APPENDECTOMY,EGD,COLONOSCOPY) AICD: No Appendectomy: Yes Body Medical Devices: CARDIAC STENTS Cardiac Surgery: Yes (cardiac stent placement) Coronary Stent: Yes (X2) Ear Surgery: No Endocrine Surgery: No Eye Surgery: No Genitourinary Surgery: Yes (prostatectomy, ESWL) Gynecologic Surgery: Yes Insulin Pump: No Joint Replacement: No Neurologic Surgery: No Oral Surgery: No Pacemaker: No Thoracic Surgery: No Other Surgery: Yes (THYROIDECTOMY 09/01/10, prostate) Social History Alcohol Use: Yes (2 DRINKS/WEEK) Tobacco Use: No Substance Use: No Allergies-Medications (Allergen,Severity, Reaction): Coded Allergies: shellfish derived (Verified Allergy, Severe, HIVES, 08/21/17) tetanus toxoid, adsorbed (Verified Adverse Reaction, Severe, RASH, 08/21/17 ) rash Reported Meds & Prescriptions Reported Meds & Active Scripts Active Ferrous Sulfate DR (Ferrous Sulfate) 324 Mg Tabdr 324 Mg PO BIDPC Miralax Powder (Polyethylene Glycol 3350 Powder) 17 Gm Powd 17 Gm PO DAILY Mix and dissolve one measuring cap-ful (17 grams) in water or juice. Hold if having loose stools. Glipizide 5 Mg Tab 5 Mg PO TIDAC Take 30 minutes before a meal Protonix (Pantoprazole Sodium) 40 Mg Tab 40 Mg PO BIDAC Reported Spironolactone 25 Mg Tab 25 Mg PO BIDPC Hydrocodone-Acetaminophen 5-325 mg Tab 1 Tab PO Q4H PRN Gabapentin 300 Mg Cap 300 Mg PO BID Ergocalciferol 50,000 Unit Cap 50,000 Units PO Q7D Ranitidine (Ranitidine HCl) 150 Mg Cap 150 Mg PO BID Carafate Liq (Sucralfate) 1 Gm/10 Ml Susp 1 Gm PO QID on empty stomach Rosuvastatin (Rosuvastatin Calcium) 20 Mg Tab 20 Mg PO HS Bumetanide 1 Mg Tab 1 Mg PO DAILY Levothyroxine (Levothyroxine Sodium) 150 Mcg Tab 150 Mcg PO DAILY Carvedilol 25 Mg Tab 25 Mg PO BID Doxazosin (Doxazosin Mesylate) 1 Mg Tab 1 Mg PO HS Review of Systems Except as stated in HPI: all other systems reviewed are Neg Physical Exam Narrative GENERAL: 82-year-old male in no apparent distress SKIN: Focused skin assessment warm/dry. HEAD: Atraumatic. Normocephalic. EYES: Pupils equal and round. No scleral icterus. No injection or drainage. ENT: No nasal bleeding or discharge. Mucous membranes pink and moist. NECK: Trachea midline. CARDIOVASCULAR: Regular rate and rhythm. RESPIRATORY: No accessory muscle use. Clear to auscultation. Breath sounds equal bilaterally. GASTROINTESTINAL: Abdomen soft, non-tender, nondistended. RECTAL EXAM: Performed with dedicated local truck driver and after permission. No external hemorrhoid or fissure, stool is dark black MUSCULOSKELETAL: No obvious deformities. No clubbing. No cyanosis. NEUROLOGICAL: Awake and alert. Motor grossly within normal limits. Normal speech. PSYCHIATRIC: Appropriate mood and affect; insight and judgment normal. Data Data Last Documented VS Vital Signs Date Time Temp Pulse Resp B/P (MAP) Pulse Ox O2 Delivery O2 Flow Rate FiO2 08/21/17 09:43 98 Room Air 08/21/17 09:12 98.6 57 16 154/67 (96) Orders Orders Complete Blood Count With Diff (08/21/17:) Comprehensive Metabolic Panel (08/21/17:) Prothrombin Time / Inr (Pt) (08/21/17:) Act Partial Throm Time (Ptt) (08/21/17:) Red Blood Cells (Rbc) (08/21/17:) Ecg Monitoring (08/21/17:) Iv Access Insert/Monitor (08/21/17) Oximetry (08/21/17:) Sodium Chloride 0.9% Flush (Ns Flush) (08/21/17 09:30) Type And Screen (08/21/17:) Sodium Chloride 0.9... W/Pantoprazole In (08/21/17 09:36) Sodium Chloride 0.9... W/Pantoprazole In (08/21/17 09:36) Blood Product Administration (08/21/17 10:21) Sodium Chlor 0.9% 250 Ml Inj (Ns 250 Ml (08/21/17 10:30) Admit Order (Ed Use Only) (08/21/17 11:08) Blood Glucose Goal (Criteria) (08/21/17 11:07) Hypoglycemia 70 Mg/Dl Or < (08/21/17 11:07) Notify Dr: Other (08/21/17 11:07) Dextrose 50% In Vanessa (Vial) Inj (D50w (Vi (08/21/17 11:15) Glucagon Inj (Glucagon Inj) (08/21/17 11:15) Insulin Aspart Supplemtl Scale (Novolog (08/21/17 12:00) Diet Heart Healthy (08/21/17 Lunch) Diet Clear Liquid (08/21/17 Lunch) Vital Signs (Adult) MARSHALL.Q4H (08/21/17 11:07) Hemoglobin (Hgb) (08/21/17 11:07) Hematocrit (Hct) (08/21/17 11:07) Hemoglobin (Hgb) (08/22/17 06:00) Hematocrit (Hct) (08/22/17 06:00) Labs Laboratory Tests Test 08/21/17 09:40 White Blood Count 6.6 TH/MM3 Red Blood Count 2.43 MIL/MM3 Hemoglobin 7.1 GM/DL Hematocrit 22.1 % Mean Corpuscular Volume 91.1 FL Mean Corpuscular Hemoglobin 29.1 PG Mean Corpuscular Hemoglobin Concent 32.0 % Red Cell Distribution Width 16.1 % Platelet Count 260 TH/MM3 Mean Platelet Volume 7.6 FL Neutrophils (%) (Auto) 75.4 % Lymphocytes (%) (Auto) 14.0 % Monocytes (%) (Auto) 8.7 % Eosinophils (%) (Auto) 1.4 % Basophils (%) (Auto) 0.5 % Neutrophils # (Auto) 5.0 TH/MM3 Lymphocytes # (Auto) 0.9 TH/MM3 Monocytes # (Auto) 0.6 TH/MM3 Eosinophils # (Auto) 0.1 TH/MM3 Basophils # (Auto) 0.0 TH/MM3 CBC Comment DIFF FINAL Differential Comment Prothrombin Time 11.1 SEC Prothromb Time International Ratio 1.1 RATIO Activated Partial Thromboplast Time 23.5 SEC Blood Urea Nitrogen 36 MG/DL Creatinine 2.21 MG/DL Random Glucose 64 MG/DL Total Protein 7.2 GM/DL Albumin 3.0 GM/DL Calcium Level 9.4 MG/DL Alkaline Phosphatase 64 U/L Aspartate Amino Transf (AST/SGOT) 5 U/L Alanine Aminotransferase (ALT/SGPT) 9 U/L Total Bilirubin 0.2 MG/DL Sodium Level 143 MEQ/L Potassium Level 4.9 MEQ/L Chloride Level 114 MEQ/L Carbon Dioxide Level 20.2 MEQ/L Anion Gap 9 MEQ/L Estimat Glomerular Filtration Rate 35 ML/MIN MDM Medical Decision Making Medical Screen Exam Complete: Yes Emergency Medical Condition: Yes Medical Record Reviewed: Yes (Past history confirmed and recent scoped reviewed ) Interpretation(s) CBC & BMP Diagram 08/21/17 09:40 Total Protein 7.2, Albumin 3.0 L, Calcium Level 9.4, Alkaline Phosphatase 64, Aspartate Amino Transf (AST/SGOT) 5 L, Alanine Aminotransferase (ALT/SGPT) 9 L, Total Bilirubin 0.2 Differential Diagnosis Diverticulosis, anemia, gastritis Narrative Course On review of records patient with polypectomy and PPI recommendation. Will place on Protonix drip and follow blood work and admit. Patient agrees to transfusion and admission Critical Care Narrative Aggregate critical care time was 35 minutes. Time to perform other separately billable procedures was not included in the critical care time. My time did not include minutes spent treating any other patients simultaneously or on activities that did not directly contribute to the patient's treatment. The services I provided to this patient were to treat and/or prevent clinically significant deterioration that could result in: shock, I provided critical care services requiring my management, as noted below: Chart data review, documentation time, medication orders and management, vital sign assessments/reviewing monitor data, ordering and reviewing lab tests, ordering and interpreting/reviewing x-rays and diagnostic studies, care of the patient and discussion of the patient with the admitting physicians. HemaPrompt Point of Care Internal Pos. & Neg. Controls: Passed Fecal Specimen Occult Blood: Positive Physician Communication Physician Communication dr alcantara agrees to admit Diagnosis Primary Impression: Anemia Qualified Codes: D64.9 - Anemia, unspecified Additional Impressions: Acute renal insufficiency GI bleed Qualified Codes: K92.2 - Gastrointestinal hemorrhage, unspecified Admitting Information Admitting Physician Requests: Admit Vero Lopez MD Aug 21, 2017 09:46
[2017-08-21 09:50] LABS: BASOPHIL % 0.5 % (0.0-2.0); EOSINOPHIL # 0.1 TH/MM3 (0-0.4); EOSINOPHIL % 1.4 % (0.0-4.0); HEMATOCRIT 22.1 % (39.0-51.0); HEMOGLOBIN 7.1 GM/DL (13.0-17.0); LYMPHOCYTE # 0.9 TH/MM3 (1.0-4.8); MEAN CELL VOLUME 91.1 FL (80.0-100.0); MEAN CORPUSCULAR HEMOGLOBIN 29.1 PG (27.0-34.0); MEAN PLATELET VOLUME 7.6 FL (7.0-11.0); MONO % 8.7 % (0.0-8.0); MONOCYTE # 0.6 TH/MM3 (0-0.9); NEUT % 75.4 % (16.0-70.0); PLATELET COUNT 260 TH/MM3 (150-450); RED BLOOD COUNT 2.43 MIL/MM3 (4.50-5.90); RED CELL DISTRIBUTION WIDTH 16.1 % (11.6-17.2); WHITE BLOOD COUNT 6.6 TH/MM3 (4.0-11.0)
[2017-08-21 09:59] LABS: INTERNATIONAL NORMALIZED RATIO 1.1 RATIO; PROTHROMBIN TIME - PATIENT 11.1 SEC (9.8-11.6)
[2017-08-21 10:12] LABS: ALKALINE PHOSPHATASE 64 U/L (45-117); TOTAL BILIRUBIN ADULT 0.2 MG/DL (0.2-1.0); TOTAL PROTEIN 7.2 GM/DL (6.4-8.2)
[2017-08-21] MEDS ORDERED: SPIR25TA PO (10:15)
[2017-08-21 10:16] LABS: ALT (GPT) 9 U/L (12-78); AST (GOT) 5 U/L (15-37); BICARBONATE 20.2 MEQ/L (21.0-32.0); BLOOD UREA NITROGEN 36 MG/DL (7-18); CALCIUM 9.4 MG/DL (8.5-10.1); CHLORIDE 114 MEQ/L (98-107); CREATININE 2.21 MG/DL (0.60-1.30); GLOMERULAR FILTRATION RATE 35 ML/MIN (>89); GLUCOSE,RANDOM 64 MG/DL (74-106); SODIUM (NA) 143 MEQ/L (136-145)
[2017-08-21] MEDS: PANTOPRAZOLE INJ 80 MG in SODIUM CHLORIDE 0.9% INJ 100 ML IV SCH ×2 (10:24→21:37)
[2017-08-21] MEDS ORDERED: SODIUM CHLOR 0.9% 250 ML INJ 250 ML IV ONE (10:30)
[2017-08-21] MEDS ORDERED: DEXTROSE 50% IN WATER 50 ML VIAL(D50) IV PUSH PRN (11:15)
[2017-08-21] MEDS ORDERED: GLUCAGON 1 MG/ML VIAL OTHER PRN (11:15)
[2017-08-21] MEDS: INSULIN ASPART SUPPLEMENTAL SCALE SQ SCH ×3 (12:00→21:00)
[2017-08-21] MEDS ORDERED: FUROSEMIDE 20 MG/2 ML VIAL IV PUSH ONE (12:15)
--- NOTE | 2017-08-21 12:22 | HHI.HP ---
[facility] Garry Rodriguez MD Admission Diagnosis gi bleed, anemia Diagnoses: (1) GI bleed Diagnosis: Principal (2) Anemia Diagnosis: Principal Chief Complaint: ' I'm tired'. Travel History International Travel<30 Days: No Contact w/Intl Traveler <30 Da: No Traveled to Known Affected Are: No History of Present Illness patient is a 82 y/o male with history of CAD, CHF, anemia, diabetes mellitus, prostate cancer, hypothyroidism, CKD, who presented to ER with fatigue. he says that he's had ' this problem with GI bleed for sometime' and he had EGD and colonoscopy within the past six months with no obvious source of bleeding. he says that he has to come to ER from time to time ' to get some blood'. he says that he started to have worsening fatigue few days ago. he had a blood work done earlier this week when he found out that his Hb was 6.9. he said that he decided to come to ER for blood transfusion. he denies any sob or chest pain. he denies any abdominal pain but he says that he's noticed that the past few days ' his stool was black'. he's being followed up by . Review of Systems Constitutional: COMPLAINS OF: Fatigue, DENIES: Fever, Weight loss, Chills, Night Sweats Eyes: DENIES: Blurred vision, Diplopia, Vision loss, Double Vision Ears, nose, mouth, throat: DENIES: Tinnitus, Vertigo, Throat pain, Epistaxis Respiratory: DENIES: Apneas, Cough, Snoring, Wheezing, Hemoptysis, Sputum production, Shortness of breath Cardiovascular: DENIES: Chest pain, Palpitations, Syncope, Dyspnea on Exertion , PND, Lower Extremity Edema, Orthopnea, Claudication Gastrointestinal: COMPLAINS OF: Black stools, DENIES: Abdominal pain, Bloody stools, Constipation, Diarrhea, Nausea, Vomiting, Difficulty Swallowing, Anorexia Genitourinary: DENIES: Urinary frequency, Urgency, Hematuria, Dysuria Musculoskeletal: DENIES: Joint pain, Muscle aches, Stiffness, Joint Swelling Integumentary: DENIES: Rash Neurologic: DENIES: Abnormal gait, Headache, Localized weakness, Paresthesias, Seizures, Speech Problems, Tremor, Poor Balance Psychiatric: DENIES: Anxiety, Confusion, Mood changes, Depression, Hallucinations, Agitation, Suicidal Ideation, Homicidal Ideation, Delusions Past Family Social History Past Medical History CHF/ diabetes mellitus/ prostate cancer/ CAD/ hypothyroidism. Past Surgical History cardiac stent placement/ prostate and thyroid surgeries. Reported Medications Ferrous Sulfate DR (Ferrous Sulfate) 324 Mg Tabdr 324 Mg PO BIDPC Miralax Powder (Polyethylene Glycol 3350 Powder) 17 Gm Powd 17 Gm PO DAILY Mix and dissolve one measuring cap-ful (17 grams) in water or juice. Hold if having loose stools. Glipizide 5 Mg Tab 5 Mg PO TIDAC Take 30 minutes before a meal Protonix (Pantoprazole Sodium) 40 Mg Tab 40 Mg PO BIDAC Reported Spironolactone 25 Mg Tab 25 Mg PO BIDPC Hydrocodone-Acetaminophen 5-325 mg Tab 1 Tab PO Q4H PRN Gabapentin 300 Mg Cap 300 Mg PO BID Ergocalciferol 50,000 Unit Cap 50,000 Units PO Q7D Ranitidine (Ranitidine HCl) 150 Mg Cap 150 Mg PO BID Carafate Liq (Sucralfate) 1 Gm/10 Ml Susp 1 Gm PO QID on empty stomach Rosuvastatin (Rosuvastatin Calcium) 20 Mg Tab 20 Mg PO HS Bumetanide 1 Mg Tab 1 Mg PO DAILY Levothyroxine (Levothyroxine Sodium) 150 Mcg Tab 150 Mcg PO DAILY Carvedilol 25 Mg Tab 25 Mg PO BID Doxazosin (Doxazosin Mesylate) 1 Mg Tab 1 Mg PO HS Allergies: Coded Allergies: shellfish derived (Verified Allergy, Severe, HIVES, 08/21/17) tetanus toxoid, adsorbed (Verified Adverse Reaction, Severe, RASH, 08/21/17 ) rash Active Ordered Medications Inpatient Medications Dextrose (D50w (Vial) Inj) 50 ml UNSCH PRN IV PUSH HYPOGLYCEMIA-SEE COMMENTS; Start 08/21/17 at 11:15 Glucagon (Glucagon Inj) 1 mg UNSCH PRN OTHER HYPOGLYCEMIA-SEE COMMENTS; Start 08/21/17 at 11:15 Insulin Aspart (NovoLOG SUPPLEMENTAL SCALE) 1 ACHS SLIDING SCALE SQ ; Start at 12:00 Pantoprazole Sodium 80 mg/ Sodium Chloride 100 ml @ 10 mls/hr Q10H IV Last administered on 08/21/17at 10:24; Start 08/21/17 at 09:36 Sodium Chloride 250 ml @ 15 mls/hr ONCE ONCE IV Last administered on at 11:29; Start 08/21/17 at 10:30; Stop 08/22/17 at 03:09 Sodium Chloride (NS Flush) 2 ml UNSCH PRN IVF FLUSH AFTER USING IV ACCESS; Start 08/21/17 at 09:30 Social History doesn't smoke. drinks rarely. Physical Exam Vital Signs Vital Signs Date Time Temp Pulse Resp B/P (MAP) Pulse Ox O2 Delivery O2 Flow Rate FiO2 08/21/17 11:31 98.1 55 17 130/79 100 08/21/17 11:12 98.1 55 16 145/67 100 08/21/17 09:43 98 Room Air 08/21/17 09:12 98.6 57 16 154/67 (96) 100 Physical Exam GENERAL: This is a well-nourished, well-developed patient, in no apparent distress. SKIN: No rashes, ecchymoses or lesions. Cool and dry. HEAD: Atraumatic. Normocephalic. No temporal or scalp tenderness. EYES: Pupils equal round and reactive. Extraocular motions intact. No scleral icterus. No injection or drainage. ENT: Nose without bleeding, purulent drainage or septal hematoma. Throat without erythema, tonsillar hypertrophy or exudate. Uvula midline. Airway patent. NECK: Trachea midline. No JVD or lymphadenopathy. Supple, nontender, no meningeal signs. CARDIOVASCULAR: Regular rate and rhythm without murmurs, gallops, or rubs. RESPIRATORY: Clear to auscultation. Breath sounds equal bilaterally. No wheezes , rales, or rhonchi. GASTROINTESTINAL: Abdomen soft, non-tender, nondistended. No hepato-splenomegaly , or palpable masses. No guarding. MUSCULOSKELETAL: Extremities without clubbing, cyanosis, or edema. No joint tenderness, effusion, or edema noted. No calf tenderness. Negative Homans sign bilaterally. NEUROLOGICAL: Awake and alert. Cranial nerves II through XII intact. Motor and sensory grossly within normal limits. Five out of 5 muscle strength in all muscle groups. Normal speech. Laboratory Laboratory Tests Test 08/21/17 09:40 White Blood Count 6.6 Red Blood Count 2.43 Hemoglobin 7.1 Hematocrit 22.1 Mean Corpuscular Volume 91.1 Mean Corpuscular Hemoglobin 29.1 Mean Corpuscular Hemoglobin Concent 32.0 Red Cell Distribution Width 16.1 Platelet Count 260 Mean Platelet Volume 7.6 Neutrophils (%) (Auto) 75.4 Lymphocytes (%) (Auto) 14.0 Monocytes (%) (Auto) 8.7 Eosinophils (%) (Auto) 1.4 Basophils (%) (Auto) 0.5 Neutrophils # (Auto) 5.0 Lymphocytes # (Auto) 0.9 Monocytes # (Auto) 0.6 Eosinophils # (Auto) 0.1 Basophils # (Auto) 0.0 CBC Comment DIFF FINAL Differential Comment Prothrombin Time 11.1 Prothromb Time International Ratio 1.1 Activated Partial Thromboplast Time 23.5 Blood Urea Nitrogen 36 Creatinine 2.21 Random Glucose 64 Total Protein 7.2 Albumin 3.0 Calcium Level 9.4 Alkaline Phosphatase 64 Aspartate Amino Transf (AST/SGOT) 5 Alanine Aminotransferase (ALT/SGPT) 9 Total Bilirubin 0.2 Sodium Level 143 Potassium Level 4.9 Chloride Level 114 Carbon Dioxide Level 20.2 Anion Gap 9 Estimat Glomerular Filtration Rate 35 Result Diagram: 08/21/1793908/21/17939 Caprini VTE Risk Assessment Caprini VTE Risk Assessment: Mod/High Risk (score >= 2) VTE Pharm Contraindication: Active bleeding Caprini Risk Assessment Model Point Value = 1 Point Value = 2 Point Value = 3 Point Value = 5 Age 41-60 Minor surgery BMI > 25 kg/m2 Swollen legs Varicose veins or History of unexplained or recurrent spontaneous Oral contraceptives or hormone replacement Sepsis (< 1 month) Serious lung disease, including pneumonia (< 1 month) Abnormal pulmonary function Acute myocardial infarction Congestive heart failure (< 1 month) History of inflammatory bowel disease Medical patient at bed rest Age 61-74 Arthroscopic surgery Major open surgery (> 45 min) Laparoscopic surgery (> 45 min) Malignancy Confined to bed (> 72 hours) Immobilizing plaster cast Central venous access Age >= 75 History of VTE Family history of VTE Factor V Leiden Prothrombin [id number] Lupus anticoagulant Anticardiolipin antibodies Elevated serum homocysteine Heparin-induced thrombocytopenia Other congenital or acquired thrombophilia Stroke (< 1 month) Elective arthroplasty Hip, pelvis, or leg fracture Acute spinal cord injury (< 1 month) Prophylaxis Regimen Total Risk Factor Score Risk Level Prophylaxis Regimen 0-1 Low Early ambulation 2 Moderate Order ONE of the following: *Sequential Compression Device (SCD) *Heparin 5000 units SQ BID 3-4 Higher Order ONE of the following medications: *Heparin 5000 units SQ TID *Enoxaparin/Lovenox 40 mg SQ daily (WT < 150 kg, CrCl > 30 mL/min) *Enoxaparin/Lovenox 30 mg SQ daily (WT < 150 kg, CrCl > 10-29 mL/min) *Enoxaparin/Lovenox 30 mg SQ BID (WT < 150 kg, CrCl > 30 mL/min) AND/OR *Sequential Compression Device (SCD) 5 or more Highest Order ONE of the following medications: *Heparin 5000 units SQ TID (Preferred with Epidurals) *Enoxaparin/Lovenox 40 mg SQ daily (WT < 150 kg, CrCl > 30 mL/min) *Enoxaparin/Lovenox 30 mg SQ daily (WT < 150 kg, CrCl > 10-29 mL/min) *Enoxaparin/Lovenox 30 mg SQ BID (WT < 150 kg, CrCl > 30 mL/min) AND *Sequential Compression Device (SCD) Assessment and Plan Assessment and Plan A/P - acute on chronic anemia due to GI bleed will transfuse with PRBC and monitor H/H- started on PPI- will consult GI. -CHF- chronic diastolic- compensated; resume BB and diuretics- continue to monitor -CAD- resume BB and statin. -diabetes mellitus; hold oral hypoglycemics- start on accu-check with SSI -CKD- stable- will monitor the renal function. -hypothyroidism; resume home meds -DVT prophylaxis with SCD's- no chemical prophylaxis due to anemia/ GI bleed. Discussed Condition With ER physician and the patient. Physician Certification 2 Midnight Certification Type: Admission for Inpatient Services Order for Inpatient Services The services are ordered in accordance with Medicare regulations or non- Medicare payer requirements, as applicable. In the case of services not specified as inpatient-only, they are appropriately provided as inpatient services in accordance with the 2-midnight benchmark. Estimated LOS (days): 2 days is the estimated time the patient will need to remain in the hospital, assuming treatment plan goals are met and no additional complications. Post-Hospital Plan: Home Problem Qualifiers (1) GI bleed: Qualified Codes: K92.2 - Gastrointestinal hemorrhage, unspecified (2) Anemia: Qualified Codes: D64.9 - Anemia, unspecified Carola Asencio MD Aug 21, 2017 12:22
--- NOTE | 2017-08-21 14:32 | MB ---
cc: Amarilys Chiu MD DATE: 08/21/2017 SERVICE: GI ATTENDING PHYSICIAN: Amarilys Chiu MD PRIMARY CARE PHYSICIAN: Garry Rodriguez MD PRIMARY SURVEY RESEARCH ASSOCIATE: Uche Kitchen MD REASON FOR CONSULTATION: Anemia, GI bleed. HISTORY OF PRESENT ILLNESS: This is a very pleasant 82-year-old gentleman known to our office from previous office visits for longstanding history of chronic anemia of unclear etiology. He has undergone significant workup in the distant past including endoscopic workup, EGD and colonoscopy, and video capsule endoscopy. His last EGD and colonoscopy were done in April of this year. At his last office visit in May, he was advised to follow up with the test deck supervisor to see if there are any occult hematological disorders that may be contributing to his anemia, but it does not appear that he followed up with this recommendation. He was having worsening fatigue over the last several days and due to that, he underwent routine blood work, which showed a hemoglobin of 6.9. Due to the symptoms and the low blood count, he came to the ER for workup and transfusion. He is currently getting his first unit of packed RBCs. He denies any bloody bowel movements or hematemesis. He does admit that he is having dark stools, but when I asked him more in detail, he denies melenic stool. Denies any burgundy or bloody stools. PAST MEDICAL HISTORY: Diabetes mellitus, hypertension, hypothyroidism, history of prostate cancer, congestive heart failure. PAST SURGICAL HISTORY: PTCA, cardiac stent placement, prostate cancer surgery and thyroid surgery. FAMILY HISTORY: No GI malignancies. SOCIAL HISTORY: Denies tobacco, alcohol, drug abuse. MEDICATIONS: Iron sulfate, MiraLax, glipizide, Protonix, spironolactone, gabapentin, ranitidine, sucralfate. ALLERGIES: SHELLFISH AND TETANUS TOXOID. REVIEW OF SYSTEMS: A 12-point review of system was obtained by me and shown to be negative or noncontributory except for the above mentioned in the HPI. PHYSICAL EXAMINATION: VITAL SIGNS: Temperature 98.1, heart rate 55, respirations 17, blood pressure 130/79, O2 saturation 100% on room air. GENERAL: Alert, oriented. No acute distress. HEENT: Mucosa moist and pink. Extraocular movements are intact. Pupils are equal, round, reactive to light. Normocephalic, atraumatic. NECK: Supple, nontender. No carotid bruits. No thyromegaly appreciated. CARDIOVASCULAR: Regular rate and rhythm. No murmurs heard. ABDOMEN: Soft, nontender, nondistended. Bowel sounds are present in all 4 quadrants. GENITOURINARY: No CVA angle tenderness noted. LYMPHATICS: No lymphadenopathy appreciated. NEUROLOGIC: Alert and oriented. No focal deficits. MUSCULOSKELETAL: Equal strength, upper and lower extremities. LABORATORY DATA: WBC 6.6, hemoglobin 7.1, MCV 91.1, platelet count 260. Sodium 143, potassium 4.9, chloride 114, bicarbonate 20, BUN 36, creatinine 2.21. INR 1.1. IMPRESSION: Normocytic normochromic anemia of unclear etiology, may be secondary to chronic occult lower gastrointestinal and there is a possibility of underlying hematologic disorder. He has had history of anemia for a long time. He has had multiple transfusions in the past. He has also undergone significant GI workup. RECOMMENDATIONS: At this time due to patient already undergoing workup, I recommend continuing your treatment with transfusion. I recommend returning diet to normal. No urgent endoscopic workup at this time. He can followup outpatient with Dr. Kitchen in the office and at that time, again, will recommend referral to a test deck supervisor to see us if there are any underlying hematological workup that may help to reduce the need for transfusion. This was all discussed in great detail with the patient and he is agreeable to this. Thank you for allowing [facility] to participate in the care of the patient. Please do not hesitate to contact us for any further questions. MD GABI Morataya/VIJI , 01:37 PM , 02:31 PM
[2017-08-21] MEDS: ACETAMINOPHEN/HYDROcodone 325 MG/5 MG TAB PO PRN ×2 (15:33→21:46)
[2017-08-21] MEDS ORDERED: DOXAZOSIN MESYLATE 1 MG TAB PO SCH (21:00)
[2017-08-21] MEDS ORDERED: ATORVASTATIN 40 MG TAB PO SCH (21:00)
[2017-08-21] MEDS: GABAPENTIN 300 MG CAP PO SCH (21:33)
[2017-08-21] MEDS: CARVEDILOL 12.5 MG TAB PO SCH (21:35)
[2017-08-22] VITALS: BP 147/72; PULSE 57; RESP 18; TEMP 98.7; O2SAT 100
[2017-08-22] MEDS: ACETAMINOPHEN/HYDROcodone 325 MG/5 MG TAB PO PRN (03:15)
[2017-08-22 04:00] VITALS: BP 140/73; PULSE 85; RESP 18; TEMP 98.3; O2SAT 100
[2017-08-22] MEDS ORDERED: LEVOTHYROXINE SODIUM 150 MCG TAB PO SCH (06:00)
[2017-08-22] MEDS: PANTOPRAZOLE INJ 80 MG in SODIUM CHLORIDE 0.9% INJ 100 ML IV SCH (06:25)
[2017-08-22 07:08] LABS: HEMATOCRIT 25.9 % (39.0-51.0); HEMOGLOBIN 8.7 GM/DL (13.0-17.0)
[2017-08-22] MEDS: INSULIN ASPART SUPPLEMENTAL SCALE SQ SCH (07:43)
[2017-08-22] MEDS: CARVEDILOL 12.5 MG TAB PO SCH (07:54)
[2017-08-22] MEDS: GABAPENTIN 300 MG CAP PO SCH (07:54)
[2017-08-22 08:00] VITALS: BP 132/59; PULSE 50; RESP 17; TEMP 97.8; O2SAT 100
--- NOTE | 2017-08-22 08:42 | HHI.PR ---
Subjective Remarks in no acute distress. feeling stronger after blood transfusion. no new complaints. Objective Vitals Vital Signs Date Time Temp Pulse Resp B/P (MAP) Pulse Ox O2 Delivery O2 Flow Rate FiO2 08/22/17 04:00 98.3 85 18 140/73 (95) 100 08/22/17 00:00 98.7 57 18 147/72 (97) 100 08/21/17 20:00 98.3 82 18 159/67 (97) 93 08/21/17 16:55 98.2 63 17 126/60 95 08/21/17 16:40 98.1 61 16 129/90 96 08/21/17 16:00 97.6 91 19 159/71 (100) 100 08/21/17 13:45 98.2 62 24 190/81 98 08/21/17 11:31 98.1 55 17 130/79 100 08/21/17 11:12 98.1 55 16 145/67 100 08/21/17 09:43 98 Room Air 08/21/17 09:12 98.6 57 16 154/67 (96) 100 I/O 08/21/17 08/21/17 08/21/17 08/22/17 08/22/17 08/22/17 07:00 15:00 23:00 07:00 15:00 23:00 Intake Total 465 ml 1198 ml 340 ml Output Total 250 ml 700 ml 1200 ml Balance 215 ml 498 ml -860 ml Intake Oral 780 ml 240 ml IV Total 100 ml Packed Cells 400 ml 400 ml Blood Product IV Normal Saline Flush 65 ml 18 ml Output Urine Total 250 ml 700 ml 1200 ml # Bowel Movements 0 0 Result Diagram: 08/22/17 0610 08/21/17 0940 Objective Remarks GENERAL: This is a well-nourished, well-developed patient, in no apparent distress. CARDIOVASCULAR: Regular rate and regular rhythm without murmurs, gallops, or rubs. RESPIRATORY: Clear to auscultation. Breath sounds equal bilaterally. No wheezes , rales, or rhonchi. GASTROINTESTINAL: Abdomen soft, non-tender, nondistended. Normal, active bowel sounds MUSCULOSKELETAL: Extremities with bilateral pedal edema. NEURO: Alert & Oriented x4 to person, place, time, situation. Moves all ext x4 Procedures none. Medications and IVs Inpatient Medications Acetaminophen/ Hydrocodone Bitart ([place] 5-325 Mg) 1 tab Q6H PRN PO PAIN 3-10 Last administered on 08/22/17at 03:15; Start 08/21/17 at 15:15 Atorvastatin Calcium (Lipitor) 40 mg HS PO Last administered on 08/21/17at 21:33 ; Start 08/21/17 at 21:00 Bumetanide (Bumetanide) 1 mg DAILY PO ; Start 08/22/17 at 09:00 Carvedilol (Coreg) 25 mg BID PO Last administered on 08/22/17at 07:54; Start at 21:00 Dextrose (D50w (Vial) Inj) 50 ml UNSCH PRN IV PUSH HYPOGLYCEMIA-SEE COMMENTS; Start 08/21/17 at 11:15 Doxazosin Mesylate (Cardura) 1 mg HS PO Last administered on 08/21/17at 21:33; Start 08/21/17 at 21:00 Furosemide (Lasix Inj) 20 mg ONCE ONCE IV PUSH Last administered on 08/21/17at 15:00; Start 08/21/17 at 12:15; Stop 08/21/17 at 12:42; Status DC Gabapentin (Neurontin) 300 mg BID PO Last administered on 08/22/17at 07:54; Start 08/21/17 at 21:00 Glucagon (Glucagon Inj) 1 mg UNSCH PRN OTHER HYPOGLYCEMIA-SEE COMMENTS; Start 08/21/17 at 11:15 Insulin Aspart (NovoLOG SUPPLEMENTAL SCALE) 1 ACHS SLIDING SCALE SQ ; Start at 12:00 Levothyroxine Sodium (Synthroid) 150 mcg DAILY@0600 PO Last administered on at 06:25; Start 08/22/17 at 06:00 Pantoprazole Sodium 80 mg/ Sodium Chloride 100 ml @ 10 mls/hr Q10H IV Last administered on 08/22/17at 06:25; Start 08/21/17 at 09:36 Pneumococcal Polyvalent Vaccine (Pneumovax-23 Inj) 25 mcg ONCE ONCE IM ; Start 08/22/17 at 09:00; Stop 08/22/17 at 09:00; Status DC Sodium Chloride 250 ml @ 15 mls/hr ONCE ONCE IV Last administered on at 11:29; Start 08/21/17 at 10:30; Stop 08/22/17 at 03:09; Status DC Sodium Chloride (NS Flush) 2 ml UNSCH PRN IVF FLUSH AFTER USING IV ACCESS; Start 08/21/17 at 09:30 A/P Problem List: (1) GI bleed ICD Code: K92.2 - Gastrointestinal hemorrhage, unspecified Status: Acute (2) Anemia ICD Code: D64.9 - Anemia Status: Acute Assessment and Plan A/P - acute on chronic anemia due to GI bleed H/H improved after PRBC transfusion. GI consult appreciated; recommended f/u as outpatient. -CHF- chronic diastolic- compensated; resumed BB and diuretics- continue to monitor -CAD- resumed BB and statin. -diabetes mellitus; resume home regimen; will decrease the dose of Glipizide. -CKD- stable- -hypothyroidism; resumed home meds -DVT prophylaxis with SCD's- no chemical prophylaxis due to anemia/ GI bleed. Discharge Planning dc home. f/u; pcp and GI. see med list. d/w the patient. Problem Qualifiers (1) GI bleed: Qualified Codes: K92.2 - Gastrointestinal hemorrhage, unspecified (2) Anemia: Qualified Codes: D64.9 - Anemia, unspecified Carola Asencio MD Aug 22, 2017 08:42
[2017-08-22] MEDS ORDERED: GLIP5TAB8 PO (08:44)
--- NOTE | 2017-08-22 08:45 | HHI.DS ---
Discharge Summary Admission Date Aug 21, 2017 at 11:09 Discharge Date: Aug 22, 2017 Admitting Diagnosis gi bleed, anemia (1) GI bleed ICD Code: K92.2 - Gastrointestinal hemorrhage, unspecified Diagnosis: Principal Status: Acute (2) Anemia ICD Code: D64.9 - Anemia Diagnosis: Principal Status: Acute Procedures none. Brief History - From Admission patient is a 82 y/o male with history of CAD, CHF, anemia, diabetes mellitus, prostate cancer, hypothyroidism, CKD, who presented to ER with fatigue. he says that he's had ' this problem with GI bleed for sometime' and he had EGD and colonoscopy within the past six months with no obvious source of bleeding. he says that he has to come to ER from time to time ' to get some blood'. he says that he started to have worsening fatigue few days ago. he had a blood work done earlier this week when he found out that his Hb was 6.9. he said that he decided to come to ER for blood transfusion. he denies any sob or chest pain. he denies any abdominal pain but he says that he's noticed that the past few days ' his stool was black'. he's being followed up by . CBC/BMP: 08/22/17 0610 08/21/17 0940 Significant Findings Laboratory Tests Test 08/21/17 09:40 08/22/17 06:10 Red Blood Count 2.43 MIL/MM3 (4.50-5.90) Hemoglobin 7.1 GM/DL (13.0-17.0) 8.7 GM/DL (13.0-17.0) Hematocrit 22.1 % (39.0-51.0) 25.9 % (39.0-51.0) Neutrophils (%) (Auto) 75.4 % (16.0-70.0) Monocytes (%) (Auto) 8.7 % (0.0-8.0) Lymphocytes # (Auto) 0.9 TH/MM3 (1.0-4.8) Activated Partial Thromboplast Time 23.5 SEC (24.3-30.1) Blood Urea Nitrogen 36 MG/DL (7-18) Creatinine 2.21 MG/DL (0.60-1.30) Random Glucose 64 MG/DL (74-106) Albumin 3.0 GM/DL (3.4-5.0) Aspartate Amino Transf (AST/SGOT) 5 U/L (15-37) Alanine Aminotransferase (ALT/SGPT) 9 U/L (12-78) Chloride Level 114 MEQ/L (98-107) Carbon Dioxide Level 20.2 MEQ/L (21.0-32.0) Estimat Glomerular Filtration Rate 35 ML/MIN (>89) PE at Discharge GENERAL: This is a well-nourished, well-developed patient, in no apparent distress. CARDIOVASCULAR: Regular rate and regular rhythm without murmurs, gallops, or rubs. RESPIRATORY: Clear to auscultation. Breath sounds equal bilaterally. No wheezes , rales, or rhonchi. GASTROINTESTINAL: Abdomen soft, non-tender, nondistended. Normal, active bowel sounds MUSCULOSKELETAL: Extremities with bilateral pedal edema. NEURO: Alert & Oriented x4 to person, place, time, situation. Moves all ext x4 Hospital Course - acute on chronic anemia due to GI bleed H/H improved after PRBC transfusion. GI consult appreciated; recommended f/u as outpatient. -CHF- chronic diastolic- compensated; resumed BB and diuretics- continue to monitor -CAD- resumed BB and statin. -diabetes mellitus; resume home regimen; will decrease the dose of Glipizide. -CKD- stable- -hypothyroidism; resumed home meds Pt Condition on Discharge: Stable Discharge Disposition: Discharge Home Discharge Time: <= 30 minutes Discharge Instructions DIET: Follow Instructions for: Heart Healthy Diet, Diabetic Diet Activities you can perform: Regular-No Restrictions Carola Asencio MD Aug 22, 2017 08:45
[2017-08-22] MEDS ORDERED: PNEUMOCOCCAL POLYVALENT INJ 25 MCG/0.5 ML SYR IM ONE (09:00)
[2017-08-22] MEDS ORDERED: BUMETANIDE 1 MG TAB PO SCH (09:00)
== END 2017-08-22 12:46 | disposition home or self-care (01) | DRG 378 ==
LOC: NEPE 09:00 → NEDA 11:09 → N07B 14:24
PROVIDERS: ADMIT Internal Medicine; ATTEND Internal Medicine
PROC: 30233N1 Transfusion of Nonautologous Red Blood Cells into Peripheral Vein, Percutaneous Approach (ICD-10-PCS; principal; 2017-08-21)
DX: K92.2 Gastrointestinal hemorrhage, unspecified (principal); D62 Acute posthemorrhagic anemia; I13.0 Hypertensive heart and chronic kidney disease with heart failure and stage 1 through stage 4 chronic kidney disease, or unspecified chronic kidney disease; E11.22 Type 2 diabetes mellitus with diabetic chronic kidney disease; I50.32 Chronic diastolic (congestive) heart failure; E11.42 Type 2 diabetes mellitus with diabetic polyneuropathy; E03.9 Hypothyroidism, unspecified; F41.9 Anxiety disorder, unspecified; M19.90 Unspecified osteoarthritis, unspecified site; E78.00 Pure hypercholesterolemia, unspecified; K21.9 Gastro-esophageal reflux disease without esophagitis; N18.9 Chronic kidney disease, unspecified; K44.9 Diaphragmatic hernia without obstruction or gangrene; G47.30 Sleep apnea, unspecified; I25.10 Atherosclerotic heart disease of native coronary artery without angina pectoris; Z85.46 Personal history of malignant neoplasm of prostate; Z87.11 Personal history of peptic ulcer disease; Z79.84 Long term (current) use of oral hypoglycemic drugs; Z86.73 Personal history of transient ischemic attack (TIA), and cerebral infarction without residual deficits; Z95.5 Presence of coronary angioplasty implant and graft
CPT/HCPCS: 36430; 80053; 82948; 85014; 85018; 85025; 85610; 85730; 86850; 86900; 86901; 86920; C9113; J1940; J7050; P9016

== ENCOUNTER 2017-09-20 11:25 | Observation (INO) ==
[2017-09-20] MEDS ORDERED: Sodium Chlor 0.9% Inj 250 ML IV.SIG SCH ×3 (12:00→15:00)
--- NOTE | 2017-09-20 12:12 | ED ---
HPI General Chief complaint: Medical Clearance Stated complaint: Medical complaint Time Seen by Provider: 09/20/17 11:54 Source: patient Mode of arrival: EMS Limitations: no limitations History of Present Illness HPI narrative: Patient came in stating that he was told that his hemoglobin was 5.5 the patient is a primary care of Dr. Rodriguez and he was made aware that his hemoglobin is low by the slat pickler Dr. hutchinson..... Patient denies noting any melena or any above or below according to him he already had a workup done in August where he was not found to have any bleeding by the GI specialist. And this is why the patient is now following up with a slat pickler to further evaluate why he continues to have a low hemoglobin Onset (ago): week(s) Radiation: non-radiation Severity: mild Severity scale (1-10): 4 Relieving factors: none Exacerbating factors: none Associated symptoms: denies other symptoms Related Data Home Medications Medication Instructions Recorded Confirmed bumetanide 1 mg PO DAILY 09/20/17 09/20/17 carvedilol [Coreg] 25 mg PO BID 09/20/17 09/20/17 doxazosin 1 mg PO HS 09/20/17 09/20/17 ergocalciferol (vitamin D2) 50,000 unit PO QWEEK 09/20/17 09/20/17 ferrous sulfate 324 mg PO DAILY 09/20/17 09/20/17 gabapentin 300 mg PO DAILY 09/20/17 09/20/17 glipizide 5 mg PO TID 09/20/17 09/20/17 hydrocodone-acetaminophen 7.5 mg PO TID PRN MDD 3 TABS 09/20/17 09/20/17 levothyroxine 150 mcg PO DAILY 09/20/17 09/20/17 naldemedine [Symproic] 0.2 mg PO DAILY 09/20/17 09/20/17 pantoprazole 40 mg PO DAILY 09/20/17 09/20/17 ranitidine HCl [Zantac] 150 mg PO BID 09/20/17 09/20/17 rosuvastatin [Crestor] 20 mg PO DAILY 09/20/17 09/20/17 spironolactone 25 mg PO BID 09/20/17 09/20/17 Allergies Allergy/AdvReac Type Severity Reaction Status Date / Time shellfish derived Allergy Severe HIVES Verified 09/20/17 11:31 tetanus toxoid, adsorbed Allergy Severe RASH Verified 09/20/17 11:31 lactose Allergy Mild INTOLERANCE Verified 09/20/17 15:57 Review of Systems Except as stated in HPI: all other systems reviewed are negative [facility] Medical History Medical History Anemia (Acute) CHF (congestive heart failure) (Acute) Coronary artery disease (Acute) Diabetes (Acute) Surgical History Surgical History History of prostate surgery (Acute) History of thyroid surgery (Acute) Family History Family History Other Family history non-contributory Social History Social History Substance History: No History of Abuse Second Hand Smoke Exposure: No Smoking Status: Never smoker How Often Do You Have a Drink Containing Alcohol: 2 to 4 times a month Recent Travel in [facility] within the Last 8 Weeks: No Recent Out of Country Travel within the Last 8 Weeks: No Immunization History Tetanus Immunization: >5 Years Hx Influenza Vaccine This Season: Yes Exam Narrative Exam Narrative: GENERAL: elderly obese male in no distress SKIN: Warm and dry. HEAD: Atraumatic. Normocephalic. EYES: Pupils equal and round. No scleral icterus. No injection or drainage. ENT: No nasal bleeding or discharge. Mucous membranes pink and moist. NECK: Trachea midline. No JVD. CARDIOVASCULAR: Regular rate and rhythm. no rubs or gallops RESPIRATORY: No accessory muscle use. Clear to auscultation. Breath sounds equal bilaterally. GASTROINTESTINAL: Abdomen soft, non-tender, nondistended. No rebound or guarding MUSCULOSKELETAL: Extremities without clubbing, cyanosis, or edema. No obvious deformities. NEUROLOGICAL: Awake and alert. No obvious cranial nerve deficits. Motor grossly within normal limits. Five out of 5 muscle strength in the arms and legs. Normal speech. PSYCHIATRIC: Appropriate mood and affect; insight and judgment normal. Course Initial Documented Vital Signs Temperature 98.1 F 09/20/17 11:33 Pulse Rate 72 09/20/17 11:33 Respiratory Rate 20 09/20/17 11:33 Blood Pressure 144/64 H 09/20/17 11:33 Pulse Oximetry 100 09/20/17 11:33 Last Documented Vital Signs Temperature 97.9 F 09/21/17 12:00 Pulse Rate 52 L 09/21/17 12:00 Respiratory Rate 16 09/21/17 12:00 Blood Pressure 133/63 09/21/17 12:00 Pulse Oximetry 100 09/21/17 12:00 Medical Decision Making Lab Data Result diagrams: 09/21/17 13:15 09/21/17 13:15 Lab Results 09/20/17 09/20/17 09/20/17 Range/Units 12:00 12:00 12:00 WBC 7.0 (4.0-11.0) th/mm3 RBC 2.21 L (4.50-5.90) mil/mm3 Hgb 6.3 L* (13.0-17.0) gm/dL Hct 20.1 L* (39.0-51.0) % MCV 90.9 (80.0-100.0) fL MCH 28.7 (27.0-34.0) pg MCHC 31.5 L (32.0-36.0) % RDW 16.0 (11.6-17.2) % Plt Count 293 (150-450) th/mm3 MPV 7.6 (7.0-11.0) fL Neut % (Auto) 78.1 H (16.0-70.0) % Lymph % (Auto) 12.1 (9.0-44.0) % [place] % (Auto) 8.9 H (0.0-8.0) % Eos % (Auto) 0.5 (0.0-4.0) % Baso % (Auto) 0.4 (0.0-2.0) % Neut # (Auto) 5.5 (1.8-7.7) th/mm3 Lymph # (Auto) 0.8 L (1.0-4.8) th/mm3 [place] # (Auto) 0.6 (0.0-0.9) th/mm3 Eos # (Auto) 0.0 (0.0-0.4) th/mm3 Baso # (Auto) 0.0 (0.0-0.2) th/mm3 WBC Differential . Diff Scan Auto diff confirmed Differential Comment . Polychromasia 2.9 H (0.0-1.9) % PT 11.4 (9.8-11.6) sec INR 1.1 Ratio APTT 26.6 (24.3-30.1) sec Sodium 141 (136-145) meq/L Potassium 5.4 H (3.5-5.1) meq/L Chloride 112 H (98-107) meq/L Carbon Dioxide 18.0 L (21.0-32.0) meq/L Anion Gap 11 (5-15) meq/L BUN 36 H (7-18) mg/dL Creatinine 1.88 H (0.60-1.30) mg/dL Estimated GFR 42 L (>89) mL/min Random Glucose 107 H (74-106) mg/dL Calcium 9.8 (8.5-10.1) mg/dL Prot Corrected Calcium Iron (65-175) mcg/dL TIBC (250-450) mcg/dL % Saturation (20-50) % Ferritin (26-388) ng/mL Total Bilirubin 0.3 (0.2-1.0) mg/dL AST 18 (15-37) U/L ALT 11 L (12-78) U/L Alkaline Phosphatase 61 (45-117) U/L Troponin I 0.15 H (0.02-0.05) ng/mL Total Protein 7.1 (6.4-8.2) g/dL Albumin 2.7 L (3.4-5.0) g/dL Blood Type Antibody Screen MTS Gel Crossmatch 09/20/17 09/20/17 09/20/17 Range/Units 12:00 12:00 16:48 WBC (4.0-11.0) th/mm3 RBC (4.50-5.90) mil/mm3 Hgb (13.0-17.0) gm/dL Hct (39.0-51.0) % MCV (80.0-100.0) fL MCH (27.0-34.0) pg MCHC (32.0-36.0) % RDW (11.6-17.2) % Plt Count (150-450) th/mm3 MPV (7.0-11.0) fL Neut % (Auto) (16.0-70.0) % Lymph % (Auto) (9.0-44.0) % [place] % (Auto) (0.0-8.0) % Eos % (Auto) (0.0-4.0) % Baso % (Auto) (0.0-2.0) % Neut # (Auto) (1.8-7.7) th/mm3 Lymph # (Auto) (1.0-4.8) th/mm3 [place] # (Auto) (0.0-0.9) th/mm3 Eos # (Auto) (0.0-0.4) th/mm3 Baso # (Auto) (0.0-0.2) th/mm3 WBC Differential Diff Scan Differential Comment Polychromasia (0.0-1.9) % PT (9.8-11.6) sec INR Ratio APTT (24.3-30.1) sec Sodium Cancelled (136-145) meq/L Potassium Cancelled (3.5-5.1) meq/L Chloride Cancelled (98-107) meq/L Carbon Dioxide Cancelled (21.0-32.0) meq/L Anion Gap Cancelled (5-15) meq/L BUN Cancelled (7-18) mg/dL Creatinine Cancelled (0.60-1.30) mg/dL Estimated GFR Cancelled (>89) mL/min Random Glucose Cancelled (74-106) mg/dL Calcium Cancelled (8.5-10.1) mg/dL Prot Corrected Calcium Cancelled Iron (65-175) mcg/dL TIBC (250-450) mcg/dL % Saturation (20-50) % Ferritin (26-388) ng/mL Total Bilirubin Cancelled (0.2-1.0) mg/dL AST Cancelled (15-37) U/L ALT Cancelled (12-78) U/L Alkaline Phosphatase Cancelled (45-117) U/L Troponin I (0.02-0.05) ng/mL Total Protein Cancelled (6.4-8.2) g/dL Albumin Cancelled (3.4-5.0) g/dL Blood Type A Positive Antibody Screen Negative MTS Gel Crossmatch See Detail 09/21/17 09/21/17 09/21/17 Range/Units 05:35 13:15 13:15 WBC (4.0-11.0) th/mm3 RBC (4.50-5.90) mil/mm3 Hgb 8.1 L (13.0-17.0) gm/dL Hct 24.8 L (39.0-51.0) % MCV (80.0-100.0) fL MCH (27.0-34.0) pg MCHC (32.0-36.0) % RDW (11.6-17.2) % Plt Count (150-450) th/mm3 MPV (7.0-11.0) fL Neut % (Auto) (16.0-70.0) % Lymph % (Auto) (9.0-44.0) % [place] % (Auto) (0.0-8.0) % Eos % (Auto) (0.0-4.0) % Baso % (Auto) (0.0-2.0) % Neut # (Auto) (1.8-7.7) th/mm3 Lymph # (Auto) (1.0-4.8) th/mm3 [place] # (Auto) (0.0-0.9) th/mm3 Eos # (Auto) (0.0-0.4) th/mm3 Baso # (Auto) (0.0-0.2) th/mm3 WBC Differential Diff Scan Differential Comment Polychromasia (0.0-1.9) % PT (9.8-11.6) sec INR Ratio APTT (24.3-30.1) sec Sodium 142 (136-145) meq/L Potassium 4.7 (3.5-5.1) meq/L Chloride 111 H (98-107) meq/L Carbon Dioxide 24.2 (21.0-32.0) meq/L Anion Gap 7 (5-15) meq/L BUN 32 H (7-18) mg/dL Creatinine 1.79 H (0.60-1.30) mg/dL Estimated GFR 44 L (>89) mL/min Random Glucose 60 L (74-106) mg/dL Calcium 10.0 (8.5-10.1) mg/dL Prot Corrected Calcium Iron (65-175) mcg/dL TIBC (250-450) mcg/dL % Saturation (20-50) % Ferritin 26 (26-388) ng/mL Total Bilirubin (0.2-1.0) mg/dL AST (15-37) U/L ALT (12-78) U/L Alkaline Phosphatase (45-117) U/L Troponin I (0.02-0.05) ng/mL Total Protein (6.4-8.2) g/dL Albumin (3.4-5.0) g/dL Blood Type Antibody Screen MTS Gel Crossmatch 09/21/17 09/21/17 Range/Units 13:15 13:15 WBC (4.0-11.0) th/mm3 RBC (4.50-5.90) mil/mm3 Hgb 9.1 L (13.0-17.0) gm/dL Hct (39.0-51.0) % MCV (80.0-100.0) fL MCH (27.0-34.0) pg MCHC (32.0-36.0) % RDW (11.6-17.2) % Plt Count (150-450) th/mm3 MPV (7.0-11.0) fL Neut % (Auto) (16.0-70.0) % Lymph % (Auto) (9.0-44.0) % [place] % (Auto) (0.0-8.0) % Eos % (Auto) (0.0-4.0) % Baso % (Auto) (0.0-2.0) % Neut # (Auto) (1.8-7.7) th/mm3 Lymph # (Auto) (1.0-4.8) th/mm3 [place] # (Auto) (0.0-0.9) th/mm3 Eos # (Auto) (0.0-0.4) th/mm3 Baso # (Auto) (0.0-0.2) th/mm3 WBC Differential Diff Scan Differential Comment Polychromasia (0.0-1.9) % PT (9.8-11.6) sec INR Ratio APTT (24.3-30.1) sec Sodium (136-145) meq/L Potassium (3.5-5.1) meq/L Chloride (98-107) meq/L Carbon Dioxide (21.0-32.0) meq/L Anion Gap (5-15) meq/L BUN (7-18) mg/dL Creatinine (0.60-1.30) mg/dL Estimated GFR (>89) mL/min Random Glucose (74-106) mg/dL Calcium (8.5-10.1) mg/dL Prot Corrected Calcium Iron 254 H (65-175) mcg/dL TIBC 368 (250-450) mcg/dL % Saturation 69.0 H (20-50) % Ferritin (26-388) ng/mL Total Bilirubin (0.2-1.0) mg/dL AST (15-37) U/L ALT (12-78) U/L Alkaline Phosphatase (45-117) U/L Troponin I (0.02-0.05) ng/mL Total Protein (6.4-8.2) g/dL Albumin (3.4-5.0) g/dL Blood Type Antibody Screen MTS Gel Crossmatch Imaging Data Radiologist's impression: Chest X-Ray 09/20/17 11:59 CONCLUSION: Stable chest without evidence of acute process. Mild cardiomegaly. Stable right paratracheal soft tissue fullness. ECG Data EKG Prior to Arrival: No Attestation: I personally reviewed and interpreted this ECG as follows: Prior ECG tracings: not available for review Interpretation: Normal sinus rhythm, 67 bpm, left axis deviation, right bundle branch block pattern, no ST elevation pattern noted Discharge Plan Discharge Disposition Patient Disposition: 01 Discharge Home Discharge Condition Condition: Good Discharge Order Discharge Orders: Discharge Order (Routine); Ordered 09/21/17 Ordered By: Fabian Sotelo Discharge Details Anticipated Discharge Date: 09/21/17 Discharge Comment: Okay for discharge home after IV iron Diagnosis: Acute on chronic anemia Physicians Team ED Provider: Jaron Read Primary Care Provider: Garry Rodriguez Attending Provider: Fabian Sotelo Discharge Interventions Interventions: ED Discharge Assessment Last Done: 09/20/17 14:05 Vital Signs Last Done: 09/20/17 14:05 Status ED Status: Left Department Discharge Information Discharge Date/Time: 09/20/17 14:05
[2017-09-20 12:33] LABS: Baso % (Auto) 0.4 % (0.0-2.0); Eos % (Auto) 0.5 % (0.0-4.0); Lymph # (Auto) 0.8 th/mm3 (1.0-4.8); Lymph % (Auto) 12.1 % (9.0-44.0); Mean Corpuscular HGB Conc 31.5 % (32.0-36.0); Mean Corpuscular Hemoglobin 28.7 pg (27.0-34.0); Mean Corpuscular Volume 90.9 fL (80.0-100.0); Mean Platelet Volume 7.6 fL (7.0-11.0); Mono # (Auto) 0.6 th/mm3 (0.0-0.9); Mono % (Auto) 8.9 % (0.0-8.0); Neut # (Auto) 5.5 th/mm3 (1.8-7.7); Neut % (Auto) 78.1 % (16.0-70.0); Platelet Count 293 th/mm3 (150-450); Red Blood Count 2.21 mil/mm3 (4.50-5.90)
[2017-09-20 12:39] LABS: Hematocrit 20.1 % (39.0-51.0); Hemoglobin 6.3 gm/dL (13.0-17.0)
[2017-09-20 12:43] LABS: Activated Partial Thrombo Time 26.6 sec (24.3-30.1); INR 1.1 Ratio; Prothrombin Time 11.4 sec (9.8-11.6)
[2017-09-20 12:59] LABS: Alkaline Phosphatase 61 U/L (45-117); Total Protein 7.1 g/dL (6.4-8.2); Troponin I 0.15 ng/mL (0.02-0.05)
[2017-09-20 13:08] LABS: Alanine Aminotransferase 11 U/L (12-78); Albumin 2.7 g/dL (3.4-5.0); Anion Gap 11 meq/L (5-15); Aspartate Aminotransferase 18 U/L (15-37); Blood Urea Nitrogen 36 mg/dL (7-18); Calcium 9.8 mg/dL (8.5-10.1); Chloride 112 meq/L (98-107); Glomerular Filtration Rate 42 mL/min (>89); Glucose,Random 107 mg/dL (74-106); Potassium 5.4 meq/L (3.5-5.1); Sodium 141 meq/L (136-145)
--- NOTE | 2017-09-20 13:44 | XR ---
EXAM DATE: 09/20/2017 1:40 PM EDT AGE/SEX: 82 years / Male INDICATIONS: Low hemoglobin. Syncope. CLINICAL DATA: This is the patient's initial encounter. Patient reports that signs and symptoms have been present for 1 day and indicates a pain score of 0/10. MEDICAL/SURGICAL HISTORY: Hypertension. Diabetes mellitus type II. Coronary artery stent. COMPARISON: [facility] [place], 03/[place]. . FINDINGS: The chest is stable in appearance. Mild cardiac enlargement is again noted. Lungs are free of significant congestion or acute airspace disease. Right paratracheal soft tissue fullness is stable. CONCLUSION: Stable chest without evidence of acute process. Mild cardiomegaly. Stable right paratracheal soft tissue fullness. Electronically signed by: Srinivasa Valladares MD 09/20/2017 1:43 PM EDT
[2017-09-20 14:19] LABS: Polychromasia 2.9 % (0.0-1.9)
[2017-09-20] MEDS ORDERED: Temazepam 15 MG Capsule PO PRN (15:00)
[2017-09-20] MEDS ORDERED: Bisacodyl 10 MG Supp RECTAL PRN (15:00)
--- NOTE | 2017-09-20 15:43 | P.HPIM ---
History of Present Illness Primary Care Physician: Garry Rodriguez MD History of Present Illness: 82-year-old male with a medical history significant for chronic anemia, coronary artery disease, CHF, hypothyroidism, chronic knee pain who was sent to the emergency room from the lesson instructor office for low hemoglobin. His hemoglobin was reported to be around 5.5. The patient reports he has been having issues with anemia for a long time. He has had GI bleeding as well. He has had extensive workup in the recent months with no findings of GI bleeding. He was at the lesson instructor office for further workup. He reports that he feels okay except for being very fatigued. He denies shortness of breath or chest pain. He has a follow-up appointment with his lesson instructor next week. He denies any melena or bloody stool. No hematuria. - Diagnosis (1) Acute on chronic anemia Review of Systems All other systems reviewed negative except as stated in HPI PMFSH - History History Provided By: Patient, Spray Dyer / EMT - Medical History Medical History: Medical History (Last Updated 09/21/17 @ 09:00 by Carmen Thomas MD) Anemia CHF (congestive heart failure) Coronary artery disease Diabetes - Surgical History Surgical History: Surgical History (Last Reviewed 09/21/17 @ 09:00 by Carmen Thomas MD) History of prostate surgery History of thyroid surgery - Family History Family History: Family History (Last Updated 09/21/17 @ 09:01 by Carmen Thomas MD) Other Family history non-contributory - Tobacco History Second Hand Smoke Exposure: No Tobacco Use In Past 30 Days: No Smoking Status: Never smoker - Alcohol History How Often Do You Have a Drink Containing Alcohol: 2 to 4 times a month - Substance Use History Substance History: No History of Abuse - Travel History Recent Travel in the [place] Within the Last 8 Weeks: No Recent Travel Out of the Country Within the Last 8 Weeks: No - Immunization History Tetanus Immunization: >5 Years Hx Influenza Vaccine This Season: Yes Medications and Allergies Active Medications: Active Medications Al Hydroxide/Mg Hydroxide (Milk Of Magncyn Liq) 30 ml PO Q12H PRN PRN Reason: Mild Constipation Bisacodyl (Dulcolax Supp) 10 mg RECTAL DAILY PRN PRN Reason: SEVERE CONSITIPATION Sodium Chloride (Ns Inj) 250 mls @ 15 mls/hr IV.SIG ONCE [facility] Stop: 09/21/17 04:39 Sodium Chloride (Ns Inj) 250 mls @ 15 mls/hr IV.SIG ONCE [facility] Stop: 09/21/17 05:39 Sodium Chloride (Ns Inj) 250 mls @ 15 mls/hr IV.SIG ONCE [facility] Stop: 09/21/17 07:39 Lactulose (Lactulose Liq) 30 ml PO DAILY PRN PRN Reason: SEVERE CONSITIPATION Sennosides (Senokot) 17.2 mg PO Q12H PRN PRN Reason: Moderate Constipation Sodium Chloride (Ns Flush) 2 ml IV.FLUSH PRN PRN PRN Reason: FLUSH AFTER USING IV ACCESS Temazepam (Restoril) 15 mg PO HS PRN PRN Reason: INSOMNIA Allergies Allergy/AdvReac Type Severity Reaction Status Date / Time shellfish derived Allergy Severe HIVES Verified 09/20/17 11:31 tetanus toxoid, adsorbed Allergy Severe RASH Verified 09/20/17 11:31 lactose Allergy Mild INTOLERANCE Verified 09/20/17 15:57 Home Medications Medication Instructions Recorded Confirmed Type bumetanide 1 mg PO DAILY 09/20/17 09/20/17 History carvedilol [Coreg] 25 mg PO BID 09/20/17 09/20/17 History doxazosin 1 mg PO HS 09/20/17 09/20/17 History ergocalciferol (vitamin D2) 50,000 unit PO QWEEK 09/20/17 09/20/17 History ferrous sulfate 324 mg PO DAILY 09/20/17 09/20/17 History gabapentin 300 mg PO DAILY 09/20/17 09/20/17 History glipizide 5 mg PO TID 09/20/17 09/20/17 History hydrocodone-acetaminophen 7.5 mg PO TID PRN MDD 3 TABS 09/20/17 09/20/17 History levothyroxine 150 mcg PO DAILY 09/20/17 09/20/17 History naldemedine [Symproic] 0.2 mg PO DAILY 09/20/17 09/20/17 History pantoprazole 40 mg PO DAILY 09/20/17 09/20/17 History ranitidine HCl [Zantac] 150 mg PO BID 09/20/17 09/20/17 History rosuvastatin [Crestor] 20 mg PO DAILY 09/20/17 09/20/17 History spironolactone 25 mg PO BID 09/20/17 09/20/17 History Exam Vital signs: Vital Signs 09/20/17 11:33 09/20/17 11:59 09/20/17 13:02 Temperature 98.1 F 97.8 F Pulse Rate 72 69 68 Respiratory Rate 20 16 Blood Pressure 144/64 H 138/71 Pulse Oximetry 100 100 100 09/20/17 14:05 Temperature 97.9 F Pulse Rate 69 Respiratory Rate 18 Blood Pressure 130/83 Pulse Oximetry 100 Intake & Output 09/19/17 09/20/17 09/20/17 18:59 06:59 18:59 Weight 118.841 kg Narrative: GENERAL: This is a well-nourished, well-developed patient, in no apparent distress. CARDIOVASCULAR: Normal rate and regular rhythm without murmurs, gallops, or rubs. RESPIRATORY: Good respiratory efforts. Breath sounds equal and clear to auscultation bilaterally. GASTROINTESTINAL: Abdomen soft, non-tender, non-distended. Normal active bowel sounds MUSCULOSKELETAL: Extremities without cyanosis, or edema. NEURO: Alert & Oriented x4 to person, place, time, situation. Moves all ext x4 PSYCH: Appropriate mood and affect. Results - Labs CBC & Chem 7: 09/21/17 05:35 09/20/17 12:00 Labs: Short CBC 09/20/17 Range/Units 12:00 WBC 7.0 (4.0-11.0) th/mm3 Hgb 6.3 L* (13.0-17.0) gm/dL Hct 20.1 L* (39.0-51.0) % Plt Count 293 (150-450) th/mm3 BMP 09/20/17 09/20/17 12:00 12:00 Sodium 141 Cancelled Potassium 5.4 H Cancelled Chloride 112 H Cancelled Carbon Dioxide 18.0 L Cancelled BUN 36 H Cancelled Creatinine 1.88 H Cancelled Calcium 9.8 Cancelled Cardiac Enzymes 09/20/17 Range/Units 12:00 Troponin I 0.15 H (0.02-0.05) ng/mL Liver Function 09/20/17 09/20/17 Range/Units 12:00 12:00 Total Bilirubin 0.3 Cancelled (0.2-1.0) mg/dL AST 18 Cancelled (15-37) U/L ALT 11 L Cancelled (12-78) U/L Alkaline Phosphatase 61 Cancelled (45-117) U/L Albumin 2.7 L Cancelled (3.4-5.0) g/dL - Imaging Impressions Chest X-Ray 09/20/17 11:59 CONCLUSION: Stable chest without evidence of acute process. Mild cardiomegaly. Stable right paratracheal soft tissue fullness. Caprini VTE Risk Assessment Caprini VTE Risk Assessment: Moderate/High Risk (score >= 2) VTE Pharmacological Exception Reason: High risk for bleeding Caprini Risk Assessment Model: Point Value = 1 Point Value = 2 Point Value = 3 Point Value = 5 Age 41-60 Minor surgery BMI > 25 kg/m2 Swollen legs Varicose veins or History of unexplained or recurrent spontaneous Oral contraceptives or hormone replacement Sepsis (< 1 month) Serious lung disease, including pneumonia (< 1 month) Abnormal pulmonary function Acute myocardial infarction Congestive heart failure (< 1 month) History of inflammatory bowel disease Medical patient at bed rest Age 61-74 Arthroscopic surgery Major open surgery (> 45 min) Laparoscopic surgery (> 45 min) Malignancy Confined to bed (> 72 hours) Immobilizing plaster cast Central venous access Age >= 75 History of VTE Family history of VTE Factor V Leiden Prothrombin [id number] Lupus anticoagulant Anticardiolipin antibodies Elevated serum homocysteine Heparin-induced thrombocytopenia Other congenital or acquired thrombophilia Stroke (< 1 month) Elective arthroplasty Hip, pelvis, or leg fracture Acute spinal cord injury (< 1 month) Prophylaxis Regimen: Total Risk Factor Score Risk Level Prophylaxis Regimen 0-1 Low Early ambulation 2 Moderate Order ONE of the following: *Sequential Compression Device (SCD) *Heparin 5000 units SQ BID 3-4 Higher Order ONE of the following medications: *Heparin 5000 units SQ TID *Enoxaparin/Lovenox 40 mg SQ daily (WT < 150 kg, CrCl > 30 mL/min) *Enoxaparin/Lovenox 30 mg SQ daily (WT < 150 kg, CrCl > 10-29 mL/min) *Enoxaparin/Lovenox 30 mg SQ BID (WT < 150 kg, CrCl > 30 mL/min) AND/OR *Sequential Compression Device (SCD) 5 or more Highest Order ONE of the following medications: *Heparin 5000 units SQ TID (Preferred with Epidurals) *Enoxaparin/Lovenox 40 mg SQ daily (WT < 150 kg, CrCl > 30 mL/min) *Enoxaparin/Lovenox 30 mg SQ daily (WT < 150 kg, CrCl > 10-29 mL/min) *Enoxaparin/Lovenox 30 mg SQ BID (WT < 150 kg, CrCl > 30 mL/min) AND *Sequential Compression Device (SCD) Assessment and Plan - Assessment (1) Acute on chronic anemia Code(s): D64.9 - Anemia, unspecified Status: Acute - Plan 82-year-old male with history of persistent anemia presented again with acute on chronic anemia. There are no signs of GI bleeding. The patient has had recent and extensive GI workup with no source of bleeding. He was being evaluated by his lesson instructor today when he was noted to have a low hemoglobin and sent to the hospital. The patient plan to follow-up outpatient with his lesson instructor next week. I attempted to call the patient's lesson instructor Dr. Grullon. Awaiting for call back. Acute on chronic anemia: This may be due to chronic slow bleeding versus inadequate marrow production above. Patient has good follow-up and already in discussions about bone marrow biopsy with his lesson instructor. -Transfuse 2 units of PRBC and follow H&H. Continue the rest of the patient's chronic medications for his chronic conditions. If the patient H&H remained stable after the blood transfusion, anticipate he can be discharged home to follow-up outpatient with his lesson instructor.
[2017-09-20] MEDS ORDERED: Doxazosin 1 MG Tablet PO SCH (21:00)
[2017-09-20] MEDS: Carvedilol 12.5 MG Tablet PO SCH (21:13)
[2017-09-20] MEDS: Spironolactone 25 MG Tablet PO SCH (21:14)
[2017-09-20] MEDS: glipiZIDE 5 MG Tablet PO SCH (21:15)
[2017-09-21 05:52] LABS: Hematocrit 24.8 % (39.0-51.0); Hemoglobin 8.1 gm/dL (13.0-17.0)
[2017-09-21] MEDS ORDERED: Levothyroxine 150 MCG Tablet PO SCH (06:00)
[2017-09-21] MEDS ORDERED: [UNRECOGNIZED DRUG - OTHER] PO SCH (09:00)
[2017-09-21] MEDS ORDERED: [UNRECOGNIZED DRUG - OTHER] PO SCH (09:00)
[2017-09-21] MEDS ORDERED: Gabapentin 300 MG Capsule PO SCH (09:00)
[2017-09-21] MEDS ORDERED: Ferrous Sulfate 325 MG Tablet PO SCH (09:00)
[2017-09-21] MEDS: Spironolactone 25 MG Tablet PO SCH (09:39)
[2017-09-21] MEDS: glipiZIDE 5 MG Tablet PO SCH ×2 (09:40→15:20)
[2017-09-21] MEDS: Carvedilol 12.5 MG Tablet PO SCH (09:40)
--- NOTE | 2017-09-21 13:44 | P.PNIM ---
Subjective Interval history: Patient says he is feeling well. Denies any chest pain shortness of breath. Denies nausea or vomiting. He feels like going home Physical Exam Vital signs: Vital Signs 09/20/17 14:05 09/20/17 15:48 09/20/17 17:30 Temperature 97.9 F 97.7 F 98.3 F Pulse Rate 69 74 67 Respiratory Rate 18 16 20 Blood Pressure 130/83 150/73 H 142/66 H Pulse Oximetry 100 100 100 09/20/17 17:50 09/20/17 18:10 09/20/17 20:00 Temperature 98.4 F 98.1 F 97.9 F Pulse Rate 67 69 64 Respiratory Rate 20 18 20 Blood Pressure 139/64 143/67 H 129/61 Pulse Oximetry 100 100 100 09/20/17 20:52 09/20/17 21:26 09/20/17 21:43 Temperature 98.2 F 98.2 F 98.1 F Pulse Rate 62 61 62 Respiratory Rate 15 15 15 Blood Pressure 138/65 138/63 121/56 L Pulse Oximetry 100 100 09/20/17 22:30 09/21/17 00:00 09/21/17 00:31 Temperature 98 F 98.1 F Pulse Rate 55 L 57 L Respiratory Rate 15 20 15 Blood Pressure 120/73 132/62 Pulse Oximetry 100 100 09/21/17 04:00 09/21/17 07:39 09/21/17 07:53 Temperature 98 F 98.5 F Pulse Rate 59 L 52 L Respiratory Rate 20 18 Blood Pressure 150/68 H 149/67 H Pulse Oximetry 100 100 09/21/17 12:00 Temperature 97.9 F Pulse Rate 52 L Respiratory Rate 16 Blood Pressure 133/63 Pulse Oximetry 100 Intake & Output 09/20/17 09/21/17 09/21/17 18:59 06:59 18:59 Intake Total 1000 / 1000 Output Total 525 / 525 1250 / 1250 Balance -525 / -525 -250 / -250 Weight 118.841 kg 119.3 kg Intake: Oral 600 / 600 Intake (Blood Product) Amt 400 / 400 Rbc As-3 Leukoreduced Unit 400 / 400 [id number] Rbc As-3 Leukoreduced Unit 0 / 0 [id number] Output: Urine 525 / 525 1250 / 1250 Other: # Voids 2 # Urine Diapers 1 # Bowel Movements 1 Weight On Admission 118.841 kg Narrative: GENERAL: Patient sitting in bed. Appears normal. Alert and oriented 3. SKIN: Warm and dry. HEAD: Normocephalic. EYES: No scleral icterus. No injection or drainage. NECK: Supple, trachea midline. No JVD or lymphadenopathy. CARDIOVASCULAR: Regular rate and rhythm without murmurs, gallops, or rubs. RESPIRATORY: Breath sounds equal bilaterally. No accessory muscle use. GASTROINTESTINAL: Abdomen soft, non-tender, nondistended. MUSCULOSKELETAL: No cyanosis. trace BL LE edema BACK: Nontender without obvious deformity. No CVA tenderness. Results - Labs CBC & Chem 7: 09/21/17 13:15 09/20/17 12:00 Laboratory Results - last 24 hr 09/20/17 09/20/17 09/21/17 12:00 16:48 05:35 Hgb 8.1 L Hct 24.8 L WBC Differential . Diff Scan Auto diff confirmed Polychromasia 2.9 H MTS Gel Crossmatch See Detail 09/21/17 13:15 Hgb 9.1 L Hct WBC Differential Diff Scan Polychromasia MTS Gel Crossmatch - Imaging Impressions Chest X-Ray 09/20/17 11:59 CONCLUSION: Stable chest without evidence of acute process. Mild cardiomegaly. Stable right paratracheal soft tissue fullness. Assessment and Plan - Assessment (1) Acute on chronic anemia Code(s): D64.9 - Anemia, unspecified Status: Acute - Plan 82-year-old male with history of persistent anemia presented again with acute on chronic anemia. There are no signs of GI bleeding. The patient has had recent and extensive GI workup with no source of bleeding. 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 The patient plan to follow-up outpatient with his after school program coordinator next week. I attempted to call the patient's after school program coordinator Dr. Grullon. Awaiting for call back. //Acute on chronic anemia: This may be due to chronic slow bleeding versus inadequate marrow production above. Patient has good follow-up and already in discussions about bone marrow biopsy with his after school program coordinator. -Transfuse 2 units of PRBC and follow H&H. = Discussed with patient's after school program coordinator who recommends iron transfusion and follow-up next week with him as outpatient. = Follow-up iron studies //Troponin elevation. Patient denies any chest pain. Troponin is always elevated for him since 2015 Continue the rest of the patient's chronic medications for his chronic conditions. If the patient H&H remained stable after the blood transfusion, anticipate he can be discharged home to follow-up outpatient with his after school program coordinator. Discharge Planning: discharge home today after iron infusion.
[2017-09-21 13:52] LABS: Carbon Dioxide 24.2 meq/L (21.0-32.0); Potassium 4.7 meq/L (3.5-5.1)
[2017-09-21] MEDS ORDERED: Iron Sucrose Inj 100 MG in Sodium Chlor 0.9% Inj 100 ML IV.SIG ONE (15:00)
--- NOTE | 2017-09-21 15:06 | ECG ---
Date Performed: 09/20/2017 Time Performed: 11:37:18 PTAGE: 82 years EKG: Sinus rhythm BORDERLINE LEFT AXIS DEVIATION RIGHT BUNDLE BRANCH BLOCK ABNORMAL ECG PREVIOUS TRACING : 09/19/2016 @03.28 When compared to the prior EKG, the patient is no longer br adycardic DOCTOR: Verona Lua Interpretating Date/Time 09/21/2017 15:04:18
== END 2017-09-21 18:30 | disposition home or self-care (01) ==
LOC: NEPFCDU 11:25 → NEPE 11:25 → NEDA 11:25 → NEPFCDU 14:05
PROVIDERS: ADMIT Internal Medicine; ATTEND Internal Medicine

== ENCOUNTER 2017-11-13 13:02 | Observation (INO) ==
--- NOTE | 2017-11-13 13:44 | ED ---
HPI General Chief complaint: Recheck/Abnormal Lab/Rx Stated complaint: medical Time Seen by Provider: 11/13/17 13:10 History of Present Illness HPI narrative: 82 male history of iron deficiency anemia here for evaluation of low hemoglobin. Patient had screening labs done prior to cataract surgery that was supposed to be done today. Found out that he has hemoglobin of 6.3. Patient says he has chronic anemia, last hemoglobin was that was 6.3. Patient says he had EGD done before and was "normal". Patient denies any black stool or bleeding anywhere. Related Data Home Medications Medication Instructions Recorded Confirmed bumetanide 1 mg PO DAILY 09/20/17 11/13/17 carvedilol [Coreg] 25 mg PO BID 09/20/17 11/13/17 doxazosin 1 mg PO HS 09/20/17 11/13/17 ergocalciferol (vitamin D2) 50,000 unit PO QWEEK 09/20/17 11/13/17 ferrous sulfate 324 mg PO DAILY 09/20/17 11/13/17 gabapentin 300 mg PO DAILY 09/20/17 11/13/17 glipizide 5 mg PO TID 09/20/17 11/13/17 levothyroxine 150 mcg PO DAILY 09/20/17 11/13/17 naldemedine [Symproic] 0.2 mg PO DAILY PRN 09/20/17 11/13/17 pantoprazole 40 mg PO BID 09/20/17 11/13/17 ranitidine HCl [Zantac] 150 mg PO BID 09/20/17 11/13/17 rosuvastatin [Crestor] 20 mg PO HS 09/20/17 11/13/17 spironolactone 25 mg PO PC 09/20/17 11/13/17 hydrocodone-acetaminophen 1 tab PO Q4-6H PRN 10/24/17 11/13/17 polyethylene glycol 3350 [Miralax] 17 g PO DAILY 10/24/17 11/13/17 sucralfate 1 g PO TID 10/24/17 11/13/17 Azopt 1 drop EACH EAR BID 11/13/17 11/13/17 Combigan 1 drop RIGHT EYE BID 11/13/17 11/13/17 Durezol 1 drop RIGHT EYE DAILY MDD 6 times 11/13/17 11/13/17 a day Ilevro 1 drop RIGHT EYE DAILY NEB 11/13/17 11/13/17 Vigamox 1 drop RIGHT EYE QID 11/13/17 11/13/17 Allergies Allergy/AdvReac Type Severity Reaction Status Date / Time shellfish derived Allergy Severe HIVES Verified 10/22/17 10:16 tetanus toxoid, adsorbed Allergy Severe RASH Verified 10/22/17 10:16 lactose Allergy Mild INTOLERANCE Verified 10/22/17 10:16 Review of Systems ROS: all other systems reviewed are negative [facility] Family History Family History Brother Cancer Social History Social History Substance History: No History of Abuse Second Hand Smoke Exposure: No Smoking Status: Former smoker How Often Do You Have a Drink Containing Alcohol: Monthly or less Recent Out of Country Travel within the Last 8 Weeks: No Immunization History Tetanus Immunization: <5 Years Hx Influenza Vaccine This Season: No Exam Narrative Exam Narrative: GENERAL: Alert oriented 3 no acute distress. SKIN: Focused skin assessment warm/dry. HEAD: Atraumatic. Normocephalic. EYES: Pupils equal and round. No scleral icterus. No injection or drainage. ENT: No nasal bleeding or discharge. Mucous membranes pink and moist. NECK: Trachea midline. No JVD. CARDIOVASCULAR: Regular rate and rhythm. No murmur appreciated. RESPIRATORY: No accessory muscle use. Clear to auscultation. Breath sounds equal bilaterally. GASTROINTESTINAL: Abdomen soft, non-tender, nondistended. Hepatic and splenic margins not palpable. MUSCULOSKELETAL: No obvious deformities. No clubbing. No cyanosis. No edema. NEUROLOGICAL: Awake and alert. No obvious cranial nerve deficits. Motor grossly within normal limits. Normal speech. PSYCHIATRIC: Appropriate mood and affect; insight and judgment normal. Procedures Hemaprompt Stool Procedural Steps Taken: specimen placed in appropriate test area Hemaprompt Stool Result: positive Course Initial Documented Vital Signs Temperature 98.8 F 11/13/17 13:08 Pulse Rate 71 11/13/17 13:08 Respiratory Rate 17 11/13/17 13:08 Blood Pressure 165/73 H 11/13/17 13:08 Pulse Oximetry 100 11/13/17 13:08 Last Documented Vital Signs Temperature 98.7 F 11/14/17 08:00 Pulse Rate 56 L 11/14/17 08:00 Respiratory Rate 18 11/14/17 08:00 Blood Pressure 147/69 H 11/14/17 08:00 Pulse Oximetry 99 11/14/17 08:00 Medical Decision Making MDM Narrative Medical decision making narrative: 82 male here for low hemoglobin in the clinic , repeat hemoglobin is low, Hemoccult is positive, patient will be receiving 2 units packed RBCs, will be admitted for further evaluation. Medical Screen Exam Complete: Yes Emergency Medical Condition: Yes Lab Data Result diagrams: 11/14/17 02:25 11/13/17 13:30 Lab Results 11/13/17 11/13/17 11/13/17 Range/Units 13:30 13:30 13:30 WBC (4.0-11.0) th/mm3 RBC (4.50-5.90) mil/mm3 Hgb (13.0-17.0) gm/dL Hct (39.0-51.0) % MCV (80.0-100.0) fL MCH (27.0-34.0) pg MCHC (32.0-36.0) % RDW (11.6-17.2) % Plt Count (150-450) th/mm3 MPV (7.0-11.0) fL Prelim Diff (Auto) Neut % (Auto) (16.0-70.0) % Lymph % (Auto) (9.0-44.0) % [place] % (Auto) (0.0-8.0) % Eos % (Auto) (0.0-4.0) % Baso % (Auto) (0.0-2.0) % Neut # (Auto) (1.8-7.7) th/mm3 Lymph # (Auto) (1.0-4.8) th/mm3 [place] # (Auto) (0.0-0.9) th/mm3 Eos # (Auto) (0.0-0.4) th/mm3 Baso # (Auto) (0.0-0.2) th/mm3 WBC Differential Diff Scan Differential Comment PT 11.3 (9.8-11.6) sec INR 1.1 Ratio APTT 23.3 L (24.3-30.1) sec Sodium (136-145) meq/L Potassium (3.5-5.1) meq/L Chloride (98-107) meq/L Carbon Dioxide (21.0-32.0) meq/L Anion Gap (5-15) meq/L BUN (7-18) mg/dL Creatinine (0.60-1.30) mg/dL Estimated GFR (>89) mL/min Random Glucose (74-106) mg/dL Lactic Acid 0.9 (0.4-2.0) mmol/L Calcium (8.5-10.1) mg/dL Iron (65-175) mcg/dL TIBC (250-450) mcg/dL % Saturation (20-50) % Total Bilirubin (0.2-1.0) mg/dL AST (15-37) U/L ALT (12-78) U/L Alkaline Phosphatase (45-117) U/L Total Creatine Kinase 39 (39-308) U/L Troponin I 0.17 H (0.02-0.05) ng/mL Total Protein (6.4-8.2) g/dL Albumin (3.4-5.0) g/dL Lipase (73-393) U/L Blood Type Antibody Screen MTS Gel Crossmatch 11/13/17 11/13/17 11/13/17 Range/Units 13:30 13:30 13:30 WBC 6.6 (4.0-11.0) th/mm3 RBC 2.22 L (4.50-5.90) mil/mm3 Hgb 6.5 L* (13.0-17.0) gm/dL Hct 20.2 L* (39.0-51.0) % MCV 91.4 (80.0-100.0) fL MCH 29.3 (27.0-34.0) pg MCHC 32.0 (32.0-36.0) % RDW 17.0 (11.6-17.2) % Plt Count 283 (150-450) th/mm3 MPV 8.4 (7.0-11.0) fL Prelim Diff (Auto) Slide review pending Neut % (Auto) 75.0 H (16.0-70.0) % Lymph % (Auto) 14.3 (9.0-44.0) % [place] % (Auto) 8.6 H (0.0-8.0) % Eos % (Auto) 1.4 (0.0-4.0) % Baso % (Auto) 0.7 (0.0-2.0) % Neut # (Auto) 4.9 (1.8-7.7) th/mm3 Lymph # (Auto) 0.9 L (1.0-4.8) th/mm3 [place] # (Auto) 0.6 (0.0-0.9) th/mm3 Eos # (Auto) 0.1 (0.0-0.4) th/mm3 Baso # (Auto) 0.0 (0.0-0.2) th/mm3 WBC Differential . Diff Scan Auto diff confirmed Differential Comment . PT (9.8-11.6) sec INR Ratio APTT (24.3-30.1) sec Sodium 144 (136-145) meq/L Potassium 4.3 (3.5-5.1) meq/L Chloride 111 H (98-107) meq/L Carbon Dioxide 23.7 (21.0-32.0) meq/L Anion Gap 9 (5-15) meq/L BUN 31 H (7-18) mg/dL Creatinine 1.73 H (0.60-1.30) mg/dL Estimated GFR 46 L (>89) mL/min Random Glucose 99 (74-106) mg/dL Lactic Acid (0.4-2.0) mmol/L Calcium 9.5 (8.5-10.1) mg/dL Iron (65-175) mcg/dL TIBC (250-450) mcg/dL % Saturation (20-50) % Total Bilirubin 0.2 (0.2-1.0) mg/dL AST 10 L (15-37) U/L ALT 12 (12-78) U/L Alkaline Phosphatase 56 (45-117) U/L Total Creatine Kinase (39-308) U/L Troponin I (0.02-0.05) ng/mL Total Protein 7.5 (6.4-8.2) g/dL Albumin 2.7 L (3.4-5.0) g/dL Lipase 115 (73-393) U/L Blood Type A Positive Antibody Screen Negative MTS Gel Crossmatch 11/13/17 11/13/17 11/14/17 Range/Units 13:30 13:30 02:25 WBC (4.0-11.0) th/mm3 RBC (4.50-5.90) mil/mm3 Hgb 7.9 L (13.0-17.0) gm/dL Hct 24.6 L (39.0-51.0) % MCV (80.0-100.0) fL MCH (27.0-34.0) pg MCHC (32.0-36.0) % RDW (11.6-17.2) % Plt Count (150-450) th/mm3 MPV (7.0-11.0) fL Prelim Diff (Auto) Neut % (Auto) (16.0-70.0) % Lymph % (Auto) (9.0-44.0) % [place] % (Auto) (0.0-8.0) % Eos % (Auto) (0.0-4.0) % Baso % (Auto) (0.0-2.0) % Neut # (Auto) (1.8-7.7) th/mm3 Lymph # (Auto) (1.0-4.8) th/mm3 [place] # (Auto) (0.0-0.9) th/mm3 Eos # (Auto) (0.0-0.4) th/mm3 Baso # (Auto) (0.0-0.2) th/mm3 WBC Differential Diff Scan Differential Comment PT (9.8-11.6) sec INR Ratio APTT (24.3-30.1) sec Sodium (136-145) meq/L Potassium (3.5-5.1) meq/L Chloride (98-107) meq/L Carbon Dioxide (21.0-32.0) meq/L Anion Gap (5-15) meq/L BUN (7-18) mg/dL Creatinine (0.60-1.30) mg/dL Estimated GFR (>89) mL/min Random Glucose (74-106) mg/dL Lactic Acid (0.4-2.0) mmol/L Calcium (8.5-10.1) mg/dL Iron 32 L (65-175) mcg/dL TIBC 291 (250-450) mcg/dL % Saturation 11.0 L (20-50) % Total Bilirubin (0.2-1.0) mg/dL AST (15-37) U/L ALT (12-78) U/L Alkaline Phosphatase (45-117) U/L Total Creatine Kinase (39-308) U/L Troponin I (0.02-0.05) ng/mL Total Protein (6.4-8.2) g/dL Albumin (3.4-5.0) g/dL Lipase (73-393) U/L Blood Type Antibody Screen MTS Gel Crossmatch See Detail Discharge Plan Discharge Disposition Patient Disposition: 30 Still Patient Discharge Condition Condition: Stable Physicians Team ED Provider: Azeem Alba Primary Care Provider: Garry Rodriguez Attending Provider: Jose Kelsey Other Providers: Naun Karimi Discharge Interventions Interventions: ED Discharge Assessment Last Done: 11/13/17 18:21 Vital Signs Last Done: 11/13/17 13:17 Status ED Status: Left Department Discharge Information Discharge Date/Time: 11/13/17 18:21
[2017-11-13 14:11] LABS: Baso % (Auto) 0.7 % (0.0-2.0); Eos # (Auto) 0.1 th/mm3 (0.0-0.4); Eos % (Auto) 1.4 % (0.0-4.0); Lymph # (Auto) 0.9 th/mm3 (1.0-4.8); Lymph % (Auto) 14.3 % (9.0-44.0); Mean Corpuscular Hemoglobin 29.3 pg (27.0-34.0); Mean Corpuscular Volume 91.4 fL (80.0-100.0); Mean Platelet Volume 8.4 fL (7.0-11.0); Mono # (Auto) 0.6 th/mm3 (0.0-0.9); Mono % (Auto) 8.6 % (0.0-8.0); Neut # (Auto) 4.9 th/mm3 (1.8-7.7); Platelet Count 283 th/mm3 (150-450); Red Blood Count 2.22 mil/mm3 (4.50-5.90); White Blood Count 6.6 th/mm3 (4.0-11.0)
[2017-11-13 14:17] LABS: Hematocrit 20.2 % (39.0-51.0); Hemoglobin 6.5 gm/dL (13.0-17.0)
[2017-11-13 14:22] LABS: Activated Partial Thrombo Time 23.3 sec (24.3-30.1); INR 1.1 Ratio; Prothrombin Time 11.3 sec (9.8-11.6)
[2017-11-13 14:27] LABS: Troponin I 0.17 ng/mL (0.02-0.05)
[2017-11-13 14:28] LABS: Alkaline Phosphatase 56 U/L (45-117); Total Protein 7.5 g/dL (6.4-8.2)
[2017-11-13 14:29] LABS: Alanine Aminotransferase 12 U/L (12-78); Albumin 2.7 g/dL (3.4-5.0); Anion Gap 9 meq/L (5-15); Aspartate Aminotransferase 10 U/L (15-37); Blood Urea Nitrogen 31 mg/dL (7-18); Calcium 9.5 mg/dL (8.5-10.1); Carbon Dioxide 23.7 meq/L (21.0-32.0); Chloride 111 meq/L (98-107); Glomerular Filtration Rate 46 mL/min (>89); Glucose,Random 99 mg/dL (74-106); Lipase 115 U/L (73-393); Potassium 4.3 meq/L (3.5-5.1); Sodium 144 meq/L (136-145)
--- NOTE | 2017-11-13 17:20 | P.HP ---
History of Present Illness Primary Care Physician: Garry Rodriguez MD History of Present Illness: 82-year-old black male being admitted for acute anemia Patient was in his usual state of health and was scheduled for right eye cataract surgery today postponed due to a low hemoglobin at 6.5 found on a preop check . Patient was referred to the ER. Denies having any melena or hematochezia recently. Denies having any new symptoms, no nausea vomiting or abdominal pain. His bowel movements have been regular, says he went about 2 days ago, has been taking MiraLAX to counter at the constipation from his [place]. In the emergency department he was noted to be Hemoccult positive. Patient reports he has been scoped multiple times with no definitive source found. Says he gets transfusions about every 2-3 weeks regularly. [facility] - History History Provided By: Patient - Medical History Medical History: Medical History (Last Reviewed 11/13/17 @ 16:50 by Jose Kelsey MD) Anemia CHF (congestive heart failure) Coronary artery disease Diabetes - Surgical History Surgical History: Surgical History (Last Reviewed 11/13/17 @ 16:50 by Jose Kelsey MD) History of heart artery stent History of prostate surgery History of thyroid surgery - Family History Family History: Family History (Last Updated 11/13/17 @ 17:17 by Jose Kelsey MD) Brother Cancer - Social History I have reviewed the patient's Social History: Yes - Tobacco History Second Hand Smoke Exposure: No Smoking Status: Former smoker - Alcohol History How Often Do You Have a Drink Containing Alcohol: Monthly or less - Substance Use History Substance History: No History of Abuse - Travel History Recent Travel Out of the Country Within the Last 8 Weeks: No - Immunization History Tetanus Immunization: <5 Years Hx Influenza Vaccine This Season: No Medications and Allergies Active Medications: Active Medications Hydrocodone Bitart/Acetaminophen (Randolph 5/325) 1 tab PO Q4-6H PRN PRN Reason: Pain Bumetanide (Bumex) 1 mg PO DAILY [facility] Doxazosin Mesylate (Cardura) 1 mg PO HS [facility] Ergocalciferol (Vitamin D2) 50,000 unit PO QWEEK [facility] Ferrous Sulfate (Ferosul) 325 mg PO DAILY [facility] Gabapentin (Neurontin) 300 mg PO DAILY [facility] Non-Formulary Medication (Azopt) 1 drop EACH EAR BID [facility] Non-Formulary Medication (Carvedilol [Coreg]) 25 mg PO BID [facility] Non-Formulary Medication (Ilevro) 1 drop RIGHT EYE DAILY NEB [facility] Non-Formulary Medication (Levothyroxine [Levothyroxine]) 150 mcg PO DAILY [facility] Non-Formulary Medication (Ranitidine Hcl [Zantac]) 150 mg PO BID [facility] Non-Formulary Medication (Rosuvastatin) 20 mg PO HS [facility] Non-Formulary Medication (Vigamox) 1 drop RIGHT EYE QID [facility] Non-Formulary Medication (Combigan) 1 drop RIGHT EYE BID [facility] Non-Formulary Medication (Naldemedine [Symproic]) 0.2 mg PO DAILY PRN PRN Reason: Constipation Pantoprazole Sodium (Protonix) 40 mg PO BID [facility] Polyethylene Glycol (Miralax) 17 gm PO DAILY [facility] Sodium Chloride (Ns Flush) 2 ml IV.FLUSH BID [facility] Sodium Chloride (Ns Flush) 2 ml IV.FLUSH PRN PRN PRN Reason: FLUSH AFTER USING IV ACCESS Spironolactone (Aldactone) 25 mg PO BID [facility] Allergies Allergy/AdvReac Type Severity Reaction Status Date / Time shellfish derived Allergy Severe HIVES Verified 10/22/17 10:16 tetanus toxoid, adsorbed Allergy Severe RASH Verified 10/22/17 10:16 lactose Allergy Mild INTOLERANCE Verified 10/22/17 10:16 Home Medications Medication Instructions Recorded Confirmed Type bumetanide 1 mg PO DAILY 09/20/17 11/13/17 History carvedilol [Coreg] 25 mg PO BID 09/20/17 11/13/17 History doxazosin 1 mg PO HS 09/20/17 11/13/17 History ergocalciferol (vitamin D2) 50,000 unit PO QWEEK 09/20/17 11/13/17 History ferrous sulfate 324 mg PO DAILY 09/20/17 11/13/17 History gabapentin 300 mg PO DAILY 09/20/17 11/13/17 History glipizide 5 mg PO TID 09/20/17 11/13/17 History levothyroxine 150 mcg PO DAILY 09/20/17 11/13/17 History naldemedine [Symproic] 0.2 mg PO DAILY PRN 09/20/17 11/13/17 History pantoprazole 40 mg PO BID 09/20/17 11/13/17 History ranitidine HCl [Zantac] 150 mg PO BID 09/20/17 11/13/17 History rosuvastatin [Crestor] 20 mg PO HS 09/20/17 11/13/17 History spironolactone 25 mg PO PC 09/20/17 11/13/17 History hydrocodone-acetaminophen 1 tab PO Q4-6H PRN 10/24/17 11/13/17 History polyethylene glycol 3350 [Miralax] 17 g PO DAILY 10/24/17 11/13/17 History sucralfate 1 g PO TID 10/24/17 11/13/17 History Azopt 1 drop EACH EAR BID 11/13/17 11/13/17 History Combigan 1 drop RIGHT EYE BID 11/13/17 11/13/17 History Durezol 1 drop RIGHT EYE DAILY MDD 6 times 11/13/17 11/13/17 History a day Ilevro 1 drop RIGHT EYE DAILY NEB 11/13/17 11/13/17 History Vigamox 1 drop RIGHT EYE QID 11/13/17 11/13/17 History Exam Vital signs: Vital Signs 11/13/17 13:08 Temperature 98.8 F Pulse Rate 71 Respiratory Rate 17 Blood Pressure 165/73 H Pulse Oximetry 100 Intake & Output 11/12/17 11/13/17 11/13/17 18:59 06:59 18:59 Weight 122.47 kg Narrative: VS: afebrile GENERAL: Lying in bed, awake and alert, no acute distress SKIN: Warm and dry. EYES: No scleral icterus. No injection or drainage. ENT: No nasal bleeding or discharge. Mucous membranes pink and moist. CARDIOVASCULAR: Regular rate and rhythm. no murmurs RESPIRATORY: No accessory muscle use. Clear to auscultation. Breath sounds equal bilaterally. GASTROINTESTINAL: Abdomen soft, non-tender, nondistended. Extremities: No clubbing, cyanosis. mild to moderate bilateral lower extremity edema which the patient affirms is chronic MUSCULOSKELETAL: adequate muscle bulk and tone for age and habitus NEUROLOGICAL: Awake and alert. No obvious cranial nerve deficits. No facial droop nor slurred speech noted. PSYCHIATRIC: Appropriate mood and affect; insight and judgment normal. Results - Labs CBC & Chem 7: 11/13/17 13:30 11/13/17 13:30 Labs: Laboratory Results - last 24 hr 11/13/17 11/13/17 11/13/17 13:30 13:30 13:30 WBC RBC Hgb Hct MCV MCH MCHC RDW Plt Count MPV Prelim Diff (Auto) Neut % (Auto) Lymph % (Auto) [place] % (Auto) Eos % (Auto) Baso % (Auto) Neut # (Auto) Lymph # (Auto) [place] # (Auto) Eos # (Auto) Baso # (Auto) WBC Differential Diff Scan Differential Comment PT 11.3 INR 1.1 APTT 23.3 L Sodium Potassium Chloride Carbon Dioxide Anion Gap BUN Creatinine Estimated GFR Random Glucose Lactic Acid 0.9 Calcium Total Bilirubin AST ALT Alkaline Phosphatase Total Creatine Kinase 39 Troponin I 0.17 H Total Protein Albumin Lipase Blood Type Antibody Screen MTS Gel Crossmatch 11/13/17 11/13/17 11/13/17 13:30 13:30 13:30 WBC 6.6 RBC 2.22 L Hgb 6.5 L* Hct 20.2 L* MCV 91.4 MCH 29.3 MCHC 32.0 RDW 17.0 Plt Count 283 MPV 8.4 Prelim Diff (Auto) Slide review pending Neut % (Auto) 75.0 H Lymph % (Auto) 14.3 [place] % (Auto) 8.6 H Eos % (Auto) 1.4 Baso % (Auto) 0.7 Neut # (Auto) 4.9 Lymph # (Auto) 0.9 L [place] # (Auto) 0.6 Eos # (Auto) 0.1 Baso # (Auto) 0.0 WBC Differential . Diff Scan Auto diff confirmed Differential Comment . PT INR APTT Sodium 144 Potassium 4.3 Chloride 111 H Carbon Dioxide 23.7 Anion Gap 9 BUN 31 H Creatinine 1.73 H Estimated GFR 46 L Random Glucose 99 Lactic Acid Calcium 9.5 Total Bilirubin 0.2 AST 10 L ALT 12 Alkaline Phosphatase 56 Total Creatine Kinase Troponin I Total Protein 7.5 Albumin 2.7 L Lipase 115 Blood Type A Positive Antibody Screen Negative MTS Gel Crossmatch 11/13/17 13:30 WBC RBC Hgb Hct MCV MCH MCHC RDW Plt Count MPV Prelim Diff (Auto) Neut % (Auto) Lymph % (Auto) [place] % (Auto) Eos % (Auto) Baso % (Auto) Neut # (Auto) Lymph # (Auto) [place] # (Auto) Eos # (Auto) Baso # (Auto) WBC Differential Diff Scan Differential Comment PT INR APTT Sodium Potassium Chloride Carbon Dioxide Anion Gap BUN Creatinine Estimated GFR Random Glucose Lactic Acid Calcium Total Bilirubin AST ALT Alkaline Phosphatase Total Creatine Kinase Troponin I Total Protein Albumin Lipase Blood Type Antibody Screen MTS Gel Crossmatch See Detail Capzachariahi VTE Risk Assessment Caprini VTE Risk Assessment: Moderate/High Risk (score >= 2) VTE Pharmacological Exception Reason: High risk for bleeding Caprini Risk Assessment Model: Point Value = 1 Point Value = 2 Point Value = 3 Point Value = 5 Age 41-60 Minor surgery BMI > 25 kg/m2 Swollen legs Varicose veins or History of unexplained or recurrent spontaneous Oral contraceptives or hormone replacement Sepsis (< 1 month) Serious lung disease, including pneumonia (< 1 month) Abnormal pulmonary function Acute myocardial infarction Congestive heart failure (< 1 month) History of inflammatory bowel disease Medical patient at bed rest Age 61-74 Arthroscopic surgery Major open surgery (> 45 min) Laparoscopic surgery (> 45 min) Malignancy Confined to bed (> 72 hours) Immobilizing plaster cast Central venous access Age >= 75 History of VTE Family history of VTE Factor V Leiden Prothrombin [id number] Lupus anticoagulant Anticardiolipin antibodies Elevated serum homocysteine Heparin-induced thrombocytopenia Other congenital or acquired thrombophilia Stroke (< 1 month) Elective arthroplasty Hip, pelvis, or leg fracture Acute spinal cord injury (< 1 month) Prophylaxis Regimen: Total Risk Factor Score Risk Level Prophylaxis Regimen 0-1 Low Early ambulation 2 Moderate Order ONE of the following: *Sequential Compression Device (SCD) *Heparin 5000 units SQ BID 3-4 Higher Order ONE of the following medications: *Heparin 5000 units SQ TID *Enoxaparin/Lovenox 40 mg SQ daily (WT < 150 kg, CrCl > 30 mL/min) *Enoxaparin/Lovenox 30 mg SQ daily (WT < 150 kg, CrCl > 10-29 mL/min) *Enoxaparin/Lovenox 30 mg SQ BID (WT < 150 kg, CrCl > 30 mL/min) AND/OR *Sequential Compression Device (SCD) 5 or more Highest Order ONE of the following medications: *Heparin 5000 units SQ TID (Preferred with Epidurals) *Enoxaparin/Lovenox 40 mg SQ daily (WT < 150 kg, CrCl > 30 mL/min) *Enoxaparin/Lovenox 30 mg SQ daily (WT < 150 kg, CrCl > 10-29 mL/min) *Enoxaparin/Lovenox 30 mg SQ BID (WT < 150 kg, CrCl > 30 mL/min) AND *Sequential Compression Device (SCD) Assessment and Plan - Plan 82-year-old black male being admitted for acute anemia with possible GI bleed Acute anemia Recurrent historically speaking, will transfuse 2 units of blood and recheck in a.m., possibly from GI source although no source has been found in the past despite multiple evaluations by [facility] -checking iron profile Chronic eye conditions with cataracts Continue all home eyedrops Chronic CHF/CAD -Stablecontinue all home medications including Bumex, Spironolactone, Lipitor chronic pain - home norco and miralax ROMIE hoses in light of low hemoglobin, must avoid chemical DVT prophylaxis
[2017-11-13] MEDS: Moxifloxacin 0.5% Opth Drops 3 ML Bottle RIGHT EYE SCH ×2 (17:59→22:14)
[2017-11-13] MEDS ORDERED: COMBIGAN RIGHT EYE SCH (21:00)
[2017-11-13] MEDS ORDERED: Doxazosin 1 MG Tablet PO SCH (21:00)
[2017-11-13] MEDS ORDERED: AZOPT OPTH EACH EYE SCH (21:00)
[2017-11-13] MEDS: Carvedilol 12.5 MG Tablet PO SCH (22:13)
[2017-11-13] MEDS: Famotidine 20 MG Tablet PO SCH (22:13)
[2017-11-13] MEDS: Spironolactone 25 MG Tablet PO SCH (22:13)
[2017-11-13] MEDS: Brimonidine 0.2% Opth Drops 5 ML Bottle RIGHT EYE SCH (22:14)
[2017-11-13] MEDS: Timolol 0.5% Drops 5 ML Bottle RIGHT EYE SCH (22:14)
--- NOTE | 2017-11-13 22:55 | MB ---
cc: aNun Karimi MD, Sunil P MD Masoodi,Jose Kitchen,Uche Chiu,Kacy Rodriguez,Garry Andrew MD DATE: 11/13/2017 REASON FOR CONSULTATION: I have seen the patient at the request of Dr. Kelsey for evaluation of anemia and heme-positive stools. HISTORY OF PRESENT ILLNESS: The patient is an 82-year-old male who has a long history of iron deficiency anemia as well as heme positive stools. He has had numerous procedures and he keeps having recurrent anemia and heme-positive stools. His last colonoscopy done in April 2017 revealed colonic diverticulosis, hemorrhoids and some small polyps. The polyps were adenomatous. Upper endoscopy done in April 2017 also reveal a duodenal polyp. The biopsies revealed burn scar hypertrophy. 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 Hiatal hernia is also noted. His last capsule endoscopy was done in January 2008 and revealed some AVMs in the mid small bowel. He is followed by Dr. Chris Grullon of Hematology, and apparently they are working up his iron deficiency anemia and consideration will be given for some iron supplements. The patient was in his usual state of health when he went in today for right cataract surgery today, but hemoglobin 6.5. The patient came to ER and eventually he was found to be heme positive. The patient denies any melena or hematochezia. There is no nausea, vomiting, heartburn issues, abdominal pain, rectal bleeding, dysphagia, odynophagia, heartburn. He does admit to intermittent constipation; however, does take MiraLax. Again, he does not take aspirin or NSAIDs, he states. 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 PAST SURGICAL HISTORY: Includes coronary artery stenting, appendectomy, status post thyroid resection for his goiter numerous upper endoscopies, colonoscopies, capsule endoscopy. He had prostate surgery. FAMILY HISTORY: No family history of colon cancer or colon polyps that he is aware of. SOCIAL HISTORY: He smoked in the past, but at this time. He drinks alcohol very rarely. OUTPATIENT MEDICATIONS: 1. Spironolactone. 2. Carvedilol. 3. Coreg. 4. Levothyroxine. 5. Ranitidine. 6. Rosuvastatin for dyslipidemia. 7. Vigamox eyedrops 8. Combigan eyedrops. 9. Cymproic for constipation. 10. Bumex. 11. Cardura. 12. FeroSul. ALLERGIES: SHELLFISH, TETANUS AND LACTOSE. REVIEW OF SYSTEMS: GENERAL: No weight loss or fever or chills. CARDIOPULMONARY: No chest pain, palpitations or shortness of breath. GASTROINTESTINAL: Please see above. Other than above, unremarkable is 12-point review of systems. MEDICATIONS IN THE HOSPITAL: 1. Thelma. 2. Lipitor. 3. Alphagan eyedrops. 4. Bumex. 5. Coreg. 6. Cardura. 7. Vitamin D2. 8. Pepcid. 9. Ferosul. 10. Neurontin. 11. Synthroid. 12. Vigamox eyedrops. 13. Pantoprazole. 14. Cymproic. 15. MiraLax. 16. Aldactone. 17. Timolol eyedrops. PHYSICAL EXAMINATION: VITAL SIGNS: Blood pressure is 165/73, pulse of 72 seated 17, temperature 98.8. GENERAL: He is an overweight male, resting comfortably at this time. He is in no acute distress. HEENT: Pupils are equal, round, reactive to light. No obvious scleral icterus. Oropharyngeal cavity: Dental caries. Hearing intact. NECK: Supple without lymphadenopathy. LUNGS: Clear to auscultation and percussion. HEART: Regular rate and rhythm. No murmurs. ABDOMEN: Protuberant, but no organic masses. No ascites or hernias noted. Bowel sounds positive in all 4 quadrants. RECTAL: Not done by myself, but the ER doctor did this and it was apparently heme positive. EXTREMITIES: He says stools are brown. SKIN: Warm and moist. NEUROLOGIC: He is alert and oriented x3. I did not assess his gait. DATABASE LABORATORIES: Today reviewed hemoglobin 6.5, hematocrit 20.2, MCV is normal at 91.4, white blood 600, platelet count of 283,000. Chemistries reveal elevated BUN of 31, elevated creatinine 1.73, potassium 4.3, sodium 144, SGOT 10, SGPT of 12, total bilirubin 0.2, alkaline phosphatase 56, albumin slightly low at 2.7. Lipase 115 was normal. Troponin slightly elevated at 0.17. CPK 39. Lactic acid 0.9. IMPRESSION: 1. Anemia with heme positive stools. I suspect he has an AVM somewhere in the small intestine. He may have also developed AVMs elsewhere to the colon and stomach. Chances of being ulcer are small, but cannot be ruled out. Also he may have developed an occult gastrointestinal malignancy since his last procedure, but seems lower in differential. 2. History of duodenal polyp removed in April turned to out to be a burn scar hypertrophy. 3. Duodenal AVM, cauterized. 4. History of colonic diverticulosis. 5. History of adenomatous colon polyps. RECOMMENDATIONS: 1. Transfuse as you are doing and Continue PPI. 2. I offered the patient an upper endoscopy and colonoscopy and this followed with a capsule endoscopy or possibly a double balloon enteroscopy at a tertiary care center. We did talk about indications, risks, complications, benefits, and alternatives including risk of bleeding, perforation, infection, arrhythmias and small possibility of . 3. After a long discussion, the patient states he is not bleeding and he has no gross blood per rectum and he just would rather be transfused and hopefully discharged tomorrow. Hopefully, gets discharged tomorrow. He understands the risk of missed malignancy, if not having any testing done and also runs the risk of missing treatable lesion such as AVMs. He also understands small risk of bleeding to . Naun Karimi MD SPP/sj , 06:08 PM , 06:24 PM MTDLorrie
[2017-11-14 03:15] LABS: Hematocrit 24.6 % (39.0-51.0); Hemoglobin 7.9 gm/dL (13.0-17.0)
[2017-11-14] MEDS ORDERED: Levothyroxine 150 MCG Tablet PO SCH (06:00)
[2017-11-14] MEDS ORDERED: Polyethylene Glycol 3350 17 GM Packet PO SCH (09:00)
[2017-11-14] MEDS ORDERED: Gabapentin 300 MG Capsule PO SCH (09:00)
[2017-11-14] MEDS ORDERED: [UNRECOGNIZED DRUG - OTHER] PO PRN (09:00)
[2017-11-14] MEDS ORDERED: [UNRECOGNIZED DRUG - OTHER] RIGHT EYE SCH (09:00)
[2017-11-14] MEDS ORDERED: Ferrous Sulfate 325 MG Tablet PO SCH (09:00)
[2017-11-14] MEDS: Spironolactone 25 MG Tablet PO SCH (09:47)
[2017-11-14] MEDS: Brimonidine 0.2% Opth Drops 5 ML Bottle RIGHT EYE SCH (09:48)
[2017-11-14] MEDS: Carvedilol 12.5 MG Tablet PO SCH (09:48)
[2017-11-14] MEDS: Famotidine 20 MG Tablet PO SCH (09:49)
[2017-11-14] MEDS: Moxifloxacin 0.5% Opth Drops 3 ML Bottle RIGHT EYE SCH ×2 (09:50→12:59)
[2017-11-14] MEDS: Timolol 0.5% Drops 5 ML Bottle RIGHT EYE SCH (09:50)
[2017-11-14] MEDS ORDERED: Iron Sucrose Inj 100 MG/5 ML Vial IV.PUSH ONE (10:00)
--- NOTE | 2017-11-14 11:32 | P.PN ---
Subjective Interval history: Nursing denies any deterioration since last night. Patient reports a chronic heartburn. She says he has had for a while. No reports of any flank melena or hematochezia. Physical Exam Vital signs: Vital Signs 11/13/17 13:08 11/13/17 17:53 11/13/17 18:20 Temperature 98.8 F 98.7 F 98.4 F Pulse Rate 71 67 61 Respiratory Rate 17 22 20 Blood Pressure 165/73 H 145/65 H 134/63 Pulse Oximetry 100 11/13/17 19:31 11/13/17 21:01 11/13/17 23:54 Temperature 98.2 F 98.3 F 98.1 F Pulse Rate 71 68 60 Respiratory Rate 22 20 22 Blood Pressure 166/77 H 168/72 H 133/60 Pulse Oximetry 98 97 11/14/17 04:00 11/14/17 08:00 Temperature 98.1 F 98.7 F Pulse Rate 60 56 L Respiratory Rate 22 18 Blood Pressure 138/64 147/69 H Pulse Oximetry 98 99 Intake & Output 11/13/17 11/14/17 11/14/17 18:59 06:59 18:59 Intake Total 0 / 0 800 / 800 Balance 0 / 0 800 / 800 Weight 122.47 kg Intake: Other 0 / 0 Rbc As-3 Leukoreduced Unit 0 / 0 [id number] Intake (Blood Product) Amt 0 / 0 800 / 800 Rbc As-3 Leukoreduced Unit 0 / 0 400 / 400 [id number] Rbc As-3 Leukoreduced Unit 400 / 400 [id number] Narrative: Heart sounds regular rate rhythm, no murmurs Clear lungs bilaterally, unlabored breathing Results - Labs CBC & Chem 7: 11/14/17 09:42 11/13/17 13:30 Laboratory Results - last 24 hr 11/13/17 11/13/17 11/13/17 13:30 13:30 13:30 WBC RBC Hgb Hct MCV MCH MCHC RDW Plt Count MPV Prelim Diff (Auto) Neut % (Auto) Lymph % (Auto) [place] % (Auto) Eos % (Auto) Baso % (Auto) Neut # (Auto) Lymph # (Auto) [place] # (Auto) Eos # (Auto) Baso # (Auto) WBC Differential Diff Scan Differential Comment PT 11.3 INR 1.1 APTT 23.3 L Sodium Potassium Chloride Carbon Dioxide Anion Gap BUN Creatinine Estimated GFR POC Glucose Random Glucose Lactic Acid 0.9 Calcium Iron TIBC % Saturation Total Bilirubin AST ALT Alkaline Phosphatase Total Creatine Kinase 39 Troponin I 0.17 H Total Protein Albumin Lipase Blood Type Antibody Screen MTS Gel Crossmatch 11/13/17 11/13/17 11/13/17 13:30 13:30 13:30 WBC 6.6 RBC 2.22 L Hgb 6.5 L* Hct 20.2 L* MCV 91.4 MCH 29.3 MCHC 32.0 RDW 17.0 Plt Count 283 MPV 8.4 Prelim Diff (Auto) Slide review pending Neut % (Auto) 75.0 H Lymph % (Auto) 14.3 [place] % (Auto) 8.6 H Eos % (Auto) 1.4 Baso % (Auto) 0.7 Neut # (Auto) 4.9 Lymph # (Auto) 0.9 L [place] # (Auto) 0.6 Eos # (Auto) 0.1 Baso # (Auto) 0.0 WBC Differential . Diff Scan Auto diff confirmed Differential Comment . PT INR APTT Sodium 144 Potassium 4.3 Chloride 111 H Carbon Dioxide 23.7 Anion Gap 9 BUN 31 H Creatinine 1.73 H Estimated GFR 46 L POC Glucose Random Glucose 99 Lactic Acid Calcium 9.5 Iron TIBC % Saturation Total Bilirubin 0.2 AST 10 L ALT 12 Alkaline Phosphatase 56 Total Creatine Kinase Troponin I Total Protein 7.5 Albumin 2.7 L Lipase 115 Blood Type A Positive Antibody Screen Negative MTS Gel Crossmatch 11/13/17 11/13/17 11/14/17 13:30 13:30 02:25 WBC RBC Hgb 7.9 L Hct 24.6 L MCV MCH MCHC RDW Plt Count MPV Prelim Diff (Auto) Neut % (Auto) Lymph % (Auto) [place] % (Auto) Eos % (Auto) Baso % (Auto) Neut # (Auto) Lymph # (Auto) [place] # (Auto) Eos # (Auto) Baso # (Auto) WBC Differential Diff Scan Differential Comment PT INR APTT Sodium Potassium Chloride Carbon Dioxide Anion Gap BUN Creatinine Estimated GFR POC Glucose Random Glucose Lactic Acid Calcium Iron 32 L TIBC 291 % Saturation 11.0 L Total Bilirubin AST ALT Alkaline Phosphatase Total Creatine Kinase Troponin I Total Protein Albumin Lipase Blood Type Antibody Screen MTS Gel Crossmatch See Detail 11/14/17 11/14/17 11/14/17 08:13 09:42 09:42 WBC RBC Hgb 8.4 L Hct MCV MCH MCHC RDW Plt Count MPV Prelim Diff (Auto) Neut % (Auto) Lymph % (Auto) [place] % (Auto) Eos % (Auto) Baso % (Auto) Neut # (Auto) Lymph # (Auto) [place] # (Auto) Eos # (Auto) Baso # (Auto) WBC Differential Diff Scan Differential Comment PT INR APTT Sodium Potassium Chloride Carbon Dioxide Anion Gap BUN Creatinine Estimated GFR POC Glucose 114 H Random Glucose Lactic Acid Calcium Iron TIBC % Saturation Total Bilirubin AST ALT Alkaline Phosphatase Total Creatine Kinase Troponin I 0.17 H Total Protein Albumin Lipase Blood Type Antibody Screen MTS Gel Crossmatch Assessment and Plan - Plan 82-year-old black male being admitted for acute anemia with possible GI bleed Acute anemia Iron deficiency, likely secondary to acute blood loss which the patient does not want further GI workup. Improved status post transfusion. Elevated troponins seem to be due to demand ischemia secondary to acute anemia as well as chronic kidney disease. Clinically asymptomatic Chronic eye conditions with cataracts Continue all home eyedrops Chronic CHF/CAD -Stablecontinue all home medications including Bumex, Spironolactone, Lipitor chronic pain - home norco and miralax Patient has met maximal benefit from hospitalization and is clinically stable for discharge.
--- NOTE | 2017-11-14 11:53 | ECG ---
Date Performed: 11/13/2017 Time Performed: 15:50:27 PTAGE: 82 years EKG: Sinus rhythm BORDERLINE LEFT AXIS DEVIATION RIGHT BUNDLE BRANCH BLOCK ABNORMAL ECG PREVIOUS TRACING : 09/20/2017 11.37 DOCTOR: Willy De León Interpretating Date/Time 11/14/2017 11:50:06
--- NOTE | 2017-11-14 16:23 | P.DCO ---
- Physical Therapy Order: Evaluate and treat - Occupational Therapy Order: Evaluate and treat - Home Health Nursing Order: Medical education - Certification I have seen patient Js Brown on 11/14/17. My clinical findings support the need for the requested home health care services because: Limited ability to care for self I certify that my clinical findings support that this patient is homebound because: Unsafe to leave home unassisted
== END 2017-11-14 18:24 | disposition home or self-care (01) ==
LOC: NEPC 13:02 → NEDA 16:06 → INTOOBSV 16:06 → NEDA 18:21 → NEPHCDU 18:34
PROVIDERS: ADMIT Hospitalist; ATTEND Hospitalist

== ENCOUNTER 2017-12-18 17:08 | Inpatient (IN) ==
--- NOTE | 2017-12-18 20:53 | ED ---
HPI General Chief complaint: Recheck/Abnormal Lab/Rx Stated complaint: Obnormal Labs Time Seen by Provider: 12/18/17 20:44 Source: patient and EMS Mode of arrival: EMS Limitations: no limitations History of Present Illness HPI narrative: Patient is an 82-year-old male presenting to emerge department for evaluation of fatigue, lightheadedness. Patient reports a history of chronic anemia with multiple blood transfusions. Patient states he has a transfusion every 5-6 weeks and he can feel when his hemoglobin gets low. Patient reports that he has not had any dark or tarry like stools. He has no complaints of abdominal pain, chest pain, shortness of breath. Patient reports that he had routine labs performed on Sunday, he called his primary doctor today and was told he needed to come to the emergency department because his labs were abnormal. Patient is currently followed by Dr. Rodriguez. He also sees hematology as well as GI as outpatient. His last colonoscopy was in April 2017. Past medical history significant for hypertension, diabetes, hyperlipidemia. Patient states that they do not know why he continues to bleed. Onset (ago): day(s) (3) Associated symptoms: Reports malaise and other (lightheadedness) Related Data Home Medications Medication Instructions Recorded Confirmed bumetanide 1 mg PO DAILY 09/20/17 12/18/17 carvedilol [Coreg] 25 mg PO BID 09/20/17 12/18/17 doxazosin 1 mg PO HS 09/20/17 12/18/17 ergocalciferol (vitamin D2) 50,000 unit PO QWEEK 09/20/17 12/18/17 ferrous sulfate 324 mg PO DAILY 09/20/17 12/18/17 gabapentin 300 mg PO DAILY 09/20/17 12/18/17 glipizide 5 mg PO TID 09/20/17 12/18/17 levothyroxine 150 mcg PO DAILY 09/20/17 12/18/17 naldemedine [Symproic] 0.2 mg PO DAILY PRN 09/20/17 12/18/17 pantoprazole 40 mg PO BID 09/20/17 12/18/17 ranitidine HCl [Zantac] 150 mg PO BID 09/20/17 12/18/17 rosuvastatin [Crestor] 20 mg PO HS 09/20/17 12/18/17 spironolactone 25 mg PO PC 09/20/17 12/18/17 hydrocodone-acetaminophen 1 tab PO Q4-6H PRN 10/24/17 12/18/17 polyethylene glycol 3350 [Miralax] 17 g PO DAILY 10/24/17 12/18/17 sucralfate 1 g PO TID 10/24/17 12/18/17 Azopt 1 drop EACH EAR BID 11/13/17 12/18/17 Combigan 1 drop RIGHT EYE BID 11/13/17 12/18/17 Durezol 1 drop RIGHT EYE DAILY MDD 6 times 11/13/17 12/18/17 a day Ilevro 1 drop RIGHT EYE DAILY NEB 11/13/17 12/18/17 Vigamox 1 drop RIGHT EYE QID 11/13/17 12/18/17 Allergies Allergy/AdvReac Type Severity Reaction Status Date / Time shellfish derived Allergy Severe HIVES Verified 12/18/17 18:55 tetanus toxoid, adsorbed Allergy Severe RASH Verified 12/18/17 18:55 lactose Allergy Mild INTOLERANCE Verified 12/18/17 18:55 Review of Systems ROS: all other systems reviewed are negative PMFSH History History Provided By: Patient Medical History Medical History Hypertension (Acute) Anemia (Acute) CHF (congestive heart failure) (Acute) Coronary artery disease (Acute) Diabetes (Acute) Surgical History Surgical History History of heart artery stent (Acute) History of prostate surgery (Acute) History of thyroid surgery (Acute) Family History Family History Brother Cancer Other Diabetes mellitus Social History Social History Substance History: No History of Abuse Second Hand Smoke Exposure: No Smoking Status: Former smoker Tobacco Type: Cigarettes How Often Do You Have a Drink Containing Alcohol: Monthly or less Recent Travel in [place] within the Last 8 Weeks: No Recent Out of Country Travel within the Last 8 Weeks: No Exam Narrative Exam Narrative: GENERAL: Overweight, well-developed, alert elderly - [place] male. Presenting in no acute distress. SKIN: Focused skin assessment warm/dry. HEAD: Atraumatic. Normocephalic. EYES: Pupils equal and round. No scleral icterus. No injection or drainage. Conjunctival pallor. ENT: No nasal bleeding or discharge. Mucous membranes pink and moist. NECK: Trachea midline. No JVD. CARDIOVASCULAR: Regular rate and rhythm. 3/6 systolic murmur appreciated. RESPIRATORY: No accessory muscle use. Clear to auscultation. Breath sounds equal bilaterally. GASTROINTESTINAL: Abdomen soft, non-tender, nondistended. Hepatic and splenic margins not palpable. MUSCULOSKELETAL: No obvious deformities. No clubbing. No cyanosis. No edema. NEUROLOGICAL: Awake and alert. No obvious cranial nerve deficits. Motor grossly within normal limits. Normal speech. PSYCHIATRIC: Appropriate mood and affect; insight and judgment normal. Course Initial Documented Vital Signs Temperature 98.8 F 12/18/17 17:30 Pulse Rate 72 12/18/17 17:30 Respiratory Rate 18 12/18/17 17:30 Blood Pressure 120/57 L 12/18/17 17:30 Pulse Oximetry 98 12/18/17 17:30 Last Documented Vital Signs Temperature 98.3 F 12/20/17 12:00 Pulse Rate 52 L 12/20/17 12:00 Respiratory Rate 19 12/20/17 12:00 Blood Pressure 113/53 L 12/20/17 12:00 Pulse Oximetry 99 12/20/17 12:00 Medical Decision Making ALLA Attestation ALLA supervised visit: Yes Attestation: I, Dr. Cordero, have reviewed the advance practice practitioner's documentation and am in agreement, met with the patient face to face, made the diagnosis, and the medical decision making was done by me. The patient was initially evaluated by Vidhi, the ALLA. Please see their complete history and physical. *My assessment and Findings: The patient presents with history of generalized weakness that is been progressive over the last few days. The patient reports a history of recurrent anemia and is concerned that his hemoglobin is again low. He reports that he last had a blood transfusion 3 weeks ago. He reports that he last moved his bowels 3 days ago and it was darker than usual. He denies having any bright red blood in his stool. Patient has a benign abdominal examination. The patient has no evidence of tachycardia, blood pressure is stable. During the course of the patient's emergency department visit, the patient's history, examination, and differential diagnosis were reviewed with the patient. The patient was placed on a phototypesetting equipment monitor with oximetry and frequent blood pressure monitoring. The patient had IV access obtained and blood work sent for analysis. The patient's diagnostic studies were reviewed and remarkable for an initial hemoglobin of 4.9. The patient will be typed and crossmatched for blood administration. The patient's results were discussed with the patient, including the plan of care. I explained that further testing and/ or monitoring is indicated based on the patient's history, examination, and/ or laboratory findings. Therefore, I recommended admission for additional evaluation. The patient expressed understanding and was agreeable with this plan. The patient was admitted to the hospital in guarded condition and sent to a bed under the care of the [facility] service. MDM Narrative Medical decision making narrative: Patient is an 82-year-old male presenting to emerge from for evaluation of abnormal labs, specifically low hemoglobin. Patient is symptomatic, labs ordered and pending. Medical records reviewed. Patient's vital signs are stable, he will be placed on a Protonix drip. CBC resulted with a hemoglobin of 4.9, 3 units of packed red blood cells ordered. Patient's daughter is at bedside. Discussed with Dr. Campbell who accepted admit , orders placed. VS remain stable. Medical Screen Exam Complete: Yes Emergency Medical Condition: Yes Differential Diagnosis Differential Diagnosis: Symptomatic anemia versus metabolic abnormality versus GI bleed versus arrhythmia versus other Medical Records Medical records reviewed: Yes I reviewed the patient's medical records. Patient's last colonoscopy was in 2017. Patient was admitted to [facility] in November 2017 at that time it was recommended he have a colonoscopy and patient declined. 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 Lab Data Lab results reviewed: Yes I reviewed the patient's lab results. Result diagrams: 12/20/17 04:55 12/20/17 04:55 Lab Results 12/18/17 12/18/17 12/18/17 Range/Units 20:50 20:50 20:50 WBC 6.4 (4.0-11.0) th/mm3 RBC 1.82 L (4.50-5.90) mil/mm3 Hgb 4.9 L* (13.0-17.0) gm/dL Hct 16.3 L* (39.0-51.0) % MCV 89.7 (80.0-100.0) fL MCH 27.1 (27.0-34.0) pg MCHC 30.2 L (32.0-36.0) % RDW 16.5 (11.6-17.2) % Plt Count 298 (150-450) th/mm3 MPV 7.9 (7.0-11.0) fL Prelim Diff (Auto) Slide review pending Neut % (Auto) 70.0 (16.0-70.0) % Lymph % (Auto) 17.8 (9.0-44.0) % [place] % (Auto) 9.9 H (0.0-8.0) % Eos % (Auto) 1.8 (0.0-4.0) % Baso % (Auto) 0.5 (0.0-2.0) % Neut # (Auto) 4.5 (1.8-7.7) th/mm3 Lymph # (Auto) 1.1 (1.0-4.8) th/mm3 [place] # (Auto) 0.6 (0.0-0.9) th/mm3 Eos # (Auto) 0.1 (0.0-0.4) th/mm3 Baso # (Auto) 0.0 (0.0-0.2) th/mm3 WBC Differential Manual diff final Seg Neuts % (Manual) 63 (16-70) % Lymphocytes % (Manual) 24 (9-44) % Monocytes % (Manual) 9 H (0-8) % Eosinophils % (Manual) 4 (0-4) % Abs Neuts (Manual) 4.0 (1.8-7.7) th/mm3 Nucleated RBCs/100 WBC 1 H (0-0) /100 WBC Differential Comment . Platelet Estimate Normal (Normal) Platelet Morphology Normal (Normal) Polychromasia 2.3 H (0.0-1.9) % PT 10.7 (9.8-11.6) sec INR 1.1 Ratio APTT 18.9 L (24.3-30.1) sec Sodium Cancelled Potassium Cancelled Chloride Cancelled Carbon Dioxide Cancelled Anion Gap Cancelled BUN Cancelled Creatinine Cancelled Estimated GFR Cancelled POC Glucose (68-110) mg/dl Random Glucose Cancelled Calcium Cancelled Prot Corrected Calcium Cancelled Magnesium (1.5-2.5) mg/dL Total Bilirubin Cancelled AST Cancelled ALT Cancelled Alkaline Phosphatase Cancelled Total Protein Cancelled Albumin Cancelled Lipase (73-393) U/L Blood Type Blood Type Recheck Antibody Screen MTS Gel Crossmatch 12/18/17 12/18/17 12/18/17 Range/Units 20:50 21:20 21:20 WBC (4.0-11.0) th/mm3 RBC (4.50-5.90) mil/mm3 Hgb (13.0-17.0) gm/dL Hct (39.0-51.0) % MCV (80.0-100.0) fL MCH (27.0-34.0) pg MCHC (32.0-36.0) % RDW (11.6-17.2) % Plt Count (150-450) th/mm3 MPV (7.0-11.0) fL Prelim Diff (Auto) Neut % (Auto) (16.0-70.0) % Lymph % (Auto) (9.0-44.0) % [place] % (Auto) (0.0-8.0) % Eos % (Auto) (0.0-4.0) % Baso % (Auto) (0.0-2.0) % Neut # (Auto) (1.8-7.7) th/mm3 Lymph # (Auto) (1.0-4.8) th/mm3 [place] # (Auto) (0.0-0.9) th/mm3 Eos # (Auto) (0.0-0.4) th/mm3 Baso # (Auto) (0.0-0.2) th/mm3 WBC Differential Seg Neuts % (Manual) (16-70) % Lymphocytes % (Manual) (9-44) % Monocytes % (Manual) (0-8) % Eosinophils % (Manual) (0-4) % Abs Neuts (Manual) (1.8-7.7) th/mm3 Nucleated RBCs/100 WBC (0-0) /100 WBC Differential Comment Platelet Estimate (Normal) Platelet Morphology (Normal) Polychromasia (0.0-1.9) % PT (9.8-11.6) sec INR Ratio APTT (24.3-30.1) sec Sodium 140 Potassium 4.5 Chloride 111 H Carbon Dioxide 20.2 L Anion Gap 9 BUN 43 H Creatinine 1.91 H Estimated GFR 41 L POC Glucose (68-110) mg/dl Random Glucose 110 H Calcium 9.9 Prot Corrected Calcium Magnesium 2.1 (1.5-2.5) mg/dL Total Bilirubin 0.1 L AST 8 L ALT 12 Alkaline Phosphatase 56 Total Protein 8.1 Albumin 2.6 L Lipase 208 (73-393) U/L Blood Type A Positive Blood Type Recheck Not needed Antibody Screen Negative MTS Gel Crossmatch See Detail 12/19/17 12/19/17 12/19/17 Range/Units 02:49 12:08 13:40 WBC (4.0-11.0) th/mm3 RBC (4.50-5.90) mil/mm3 Hgb 8.2 L D (13.0-17.0) gm/dL Hct 25.0 L (39.0-51.0) % MCV (80.0-100.0) fL MCH (27.0-34.0) pg MCHC (32.0-36.0) % RDW (11.6-17.2) % Plt Count (150-450) th/mm3 MPV (7.0-11.0) fL Prelim Diff (Auto) Neut % (Auto) (16.0-70.0) % Lymph % (Auto) (9.0-44.0) % [place] % (Auto) (0.0-8.0) % Eos % (Auto) (0.0-4.0) % Baso % (Auto) (0.0-2.0) % Neut # (Auto) (1.8-7.7) th/mm3 Lymph # (Auto) (1.0-4.8) th/mm3 [place] # (Auto) (0.0-0.9) th/mm3 Eos # (Auto) (0.0-0.4) th/mm3 Baso # (Auto) (0.0-0.2) th/mm3 WBC Differential Seg Neuts % (Manual) (16-70) % Lymphocytes % (Manual) (9-44) % Monocytes % (Manual) (0-8) % Eosinophils % (Manual) (0-4) % Abs Neuts (Manual) (1.8-7.7) th/mm3 Nucleated RBCs/100 WBC (0-0) /100 WBC Differential Comment Platelet Estimate (Normal) Platelet Morphology (Normal) Polychromasia (0.0-1.9) % PT (9.8-11.6) sec INR Ratio APTT (24.3-30.1) sec Sodium Potassium Chloride Carbon Dioxide Anion Gap BUN Creatinine Estimated GFR POC Glucose 110 113 H (68-110) mg/dl Random Glucose Calcium Prot Corrected Calcium Magnesium (1.5-2.5) mg/dL Total Bilirubin AST ALT Alkaline Phosphatase Total Protein Albumin Lipase (73-393) U/L Blood Type Blood Type Recheck Antibody Screen MTS Gel Crossmatch 12/19/17 12/19/17 12/19/17 Range/Units 13:40 16:56 19:54 WBC (4.0-11.0) th/mm3 RBC (4.50-5.90) mil/mm3 Hgb (13.0-17.0) gm/dL Hct (39.0-51.0) % MCV (80.0-100.0) fL MCH (27.0-34.0) pg MCHC (32.0-36.0) % RDW (11.6-17.2) % Plt Count (150-450) th/mm3 MPV (7.0-11.0) fL Prelim Diff (Auto) Neut % (Auto) (16.0-70.0) % Lymph % (Auto) (9.0-44.0) % [place] % (Auto) (0.0-8.0) % Eos % (Auto) (0.0-4.0) % Baso % (Auto) (0.0-2.0) % Neut # (Auto) (1.8-7.7) th/mm3 Lymph # (Auto) (1.0-4.8) th/mm3 [place] # (Auto) (0.0-0.9) th/mm3 Eos # (Auto) (0.0-0.4) th/mm3 Baso # (Auto) (0.0-0.2) th/mm3 WBC Differential Seg Neuts % (Manual) (16-70) % Lymphocytes % (Manual) (9-44) % Monocytes % (Manual) (0-8) % Eosinophils % (Manual) (0-4) % Abs Neuts (Manual) (1.8-7.7) th/mm3 Nucleated RBCs/100 WBC (0-0) /100 WBC Differential Comment Platelet Estimate (Normal) Platelet Morphology (Normal) Polychromasia (0.0-1.9) % PT (9.8-11.6) sec INR Ratio APTT (24.3-30.1) sec Sodium 141 Potassium 4.6 Chloride 111 H Carbon Dioxide 24.2 Anion Gap 6 BUN 40 H Creatinine 1.83 H Estimated GFR 43 L POC Glucose 102 137 H (68-110) mg/dl Random Glucose 99 Calcium 9.8 Prot Corrected Calcium Magnesium 2.1 (1.5-2.5) mg/dL Total Bilirubin AST ALT Alkaline Phosphatase Total Protein Albumin Lipase (73-393) U/L Blood Type Blood Type Recheck Antibody Screen MTS Gel Crossmatch 12/20/17 12/20/17 12/20/17 Range/Units 04:55 04:55 07:55 WBC 6.1 (4.0-11.0) th/mm3 RBC 3.02 L (4.50-5.90) mil/mm3 Hgb 8.0 L (13.0-17.0) gm/dL Hct 24.4 L (39.0-51.0) % MCV 80.9 D (80.0-100.0) fL MCH 26.5 L (27.0-34.0) pg MCHC 32.7 (32.0-36.0) % RDW 20.9 H D (11.6-17.2) % Plt Count 281 (150-450) th/mm3 MPV 7.5 (7.0-11.0) fL Prelim Diff (Auto) Neut % (Auto) 70.0 (16.0-70.0) % Lymph % (Auto) 15.2 (9.0-44.0) % [place] % (Auto) 11.4 H (0.0-8.0) % Eos % (Auto) 2.8 (0.0-4.0) % Baso % (Auto) 0.6 (0.0-2.0) % Neut # (Auto) 4.3 (1.8-7.7) th/mm3 Lymph # (Auto) 0.9 L (1.0-4.8) th/mm3 [place] # (Auto) 0.7 (0.0-0.9) th/mm3 Eos # (Auto) 0.2 (0.0-0.4) th/mm3 Baso # (Auto) 0.0 (0.0-0.2) th/mm3 WBC Differential . Seg Neuts % (Manual) (16-70) % Lymphocytes % (Manual) (9-44) % Monocytes % (Manual) (0-8) % Eosinophils % (Manual) (0-4) % Abs Neuts (Manual) (1.8-7.7) th/mm3 Nucleated RBCs/100 WBC (0-0) /100 WBC Differential Comment Auto diff final Platelet Estimate (Normal) Platelet Morphology (Normal) Polychromasia (0.0-1.9) % PT (9.8-11.6) sec INR Ratio APTT (24.3-30.1) sec Sodium 140 Potassium 4.4 Chloride 108 H Carbon Dioxide 23.7 Anion Gap 8 BUN 38 H Creatinine 1.77 H Estimated GFR 45 L POC Glucose 107 (68-110) mg/dl Random Glucose 93 Calcium 9.5 Prot Corrected Calcium Magnesium (1.5-2.5) mg/dL Total Bilirubin AST ALT Alkaline Phosphatase Total Protein Albumin Lipase (73-393) U/L Blood Type Blood Type Recheck Antibody Screen MTS Gel Crossmatch 12/20/17 Range/Units 11:07 WBC (4.0-11.0) th/mm3 RBC (4.50-5.90) mil/mm3 Hgb (13.0-17.0) gm/dL Hct (39.0-51.0) % MCV (80.0-100.0) fL MCH (27.0-34.0) pg MCHC (32.0-36.0) % RDW (11.6-17.2) % Plt Count (150-450) th/mm3 MPV (7.0-11.0) fL Prelim Diff (Auto) Neut % (Auto) (16.0-70.0) % Lymph % (Auto) (9.0-44.0) % [place] % (Auto) (0.0-8.0) % Eos % (Auto) (0.0-4.0) % Baso % (Auto) (0.0-2.0) % Neut # (Auto) (1.8-7.7) th/mm3 Lymph # (Auto) (1.0-4.8) th/mm3 [place] # (Auto) (0.0-0.9) th/mm3 Eos # (Auto) (0.0-0.4) th/mm3 Baso # (Auto) (0.0-0.2) th/mm3 WBC Differential Seg Neuts % (Manual) (16-70) % Lymphocytes % (Manual) (9-44) % Monocytes % (Manual) (0-8) % Eosinophils % (Manual) (0-4) % Abs Neuts (Manual) (1.8-7.7) th/mm3 Nucleated RBCs/100 WBC (0-0) /100 WBC Differential Comment Platelet Estimate (Normal) Platelet Morphology (Normal) Polychromasia (0.0-1.9) % PT (9.8-11.6) sec INR Ratio APTT (24.3-30.1) sec Sodium Potassium Chloride Carbon Dioxide Anion Gap BUN Creatinine Estimated GFR POC Glucose 134 H (68-110) mg/dl Random Glucose Calcium Prot Corrected Calcium Magnesium (1.5-2.5) mg/dL Total Bilirubin AST ALT Alkaline Phosphatase Total Protein Albumin Lipase (73-393) U/L Blood Type Blood Type Recheck Antibody Screen MTS Gel Crossmatch Discharge Plan Discharge Disposition Patient Disposition: 30 Still Patient Discharge Condition Condition: Stable Discharge Order Discharge Orders: Discharge Order (Routine); Ordered 12/20/17 Ordered By: Tye Kearney Discharge Details Discharge Comment: dc after seen by me this am Diagnosis: Acute GI bleeding, Symptomatic anemia Physicians Team ED Provider: Pricila Cordero ED Midlevel Provider: Vidhi Silva Primary Care Provider: UNKNOWN, Attending Provider: Tye Kearney Other Providers: Ary Boyer Sunil P Status ED Status: Left Department Discharge Information Discharge Date/Time: 12/19/17 00:39
[2017-12-18] MEDS ORDERED: Pantoprazole Inj 80 MG in Sodium Chlor 0.9% Inj 100 ML IV.CONT SCH (21:00)
[2017-12-18 21:22] LABS: Baso % (Auto) 0.5 % (0.0-2.0); Eos # (Auto) 0.1 th/mm3 (0.0-0.4); Eos % (Auto) 1.8 % (0.0-4.0); Lymph # (Auto) 1.1 th/mm3 (1.0-4.8); Lymph % (Auto) 17.8 % (9.0-44.0); Mean Corpuscular Hemoglobin 27.1 pg (27.0-34.0); Mean Corpuscular Volume 89.7 fL (80.0-100.0); Mean Platelet Volume 7.9 fL (7.0-11.0); Mono # (Auto) 0.6 th/mm3 (0.0-0.9); Mono % (Auto) 9.9 % (0.0-8.0); Neut # (Auto) 4.5 th/mm3 (1.8-7.7); Platelet Count 298 th/mm3 (150-450); Red Blood Count 1.82 mil/mm3 (4.50-5.90); Red Cell Distribution Width 16.5 % (11.6-17.2); White Blood Count 6.4 th/mm3 (4.0-11.0)
[2017-12-18 21:23] LABS: Mean Corpuscular HGB Conc 30.2 % (32.0-36.0)
[2017-12-18 21:27] LABS: Hematocrit 16.3 % (39.0-51.0); Hemoglobin 4.9 gm/dL (13.0-17.0)
[2017-12-18 21:40] LABS: Lipase 208 U/L (73-393); Magnesium 2.1 mg/dL (1.5-2.5)
[2017-12-18 21:55] LABS: Activated Partial Thrombo Time 18.9 sec (24.3-30.1); INR 1.1 Ratio; Prothrombin Time 10.7 sec (9.8-11.6)
[2017-12-18 22:43] LABS: Eosinophils 4 % (0-4); Lymphocytes 24 % (9-44); Monocytes 9 % (0-8); Platelet Estimate Normal (Normal); Platelet Morphology Normal (Normal); Tallied Nucleated RBC 1 (0-0)
[2017-12-18 22:45] LABS: Polychromasia 2.3 % (0.0-1.9)
[2017-12-18 23:00] LABS: Total Protein 8.1 g/dL (6.4-8.2)
[2017-12-18 23:06] LABS: Alkaline Phosphatase 56 U/L (45-117)
[2017-12-18 23:30] LABS: Alanine Aminotransferase 12 U/L (12-78); Albumin 2.6 g/dL (3.4-5.0); Anion Gap 9 meq/L (5-15); Aspartate Aminotransferase 8 U/L (15-37); Calcium 9.9 mg/dL (8.5-10.1); Carbon Dioxide 20.2 meq/L (21.0-32.0); Chloride 111 meq/L (98-107); Glomerular Filtration Rate 41 mL/min (>89); Glucose,Random 110 mg/dL (74-106); Potassium 4.5 meq/L (3.5-5.1); Sodium 140 meq/L (136-145)
[2017-12-18 23:42] LABS: Blood Urea Nitrogen 43 mg/dL (7-18)
[2017-12-19] MEDS ORDERED: [UNRECOGNIZED DRUG - OTHER] PO PRN (00:17)
[2017-12-19] MEDS ORDERED: Dextrose 50% in Water 50 ML Vial IV.PUSH PRN (00:19)
--- NOTE | 2017-12-19 00:31 | P.HP ---
History of Present Illness Service: [facility] Primary Care Physician: UNKNOWN History of Present Illness: 82-year-old male with past medical history significant for hypertension, hyperlipidemia, coronary artery disease, hypothyroidism, history of prostate cancer and diabetes mellitus with multiple GI bleeds requiring transfusion presents to the emergency department for evaluation of anemia. The patient endorses dyspnea on exertion and lightheadedness. He was last admitted in November of this year with similar complaints and was transfused at that time. It was recommended that he undergo endoscopy and colonoscopy at that time however the patient declined. Last colonoscopy was in April 2017 which revealed colonic diverticulitis, hemorrhoids and some small polyps. Upper endoscopy was also done at that time which revealed a duodenal polyp. Biopsies revealed burn scar hypertrophy. 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 Last capsule endoscopy was done in January 2008 and revealed mid small bowel AVMs. The patient denies any chest pain. No abdominal pain. No nausea/vomiting. Patient has had dark soft stools/diarrhea. No fever/chills. No lateralizing signs/symptoms. Inpatient Certification: I certify that the inpatient services were ordered in accordance with Medicare regulations governing the order. This includes certification that hospital inpatient services are reasonable and necessary and in the case of services not specified as inpatient-only under 42 CFR 419.22(n), that they are appropriately provided as inpatient services in accordance to with the 2-midnight benchmark under 43 CFR 412.3(e) Estimated Total Length of Stay (Days): 2 Plans for Post Hospital Care: Not yet determined Review of Systems All other systems reviewed negative except as stated in HPI [facility] - History History Provided By: Patient - Medical History Medical History: Medical History (Last Updated 12/19/17 @ 00:24 by Lakia Campbell MD) Cataract Hypertension Hypothyroidism Prostate CA Anemia CHF (congestive heart failure) Coronary artery disease Diabetes - Surgical History Surgical History: Surgical History (Last Reviewed 12/19/17 @ 00:24 by Lakia Campbell MD) History of heart artery stent History of prostate surgery History of thyroid surgery - Family History Family History: Family History (Last Updated 12/19/17 @ 00:25 by Lakia Campbell MD) Brother Cancer Other Diabetes mellitus - Tobacco History Second Hand Smoke Exposure: No Tobacco Use In Past 30 Days: No Smoking Status: Former smoker Tobacco Type: Cigarettes - Alcohol History How Often Do You Have a Drink Containing Alcohol: Monthly or less - Substance Use History Substance History: No History of Abuse - Travel History Recent Travel in the [place] Within the Last 8 Weeks: No Recent Travel Out of the Country Within the Last 8 Weeks: No - Immunization History Tetanus Immunization: Never Vaccinated Medications and Allergies Active Medications: Active Medications Bumetanide (Bumex) 1 mg PO DAILY [facility] Dextrose (D50w Vial) 50 ml IV.PUSH UNSCH PRN PRN Reason: PER HYPOGLYCEMIA PROTOCOL Doxazosin Mesylate (Cardura) 1 mg PO HS [facility] Furosemide (Lasix Inj) 20 mg IV.PUSH TID PRN PRN Reason: after blood transfusion Stop: 12/20/17 16:00 Gabapentin (Neurontin) 300 mg PO DAILY [facility] Glucagon (Glucagon Inj) 1 mg OTHER PRN PRN PRN Reason: for Hypoglycemia Protocol Pantoprazole Sodium 80 mg/ (Sodium Chloride) 100 mls @ 10 mls/hr IV.CONT CONT [facility] Last Admin: 12/18/17 23:33 Dose: 10 mls/hr Non-Formulary Medication (Carvedilol [Coreg]) 25 mg PO BID [facility] Non-Formulary Medication (Ferrous Sulfate [Ferrous Sulfate]) 324 mg PO DAILY [facility] Sodium Chloride (Ns Flush) 2 ml IV.FLUSH PRN PRN PRN Reason: FLUSH AFTER USING IV ACCESS Allergies Allergy/AdvReac Type Severity Reaction Status Date / Time shellfish derived Allergy Severe HIVES Verified 12/18/17 18:55 tetanus toxoid, adsorbed Allergy Severe RASH Verified 12/18/17 18:55 lactose Allergy Mild INTOLERANCE Verified 12/18/17 18:55 Home Medications Medication Instructions Recorded Confirmed Type bumetanide 1 mg PO DAILY 09/20/17 12/18/17 History carvedilol [Coreg] 25 mg PO BID 09/20/17 12/18/17 History doxazosin 1 mg PO HS 09/20/17 12/18/17 History ergocalciferol (vitamin D2) 50,000 unit PO QWEEK 09/20/17 12/18/17 History ferrous sulfate 324 mg PO DAILY 09/20/17 12/18/17 History gabapentin 300 mg PO DAILY 09/20/17 12/18/17 History glipizide 5 mg PO TID 09/20/17 12/18/17 History levothyroxine 150 mcg PO DAILY 09/20/17 12/18/17 History naldemedine [Symproic] 0.2 mg PO DAILY PRN 09/20/17 12/18/17 History pantoprazole 40 mg PO BID 09/20/17 12/18/17 History ranitidine HCl [Zantac] 150 mg PO BID 09/20/17 12/18/17 History rosuvastatin [Crestor] 20 mg PO HS 09/20/17 12/18/17 History spironolactone 25 mg PO PC 09/20/17 12/18/17 History hydrocodone-acetaminophen 1 tab PO Q4-6H PRN 10/24/17 12/18/17 History polyethylene glycol 3350 [Miralax] 17 g PO DAILY 10/24/17 12/18/17 History sucralfate 1 g PO TID 10/24/17 12/18/17 History Azopt 1 drop EACH EAR BID 11/13/17 12/18/17 History Combigan 1 drop RIGHT EYE BID 11/13/17 12/18/17 History Durezol 1 drop RIGHT EYE DAILY MDD 6 times 11/13/17 12/18/17 History a day Ilevro 1 drop RIGHT EYE DAILY NEB 11/13/17 12/18/17 History Vigamox 1 drop RIGHT EYE QID 11/13/17 12/18/17 History Exam Vital signs: Vital Signs 12/18/17 17:30 12/18/17 18:55 12/18/17 21:09 Temperature 98.8 F Pulse Rate 72 77 72 Respiratory Rate 18 18 Blood Pressure 120/57 L 152/71 H Pulse Oximetry 98 98 98 12/18/17 23:11 12/18/17 23:27 Temperature 98.4 F 98.5 F Pulse Rate 73 70 Respiratory Rate 18 18 Blood Pressure 154/69 H 155/69 H Pulse Oximetry 100 100 Intake & Output 12/18/17 12/18/17 12/19/17 06:59 18:59 06:59 Intake Total 0 / 0 Balance 0 / 0 Intake: Intake (Blood Product) Amt 0 / 0 Rbc As-5 Leukoreduced Unit 0 / 0 [id number] Narrative: Gen.: No acute distress Head: Normocephalic. Atraumatic. EENT: Pupils equal round and reactive to light. Nose without drainage. Airway intact. Throat without injection. Cardiovascular: Regular rate and rhythm. No murmurs, rubs or gallops. Respiratory: Lungs clear to auscultation bilaterally. No wheezes or rhonchi. Abdomen: Soft, nontender, nondistended. No peritoneal signs. Musculoskeletal: No gross deformities. No edema. Skin: No obvious rashes or erythema. Neuro: Sensory and motor grossly intact. Cranial nerves II through XII grossly intact. Results - Labs CBC & Chem 7: 12/18/17 20:50 12/18/17 20:50 Labs: Laboratory Results - last 24 hr 12/18/17 12/18/17 12/18/17 20:50 20:50 20:50 WBC 6.4 RBC 1.82 L Hgb 4.9 L* Hct 16.3 L* MCV 89.7 MCH 27.1 MCHC 30.2 L RDW 16.5 Plt Count 298 MPV 7.9 Prelim Diff (Auto) Slide review pending Neut % (Auto) 70.0 Lymph % (Auto) 17.8 [place] % (Auto) 9.9 H Eos % (Auto) 1.8 Baso % (Auto) 0.5 Neut # (Auto) 4.5 Lymph # (Auto) 1.1 [place] # (Auto) 0.6 Eos # (Auto) 0.1 Baso # (Auto) 0.0 WBC Differential Manual diff final Seg Neuts % (Manual) 63 Lymphocytes % (Manual) 24 Monocytes % (Manual) 9 H Eosinophils % (Manual) 4 Abs Neuts (Manual) 4.0 Nucleated RBCs/100 WBC 1 H Differential Comment . Platelet Estimate Normal Platelet Morphology Normal Polychromasia 2.3 H PT 10.7 INR 1.1 APTT 18.9 L Sodium Cancelled Potassium Cancelled Chloride Cancelled Carbon Dioxide Cancelled Anion Gap Cancelled BUN Cancelled Creatinine Cancelled Estimated GFR Cancelled Random Glucose Cancelled Calcium Cancelled Prot Corrected Calcium Cancelled Magnesium Total Bilirubin Cancelled AST Cancelled ALT Cancelled Alkaline Phosphatase Cancelled Total Protein Cancelled Albumin Cancelled Lipase Blood Type Blood Type Recheck Antibody Screen MTS Gel Crossmatch 12/18/17 12/18/17 12/18/17 20:50 21:20 21:20 WBC RBC Hgb Hct MCV MCH MCHC RDW Plt Count MPV Prelim Diff (Auto) Neut % (Auto) Lymph % (Auto) [place] % (Auto) Eos % (Auto) Baso % (Auto) Neut # (Auto) Lymph # (Auto) [place] # (Auto) Eos # (Auto) Baso # (Auto) WBC Differential Seg Neuts % (Manual) Lymphocytes % (Manual) Monocytes % (Manual) Eosinophils % (Manual) Abs Neuts (Manual) Nucleated RBCs/100 WBC Differential Comment Platelet Estimate Platelet Morphology Polychromasia PT INR APTT Sodium 140 Potassium 4.5 Chloride 111 H Carbon Dioxide 20.2 L Anion Gap 9 BUN 43 H Creatinine 1.91 H Estimated GFR 41 L Random Glucose 110 H Calcium 9.9 Prot Corrected Calcium Magnesium 2.1 Total Bilirubin 0.1 L AST 8 L ALT 12 Alkaline Phosphatase 56 Total Protein 8.1 Albumin 2.6 L Lipase 208 Blood Type A Positive Blood Type Recheck Not needed Antibody Screen Negative MTS Gel Crossmatch See Detail Caprini VTE Risk Assessment Caprini VTE Risk Assessment: Moderate/High Risk (score >= 2) Caprini Risk Assessment Model: Point Value = 1 Point Value = 2 Point Value = 3 Point Value = 5 Age 41-60 Minor surgery BMI > 25 kg/m2 Swollen legs Varicose veins or History of unexplained or recurrent spontaneous Oral contraceptives or hormone replacement Sepsis (< 1 month) Serious lung disease, including pneumonia (< 1 month) Abnormal pulmonary function Acute myocardial infarction Congestive heart failure (< 1 month) History of inflammatory bowel disease Medical patient at bed rest Age 61-74 Arthroscopic surgery Major open surgery (> 45 min) Laparoscopic surgery (> 45 min) Malignancy Confined to bed (> 72 hours) Immobilizing plaster cast Central venous access Age >= 75 History of VTE Family history of VTE Factor V Leiden Prothrombin [id number] Lupus anticoagulant Anticardiolipin antibodies Elevated serum homocysteine Heparin-induced thrombocytopenia Other congenital or acquired thrombophilia Stroke (< 1 month) Elective arthroplasty Hip, pelvis, or leg fracture Acute spinal cord injury (< 1 month) Prophylaxis Regimen: Total Risk Factor Score Risk Level Prophylaxis Regimen 0-1 Low Early ambulation 2 Moderate Order ONE of the following: *Sequential Compression Device (SCD) *Heparin 5000 units SQ BID 3-4 Higher Order ONE of the following medications: *Heparin 5000 units SQ TID *Enoxaparin/Lovenox 40 mg SQ daily (WT < 150 kg, CrCl > 30 mL/min) *Enoxaparin/Lovenox 30 mg SQ daily (WT < 150 kg, CrCl > 10-29 mL/min) *Enoxaparin/Lovenox 30 mg SQ BID (WT < 150 kg, CrCl > 30 mL/min) AND/OR *Sequential Compression Device (SCD) 5 or more Highest Order ONE of the following medications: *Heparin 5000 units SQ TID (Preferred with Epidurals) *Enoxaparin/Lovenox 40 mg SQ daily (WT < 150 kg, CrCl > 30 mL/min) *Enoxaparin/Lovenox 30 mg SQ daily (WT < 150 kg, CrCl > 10-29 mL/min) *Enoxaparin/Lovenox 30 mg SQ BID (WT < 150 kg, CrCl > 30 mL/min) AND *Sequential Compression Device (SCD) Assessment and Plan - Plan Assessment/plan: 1. GI bleed with severe anemia Transfuse 3 units packed red blood cells Patient with history of previous small bowel AVMs -for complete history see EDILBERTO argueta Gastroenterology consulted, appreciate assistance 2. Diabetes mellitus Holding home glipizide Sliding-scale insulin Monitor blood glucose 2. Hypertension/hyperlipidemia/coronary artery disease Continue home medications 3. CHF Lasix following each unit of blood Carvedilol and Spironolactone 4. Hypothyroidism Continue home Synthroid 5. Chronic kidney disease Creatinine 1.91, plan for this patient Monitor renal function FEN N.p.o. Electrolytes: Monitor and replete as needed Holding pharmacologic anticoagulation for active GI bleed
[2017-12-19] MEDS ORDERED: Influenza (Quadrivalent) Vaccine 0.5 ML Syringe IM ONE (03:15)
[2017-12-19] MEDS: Insulin NovoLOG Aspart Correctional Sugar Inj SQ SCH ×5 (03:24→22:05)
[2017-12-19] MEDS: Levothyroxine 150 MCG Tablet PO SCH (05:28)
[2017-12-19] MEDS ORDERED: Carvedilol 12.5 MG Tablet PO SCH (09:00)
[2017-12-19] MEDS: Ferrous Sulfate 325 MG Tablet PO SCH (09:01)
[2017-12-19] MEDS: Gabapentin 300 MG Capsule PO SCH (09:01)
[2017-12-19] MEDS ORDERED: Spironolactone 25 MG Tablet PO SCH (09:30)
--- NOTE | 2017-12-19 09:52 | P.PN ---
Subjective Interval history: Follow-up GI bleed and anemia. States he is feeling better with blood transfusion. Denies chest pain, shortness of breath and dizziness. Physical Exam Vital signs: Vital Signs 12/18/17 17:30 12/18/17 18:55 12/18/17 21:09 Temperature 98.8 F Pulse Rate 72 77 72 Respiratory Rate 18 18 Blood Pressure 120/57 L 152/71 H Pulse Oximetry 98 98 98 12/18/17 23:11 12/18/17 23:27 12/19/17 01:24 Temperature 98.4 F 98.5 F Pulse Rate 73 70 Respiratory Rate 18 18 18 Blood Pressure 154/69 H 155/69 H Pulse Oximetry 100 100 12/19/17 03:14 12/19/17 04:23 12/19/17 04:41 Temperature 97.6 F 97.7 F 97.4 F L Pulse Rate 67 58 L 58 L Respiratory Rate 18 16 18 Blood Pressure 134/63 138/64 140/63 Pulse Oximetry 100 100 12/19/17 08:00 12/19/17 08:46 12/19/17 08:51 Temperature 98 F 98 F 97.3 F L Pulse Rate 66 66 60 Respiratory Rate 18 18 16 Blood Pressure 129/72 129/72 141/65 H Pulse Oximetry 100 100 100 12/19/17 09:09 Temperature 98.0 F Pulse Rate 60 Respiratory Rate 16 Blood Pressure 148/68 H Pulse Oximetry 100 Intake & Output 12/18/17 12/19/17 12/19/17 18:59 06:59 18:59 Intake Total 410 / 410 0 / 0 Output Total 1400 / 1400 Balance -990 / -990 0 / 0 Weight 110 kg Intake: Other Rbc As-5 Leukoreduced Unit [id number] Intake (Blood Product) Amt 400 / 400 0 / 0 Rbc As-5 Leukoreduced Unit 0 / 0 0 / 0 [id number] Rbc As-5 Leukoreduced Unit 400 / 400 [id number] Rbc As-5 Leukoreduced Unit 0 / 0 [id number] Output: Urine 1400 / 1400 Other: Weight On Admission 109.3 kg Narrative: Gen.: No acute distress Cardiovascular: Regular rate and rhythm. No murmurs, rubs or gallops. Respiratory: Lungs clear to auscultation bilaterally. No wheezes or rhonchi. Abdomen: Soft, nontender, nondistended. No peritoneal signs. Musculoskeletal: No gross deformities. Chronic bilateral lower extremity pitting edema worse on the left Skin: No obvious rashes or erythema. Neuro: Sensory and motor grossly intact. Cranial nerves II through XII grossly intact. Results - Labs CBC & Chem 7: 12/19/17 13:40 12/19/17 13:40 Laboratory Results - last 24 hr 12/18/17 12/18/17 12/18/17 20:50 20:50 20:50 WBC 6.4 RBC 1.82 L Hgb 4.9 L* Hct 16.3 L* MCV 89.7 MCH 27.1 MCHC 30.2 L RDW 16.5 Plt Count 298 MPV 7.9 Prelim Diff (Auto) Slide review pending Neut % (Auto) 70.0 Lymph % (Auto) 17.8 [place] % (Auto) 9.9 H Eos % (Auto) 1.8 Baso % (Auto) 0.5 Neut # (Auto) 4.5 Lymph # (Auto) 1.1 [place] # (Auto) 0.6 Eos # (Auto) 0.1 Baso # (Auto) 0.0 WBC Differential Manual diff final Seg Neuts % (Manual) 63 Lymphocytes % (Manual) 24 Monocytes % (Manual) 9 H Eosinophils % (Manual) 4 Abs Neuts (Manual) 4.0 Nucleated RBCs/100 WBC 1 H Differential Comment . Platelet Estimate Normal Platelet Morphology Normal Polychromasia 2.3 H PT 10.7 INR 1.1 APTT 18.9 L Sodium Cancelled Potassium Cancelled Chloride Cancelled Carbon Dioxide Cancelled Anion Gap Cancelled BUN Cancelled Creatinine Cancelled Estimated GFR Cancelled POC Glucose Random Glucose Cancelled Calcium Cancelled Prot Corrected Calcium Cancelled Magnesium Total Bilirubin Cancelled AST Cancelled ALT Cancelled Alkaline Phosphatase Cancelled Total Protein Cancelled Albumin Cancelled Lipase Blood Type Blood Type Recheck Antibody Screen MTS Gel Crossmatch 12/18/17 12/18/17 12/18/17 20:50 21:20 21:20 WBC RBC Hgb Hct MCV MCH MCHC RDW Plt Count MPV Prelim Diff (Auto) Neut % (Auto) Lymph % (Auto) [place] % (Auto) Eos % (Auto) Baso % (Auto) Neut # (Auto) Lymph # (Auto) [place] # (Auto) Eos # (Auto) Baso # (Auto) WBC Differential Seg Neuts % (Manual) Lymphocytes % (Manual) Monocytes % (Manual) Eosinophils % (Manual) Abs Neuts (Manual) Nucleated RBCs/100 WBC Differential Comment Platelet Estimate Platelet Morphology Polychromasia PT INR APTT Sodium 140 Potassium 4.5 Chloride 111 H Carbon Dioxide 20.2 L Anion Gap 9 BUN 43 H Creatinine 1.91 H Estimated GFR 41 L POC Glucose Random Glucose 110 H Calcium 9.9 Prot Corrected Calcium Magnesium 2.1 Total Bilirubin 0.1 L AST 8 L ALT 12 Alkaline Phosphatase 56 Total Protein 8.1 Albumin 2.6 L Lipase 208 Blood Type A Positive Blood Type Recheck Not needed Antibody Screen Negative MTS Gel Crossmatch See Detail 12/19/17 02:49 WBC RBC Hgb Hct MCV MCH MCHC RDW Plt Count MPV Prelim Diff (Auto) Neut % (Auto) Lymph % (Auto) [place] % (Auto) Eos % (Auto) Baso % (Auto) Neut # (Auto) Lymph # (Auto) Kay # (Auto) Eos # (Auto) Baso # (Auto) WBC Differential Seg Neuts % (Manual) Lymphocytes % (Manual) Monocytes % (Manual) Eosinophils % (Manual) Abs Neuts (Manual) Nucleated RBCs/100 WBC Differential Comment Platelet Estimate Platelet Morphology Polychromasia PT INR APTT Sodium Potassium Chloride Carbon Dioxide Anion Gap BUN Creatinine Estimated GFR POC Glucose 110 Random Glucose Calcium Prot Corrected Calcium Magnesium Total Bilirubin AST ALT Alkaline Phosphatase Total Protein Albumin Lipase Blood Type Blood Type Recheck Antibody Screen MTS Gel Crossmatch Assessment and Plan - Plan 1. Severe anemia secondary to acute blood loss from GI bleed Transfuse 3 units packed red blood cells. Continue to monitor blood counts keep hemoglobin at least 8 Patient with history of previous small bowel AVMs Protonix drip Gastroenterology consulted, appreciate assistance 2. Diabetes mellitus Holding home glipizide Sliding-scale insulin Monitor blood glucose. Hypoglycemia protocol 2. Hypertension/hyperlipidemia/coronary artery disease Continue home medications 3. CHF Lasix following each unit of blood Carvedilol and Spironolactone 4. Hypothyroidism Continue home Synthroid 5. Chronic kidney disease stage 3 Creatinine 1.91 Monitor renal function FEN N.p.o. Electrolytes: Monitor and replete as needed Holding pharmacologic anticoagulation 2/2 active GI bleed Discharge Planning: Per GI
[2017-12-19] MEDS: Sucralfate Liq 1 GM/10 ML UDC PO SCH ×2 (12:00→17:27)
[2017-12-19] MEDS: Timolol 0.5% Drops 5 ML Bottle RIGHT EYE SCH ×2 (12:00→20:30)
[2017-12-19] MEDS: Moxifloxacin 0.5% Opth Drops 3 ML Bottle RIGHT EYE SCH ×3 (13:00→20:33)
[2017-12-19 13:51] LABS: Hemoglobin 8.2 gm/dL (13.0-17.0)
[2017-12-19 14:30] LABS: Calcium 9.8 mg/dL (8.5-10.1); Carbon Dioxide 24.2 meq/L (21.0-32.0); Magnesium 2.1 mg/dL (1.5-2.5); Potassium 4.6 meq/L (3.5-5.1)
[2017-12-19] MEDS ORDERED: Sod Chloride 0.9% Inj 1,000 ML IV.CONT SCH (16:00)
--- NOTE | 2017-12-19 16:20 | MB ---
cc: Naun Karimi MD, Sunil P MD Abando,Tye Kitchen,Uche Houston MD DATE: 12/19/2017 REASON FOR CONSULTATION: I am asked to see patient at the request of Dr. Kearney for evaluation of anemia and GI bleed. HISTORY OF PRESENT ILLNESS: The patient is a pleasant 82-year-old male who has history of known small AVMs and has had multiple admissions for anemia and heme-positive stools. This past Sunday, he was feeling weak and tired and he went to get a CBC and he got results back and it was quite low. Because of this low hemoglobin and increasing dyspnea, he came to the emergency room where he was subsequently admitted. He has been transfused blood and feels quite well at this time. The patient denies any type of dysphagia, odynophagia, early satiety or heartburn. No melena, diarrhea, constipation. He has no gross bleeding. The patient did see hematology/oncology at one point and they thought about infusing him with iron, but they could not get IV access per the patient. PAST MEDICAL HISTORY: Past medical history is significant for a history of 7 for a small bowel AVM seen on capsule endoscopy in January 2003. The patient had a colonoscopy in April 2017 which revealed diverticulosis, hemorrhoids and small polyps. Upper endoscopy done also in April 2017 revealed Zakiya's gland hypertrophy. There is an AVM in the duodenum, which was cauterized. Other past history including for anus colon polyps, duodenal polyp, hiatal hernia, heme-positive stool, iron deficiency, CHF, coronary artery disease, diabetes, cataracts, MGUS, prostate cancer, hypertension, gastritis, esophageal strictures, (but no dysphagia at the present), degenerative joint disease, neuropathy, chronic kidney disease stage III, goiter. PAST SURGICAL HISTORY: Includes appendectomy, thyroid resection, numerous upper endoscopies and colonoscopies. He has had a prostate surgery, he has coronary artery disease with stenting, he has had a capsule endoscopy. SOCIAL HISTORY: Past smoking history, but nothing at the time, he drinks rarely. FAMILY HISTORY: Not significant for any type of colon cancer or colon polyps. MEDICATIONS: At this time include: 1. Hydrocodone. 2. Tylenol. 3. Lipitor for dyslipidemia. 4. Bumex. 5. Coreg. 6. Cardura. 7. Ferrous sulfate. 8. Lasix. 9. Neurontin. 10. Glucagon. 11. NovoLog. 12. Synthroid. 13. Vigamox eyedrops. 14. Zantac. 15. Zofran. 16. Protonix b.i.d. 17. Symproic p.r.n. constipation. 18. Durezol. 19. Aldactone 20. Carafate. 21. Timoptic eyedrops. ALLERGIES: SHELLFISH, TETANUS, LACTOSE. REVIEW OF SYSTEMS: No weight loss, fever or chills. He had some shortness of breath earlier, but it is better now. No palpitations, wheezing or chest pain. Gastroscopy see above. Otherwise unremarkable 12-point review of systems. PHYSICAL EXAMINATION: VITAL SIGNS: Blood pressure is 140/65, pulse of 62, respiratory 18, temperature 98.2. GENERAL: This is an overweight male resting this time. He appears to be in no acute distress. HEENT: Pupils are equal and reactive to light. No obvious scleral icterus. Oropharyngeal cavity shows dental caries noted. No tongue deviation or Candidal lesions. Hearing was intact. NECK: Supple. No thyromegaly, lymphadenopathy. LUNGS: Had some rhonchi at the bases, cleared with coughing. HEART: Regular rate and rhythm. No murmurs are heard. ABDOMEN: Soft, nondistended, nontender. No organomegaly. No ascites or hernias. EXTREMITIES: No cyanosis, clubbing or edema. His cranial nerves 2-12 are grossly intact. NEUROLOGIC: He is moving all 4 extremities. SKIN: Warm and dry. EXTREMITIES: No cyanosis or clubbing. There is some pedal edema noted. I did not assess his gait nor do a rectal exam on him. DATA: Laboratories yesterday revealed hemoglobin 4.9, hematocrit 16.3, MCV 89.7, white blood count 5400. Today, hemoglobin is 8.2, hematocrit 25 (he said he got 3 units of blood). Yesterday BUN was 43, creatinine 1.91. Today it is 40 and 1.83, total bilirubin 0.1, SGOT of 8, SGPT of 12, alkaline phosphatase 56, lipase of 208, this is normal. Pro time 10.7, INR of 1.1, PTT of 18.9 exam. IMPRESSION : 1. Anemia (he had past heme positive stool test. I did not repeat this at this time). I suspect this anemia is related to arteriovenous malformations in the small intestine. Again, he could have arteriovenous malformations elsewhere also, including the stomach and the small intestine. I do not think he developed malignancy since last April as a cause of his anemia. 2. 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 3. Colonic diverticulosis. 4. History of adenomatous colon polyps. 5. Shortness of breath, better after transfusion. RECOMMENDATIONS: 1. Continue to monitor for overt GI bleeding. Transfuse as needed and continue PPI. 2. Previously I had offered procedure, both upper endoscopy and colonoscopy, but he once again declined. We also talked about a capsule endoscopy as well as double lumen enteroscopy an outpatient at a tertiary care center. At this time, he just wants to go home. He will follow up with my partner, Dr. Kitchen as an outpatient. He understands the risk of missed malignancy and bleed to . 3. He will also follow up with him Hematology/Oncology and hopefully they can find some way to give him IV iron to maintain his hemoglobin. 4. Further recommendations depend on how he does. Naun Karimi MD SPP/ct , 03:10 PM , 03:29 PM
[2017-12-19] MEDS: Brimonidine 0.2% Opth Drops 5 ML Bottle RIGHT EYE SCH ×3 (17:26→22:04)
[2017-12-19] MEDS: Famotidine 20 MG Tablet PO SCH (20:25)
[2017-12-19] MEDS ORDERED: Doxazosin 1 MG Tablet PO SCH (21:00)
[2017-12-19] MEDS ORDERED: AZOPT OPTH EACH EYE SCH (21:00)
[2017-12-20] MEDS: Levothyroxine 150 MCG Tablet PO SCH (05:28)
[2017-12-20 06:26] LABS: Baso % (Auto) 0.6 % (0.0-2.0); Eos # (Auto) 0.2 th/mm3 (0.0-0.4); Eos % (Auto) 2.8 % (0.0-4.0); Hematocrit 24.4 % (39.0-51.0); Lymph # (Auto) 0.9 th/mm3 (1.0-4.8); Lymph % (Auto) 15.2 % (9.0-44.0); Mean Corpuscular HGB Conc 32.7 % (32.0-36.0); Mean Corpuscular Hemoglobin 26.5 pg (27.0-34.0); Mean Corpuscular Volume 80.9 fL (80.0-100.0); Mean Platelet Volume 7.5 fL (7.0-11.0); Mono # (Auto) 0.7 th/mm3 (0.0-0.9); Mono % (Auto) 11.4 % (0.0-8.0); Neut # (Auto) 4.3 th/mm3 (1.8-7.7); Platelet Count 281 th/mm3 (150-450); Red Blood Count 3.02 mil/mm3 (4.50-5.90); Red Cell Distribution Width 20.9 % (11.6-17.2); White Blood Count 6.1 th/mm3 (4.0-11.0)
[2017-12-20 07:42] LABS: Calcium 9.5 mg/dL (8.5-10.1); Carbon Dioxide 23.7 meq/L (21.0-32.0); Potassium 4.4 meq/L (3.5-5.1)
[2017-12-20] MEDS: Insulin NovoLOG Aspart Correctional Sugar Inj SQ SCH ×2 (07:55→11:07)
[2017-12-20] MEDS: Famotidine 20 MG Tablet PO SCH ×2 (07:56→09:29)
[2017-12-20] MEDS: Ferrous Sulfate 325 MG Tablet PO SCH ×2 (07:57→09:29)
[2017-12-20] MEDS: Carvedilol 12.5 MG Tablet PO SCH ×2 (07:57→09:29)
[2017-12-20] MEDS: Gabapentin 300 MG Capsule PO SCH ×2 (07:57→09:29)
[2017-12-20] MEDS: Sucralfate Liq 1 GM/10 ML UDC PO SCH ×4 (07:58→12:18)
[2017-12-20] MEDS: Brimonidine 0.2% Opth Drops 5 ML Bottle RIGHT EYE SCH (08:03)
[2017-12-20] MEDS: Timolol 0.5% Drops 5 ML Bottle RIGHT EYE SCH (08:03)
[2017-12-20] MEDS: Moxifloxacin 0.5% Opth Drops 3 ML Bottle RIGHT EYE SCH ×2 (08:03→12:18)
--- NOTE | 2017-12-20 08:14 | P.PN ---
Subjective Interval history: Follow-up severe anemia and guaiac positive stool. No further bleeding. No bowel movement since admission. He feels good and wants to go home. Awaiting PT eval. Physical Exam Vital signs: Vital Signs 12/19/17 08:46 12/19/17 08:51 12/19/17 09:00 Temperature 98 F 97.3 F L Pulse Rate 66 60 60 Respiratory Rate 18 16 Blood Pressure 129/72 141/65 H Pulse Oximetry 100 100 12/19/17 09:09 12/19/17 10:01 12/19/17 12:00 Temperature 98.0 F 98.2 F Pulse Rate 60 61 Respiratory Rate 16 18 Blood Pressure 148/68 H 140/65 Pulse Oximetry 100 99 100 12/19/17 13:03 12/19/17 16:00 12/19/17 16:40 Temperature 98.2 F 98.5 F Pulse Rate 61 52 L Respiratory Rate 18 18 Blood Pressure 140/65 119/60 Pulse Oximetry 100 100 99 12/19/17 19:00 12/19/17 20:00 12/20/17 00:00 Temperature 98.5 F 98.3 F Pulse Rate 56 L 55 L Respiratory Rate 18 18 Blood Pressure 125/58 L 133/62 Pulse Oximetry 100 100 100 12/20/17 04:00 Temperature 98.2 F Pulse Rate 57 L Respiratory Rate 18 Blood Pressure 127/61 Pulse Oximetry 100 Intake & Output 12/19/17 12/20/17 12/20/17 18:59 06:59 18:59 Intake Total 100 / 100 860 / 860 Output Total 2500 / 2500 600 / 600 Balance -2400 / -2400 260 / 260 Weight 109.3 kg Intake: IV 100 / 100 Oral 760 / 760 Other 100 / 100 Rbc As-5 Leukoreduced Unit 100 / 100 [id number] Intake (Blood Product) Amt 0 / 0 Rbc As-5 Leukoreduced Unit 0 / 0 [id number] Rbc As-5 Leukoreduced Unit 0 / 0 [id number] Output: Urine 2500 / 2500 600 / 600 Other: Other Intake Source Rbc As-5 Leukoreduced Unit Saline Solution [id number] Date of Last Bowel Movement 12/18/17 Narrative: Gen.: No acute distress Cardiovascular: Regular rate and rhythm. No murmurs, rubs or gallops. Respiratory: Lungs clear to auscultation bilaterally. No wheezes or rhonchi. Abdomen: Soft, nontender, nondistended. No peritoneal signs. Musculoskeletal: No gross deformities. Chronic bilateral lower extremity pitting edema worse on the left Skin: No obvious rashes or erythema. Neuro: Sensory and motor grossly intact. Cranial nerves II through XII grossly intact. Results - Labs CBC & Chem 7: 12/20/17 04:55 12/20/17 04:55 Laboratory Results - last 24 hr 12/18/17 12/19/17 12/19/17 21:20 12:08 13:40 WBC RBC Hgb 8.2 L D Hct 25.0 L MCV MCH MCHC RDW Plt Count MPV Neut % (Auto) Lymph % (Auto) [place] % (Auto) Eos % (Auto) Baso % (Auto) Neut # (Auto) Lymph # (Auto) [place] # (Auto) Eos # (Auto) Baso # (Auto) WBC Differential Differential Comment Sodium Potassium Chloride Carbon Dioxide Anion Gap BUN Creatinine Estimated GFR POC Glucose 113 H Random Glucose Calcium Magnesium MTS Gel Crossmatch See Detail 12/19/17 12/19/17 12/19/17 13:40 16:56 19:54 WBC RBC Hgb Hct MCV MCH MCHC RDW Plt Count MPV Neut % (Auto) Lymph % (Auto) [place] % (Auto) Eos % (Auto) Baso % (Auto) Neut # (Auto) Lymph # (Auto) [place] # (Auto) Eos # (Auto) Baso # (Auto) WBC Differential Differential Comment Sodium 141 Potassium 4.6 Chloride 111 H Carbon Dioxide 24.2 Anion Gap 6 BUN 40 H Creatinine 1.83 H Estimated GFR 43 L POC Glucose 102 137 H Random Glucose 99 Calcium 9.8 Magnesium 2.1 MTS Gel Crossmatch 12/20/17 12/20/17 12/20/17 04:55 04:55 07:55 WBC 6.1 RBC 3.02 L Hgb 8.0 L Hct 24.4 L MCV 80.9 D MCH 26.5 L MCHC 32.7 RDW 20.9 H D Plt Count 281 MPV 7.5 Neut % (Auto) 70.0 Lymph % (Auto) 15.2 [place] % (Auto) 11.4 H Eos % (Auto) 2.8 Baso % (Auto) 0.6 Neut # (Auto) 4.3 Lymph # (Auto) 0.9 L [place] # (Auto) 0.7 Eos # (Auto) 0.2 Baso # (Auto) 0.0 WBC Differential . Differential Comment Auto diff final Sodium 140 Potassium 4.4 Chloride 108 H Carbon Dioxide 23.7 Anion Gap 8 BUN 38 H Creatinine 1.77 H Estimated GFR 45 L POC Glucose 107 Random Glucose 93 Calcium 9.5 Magnesium MTS Gel Crossmatch - Procedures none Assessment and Plan - Plan 1. Severe anemia secondary to acute blood loss from GI bleed Improved after 3 units packed red blood cells. Continue to monitor blood counts keep hemoglobin at least 8 Patient with history of previous small bowel AVMs Protonix Discussed with GI yesterday, patient refusing endoscopy and just wants to go home. 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 Patient also follow-up with hematology for IV iron infusion 2. Diabetes mellitus Stable Sliding-scale insulin Monitor blood glucose. Hypoglycemia protocol 2. Hypertension/hyperlipidemia/coronary artery disease Continue home medications 3. CHF. Compensated Carvedilol and Spironolactone 4. Hypothyroidism Continue home Synthroid 5. Chronic kidney disease stage 3. Stable Creatinine 1.91 Monitor renal function Holding pharmacologic anticoagulation 2/2 active GI bleed Discharge Planning: Discharge patient to home Condition on discharge: Improved Regular Diet as tolerated Ad Amy activity no driving Rx written: None Follow-up with primary care physician and gastroenterology
--- NOTE | 2017-12-20 08:37 | P.PNGI ---
Subjective Interval history: Patient feels much better after blood transfusions. No chest pain or shortness of breath or palpitations. No overt GI bleeding noted. He denies any abdominal pain or heartburn. Wants to go home Physical Exam Vital signs: Vital Signs 12/19/17 08:46 12/19/17 08:51 12/19/17 09:00 Temperature 98 F 97.3 F L Pulse Rate 66 60 60 Respiratory Rate 18 16 Blood Pressure 129/72 141/65 H Pulse Oximetry 100 100 12/19/17 09:09 12/19/17 10:01 12/19/17 12:00 Temperature 98.0 F 98.2 F Pulse Rate 60 61 Respiratory Rate 16 18 Blood Pressure 148/68 H 140/65 Pulse Oximetry 100 99 100 12/19/17 13:03 12/19/17 16:00 12/19/17 16:40 Temperature 98.2 F 98.5 F Pulse Rate 61 52 L Respiratory Rate 18 18 Blood Pressure 140/65 119/60 Pulse Oximetry 100 100 99 12/19/17 19:00 12/19/17 20:00 12/20/17 00:00 Temperature 98.5 F 98.3 F Pulse Rate 56 L 55 L Respiratory Rate 18 18 Blood Pressure 125/58 L 133/62 Pulse Oximetry 100 100 100 12/20/17 04:00 Temperature 98.2 F Pulse Rate 57 L Respiratory Rate 18 Blood Pressure 127/61 Pulse Oximetry 100 Intake & Output 12/19/17 12/20/17 12/20/17 18:59 06:59 18:59 Intake Total 100 / 100 860 / 860 Output Total 2500 / 2500 600 / 600 Balance -2400 / -2400 260 / 260 Weight 109.3 kg Intake: IV 100 / 100 Oral 760 / 760 Other 100 / 100 Rbc As-5 Leukoreduced Unit 100 / 100 [id number] Intake (Blood Product) Amt 0 / 0 Rbc As-5 Leukoreduced Unit 0 / 0 [id number] Rbc As-5 Leukoreduced Unit 0 / 0 [id number] Output: Urine 2500 / 2500 600 / 600 Other: Other Intake Source Rbc As-5 Leukoreduced Unit Saline Solution [id number] Date of Last Bowel Movement 12/18/17 - Constitutional no acute distress - Routine HEENT Exam Eye: Present: PERRL - Routine Neck Exam Present: supple - Routine Abdominal Exam Present: soft, normoactive bowel sounds. Absent: tenderness, distended, rebound , guarding - Routine Extremities Exam Absent: edema Results - Labs CBC & Chem 7: 12/20/17 04:55 12/20/17 04:55 Laboratory Results - last 24 hr 12/18/17 12/19/17 12/19/17 21:20 12:08 13:40 WBC RBC Hgb 8.2 L D Hct 25.0 L MCV MCH MCHC RDW Plt Count MPV Neut % (Auto) Lymph % (Auto) [place] % (Auto) Eos % (Auto) Baso % (Auto) Neut # (Auto) Lymph # (Auto) [place] # (Auto) Eos # (Auto) Baso # (Auto) WBC Differential Differential Comment Sodium Potassium Chloride Carbon Dioxide Anion Gap BUN Creatinine Estimated GFR POC Glucose 113 H Random Glucose Calcium Magnesium MTS Gel Crossmatch See Detail 12/19/17 12/19/17 12/19/17 13:40 16:56 19:54 WBC RBC Hgb Hct MCV MCH MCHC RDW Plt Count MPV Neut % (Auto) Lymph % (Auto) [place] % (Auto) Eos % (Auto) Baso % (Auto) Neut # (Auto) Lymph # (Auto) [place] # (Auto) Eos # (Auto) Baso # (Auto) WBC Differential Differential Comment Sodium 141 Potassium 4.6 Chloride 111 H Carbon Dioxide 24.2 Anion Gap 6 BUN 40 H Creatinine 1.83 H Estimated GFR 43 L POC Glucose 102 137 H Random Glucose 99 Calcium 9.8 Magnesium 2.1 MTS Gel Crossmatch 12/20/17 12/20/17 12/20/17 04:55 04:55 07:55 WBC 6.1 RBC 3.02 L Hgb 8.0 L Hct 24.4 L MCV 80.9 D MCH 26.5 L MCHC 32.7 RDW 20.9 H D Plt Count 281 MPV 7.5 Neut % (Auto) 70.0 Lymph % (Auto) 15.2 [place] % (Auto) 11.4 H Eos % (Auto) 2.8 Baso % (Auto) 0.6 Neut # (Auto) 4.3 Lymph # (Auto) 0.9 L [place] # (Auto) 0.7 Eos # (Auto) 0.2 Baso # (Auto) 0.0 WBC Differential . Differential Comment Auto diff final Sodium 140 Potassium 4.4 Chloride 108 H Carbon Dioxide 23.7 Anion Gap 8 BUN 38 H Creatinine 1.77 H Estimated GFR 45 L POC Glucose 107 Random Glucose 93 Calcium 9.5 Magnesium MTS Gel Crossmatch - Procedures none Assessment and Plan - Attending Attestation IMPRESSION : 1. Anemia (he had past heme positive stool test. I did not repeat this at this time). I suspect this anemia is related to arteriovenous malformations in the small intestine. 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 3. Colonic diverticulosis. 4. History of adenomatous colon polyps. RECOMMENDATIONS: 1. Patient wants to go home since he is feeling better. 2. Follow-up with Dr. Kitchen as an outpatient
[2017-12-20] MEDS ORDERED: [UNRECOGNIZED DRUG - OTHER] RIGHT EYE SCH (09:00)
[2017-12-20] MEDS ORDERED: DUREZOL OPTH RIGHT EYE SCH (09:00)
[2017-12-20] MEDS: Spironolactone 25 MG Tablet PO SCH ×2 (09:29→13:00)
[2017-12-20 09:30] VITALS: O2SAT 99
--- NOTE | 2017-12-20 09:32 | MB ---
cc: Ary Boyer MD DATE: 12/19/2017 CHIEF COMPLAINT: 1. Anemia. 2. Iron deficiency. 3. GI bleed. HISTORY OF PRESENT ILLNESS: Mr. Brown is an 82-year-old gentleman with a history of hypertension, hyperlipidemia, coronary artery disease, hyperthyroidism, prostate cancer, diabetes mellitus, multiple GI bleeds requiring transfusion, who presented to our emergency room on 12/18/2017 with progressively worsening dyspnea on exertion and lightheadedness. He has followed with Dr. Kitchen and has undergone colonoscopy and EGD, which was most recently done in April of this year. Capsule endoscopy in the past has revealed mid small bowel AVMs. The patient has been seen by the GI team. PAST MEDICAL HISTORY: Cataracts, hypertension, hypothyroidism, prostate cancer, anemia, heart disease, diabetes. PAST SURGICAL HISTORY: Prostate surgery, thyroid surgery. FAMILY HISTORY: Brother with a history of malignancy. SOCIAL HISTORY: The patient is a former smoker. He has a good support system in this area. ROS as above in HPI all others negative HOSPITAL MEDICATIONS: Include hydrocodone, Tylenol, atorvastatin, Bumex, Coreg, doxazosin, famotidine, ferrous sulfate, Lasix, gabapentin, insulin, Protonix, Zofran, sucralfate, Aldactone. PHYSICAL EXAMINATION: GENERAL: Overweight man in no distress, resting comfortably in bed. HEENT: Normocephalic, atraumatic. Eyes: No scleral icterus. LUNGS: No respiratory distress. Clear to auscultation. CARDIOVASCULAR: Regular rate and rhythm. No murmurs. ABDOMEN: Protuberant, soft, nontender, nondistended. EXTREMITIES: No edema. NEUROLOGIC: Grossly nonfocal. PSYCHIATRIC: Appropriate mood and affect. LABORATORY STUDIES: White blood cell count is 6.4, hemoglobin 4.9, and then after transfusion, went up to 8; platelet count 298,000. Chemistry studies: Total bilirubin is 0.1, AST is low at 8, ALT is normal at 12. Creatinine 1.83. ASSESSMENT AND PLAN: Anemia, suspected iron deficiency due to chronic slow gastrointestinal bleed from small bowel arteriovenous malformations. Long discussion with the patient. He reports that he has been to see Dr. Grullon, and has had consideration of IV iron. He reports that he is not interested in IV iron or further anemia workup at this time. He reports that he will consider reestablishing with Dr. Grullon in the outpatient setting. MD JORY Hughes/lilli , 07:08 AM , 07:15 AM GOPAL
[2017-12-20 11:00] VITALS: PULSE 52
[2017-12-20 12:35] VITALS: BP 113/53; RESP 19; TEMP 98.3
[2017-12-20] MEDS ORDERED: Doxazosin 1 MG Tablet PO SCH (21:00)
== END 2017-12-20 15:36 | disposition home or self-care (01) ==
LOC: NEDAMB 17:08 → NEDA 22:28 → N06 12-19 00:40
PROVIDERS: ADMIT Internal Medicine; ATTEND Internal Medicine